=== PATIENT | female | born 1955 | race Caucasian/White ===

== ENCOUNTER → 2018-01-12 10:15 | Outpatient (CLI) | payer BC, SELFPAY ==
[2018-01-12 13:09] LABS: Anion Gap 10 (5-15); BUN 19 mg/dL (7-18); BUN/Creat Ratio 24.3 RATIO (10-20); Calcium,Total 9.3 mg/dL (8.5-10.1); Chloride 100 mmol/L (98-107); Cholesterol 155 mg/dL (200); Creatinine, Serum 0.78 mg/dL (0.55-1.02); EST Glomerular Filtration Rate 80 mL/min (>60); Est Glom Filt Rate - Afr Amer 96 mL/min (>60); Glucose 95 mg/dL (74-106); High Density Lipoprotein 50 mg/dL; Potassium 3.9 mmol/L (3.5-5.1); Sodium Level 139 mmol/L (136-145); Triglycerides 146 mg/dL; Very Low Density Lipoprotein 29 mg/dL (5-40)
== END ==
PROVIDERS: Family Provider Family Medicine; PCP Family Medicine; Visit Provider Family Medicine
DX: Z00.00 Encounter for general adult medical examination without abnormal findings (principal); E03.9 Hypothyroidism, unspecified
CPT/HCPCS: 36415; 80048; 80061; 82306; 84443

== ENCOUNTER → 2018-08-27 14:37 | Outpatient (CLI) | payer BC, SELFPAY ==
[2015-12-25 13:24] VITALS: BMI 38.5
--- NOTE | 2018-08-27 14:44 | RAD_ITS ---
STUDY: X-RAY - LEFT FOOT CLINICAL: Female, 63 years old. Left foot pain. Palpable abnormality along the dorsal aspect of the foot. TECHNIQUE: 3 view(s) of the foot. COMPARISON: None. FINDINGS: There is an enthesophyte involving the posterior superior calcaneus at the site of insertion of the Achilles tendon. Plantar spur. Normal visualized subtalar, talonavicular, calcaneocuboid, tarsal and tarsometatarsal articulations. Normal metatarsi. There is degenerative arthrosis of the metatarsophalangeal joint of the hallux . Normal tibial and fibular sesamoid bones. Normal interphalangeal joint of the great toe. Normal phalanges of the great toe. Normal second through fifth metatarsophalangeal joints. Normal interphalangeal joints and phalanges of the lesser toes. The soft tissue structures are unremarkable. RAD/Foot min 3 Views IMPRESSION: Calcaneal spurs. Degenerative changes of the first metatarsophalangeal joint. Electronically Signed: Jovan Silveira, at 9:35 EDT , Service support ,
== END ==
PROVIDERS: Family Provider Family Medicine; PCP Family Medicine; Referring Provider Family Medicine; Visit Provider Family Medicine
DX: M79.672 Pain in left foot (principal)
CPT/HCPCS: 36415; 73630; 84550

== ENCOUNTER → 2018-09-28 13:37 | Outpatient (CLI) | payer BC, SELFPAY | PROVIDERS: Family Provider Family Medicine; PCP Family Medicine; Visit Provider Family Medicine | DX: R39.9 Unspecified symptoms and signs involving the genitourinary system (principal) | CPT/HCPCS: 87086; 87088 ==

== ENCOUNTER → 2019-02-10 14:09 | Outpatient (CLI) | payer BC, SELFPAY | PROVIDERS: Family Provider Family Medicine; PCP Family Medicine; Referring Provider Nurse Practitioner Family; Visit Provider Nurse Practitioner Family | DX: R30.0 Dysuria (principal) | CPT/HCPCS: 87086; 87088; 87186 ==

== ENCOUNTER → 2019-04-05 11:56 | Outpatient (CLI) | payer BC, SELFPAY ==
--- NOTE | 2019-04-05 11:59 | US_ITS ---
HISTORY: RT NECK MASS EXAMINATION: US Head/Neck Soft Tissue TECHNIQUE: Chicas scale and color doppler imaging was performed of the right neck. 31 images. No comparisons COMPARISON: None FINDINGS: No masses are perceived. No fluid collections are demonstrated. The area around the right clavicle was imaged. US/Head/Neck Soft Tissue IMPRESSION: Normal. at 2200 Reported and signed by: Kameron Aggarwal MD Electronically Signed: Kameron Aggarwal MD at 21:59 EST Tel , Service support ,
== END ==
PROVIDERS: Family Provider Family Medicine; PCP Family Medicine; Referring Provider Family Medicine; Visit Provider Family Medicine
DX: R22.1 Localized swelling, mass and lump, neck (principal)
CPT/HCPCS: 76536

== ENCOUNTER → 2019-06-28 11:45 | Outpatient (CLI) | payer BC, SELFPAY ==
[2015-12-25 13:24] VITALS: BMI 38.5
--- NOTE | 2019-06-28 11:50 | RAD_ITS ---
STUDY: X-RAY - RIGHT KNEE REASON FOR EXAM: Female, 64 years old. CHRONIC PAIN TECHNIQUE: 4 view(s) of the knee. COMPARISON: Prior study of 07/31/2015 FINDINGS: Normal visualized distal femur. Normal visualized proximal tibia and fibula. Normal proximal tibiofibular articulation. There is moderate degenerative arthrosis of the medial femorotibial compartment with moderate joint space narrowing. There is moderate degenerative arthrosis of the lateral femorotibial compartment with moderate joint space narrowing. There is moderate degenerative arthrosis of the patellofemoral articulation. The soft tissue structures are unremarkable. RAD/Knee 4 or More Views IMPRESSION: Moderately severe tricompartmental degenerative changes of the right knee. There is severe joint space narrowing of the medial knee compartment. Osseous findings appear similar to the previous study. No suprapatellar effusion is seen at this time. Electronically Signed: Barber Gurrola MD at 23:18 EST , Service support ,
== END ==
PROVIDERS: PCP Family Medicine; Referring Provider Family Medicine; Visit Provider Family Medicine
DX: M25.561 Pain in right knee (principal)
CPT/HCPCS: 73564

== ENCOUNTER → 2019-07-05 10:13 | Outpatient (CLI) | payer BC, SELFPAY ==
[2019-07-05 08:22] VITALS: BMI 38.5
[2019-07-05 12:15] LABS: Erythrocyte Sedimentation Rate 5 mm/hr (0-30)
[2019-07-05 12:27] LABS: CRP < 2.90 mg/L (0.0-3.0); Rheumatoid Factor < 10.0 IU/mL (<15)
[2019-07-07 14:02] LABS: CCP IgG Antibodies 8 units (0-19)
[2019-07-07 14:04] LABS: ANTINUCLEAR ANTIBODIES DIRECT Positive (Negative)
== END ==
PROVIDERS: PCP Family Medicine; Referring Provider Orthopaedic Surgery; Visit Provider Orthopaedic Surgery
DX: M17.11 Unilateral primary osteoarthritis, right knee (principal); Z82.61 Family history of arthritis
CPT/HCPCS: 36415; 85652; 86038; 86140; 86200; 86431

== ENCOUNTER → 2019-07-09 10:30 | Outpatient (CLI) | payer BC, SELFPAY ==
[2019-07-05 08:22] VITALS: BMI 38.5
[2019-07-09 12:43] LABS: Absolute Lymphocyte Count 1.68 X10^3/uL (0.83-4.51); Absolute Neutrophil Count 3.3 X10^3/uL (2.0-7.7); Basophil# 0.03 X10^3/uL; Basophil% 0.5 % (0-1); Eosinophils% 3.5 % (0-5); Hematocrit 38.4 % (37-47); Hemoglobin 12.5 g/dL (12.0-15.0); Lymphocyte # 1.68 X10^3/ul (4.0); Lymphocyte % 29.5 % (19-41); Mean Corp Hgb Conc 32.6 g/dL (32-36); Mean Corpuscular Hgb 28.9 pg (27.0-32.0); Mean Corpuscular Volume 88.7 fL (81-99); Mean Platelet Vol. 9.5 fl (6.2-12.0); Monocyte# 0.51 X10^3/uL; NRBC Flagged by Analyzer 0 % (0-5); Neutrophil # 3.26 X10^3/uL (2.7-7.7); Neutrophil % 57.3 % (47-70); Platelet Count 259 K/mm3 (150-450); RBC Distribution Width CV 13.4 % (11.6-14.6); RBC Distribution Width SD 43.8 fl (35.1-43.9); Red Blood Count 4.33 M/mm3 (4.2-5.4); White Blood Count 5.7 K/mm3 (4.4-11.0)
[2019-07-09 13:20] LABS: ALB/GLOB Ratio 1.1 RATIO (0.9-2.4); AST(SGOT) 19 U/L (15-37); Alanine Aminotransfer ALT/SGPT 42 U/L (13-56); Albumin, Serum 4.1 g/dL (3.2-5.0); Alkaline Phosphatase 139 U/L (45-117); Anion Gap 5 (5-15); BUN 15 mg/dL (7-18); BUN/Creat Ratio 19.1 RATIO (10-20); Calcium,Total 9.4 mg/dL (8.5-10.1); Chloride 104 mmol/L (98-107); Creatinine, Serum 0.78 mg/dL (0.55-1.02); EST Glomerular Filtration Rate 79 mL/min (>60); Est Glom Filt Rate - Afr Amer 95 mL/min (>60); Globulin 3.8 g/dL (2.2-4.2); Glucose 85 mg/dL (74-106); Potassium 3.3 mmol/L (3.5-5.1); Protein, Total 7.9 g/dL (6.4-8.2); Sodium Level 139 mmol/L (136-145)
== END ==
PROVIDERS: PCP Family Medicine; Referring Provider Family Medicine; Visit Provider Family Medicine
DX: Z01.818 Encounter for other preprocedural examination (principal)
CPT/HCPCS: 36415; 80053; 85025

== ENCOUNTER → 2019-07-15 07:54 | Outpatient (CLI) | payer BC, SELFPAY ==
[2019-07-05 08:22] VITALS: BMI 38.5
[2019-07-13 10:26] VITALS: BMI 38.2
--- NOTE | 2019-07-15 07:55 | CT_ITS ---
STUDY: CT RIGHT KNEE WITHOUT CONTRAST REASON FOR EXAM: Female, 64 years old. RT KNEE PAIN, [facility] PROTOCOL RADIATION DOSAGE (If Supplied By Facility): CTDIvol = ( 39.05 ) mGy, DLP = ( 3063.26 ) mGycm TECHNIQUE: Transaxial CT imaging of the knee was performed. Coronal and sagittal images were reformatted. Individualized dose optimization techniques were used for this CT. COMPARISON: Comparison is made with prior radiograph of the right knee dated June 28, 2019. FINDINGS: Imaging of the right lower extremity was obtained for the [facility] protocol. The right hip joint is unremarkable. Degenerative spurring along the medial femoral condyle as well as the medial aspect of the tibial plateau. Degenerative spurring along the lateral femoral condyle and lateral tibial plateau. There is a 9 mm cyst in the medial portion of the lateral femoral condyle adjacent to the intercondylar notch. Marked degree of joint space narrowing involving the medial compartment of the knee joint. Moderate degree of osteoarthritis in joint space narrowing involving the femoral patellar joint. Normal proximal tibiofibular articulation. There is no joint effusion. The quadriceps tendon is grossly normal. The patellar tendon is grossly normal. Normal Hoffa''s fat pad. Small joint effusion. CT/Extremity Lower without Contra IMPRESSION: Marked degree of joint space narrowing involving the medial compartment of the knee joint as well as a moderate degree of the joint space narrowing involving the patellofemoral joint. Electronically Signed: Jovan Silveira, at 9:17 EST , Service support ,
[2019-07-15 18:05] LABS: Anion Gap 8 (5-15); BUN 15 mg/dL (7-18); BUN/Creat Ratio 16.4 RATIO (10-20); Calcium,Total 9.5 mg/dL (8.5-10.1); Chloride 104 mmol/L (98-107); Creatinine, Serum 0.92 mg/dL (0.55-1.02); EST Glomerular Filtration Rate 66 mL/min (>60); Est Glom Filt Rate - Afr Amer 80 mL/min (>60); Glucose 100 mg/dL (74-106); Potassium 4.4 mmol/L (3.5-5.1); Sodium Level 139 mmol/L (136-145)
== END ==
PROVIDERS: PCP Family Medicine; Referring Provider Orthopaedic Surgery; Visit Provider Orthopaedic Surgery
DX: M17.11 Unilateral primary osteoarthritis, right knee (principal); E87.6 Hypokalemia
CPT/HCPCS: 36415; 73700; 80048

== ENCOUNTER 2019-08-10 11:59 | Observation (INO) | payer BC, SELFPAY ==
[2019-07-05 08:22] VITALS: BMI 38.5
[2019-07-13 10:26] VITALS: BP 144/82; PULSE 77; RESP 16; TEMP 36.4; O2SAT 96; BMI 38.2
[2019-07-13 11:37] LABS: Thyroid Stim Hormone (TSH) 1.88 uIU/mL (0.358-3.74)
[2019-08-06 10:54] VITALS: BMI 38.2
[2019-08-10] VITALS (14 sets, daily range): BP systolic 90–137; BP diastolic 45–78; PULSE 53–93; RESP 16; TEMP 36.2–37.1; O2SAT 92–100; BMI 38.2
[2019-08-10] MEDS: Celecoxib 200 MG Capsule 400 MG PO (05:57)
[2019-08-10] MEDS: Acetaminophen 500 MG Tablet 1000 MG PO ×3 (05:58→21:53)
[2019-08-10] MEDS: Gabapentin 600 MG Tablet PO (05:58)
[2019-08-10] MEDS: Lactated Ringers 1,000 ML 100 ML IV (06:05)
[2019-08-10 06:40] LABS: Bedside Glucose 98 mg/dL (70-110)
[2019-08-10 06:51] LABS: Magnesium 2.1 mg/dL (1.6-2.6)
--- NOTE | 2019-08-10 06:56 | SUR.PREOP ---
no mag to be given per anesthesia.
[2019-08-10] MEDS: Scopolamine 1mg/72hr Patch 1 PATCH TRANSDERM. (07:30)
[2019-08-10] MEDS: Lactated Ringers 1,000 ML 125 ML IV ×3 (07:30→22:31)
--- NOTE | 2019-08-10 07:33 | HP.PCM_ITS ---
History and Physical Date of Admission: 08/10/19 Intake Vital Signs 08/06/19 BMI 38.2 Intake Visit Reasons: right knee Chief Complaint: LEFT KNEE REPLACEMENT Allergies adhesive Adverse Reaction (Verified 07/13/19 10:10) Rash sulfamethoxazole [From Bactrim] Adverse Reaction (Verified 07/13/19 10:10) Nausea/Vom/Diarrhea trimethoprim [From Bactrim] Adverse Reaction (Verified 07/13/19 10:10) Nausea/Vom/Diarrhea PFSH Medical History (Updated 07/05/19 @ 08:26 by Nuha Tang) Hypertension (Chronic) Social History (Updated 08/06/19 @ 10:[address] Sreekanth Banks DO) Smoking Status: Never smoker HPI right knee: Details: Parts of this documentation were recorded by a scribe, this documentation accurately reflects the service provided and the decisions made by me, Sreekanth Banks DO 08/06/19 0749. GWEN ROCKWELL is a 64 year old F here today for follow-up right knee she does wish to proceed with total knee arthroplasty she was told by her insurance she would not be approved for the Iovera she wishes to sign consent today. Ortho Exam Right Knee Skin/Wound: Yes CDI, No erythema, No ecchymosis, No swelling Knee ROM: Yes ROM-Extension -20 to 0, Yes ROM-Flexion 0-140 (115) Examination: Yes Med jt line tenderness, Yes Crepitus, Yes TTP Pes Anserine Stability: NML: Anterior Drawer, NML: Posterior Drawer, NML: Valgus 30, NML: Varus 30 Apprehension with Lateral Translation: No Patella Grind: No KNEE: no patellar instability. Supplemental Info 06/28/2019 x-ray right knee: Severe tricompartmental DJD joint space narrowing subchondral sclerosis and large spurs varus deformity Assessment & Plan Problems 1. Primary osteoarthritis of right knee M17.11 Plan Patient signed consent today for right total knee arthroplasty with robotic assistance. She was informed by her insurance I will vera not approved. Risks, benefits and alternatives of surgery reviewed including but not limited to bleeding, infection, nerve, artery and/or tissue damage, fracture, VTE, mechanical feel of the knee, continued pain, stiffness and expected post- operative course. All questions answered. Coding Level of Care Code Off vis,est,level 3 Diagnoses Primary osteoarthritis of right knee M17.11 ??Osteoarthritis type: primary I have re-examined the patient. There are no clinical changes since date of exam
[2019-08-10] MEDS: dexAMETHasone 10 MG/ML Vial IV (07:50)
[2019-08-10] MEDS: Bupivacaine 0.5% PF 10 ML VIAL (09:20)
[2019-08-10] MEDS: 0.9% Normal Saline (Pres. free 10 ML Vial (09:20)
[2019-08-10] MEDS: Betamethasone/Betamethasone 30 MG/5 ML Vial (09:20)
[2019-08-10] MEDS: Epinephrine (1 mg/ml) 1 MG/ML VIAL (09:20)
--- NOTE | 2019-08-10 09:42 | RAD_ITS ---
STUDY: X-RAY - RIGHT KNEE REASON FOR EXAM: Female, 64 years old. POST-OP IN PACU TECHNIQUE: AP and lateral view(s) of the knee. COMPARISON: Comparison is made with prior examination dated June 28, 2019. FINDINGS: Normal visualized distal femur. Normal visualized proximal tibia and fibula. Normal proximal tibiofibular articulation. The patient is status post total knee replacement. There is good alignment. Postoperative soft tissue changes. RAD/Knee 1 or 2 Views IMPRESSION: Status post total knee replacement. There is good alignment. Postoperative soft tissue changes. Electronically Signed: Jovan Silveira, at 12:51 EDT , Service support ,
--- NOTE | 2019-08-10 09:48 | PCM.OPRPT ---
Report of Operation Date of Procedure: 08/10/19 Description of Surgical Findings:: Preoperative diagnosis: Right knee DJD Postoperative diagnosis: [Same] Procedure: Right total knee arthroplasty CT guided Robotic Assisted Implant: [place] triathlon [press fit] femoral component size[ 4], [press-fit ]tibial baseplate size [4], [press fit ][asymmetric] patella size 35, polyethylene X3 size [9] [CS] Anesthesia: Spinal with adductor canal block Tourniquet time: 0 minutes at 300 mmHg Complications: None Condition: Stable to PACU Estimated blood loss: 150 cc Indication for procedure: This is a 64-year-old female with long standing degenerative joint disease of the knee who has failed conservative treatment and wished to proceed with elective total knee arthroplasty. Risk benefits and alternatives were reviewed including; risk of bleeding, infection, nerve artery and tissue damage, continued pain, postoperative stiffness, venous thromboembolism, need for postoperative rehabilitation, mechanical feel to the knee, and expected postoperative course. The operative CT and templating was performed with component sizing Procedure: The patient was met in the preoperative holding area. The operative extremity was identified by both patient and physician and was marked. Patient was met by anesthesia. An adductor canal block was placed by anesthesia [postoperatively] the patient was brought back to the operating room on a wheeled cart and transferred to the operating table in the supine position. Anesthesia was started. A well-padded tourniquet was placed on the operative extremity. The patient was prepped and draped in the usual sterile fashion. A timeout was called to ensure the proper patient procedure and extremity were being contemplated. An Esmarch was used to exsanguinate the extremity. The tourniquet was inflated. A 10 blade scalpel was used to make a midline incision down through the skin and subcutaneous tissue. Skin retractors placed. Bovie was used to perform meticulous hemostasis. full-thickness flaps were elevated medial and lateral along the joint capsule. A deep blade scalpel was used to perform a medial parapatellar arthrotomy. The knee was brought to full extension. A Bovie was used to release the soft tissues off the most proximal aspect of the medial tibial plateau a three-quarter inch curved osteotome was also used for this process. The infrapatellar fat pad was excised. [The fat pad was excised partially anterior lateral portion the anterior medial was elevated from the femur]. At this point our intra-articular femoral array was placed of a 45 degree angle proximal and posterior to the medial epicondyle. Our tibial array was placed greater than 1 hands breath below the incision at a 20 degree angle stab incisions were used for this case were attached and checked with the robotic software. At this point registration denis were taken throughout the knee as well as checkpoints placed in the femur and tibia once the knee was registered then tensioned the medial and lateral ligaments in extension and 90 degrees of flexion. We then used these numbers to adjust our components within parameters to balance the knee in both flexion and extension once this was done on our monitor we then proceeded with using the robotic arm to make our tibial plateau cut and anterior posterior and chamfer cuts on the femur we then trialed and achieved the desired plan with a well-balanced knee. Lug holes were drilled in the femur the tibia preparation was completed with a fin punch and the patella was prepared by first using a caliper to ensure sufficient bone stock and a patellar reamer to remove the desired amount of bone locals were drilled for an asymmetric poly-. We then brought the knee through range of motion with excellent patellar tracking. We thoroughly irrigated the knee with a trial components were removed a posterior capsular injection with her standard cocktail was performed the aqua Sarah Beth was also used to aid in hemostasis. Betadine rinse was allowed to sit and washed out components were press-fit into place. Aricept rinse was then used followed by several more rate liters of irrigation after it was allowed to sit. Joint capsule was closed with #1 Ethibond [id number] followed by Vicryl in the subcutaneous tissues staple in the skin arrays and checkpoints were removed prior to closure all counts were correct stab incisions were closed with a stable standard dressing in the form of Mepilex for the main incision Xeroform 4 x 4 and Tegaderm over pin site holes web roll and Rickey wrap applied from the foot to the groin. Patient tolerated the procedure well she was directed to PACU in stable condition no intraoperative complications
[2019-08-10] MEDS: oxyCODONE 5 MG Tablet PO ×2 (13:30→20:15)
[2019-08-10] MEDS: Loratadine 10 MG Tablet PO (13:31)
[2019-08-10] MEDS: Senna/Docusate Sodium 1 Tablet 2 TABLET PO ×2 (13:32→21:53)
[2019-08-10] MEDS: hydroCHLOROthiazide 25 MG Tablet PO (13:32)
[2019-08-10] MEDS: Cefazolin 1 GM/50 ML BAG IV (18:22)
[2019-08-10] MEDS: Losartan Potassium 100 MG Tablet PO (21:53)
[2019-08-10] MEDS: Sertraline 50 MG Tablet PO (21:53)
[2019-08-10] MEDS: amLODIPine 5 MG Tablet PO (21:53)
[2019-08-11] MEDS: Cefazolin 1 GM/50 ML BAG IV (02:51)
[2019-08-11 03:59] VITALS: BP 116/58; PULSE 64; RESP 16; TEMP 36.7; O2SAT 94
[2019-08-11] MEDS: 0.9% Saline Lock 10 ML Syringe IV (05:21)
[2019-08-11] MEDS: Acetaminophen 500 MG Tablet 1000 MG PO ×2 (05:21→13:18)
[2019-08-11] MEDS: Levothyroxine 75 MCG Tablet PO (05:21)
--- NOTE | 2019-08-11 06:34 | DCINST_ITS ---
Discharge Diet: No Restrictions Call your doctor if you observe: Fever of 101 or Higher, Shortness of breath, Chest pain Additional Instructions: Ice and elevate next week while not ambulating. Encourage ambulation weightbearing as tolerated. Encourage FULL knee extension and flexion 1 time EVERY time you get up and down and MULTIPLE times per day. Begin showering postop day #3. Remove the dressing prior to shower gently wash with warm water and antibacterial soap then pat dry place ABD pad and PILLO hose over top. This is to be done daily. do not submerge for 3 weeks. If not showering daily must clean incision and change dressing daily. Do not allow animals near incision keep clean. Follow anticoagulation recommendations. Start physical therapy as directed in the hospital. call Dr. Banks with any concerns. Allergies/Adverse Reactions: Allergies adhesive Adverse Reaction (Verified 08/10/19 05:50) Rash sulfamethoxazole [From Bactrim] Adverse Reaction (Verified 08/10/19 05:50) Nausea/Vom/Diarrhea trimethoprim [From Bactrim] Adverse Reaction (Verified 08/10/19 05:50) Nausea/Vom/Diarrhea Medications to take at Discharge Calcium Carb/Vitamin D [Caltrate-600 With Vit D Tab] 1 tab PO DAILY@0800 04/15/13 Hydrochlorothiazide [Hctz] 25 mg PO DAILY 04/15/13 Levothyroxine [Synthroid] 75 mcg PO DAILY 04/15/13 Amlodipine [Norvasc] 5 mg PO QHS 01/24/14 Cholecalciferol (VIT D3) [Vitamin D3] 1,000 unit PO DAILY 12/14/15 Magnesium 250 mg PO DAILY 12/14/15 diclofenac sodium 75 mg tablet,delayed release 75 mg PO BID 07/05/19 Albuterol IH (ProAir) [Proair Hfa] 1 - 2 puff INHALATION Q6H PRN PRN 07/13/19 Esomeprazole Mag Trihydrate [Nexium] 20 mg PO DAILY 07/13/19 Fexofenadine HCl [Stefany Allergy] 180 mg PO DAILY 07/13/19 Irbesartan [Avapro] 300 mg PO QHS 07/13/19 Potassium Chloride [Klor-Con M20] 20 meq PO BID 07/13/19 Sertraline HCl [Zoloft] 50 mg PO QHS 07/13/19 Acetaminophen [Tylenol] 1,000 mg PO Q8 #100 tab 08/11/19 Apixaban [Eliquis] 2.5 mg PO BID #28 tab 08/11/19 Oxycodone [Oxyir] 5 - 10 mg PO Q4H PRN PRN #60 tablet 08/11/19 The following prescriptions were given: Apixaban [Eliquis] 2.5 mg PO BID #28 tab Transmission Status: Pending to [facility] Oxycodone [Oxyir] 5 - 10 mg PO Q4H PRN PRN #60 tablet PRN Reason: Pain Score 4-10/10 Transmission Status: Sent to [facility] Acetaminophen [Tylenol] 1,000 mg PO Q8 #100 tab Transmission Status: Pending to [facility] Primary Care Physician: Robert Najera MD [Primary Care Provider] - Test Results: Test results from this visit will be discussed in further detail at your follow- up appointment, if applicable. Please Follow Up With: Sreekanth Banks DO - 2 weeks
--- NOTE | 2019-08-11 06:36 | DS.PCM_ITS ---
Discharge Date and Diagnosis Date of Admission: 08/10/19 Date of Discharge: 08/11/19 - Secondary Discharge Diagnosis Chronic Problems (Last Updated 07/05/19 @ 08:26 by Nuha Tang) Family history of skin cancer (Chronic) Personal history of skin cancer (Chronic) Carpal tunnel syndrome of left wrist (Chronic) Hospital Course and Treatment Summary of Care Provided: The patient is a 64 year old F the patient has with long-standing history of knee DJD and has failed conservative treatment. Patient wished to undergo elective robotic assisted total knee arthroplasty and underwent the aforementioned procedure on the admission date without complications. patient did receive pre-and postoperative antibiotics which were discontinued within 23 hours postoperatively. patient did receive a spinal anesthesia and a adductor canal block and the pain was controlled postoperatively with p.o. and IV pain medication. There was minimal intraoperative blood loss he did receive 2 g of tranexamic acid and his vital signs and labs were stable postoperatively and patient did not require a blood transfusion. patient was seen by physical therapy and did progress with his ambulation. Postoperatively was started on both mechanical and chemical DVT prophylaxis for which patient will continue Eliquis 2.5 mg twice daily for 2 additional weeks post hospital discharge. Patient Rickey wrap was removed in the morning of postop day 1 without any concerning signs. Silverlon dressing will stay on for 72 hours postoperatively at which time patient will begin showering on postop day #3 with daily dressing changes. Encouraged patient to achieve full range of motion as soon as possible, Patient will start outpatient physical therapy and will follow-up in the office in 2 weeks for wound check. There is no intrahospital complications . Subjective: Awake alert no acute distress denies chest pain shortness of breath fevers chills nausea vomiting pain controlled ambulating with physical therapy well - Physical Exam Vitals/I&O's: Vital Signs Temp Pulse Resp BP Pulse Ox 98.1 F 64 16 116/58 L 94 08/11/19 03:59 08/11/19 03:59 08/11/19 03:59 08/11/19 03:59 08/11/19 03:59 Oxygen Flow Rate (L/min) 6 Oxygen Delivery Method CPAP Weight: 236 lb 15.951 oz Body Mass Index (BMI) 38.2 Intake and Output for Last 24 Hours 08/09/19 08/10/19 08/11/19 23:59 23:59 23:59 Intake Total 3147.5 / 3647.5 1410.42 / 1410.42 Balance 3147.5 / 3647.5 1410.42 / 1410.42 General: Alert, Oriented x3, Cooperative, No apparent distress Extremities: - - Dressing clean dry and intact neurovascular intact compartments soft Laboratory Results 08/10/19 05:48: POC Glucose 98 08/10/19 06:11: Magnesium 2.1 Current Medications Acetaminophen (Tylenol) 1,000 mg PO Q8 [facility] Last Admin: 08/11/19 05:21 Dose: 1,000 mg Documented by: Albuterol Sulfate (Ventolin Aerosols) 2.5 mg INHALATION Q4H PRN PRN Reason: SOB &/OR WHEEZING Amlodipine Besylate (Norvasc) 5 mg PO QHS [facility] Last Admin: 08/10/19 21:53 Dose: 5 mg Documented by: Apixaban (Eliquis) 2.5 mg PO BID [facility] Hydrochlorothiazide (Hctz) 25 mg PO DAILY [facility] Last Admin: 08/10/19 13:32 Dose: 25 mg Documented by: Hydromorphone HCl (Dilaudid Inj) 0.5 mg IV Q2H PRN PRN PRN Reason: Pain Score 6-10/10 Lactated Ringer's () 1,000 mls @ 125 mls/hr IV .Q8H [facility] Last Admin: 08/11/19 01:17 Dose: Not Given Documented by: Lactated Ringer's () 1,000 mls @ 125 mls/hr IV .Q8H [facility] Last Infusion: 08/11/19 05:24 Dose: 0 mls/hr Documented by: Insulin Human Lispro (Humalog Kwikpen (Bk)) 1 - 6 unit SC Q4H PRN PRN; Protocol PRN Reason: BG>/= 180, SEE PROTOCOL Ketorolac Tromethamine (Toradol (Bk)) 15 mg IV Q6H PRN PRN PRN Reason: Pain Score 1-5/10 Stop: 08/12/19 09:43 Levothyroxine Sodium (Synthroid) 75 mcg PO DAILY@0600 [facility] Last Admin: 08/11/19 05:21 Dose: 75 mcg Documented by: Loratadine (Claritin) 10 mg PO DAILY [facility] Last Admin: 08/10/19 13:31 Dose: 10 mg Documented by: Losartan Potassium (Cozaar) 100 mg PO QHS [facility] Last Admin: 08/10/19 21:53 Dose: 100 mg Documented by: Ondansetron HCl (Zofran) 4 mg IV Q6H PRN PRN PRN Reason: NAUSEA Oxycodone HCl (Oxyir) 5 - 10 mg PO Q4H PRN PRN PRN Reason: Pain Score 4-10/10 Last Admin: 08/10/19 20:15 Dose: 10 mg Documented by: Pantoprazole Sodium (Protonix) 20 mg PO DAILY [facility] Senna/Docusate Sodium (Senokot-S, Brittani-Colace) 2 tablet PO BID [facility] Last Admin: 08/10/19 21:53 Dose: 2 tablet Documented by: Sertraline HCl (Zoloft) 50 mg PO QHS [facility] Last Admin: 08/10/19 21:53 Dose: 50 mg Documented by: Sodium Chloride () 10 - 40 ml IV UD PRN PRN Reason: SALINE FLUSH Last Admin: 08/11/19 05:21 Dose: 10 ml Documented by: Discharge Diet: No Restrictions Call your doctor if you observe: Fever of 101 or Higher, Shortness of breath, Chest pain Home Medications: Medications to take at Discharge Calcium Carb/Vitamin D [Caltrate-600 With Vit D Tab] 1 tab PO DAILY@0800 04/15/13 Hydrochlorothiazide [Hctz] 25 mg PO DAILY 04/15/13 Levothyroxine [Synthroid] 75 mcg PO DAILY 04/15/13 Amlodipine [Norvasc] 5 mg PO QHS 01/24/14 Cholecalciferol (VIT D3) [Vitamin D3] 1,000 unit PO DAILY 12/14/15 Magnesium 250 mg PO DAILY 12/14/15 diclofenac sodium 75 mg tablet,delayed release 75 mg PO BID 07/05/19 Albuterol IH (ProAir) [Proair Hfa] 1 - 2 puff INHALATION Q6H PRN PRN 07/13/19 Esomeprazole Mag Trihydrate [Nexium] 20 mg PO DAILY 07/13/19 Fexofenadine HCl [Stefany Allergy] 180 mg PO DAILY 07/13/19 Irbesartan [Avapro] 300 mg PO QHS 07/13/19 Potassium Chloride [Klor-Con M20] 20 meq PO BID 07/13/19 Sertraline HCl [Zoloft] 50 mg PO QHS 07/13/19 Acetaminophen [Tylenol] 1,000 mg PO Q8 #100 tab 08/11/19 Apixaban [Eliquis] 2.5 mg PO BID #28 tab 08/11/19 Oxycodone [Oxyir] 5 - 10 mg PO Q4H PRN PRN #60 tablet 08/11/19 Following Prescrptions Were Given to Patient: Apixaban [Eliquis] 2.5 mg PO BID #28 tab Transmission Status: Pending to [facility] Oxycodone [Oxyir] 5 - 10 mg PO Q4H PRN PRN #60 tablet PRN Reason: Pain Score 4-1010 Transmission Status: Sent to [facility] Acetaminophen [Tylenol] 1,000 mg PO Q8 #100 tab Transmission Status: Pending to [facility] Primary Care Physician: Robert Najera MD [Primary Care Provider] - Please Follow Up With: Sreekanth Banks, - 2 weeks Additional Instructions: Ice and elevate next week while not ambulating. Encourage ambulation weightbearing as tolerated. Encourage FULL knee extension and flexion 1 time EVERY time you get up and down and MULTIPLE times per day. Begin showering postop day #3. Remove the dressing prior to shower gently wash with warm water and antibacterial soap then pat dry place ABD pad and PILLO hose over top. This is to be done daily. do not submerge for 3 weeks. If not showering daily must clean incision and change dressing daily. Do not allow animals near incision keep clean. Follow anticoagulation recommendations. Start physical therapy as directed in the hospital. call Dr. Banks with any concerns. Medical Necessity - Tobacco Use Smoking Status: Never smoker Tobacco Use: Non-smoker Meaningful Use Info Meaningful Use Diagnoses (Choose all that apply): None applicable
[2019-08-11] MEDS: APIXABAN 2.5 MG TABLET PO (06:51)
[2019-08-11 06:54] LABS: Hematocrit 28.7 % (37-47); Hemoglobin 9.4 g/dL (12.0-15.0); Mean Corp Hgb Conc 32.8 g/dL (32-36); Mean Corpuscular Hgb 28.9 pg (27.0-32.0); Mean Corpuscular Volume 88.3 fL (81-99); Mean Platelet Vol. 9.6 fl (6.2-12.0); Platelet Count 220 K/mm3 (150-450); RBC Distribution Width SD 45.1 fl (35.1-43.9); Red Blood Count 3.25 M/mm3 (4.2-5.4); White Blood Count 10.4 K/mm3 (4.4-11.0)
[2019-08-11] MEDS: oxyCODONE 5 MG Tablet PO ×2 (06:58→13:18)
[2019-08-11 07:12] LABS: Anion Gap 6 (5-15); BUN 12 mg/dL (7-18); BUN/Creat Ratio 18.5 RATIO (10-20); Calcium,Total 8.9 mg/dL (8.5-10.1); Chloride 104 mmol/L (98-107); Creatinine, Serum 0.65 mg/dL (0.55-1.02); EST Glomerular Filtration Rate 98 mL/min (>60); Est Glom Filt Rate - Afr Amer 119 mL/min (>60); Estimated Creatinine Clearance 84.01 ml/min; Glucose 106 mg/dL (74-106); Potassium 3.8 mmol/L (3.5-5.1); Sodium Level 138 mmol/L (136-145)
[2019-08-11 08:55] VITALS: BP 115/59; PULSE 62; PULSE 76; RESP 18; TEMP 36.8; O2SAT 98
--- NOTE | 2019-08-11 09:50 | CASEMGMT ---
RN CM Face to Face with patient for initial transition planning/care coordination assessment. RN CM introduced self and role at [facility]. Patient sitting in chair, alert and oriented. Patient willing to participate in assessment and is able to answer all questions appropriately. Care providers, pharmacy, and demographics verified. Patient wishes to discharge home and is setup with [facility] for outpatient therapy. Patient states he has no further needs or concerns at this time. CM to follow for discharge planning needs that may arise. PCP: Specialists: Reinaldo Huggins Pharmacy: [facility] Insurance: [employer] Prescription Benefit: yes Living Will/HPOA: yes, daughter Ayana Cabrera LNOK: daughter, sister Living Arrangements: Patient lives with sister in single floor apartment with 1 step to enter. Patient independent at home prior to surgery Transportation: sister, boyfriend DME/HHC: Patient states she has tub bench, raised toilet, cane, walker, hip kit, cpap and nebulizer at home. Patient is setup with [facility] for outpatient therapy for Friday Disposition Plan: Patient to discharge home with outpatient therapy, family support, and follow-up plans in place. Ila ALASN, RN, CM
[2019-08-11] MEDS: Loratadine 10 MG Tablet PO (10:29)
[2019-08-11] MEDS: hydroCHLOROthiazide 25 MG Tablet PO (10:29)
[2019-08-11] MEDS: Pantoprazole Sodium 20 MG Tablet PO (10:29)
[2019-08-11] MEDS: Senna/Docusate Sodium 1 Tablet 2 TABLET PO (10:29)
[2019-08-11 13:41] VITALS: BP 127/59; PULSE 81; RESP 18; TEMP 36.9; O2SAT 100
== END 2019-08-11 13:53 | disposition home or self-care (01) ==
LOC: SDC 13:59 → MS3 14:01
PROVIDERS: Anesthesiology; Admitting Provider Orthopaedic Surgery; PCP Family Medicine; Referring Provider Orthopaedic Surgery; Visit Provider Orthopaedic Surgery
PROC: 0SRC0JZ Replacement of Right Knee Joint with Synthetic Substitute, Open Approach (ICD-10-PCS; CPT 27447; principal; 2019-08-10 07:00)
DX: M17.11 Unilateral primary osteoarthritis, right knee (principal); I10 Essential (primary) hypertension; Z79.899 Other long term (current) drug therapy; G47.30 Sleep apnea, unspecified; K58.9 Irritable bowel syndrome, unspecified; F41.9 Anxiety disorder, unspecified; F32.9 Major depressive disorder, single episode, unspecified; E03.9 Hypothyroidism, unspecified
CPT/HCPCS: 01400; 27447; 64447; S2900; 36415; 73560; 80048; 82962; 83735; 84443; 85027; 87081; 96361; 96365; 96366; 97116; 97162; 97166; 97530; 99218; 99251; C1776; J7120; A4216; G0378; G0379; G0463; J0702; J3490

== ENCOUNTER → 2020-03-08 10:57 | Outpatient (CLI) | payer BC, SELFPAY ==
[2019-11-24 09:40] VITALS: BMI 38.2
[2020-03-08 12:44] LABS: AST(SGOT) 18 U/L (15-37); Alanine Aminotransfer ALT/SGPT 35 U/L (13-56); Albumin, Serum 3.8 g/dL (3.2-5.0); Alkaline Phosphatase 149 U/L (45-117); Anion Gap 7 (5-15); BUN 18 mg/dL (7-18); BUN/Creat Ratio 23.6 RATIO (10-20); Calcium,Total 9.4 mg/dL (8.5-10.1); Chloride 104 mmol/L (98-107); Creatinine, Serum 0.76 mg/dL (0.55-1.02); EST Glomerular Filtration Rate 81 mL/min (>60); Est Glom Filt Rate - Afr Amer 98 mL/min (>60); Globulin 3.7 g/dL (2.2-4.2); Glucose 88 mg/dL (74-106); Potassium 3.3 mmol/L (3.5-5.1); Protein, Total 7.5 g/dL (6.4-8.2); Sodium Level 139 mmol/L (136-145)
== END ==
PROVIDERS: PCP Family Medicine; Referring Provider Family Medicine; Visit Provider Family Medicine
DX: I10 Essential (primary) hypertension (principal)
CPT/HCPCS: 36415; 80053

== ENCOUNTER → 2020-04-20 15:59 | Outpatient (CLI) | payer BC, SELFPAY ==
[2019-11-24 09:40] VITALS: BMI 38.2
== END ==
PROVIDERS: PCP Family Medicine; Visit Provider Family Medicine
DX: Z20.828 Contact with and (suspected) exposure to other viral communicable diseases (principal)
CPT/HCPCS: 87635; U0003

== ENCOUNTER → 2020-07-05 | Outpatient (CLI) | payer OTHER, SELFPAY ==
[2019-11-24 09:40] VITALS: BMI 38.2
== END | disposition home or self-care (01) ==
LOC: LABSPEC 10:46
PROVIDERS: PCP Family Medicine; Referring Provider Family Medicine; Visit Provider Family Medicine
DX: N39.0 Urinary tract infection, site not specified (principal)
CPT/HCPCS: 87086; 87088

== ENCOUNTER → 2020-10-11 11:55 | Outpatient (CLI) | payer OTHER, SELFPAY ==
[2020-10-11 11:14] VITALS: BMI 38.2
--- NOTE | 2020-10-11 11:56 | RAD_ITS ---
STUDY: X-RAY - LEFT FOOT CLINICAL: Female, 65 years old. mass on dorsal left foot, proximal to 2nd toe TECHNIQUE: 3 view(s) of the foot. COMPARISON: Left foot x-ray dated August 27, 2018 FINDINGS: A small plantar calcaneal spur is reidentified. Moderate enthesopathy noted at the Achilles tendon insertion site. Mild osteophyte formation is present over the dorsum of the midfoot and first and second cuneiform articulations. Normal talus, calcaneus, and tarsal bones. Normal visualized subtalar, talonavicular, calcaneocuboid, tarsal and tarsometatarsal articulations. Normal metatarsi. There is mild narrowing of the first MTP joint space. Moderate size cortical osteophytes of the sesamoid bones of the first metatarsal bone noted. Normal tibial and fibular sesamoid bones. Normal interphalangeal joint of the great toe. Normal phalanges of the great toe. Normal second through fifth metatarsophalangeal joints. Normal interphalangeal joints and phalanges of the lesser toes. The soft tissue structures are unremarkable. There is no demonstrated fracture. RAD/Foot min 3 Views IMPRESSION: Mild degenerative changes Electronically Signed: Brad Monreal MD at 22:17 EDT , Service support ,
== END ==
PROVIDERS: PCP Family Medicine; Referring Provider Nurse Practitioner Family; Visit Provider Nurse Practitioner Family
DX: R22.42 Localized swelling, mass and lump, left lower limb (principal)
CPT/HCPCS: 73630

== ENCOUNTER 2020-11-10 09:36 | Day surgery (SDC) | payer OTHER, SELFPAY ==
[2020-10-11 11:14] VITALS: BMI 38.2
--- NOTE | 2020-11-09 20:58 | PCM.HP.BLA ---
History and Physical Date of Admission: 11/10/20 HISTORY OF PRESENT ILLNESS 65 year old woman presents with a soft tissue mass proximal dorsum left foot by second toe that has increased in size over the last several months. She states there is increasing pain with ambulation which affects her activities of daily living. She denies trauma. She denies fever. She denies numbness. She denies any infection. She had a left foot x-ray on 10/11/20 which showed mild degenerative changes. PAST MEDICAL HISTORY Carpal tunnel syndrome of left wrist Ganglion cyst of left foot Hypertension Personal history of skin cancer PAST SURGICAL HISTORY basal cell carcinoma excision carpal tunnel surgery of left wrist carpal tunnel surgery of right wrist D&C endometrial ablation excision of lesion hand surgery laparoscopic cholecystectomy tonsillectomy total left knee replacement total right knee replacement ALLERGIES adhesive sulfamethoxazole [From Bactrim] trimethoprim [From Bactrim] MEDICATIONS calcium carbonate-vitamin D3 hydrochlorothiazide levothyroxine amlodipine cholecalciferol (vitamin D3) magnesium diclofenac sodium albuterol sulfate esomeprazole magnesium fexofenadine irbesartan potassium chloride sertraline acetaminophen diclofenac potassium FAMILY HISTORY Rheumatoid arthritis Diabetes Hypertension Heart disease Ovarian cancer Family history of skin cancer SOCIAL HISTORY Smoking Status: Never smoker alcohol intake: current substance use type: does not use REVIEW OF SYSTEMS General - Denies fever, fatigue, and weight loss. Eyes - Denies cataracts and glaucoma. ENT - Denies nasal congestion and sore throat. Has chronic sinus problems. Endocrine - Denies excessive thirst and urination. Has borderline diabetes. Has high cholesterol Has high trigylcerides. Skin - Denies suspicious lesions. Has personal history of skin cancer. Has family history of skin cancer. Had excision left axillary hidradenitis. Musculoskeletal - Denies joint pain, joint stiffness, weakness of muscles and joints. Has back pain, and arthritis. Had bilateral carpal tunnel surgery. Had deQuervain's release bilateral forearms. Neuro - Denies headaches. Cardiovascular - Denies chest pain, fatigue, and shortness of breath with exertion. Psych - Denies anxiety and depression. Respiratory - Denies chronic cough and shortness of breath. Has asthma. Gastrointestinal - Denies nausea, vomiting, diarrhea, and constipation. Has IBS. Has GERD. Hematologic - Denies abnormal bruising and bleeding. Genitourinary - Denies hematuria and urinary frequency. History of UTI's. Had D&C and endometrial ablation. PHYSICAL EXAMINATION General - Alert and Oriented HEENT - PERRL. EOMI. Throat is clear. No suspicious lesions noted. Neck - Supple and nontender. No cervical adenopathy. No suspicious lesions noted. Chest wall - No suspicious lesions noted. Lungs - Clear to auscultation. Slightly increased expiratory phase. No wheezing. Heart - Regular rate and rhythm. Abdomen - Soft and nondistended. Extremities - FROM. No axillary adenopathy. Radial pulses are palpable. No suspicious lesions noted. No inguinal adenopathy. Dorsalis pedis pulses are palpable. On the proximal dorsum left foot by second toe is a soft tissue mass that is clinically consistent with a ganglion cyst. Measures 2 cm. It is mobile. No ulceration. Mild tenderness to palpation. No sensory deficits noted. Back - No suspicious lesions noted. Neuro - CN II-XII grossly intact. Psych - Normal mood and affect. ASSESSMENT 1. 2 cm painful ganglion cyst proximal dorsum left foot by second toe. 2. Personal history of skin cancer. 3. Family history of skin cancer. PLAN Patient has a painful ganglion cyst proximal dorsum left foot by second toe that is affecting her activities of daily living. Recommend excision of this painful ganglion cyst and send it to Pathology for analysis to rule out carcinoma. Surgery can be done on an outpatient basis under general anesthesia and tourniquet control. She will need an x-ray preoperatively to look for any bony abnormalities. Patient was informed of the risks and complications of the procedure including alternatives to surgery. These were discussed with the patient personally. Patient voices understanding and wishes to proceed. Some of the risks and complications were included in a form from the [place] [employer]. Some of the risks and complications that were discussed included but were not inclusive of failure to diagnose including symptom relief, pain, infection, numbness, stiffness, loss of digit, RSD (CRPS), need for further surgery, contracture, and wound healing problems. We discussed the current risks associated with COVID-19. While it is understood that there is a community spread of COVID-19, the risk of tian COVID-19 while at [facility] ([facility]) is very low; however, the risk cannot be completely mitigated because of the community spread of the disease. We discussed in detail the risk of exposure to and/or potential harm posed by the COVID-19 virus with having a surgery/procedure at this time versus the risk of delaying the surgery/procedure. It is not possible to know either the risk of delaying the surgery or procedure or chance of getting an infection with perfect accuracy, but a joint decision was made to proceed at this time with the scheduled surgery/procedure as indicated on the consent form. Patient was notified that we will need to comply with any screening or testing WC wishes to perform or that surgery may be delayed for any positive results. Discussed with the patient that I was tested for COVID-19 on 12/02/19 which was negative and on 12/16/19 which was negative and on 12/30/19 which was negative and on 01/13/20 which was negative and on 01/27/20 which was negative and on 02/17/20 which was negative and on 03/09/20 which was negative and on 04/13/20 which was negative and on 05/04/20 which was negative and on 05/23/20 which was negative. My testing regimen at this time is to be COVID-19 tested every 2 weeks or so. I received the COVID-19 vaccine (Moderna) on 05/31/20 and the second vaccine dose was received on 06/28/20. When I was hospitalized on 07/31/20 I was tested for COVID-19 which was negative. I was also tested for COVID-19 on 08/15/20 which was negative and on 09/11/20 which was negative. Procedure Criteria Procedure Type: Elective COVID Risk Discussion: The surgeon/proceduralist and patient have discussed in detail the risk of exposure to and/or potential harm posed by the COVID-19 virus with having a surgery/procedure at this time versus the risk of delaying the surgery/procedure. It is not possible to know either the risk of delaying the surgery or procedure or chance of getting an infection with perfect accuracy, but a joint decision was made between the patient and the surgeon/proceduralist to proceed at this time with the scheduled surgery/procedure as indicated on the consent form.
[2020-11-10] VITALS (7 sets, daily range): BP systolic 120–140; BP diastolic 63–82; PULSE 66–83; RESP 14–16; TEMP 36.2–37.1; O2SAT 94–98; BMI 36.8
--- NOTE | 2020-11-10 | GANG_PTH ---
PATIENT: GWEN ROCKWELL LOC: [facility] – [place] U#:[id number] AGE/SX: 65/F ROOM: RE11/10/[address]: Dr. Wilman Morse MD : 1955 BED: DIS: 11/10/2020 SPEC #: [id number] RECD: 11/10/20 15:53 STATUS: KURT REEleuterio #: [id number] CT: 11/10/20 00:[address]: Wilman Morse DEPT: SURGICAL PATHOLOGY RECD BY: Meng Loera ENTERED: 11/13/20 09:48 SP TYPE: GANGLION OTHR DR: Dr. Robert Najera MD Tissues: GANGLION CYST Procedures: Surgery Specimen Level III HEADER OPERATION: Excision ganglion cyst dorsum left foot PRE-OP DIAGNOSIS: Ganglion cyst proximal dorsum left foot TISSUE SUBMITTED: Ganglion cyst left foot MICROSCOPIC DIAGNOSIS Ganglion cyst left foot, excision: Fragments of fibroconnective tissue, cartilaginous tissue, reactive synovial tissue with focal changes suggestive of ganglion cyst and bone. SALMA:dayna 11/14/2020 COMMENT Case has been reviewed in consultation with Dr. Marsh who concurs with the above diagnosis. IDC:AM MICROSCOPIC DESCRIPTION Slides are reviewed. GROSS DESCRIPTION Received in fixative is one container labeled with the patient's name and designated ganglion cyst left foot. The specimen consists of multiple irregular fragments of oakes, indurated tissue that in aggregate measure 2 x 1.5 x 0.3 cm. The specimen is totally submitted in one cassette. / SALMA:dayna 11/13/20 TC:5 CPT: 53477
[2020-11-10] MEDS: Cefazolin 2 GM in 0.9% Normal Saline 100 ML IV (01:00)
[2020-11-10] MEDS: Lidocaine 1% /Epi 1:100 (20ml) 20 ML Vial (01:47)
[2020-11-10] MEDS: Mupirocin Ointment 22gm Tube 1 APPLIC (01:48)
[2020-11-10] MEDS: Lactated Ringers 1,000 ML 100 ML IV (10:35)
--- NOTE | 2020-11-10 14:00 | PCM.OPRPT ---
Problems Associated Problem List Diagnoses (1) Ganglion cyst of left foot: (2) Personal history of skin cancer: (3) Family history of skin cancer: Report of Operation Date of Procedure: 11/10/20 Pre-Operative Diagnosis: 1. 2 cm painful ganglion cyst proximal dorsum left foot by second toe. 2. Personal history of skin cancer. 3. Family history of skin cancer. Post-Operative Diagnosis: Same. Surgery/Procedure Performed:: Excision 2 cm painful ganglion cyst proximal dorsum left foot by second toe. Description of Surgical Findings:: 65 year old woman presents with a soft tissue mass proximal dorsum left foot by second toe that has increased in size over the last several months. She states there is increasing pain with ambulation which affects her activities of daily living. She denies trauma. She denies fever. She denies numbness. She denies any infection. X-ray left foot on 10/11/20 showed mild degenerative changes. Patient was informed of the risks and complications of the procedure including alternatives to surgery. These were discussed with the patient personally. Patient voices understanding and wishes to proceed. Some of the risks and complications were included in a form from the [place] [employer]. Some of the risks and complications that were discussed included but were not inclusive of failure to diagnose including symptom relief, pain, infection, numbness, stiffness, loss of digit, RSD (CRPS), need for further surgery, contracture, and wound healing problems. Total tourniquet time - 24 minutes. Surgeon: Wilman Morse mortgage funder: None Type of Anesthesia: General Specimen's removed: Painful ganglion cyst proximal dorsum left foot by second toe to Pathology. Drains: None. Estimated Blood Loss (mL): 5. Description of Procedure: Patient was taken to OR in supine position and was placed under general anesthesia. The left foot was prepped and draped in the usual fashion. SCD's were placed for DVT prophylaxis. Perioperative antibiotics were given intravenously. The tourniquet was elevated to 250 mmHg. Using xylocaine with epinephrine, the mass was infiltrated. After waiting 5 minutes for the anesthetic to take effect, I made a longitudinal incision over the mass on the proximal dorsum left foot by second toe. Dissection was carried down into the subcutaneous tissue. The dorsalis pedis artery was seen and preserved. Further dissection was done medial to the artery. The mass which was clinically consistent with a ganglion cyst was excised. I dissected out the stalk down to the cuneiform bone and base of metatarsal bone. Some bony spurs were noted and were excised along with a cuff of capsule to minimize recurrence. A rongeur was used to remove the bony spurs to minimize pain after surgery. A rasp was used to smooth out the bony edges. The mass and bone was sent to Pathology for analysis to rule out carcinoma. The wound was irrigated with saline. The tourniquet was released after 24 minutes. Hemostasis was obtained with electrocautery. The wound was closed in a layered fashion with 3-0 Monocryl interrupted sutures for the deep dermis and subcutaneous tissue. The skin was approximated with 3-0 Nylon simple interrupted sutures. Antibiotic ointment was applied to the suture line followed by 4x4 gauze and a Kerlix gauze followed by a compression sherrie wrap. Patient tolerated the procedure well and was sent to PACU in satisfactory condition. Patient will be sent home on antibiotics and pain medication. She will keep her left foot elevated during the initial postoperative period. Patient will followup in a week for a wound check and for discussion of the pathology report. The sutures will be removed in two weeks. Grafts/Implants Used: None. Complications None. Admit VTE Documentation VTE Present on Admission: No VTE Mechan Device Prophylaxis: SCD's VTE Pharm Prophylaxis ordered?: No Addendum Addendum: Surgery Charges CPT - 90842 ICD-10 - M67.472, Z85.828, Z80.8
--- NOTE | 2020-11-10 14:06 | DCINST_ITS ---
Discharge Instructions Diet Discharge Diet: No restrictions Activity Discharge Activity: May Not Drive (when taking pain medication.) May shower in (days): 1 (wear plastic bag over left leg when showering.) May resume sexual activity in: No Restrictions Weight Bearing Status: Weight bearing as tolerated Keep extremity elevated above heart level: Left Leg Dressing / Incision Call your doctor if your incision/area has: Continuous Slow Oozing, Sudden Increased Bleeding, Increased Pain/ Swelling, Increased Redness, Foul Smelling D ischarge and Swelling at the incision site Call your doctor if you observe: Fever of 101 or Higher, Coldness, Increased Pain, Shortness of breath, Chest pain, Calf discomfort and Uncontrolled pain Change Dressing in: 1 week (will change operative dressing in the office.) Remove Dressing in: 1 week (will remove operative dressing in the office.) Cleanse incision/area with: Keep Dressing Clean & Dry (wear plastic bag over left foot when showering.) Follow Up Care Please Follow Up With: Wilman Morse MD When: one week. call [phone] for appt. Test Results: Test results from this visit will be discussed in further detail at your follow-up appointment, if applicable. Discharge Plan Admission Attending Provider: Wilman Morse Primary Care Provider: Robert Najera Discharge Orders/Prescriptions Prescriptions: New doxycycline monohydrate 100 mg capsule 100 mg PO BID Qty: 8 RF: 0 oxycodone-acetaminophen [Percocet] 5-325 mg tablet 1 tab PO Q4H PRN (Reason: pain (scale score 7-10)) 7 Days Qty: 40 RF: 0 Continued diclofenac sodium 75 mg tablet,delayed release (DR/EC) 75 mg PO BID RF: 0 levothyroxine 50 MCG tablet 75 mcg PO DAILY RF: 0 hydrochlorothiazide 25 MG tablet 25 mg PO DAILY RF: 0 calcium carbonate-vitamin D3 1 TAB tablet 1 tab PO DAILY@0800 RF: 0 amlodipine 5 MG tablet 5 mg PO QHS RF: 0 magnesium 250 MG tablet 250 mg PO DAILY RF: 0 cholecalciferol (vitamin D3) 1,000 UNIT tablet 1,000 unit PO DAILY RF: 0 fexofenadine 180 MG tablet 180 mg PO DAILY RF: 0 albuterol sulfate 1 PUFF inhaler 1 - 2 puff inhalation Q6H PRN PRN (Reason: Sob &/Or Wheezing) RF: 0 sertraline 50 MG tablet 50 mg PO QHS RF: 0 irbesartan 300 MG tablet 300 mg PO QHS RF: 0 esomeprazole magnesium 20 MG capsule 20 mg PO DAILY RF: 0 potassium chloride 20 MEQ tablet,ER particles/crystals 20 meq PO TUTH RF: 0 simvastatin 20 mg Tablet 20 mg PO QHS RF: 0 Referrals / Follow Up: Robert Najera MD [Primary Care Provider] - Disposition Disposition (needs filled in before D/C Order can be placed): Home, self care
== END 2020-11-10 16:15 | disposition home or self-care (01) ==
LOC: SDC 09:37 → AC 09:43
PROVIDERS: PCP Family Medicine; Referring Provider Surgery; Visit Provider Surgery
PROC: (CPT 28090; principal; 2020-11-10 11:10)
DX: M67.472 Ganglion, left ankle and foot (principal); J44.9 Chronic obstructive pulmonary disease, unspecified; I10 Essential (primary) hypertension; E78.00 Pure hypercholesterolemia, unspecified; E07.9 Disorder of thyroid, unspecified; K21.9 Gastro-esophageal reflux disease without esophagitis; Z20.822 Contact with and (suspected) exposure to COVID-19; Z79.890 Hormone replacement therapy; Z79.899 Other long term (current) drug therapy; Z88.1 Allergy status to other antibiotic agents; Z88.2 Allergy status to sulfonamides; Z85.828 Personal history of other malignant neoplasm of skin; Z96.653 Presence of artificial knee joint, bilateral
CPT/HCPCS: 28090; 87426; 88304; C9803; J7120; J2405

== ENCOUNTER → 2020-12-21 | Outpatient (CLI) | payer OTHER, SELFPAY ==
[2020-12-21 10:56] VITALS: BMI 36.8
== END | disposition home or self-care (01) ==
LOC: LABSPEC 11:41
PROVIDERS: PCP Family Medicine; Visit Provider Nurse Practitioner Family
DX: T81.89XA Other complications of procedures, not elsewhere classified, initial encounter (principal); R22.42 Localized swelling, mass and lump, left lower limb; Y83.8 Other surgical procedures as the cause of abnormal reaction of the patient, or of later complication, without mention of misadventure at the time of the procedure; Y92.9 Unspecified place or not applicable
CPT/HCPCS: 87070; 87075; 87077; 87186; 87205

== ENCOUNTER → 2021-02-15 | Outpatient (CLI) | payer OTHER, SELFPAY | END | disposition home or self-care (01) | LOC: LABSPEC 16:58 | PROVIDERS: PCP Family Medicine; Visit Provider Nurse Practitioner Family | DX: L97.522 Non-pressure chronic ulcer of other part of left foot with fat layer exposed (principal); M67.472 Ganglion, left ankle and foot; Z85.828 Personal history of other malignant neoplasm of skin; Z80.8 Family history of malignant neoplasm of other organs or systems | CPT/HCPCS: 87070; 87075; 87205 ==

== ENCOUNTER 2021-05-22 18:14 | Outpatient (CLI) | payer OTHER, SELFPAY ==
[2021-05-22] MEDS: 0.9% Saline Lock 10 ML Syringe IV (18:22)
[2021-05-22 18:23] VITALS: BP 127/73; PULSE 72; RESP 18; TEMP 36.4; O2SAT 97; BMI 41.1
[2021-05-22 19:19] VITALS: BP 119/59; PULSE 67; RESP 16; TEMP 36.4; O2SAT 93
[2021-05-22 20:10] VITALS: BP 125/69; PULSE 65; RESP 16; TEMP 36.6; O2SAT 94
== END 2021-05-22 20:15 | disposition home or self-care (01) ==
LOC: MS3OUT 18:14 → MS3 18:15
PROVIDERS: PCP Family Medicine; Visit Provider Nurse Practitioner Adult Health
DX: Z23 Encounter for immunization (principal); U07.1 COVID-19; J44.9 Chronic obstructive pulmonary disease, unspecified
CPT/HCPCS: J7050; M0245; Q0245; A4216

== ENCOUNTER 2021-06-25 15:55 | Outpatient (CLI) | payer BC, SELFPAY ==
--- NOTE | 2021-06-25 16:19 | CT_ITS ---
EXAM: CT ANGIOGRAPHY CHEST WITHOUT AND WITH INTRAVENOUS CONTRAST CLINICAL INDICATION: SUSPECTED PULMONARY EMBOLISM R09.89 TECHNIQUE: Helically acquired angiography images were obtained of the chest without and with intravenous contrast. This CT exam was performed using one or more of the following dose reduction techniques: automated exposure control, adjustment of the mA and/or kV according to patient size, and/or use of iterative reconstruction technique. This report was created using Coull report generation technology. MIP reconstructed images were created and reviewed. CONTRAST: IV 100mL Isovue-370 COMPARISON: None. FINDINGS: PULMONARY ARTERIES: No demonstrated pulmonary embolism or arterial dissection. AORTA: There is atherosclerotic calcification of the aortic arch with tortuosity and elongation of the aortic arch and descending thoracic aorta. Normal in caliber. No evidence of dissection. GREAT VESSELS OF AORTIC ARCH: Unremarkable. Normal in caliber. No evidence of dissection. LUNGS AND PLEURAL SPACES: There is bilateral pneumonia. No mass. No pleural effusion or thickening. HEART: There are calcifications of the coronary arteries. No pericardial effusion. No signs of right heart strain, ratio of right ventricle to left ventricle measures less than 1. MEDIASTINUM: Unremarkable. No mediastinal or hilar adenopathy. Esophagus is unremarkable. No hiatal hernia. THYROID: Unremarkable. No thyroid lesions. BONES/JOINTS: There are degenerative findings of the thoracic spine. No suspicious lytic or blastic abnormality. CT/CTA Chest W/WO Contrast IMPRESSION: 1. No demonstrated pulmonary embolism or arterial dissection. 2. There is bilateral pneumonia. Electronically Signed: Thiago Tamayo MD at 16:51 EST , Service support ,
[2021-06-25 16:20] LABS: CREATININE FINGERSTICK < 0.6 mg/dL (0.55-1.02); EGFR FINGERSTICK > 60.0000 mL/min (>60)
== END 2021-06-25 23:59 | disposition short-term general hospital (02) ==
LOC: CT 15:59
PROVIDERS: PCP Family Medicine; Referring Provider Family Medicine; Visit Provider Family Medicine
DX: R09.89 Other specified symptoms and signs involving the circulatory and respiratory systems (principal)
CPT/HCPCS: 71275; Q9967

== ENCOUNTER → 2021-11-09 | Outpatient (CLI) | payer BC, SELFPAY ==
[2021-11-09 10:19] LABS: Absolute Lymphocyte Count 1.69 X10^3/uL (0.83-4.51); Absolute Neutrophil Count 3.4 X10^3/uL (2.0-7.7); Basophil# 0.05 X10^3/uL; Basophil% 0.9 % (0-1); Eosinophils% 3.4 % (0-5); Hematocrit 39.3 % (37-47); Hemoglobin 13.4 g/dL (12.0-15.0); Lymphocyte # 1.69 X10^3/ul (0.83-4.51); Lymphocyte % 28.8 % (19-41); Mean Corp Hgb Conc 34.1 g/dL (32-36); Mean Corpuscular Hgb 29.2 pg (27.0-32.0); Mean Corpuscular Volume 85.6 fL (81-99); Mean Platelet Vol. 9.5 fl (6.2-12.0); Monocyte# 0.56 X10^3/uL; Monocyte% 9.5 % (0-10); NRBC Flagged by Analyzer 0 % (0-5); Neutrophil # 3.36 X10^3/uL (2.7-7.7); Neutrophil % 57.2 % (47-70); Platelet Count 219 K/mm3 (150-450); RBC Distribution Width CV 13.5 % (11.6-14.6); RBC Distribution Width SD 41.9 fl (35.1-43.9); Red Blood Count 4.59 M/mm3 (4.2-5.4); White Blood Count 5.9 K/mm3 (4.4-11.0)
[2021-11-09 10:53] LABS: Vitamin D,25 Hydroxy 43.3 ng/mL
[2021-11-09 11:08] LABS: ALB/GLOB Ratio 1.2 RATIO (0.9-2.4); AST(SGOT) 19 U/L (15-37); Alanine Aminotransfer ALT/SGPT 32 U/L (13-56); Albumin, Serum 4.1 g/dL (3.2-5.0); Alkaline Phosphatase 148 U/L (45-117); Anion Gap 8 (5-15); BUN 14 mg/dL (7-18); BUN/Creat Ratio 19.1 RATIO (10-20); Calcium,Total 9.6 mg/dL (8.5-10.1); Chloride 102 mmol/L (98-107); Cholesterol 168 mg/dL (200); Creatinine, Serum 0.73 mg/dL (0.55-1.02); EST Glomerular Filtration Rate 85 mL/min (>60); Est Glom Filt Rate - Afr Amer 103 mL/min (>60); Free T3 2.9 pg/mL (2.18-3.98); Globulin 3.5 g/dL (2.2-4.2); Glucose 90 mg/dL (74-106); High Density Lipoprotein 51 mg/dL; Potassium 3.8 mmol/L (3.5-5.1); Protein, Total 7.6 g/dL (6.4-8.2); Sodium Level 138 mmol/L (136-145); T4 Free Direct 1.05 ng/dL (0.76-1.46); Thyroid Stim Hormone (TSH) 1.77 uIU/mL (0.358-3.74); Triglycerides 199 mg/dL; Very Low Density Lipoprotein 40 mg/dL (5-40)
== END | disposition home or self-care (01) ==
LOC: LAB 09:19
PROVIDERS: PCP Family Medicine; Visit Provider Family Medicine
DX: E03.9 Hypothyroidism, unspecified (principal); E78.5 Hyperlipidemia, unspecified; E55.9 Vitamin D deficiency, unspecified; Z51.81 Encounter for therapeutic drug level monitoring
CPT/HCPCS: 36415; 80053; 80061; 82306; 84439; 84443; 84481; 85025

== ENCOUNTER → 2022-07-23 | Outpatient (CLI) | payer MEDICARE, SELFPAY ==
--- NOTE | 2022-07-23 13:44 | BD_ITS ---
STUDY: DUAL ENERGY X-RAY ABSORPTIOMETRY / DXA REASON FOR EXAM: Female, 67 years old. M810 TECHNIQUE: Bone Mineral Density (BMD) measurements of lumbar spine and bilateral hips were obtained. COMPARISON: None. FINDINGS: Lumbar Spine (L1-L4): g/cm2 (0.867) / T-score (-2.1) / Z-score (-0.2) Findings are suggestive of normal bone density with a moderate fracture risk. Left Femur Total: g/cm2 (0.934) / T-score (-0.1) / Z-score (1.2) Left Femoral Neck: g/cm2 (0.589) / T-score (-2.3) / Z-score (-0.8) Right Femur Total: g/cm2 (0.905) / T-score (-0.3) / Z-score (0.9) Right Femoral Neck: g/cm2 (0.717) / T-score (-1.2) / Z-score (0.3) BD/Dexa Bone Density Study IMPRESSION: The patient is considered osteopenic as outlined below according to World Reji Organization (WHO) criteria with a high fracture risk. Reference Information: The T-score is the number of standard deviations above or below the standard which is normal for young adults at their peak bone mineral density. The World Health Organization (WHO) interprets the T-scores as follows: Above -1 Normal bone density Between -1 and -2.5 Osteopenia Equal to / or below -2.5 Osteoporosis As a practical clinical guideline, osteopenia may be graded as follows: Mild -1 through -1.5 Moderate -1.6 through -2.0 Severe -2.1 through -2.4 The Z-score is the number of standard deviations above or below age-matched controls. A Z-score of less than -1.5 would be considered abnormal. References: 1. NIH Osteoporosis and Related Bone Diseases www osteo.org 2. International Society for Clinical Densitometry www iscd.org 3. National Osteoporosis Foundation www nof.org Electronically Signed: Jovan Silveira MD at 14:52 EST ,
== END | disposition home or self-care (01) ==
PROVIDERS: PCP Family Medicine; Visit Provider Family Medicine
DX: M81.0 Age-related osteoporosis without current pathological fracture (principal)
CPT/HCPCS: 77080

== ENCOUNTER → 2022-07-30 | Outpatient (CLI) | payer MEDICARE, SELFPAY ==
[2022-07-30 12:27] LABS: Absolute Lymphocyte Count 1.81 X10^3/uL (0.83-4.51); Absolute Neutrophil Count 3.1 X10^3/uL (2.0-7.7); Basophil# 0.04 X10^3/uL; Basophil% 0.7 % (0-1); Eosinophil# 0.17 X10^3/uL; Hematocrit 41.5 % (37-47); Hemoglobin 13.4 g/dL (12.0-15.0); Lymphocyte # 1.81 X10^3/ul (0.83-4.51); Lymphocyte % 31.8 % (19-41); Mean Corp Hgb Conc 32.3 g/dL (32-36); Mean Corpuscular Hgb 28.9 pg (27.0-32.0); Mean Corpuscular Volume 89.4 fL (81-99); Mean Platelet Vol. 10.6 fl (6.2-12.0); Monocyte# 0.56 X10^3/uL; Monocyte% 9.8 % (0-10); NRBC Flagged by Analyzer 0 % (0-5); Neutrophil % 54.5 % (47-70); Platelet Count 222 K/mm3 (150-450); RBC Distribution Width CV 13.7 % (11.6-14.6); RBC Distribution Width SD 44.7 fl (35.1-43.9); Red Blood Count 4.64 M/mm3 (4.2-5.4); White Blood Count 5.7 K/mm3 (4.4-11.0)
[2022-07-30 13:02] LABS: ALB/GLOB Ratio 1.2 RATIO (0.9-2.4); AST(SGOT) 30 U/L (15-37); Alanine Aminotransfer ALT/SGPT 49 U/L (13-56); Albumin, Serum 4.3 g/dL (3.2-5.0); Alkaline Phosphatase 140 U/L (45-117); Anion Gap 8 (5-15); BUN 14 mg/dL (7-18); BUN/Creat Ratio 18.6 RATIO (10-20); Calcium,Total 10.1 mg/dL (8.5-10.1); Chloride 101 mmol/L (98-107); Cholesterol 150 mg/dL (200); Creatinine, Serum 0.75 mg/dL (0.55-1.02); EST Glomerular Filtration Rate 82 mL/min (>60); Est Glom Filt Rate - Afr Amer 99 mL/min (>60); Free T3 2.6 pg/mL (2.18-3.98); Globulin 3.7 g/dL (2.2-4.2); Glucose 97 mg/dL (74-106); High Density Lipoprotein 46 mg/dL; Sodium Level 136 mmol/L (136-145); T4 Free Direct 1.12 ng/dL (0.76-1.46); Thyroid Stim Hormone (TSH) 1.23 uIU/mL (0.358-3.74); Triglycerides 194 mg/dL; Very Low Density Lipoprotein 39 mg/dL (5-40)
== END | disposition home or self-care (01) ==
LOC: BFHLAB 08:53
PROVIDERS: PCP Family Medicine; Visit Provider Family Medicine
DX: E78.5 Hyperlipidemia, unspecified (principal); E03.9 Hypothyroidism, unspecified; I10 Essential (primary) hypertension; Z51.81 Encounter for therapeutic drug level monitoring
CPT/HCPCS: 36415; 80053; 80061; 84439; 84443; 84481; 85025

== ENCOUNTER 2022-10-24 01:26 | Emergency (ER) | payer MEDICARE, SELFPAY ==
[2022-10-24 01:26] VITALS: TEMP 36.6; BMI 38.5
--- NOTE | 2022-10-24 02:18 | EKG12_ITS ---
Test Reason : DYSRHYTHMIA Blood Pressure : / mmHG Vent. Rate : 088 BPM Atrial Rate : 088 BPM P-R Int : 176 ms QRS Dur : 094 ms QT Int : 398 ms P-R-T Axes : 043 003 014 degrees QTc Int : 481 ms Normal sinus rhythm Normal ECG Confirmed by CHRIS GREGORY, RO ([id number]), editor greeting card HOLLY PAYNE ([id number]) on 10/24/2022 9:14:03 AM Referred By: TL Confirmed By:RO PEREZ MD
--- NOTE | 2022-10-24 02:23 | RAD_ITS ---
EXAM: XR CHEST, 1 VIEW CLINICAL INDICATION: DIZZINESS TECHNIQUE: Frontal view of the chest. COMPARISON: May 15, 2021 FINDINGS: LUNGS AND PLEURAL SPACES: Unremarkable. No consolidation or edema. No pneumothorax. No effusion. HEART: Unremarkable. Cardiac silhouette not enlarged. MEDIASTINUM: Central airways and mediastinal contour are unremarkable. BONES/JOINTS: Degenerative changes of the spine. SOFT TISSUES: Unremarkable. RAD/Chest PA and Lateral IMPRESSION: No acute findings in the chest. Electronically Signed: Leobardo Lagunas MD at 3:18 EDT ,
--- NOTE | 2022-10-24 02:25 | CT_ITS ---
EXAM: CT HEAD WITHOUT INTRAVENOUS CONTRAST CLINICAL INDICATION: DIZZINESS TECHNIQUE: Multiple axial images were obtained of the head without intravenous contrast. CTDIvol = ( 44.99 ) mGy, DLP = ( 880.47 ) mGycm This CT exam was performed using one or more of the following dose reduction techniques: automated exposure control, adjustment of the mA and/or kV according to patient size, and/or use of iterative reconstruction technique. COMPARISON: No relevant prior studies available. FINDINGS: BRAIN AND EXTRA-AXIAL SPACES: No midline shift or hydrocephalus. Diffuse parenchymal atrophy. Posterior fossa structures are unremarkable. Basal cisterns are patent. No acute intracranial hemorrhage, mass effect or edema. No evidence of acute cortical stroke. BONES/JOINTS: Unremarkable. No discrete lytic or blastic abnormalities. VASCULATURE: Atherosclerotic calcifications of the carotid siphons and vertebrobasilar arteries. SINUSES: Scattered paranasal sinus mucosal thickening with no air-fluid levels. MASTOID AIR CELLS: Visualized sinuses and mastoid air cells are clear. ORBITS: Visualized globes, extraocular muscles, optic nerves and retrobulbar fat appear unremarkable. CT/Brain/Head without Contrast IMPRESSION: 1. No evidence of acute intracranial pathology. 2. Diffuse involutional changes and chronic ischemic small vessel white matter disease. AIDOC was utilized to assist in identifying pertinent positive findings. Electronically Signed: Leobardo Lagunas MD at 2:46 EDT ,
--- NOTE | 2022-10-24 04:37 | MRI_ITS ---
HISTORY: vertigo, recurrent dizziness, left arm tingling, tinnitus. TECHNIQUE: Multiplanar and multisequence MR images of the brain were obtained before and after the intravenous demonstration 20 mL Clariscan. 427 images. COMPARISON: CT same day. FINDINGS: BRAIN PARENCHYMA: Mild foci and small zones of increased T2 FLAIR signal in the bilateral white matter. 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 No enhancing lesion in the brain parenchyma. No abnormal focus of restricted diffusion. No acute intracranial hemorrhage identified. INTERNAL AUDITORY CANALS: Symmetric appearance of the bilateral 7th and 8th cranial nerve complexes. No enhancing mass of the internal auditory canals. No cerebellopontine angle mass. CSF SPACES: Mild generalized volume loss. No significant midline shift or other mass effect.No extra-axial fluid collection. VASCULAR SYSTEM: Major intracranial flow voids are maintained. PARANASAL SINUSES AND MASTOID AIR CELLS: Mild right maxillary and ethmoid sinus fluid. ORBITS: Symmetric contents. MRI/Brain W/WO Contrast IMPRESSION: No evidence of enhancing intracranial mass. Unremarkable internal auditory canals. No evidence for acute infarct. Mild chronic involutional and white matter changes. Electronically Signed: Mariola Harris MD at 11:09 EDT ,
--- NOTE | 2022-10-24 04:42 | PCM.HP.STD ---
HPI - General General Date of Admission: 10/24/22 Date of Service: 10/24/22 Chief Complaint: Tingling sensation of left arm HPI Narrative GWEN ROCKWELL, is a 67 F with a significant history of hypertension; hyperlipidemia; GERD; hypothyroidism; anxiety disorder; asthma; allergies and mild COPD who presents to the emergency department with tingling of her left hand in the middle of the night as she came to lie down again after using the bathroom. Associated with her symptoms is a Vertigo. The tingling in her left arm lasted for about 1 minutes. Of note patient has been having ringing in the ears for about 2 months. Also in the past 3 weeks patient has been having Vertigo. Her vertigo was so severe that she was having difficulty with ambulation. Patient went to [place] ED where she had a CT done. The CT was negative. Actually she went to the urgent care and she was referred to the ED. Thereafter she also had left hand numbness and went back to the ED where labs were done and she will discharge home. She followed-up with PCP and ENT. ENT is working her up for M?ni?re's disease. She received Steriods that she finished taking about 5 days ago. Also she has a hearing test scheduled in about 2 weeks. With this presentation because a friend of her sister has had posterior circulation stroke, patient came to the emergency department. Patient came to the emergency department with that sister in question. On this presentation at the emergency department her symptoms had resolved and her NIH was 0. Emergency Department Doctor did [place] Hallpike maneuver that returned negative. Patient complains of headaches that she attributes to her allergies. [facility] Medical History Alcohol use Anxiety Arthritis Asthma Back pain Cancer Carpal tunnel syndrome of left wrist Chronic ulcer of left foot with fat layer exposed COPD (chronic obstructive pulmonary disease) CPAP (continuous positive airway pressure) dependence Depression Ganglion cyst of left foot Gastric reflux High cholesterol History of stress test Hypertension Non-smoker Personal history of skin cancer Restless legs Shortness of breath on exertion Syncope Thyroid disease Home Medications calcium carbonate 600 mg-vitamin D3 20 mcg (800 unit) tablet 1 tab PO DAILY@0800 supplement 04/15/13 [History Last Taken Unknown] hydrochlorothiazide 25 mg tablet 25 mg PO DAILY bp 04/15/13 [History Last Taken Unknown] levothyroxine 50 mcg tablet 75 mcg PO DAILY thyroid 04/15/13 [History Last Taken 11/10/20] amlodipine 5 mg tablet 5 mg PO QHS bp 01/24/14 [History Last Taken 01/25/14 07:00] cholecalciferol (vitamin D3) 25 mcg (1,000 unit) tablet 1,000 unit PO DAILY supplement 12/14/15 [History Last Taken Unknown] magnesium 250 mg tablet 250 mg PO DAILY supplement 12/14/15 [History Last Taken Unknown] diclofenac sodium 75 mg tablet,delayed release 75 mg PO BID arthritis 07/05/19 [History Last Taken Unknown] albuterol sulfate 90 mcg/actuation aerosol inhaler 1 - 2 puff inhalation Q6H PRN PRN Sob &/Or Wheezing 07/13/19 [History Last Taken Unknown] esomeprazole magnesium 20 mg capsule,delayed release 20 mg PO DAILY gerd 07/13/19 [History Last Taken 08/10/19] fexofenadine 180 mg tablet 180 mg PO DAILY allergies 07/13/19 [History Last Taken Unknown] irbesartan 300 mg tablet 300 mg PO QHS bp 07/13/19 [History Last Taken Unknown] potassium chloride 20 mEq tablet,extended release(part/cryst) 20 meq PO TUTH supplement 07/13/19 [History Last Taken Unknown] sertraline 50 mg tablet 50 mg PO QHS depression 07/13/19 [History Last Taken Unknown] simvastatin 20 mg tablet 20 mg PO QHS 11/01/20 [History Last Taken Unknown] amoxicillin 500 mg tablet 500 mg PO ONCE #4 tabs 02/19/21 [Rx Last Taken Unknown] dexamethasone 6 mg tablet (Decadron) 6 mg PO DAILY #7 tabs 05/15/21 [Rx Last Taken Unknown] Allergy/AdvReac Type Severity Reaction Status Date / Time adhesive AdvReac Rash Verified 05/22/21 15:55 sulfamethoxazole AdvReac Nausea/Vom/ Verified 05/22/21 15:55 [From Bactrim] Diarrhea trimethoprim [From Bactrim] AdvReac Nausea/Vom/ Verified 05/22/21 15:55 Diarrhea Family History Mother Rheumatoid arthritis Diabetes Hypertension Heart disease Ovarian cancer Other Family history of skin cancer Surgical History History of arthroplasty of right knee History of basal cell carcinoma excision History of carpal tunnel surgery of left wrist History of carpal tunnel surgery of right wrist History of D&C History of endometrial ablation History of excision of lesion History of hand surgery History of laparoscopic cholecystectomy History of tonsillectomy History of total left knee replacement History of total right knee replacement Social History adopted: No household members: family housing: apartment number of children: 1 current occupational status: employed pets and animals: No history of recent travel: No Smoking Status: Never smoker alcohol intake: current details: social substance use type: does not use seatbelt use: always do you feel safe at home: Yes ROS ROS Narrative Pertinent positives and pertinent negatives as noted in HPI. All other systems were reviewed and are negative Physical Exam Narrative Physical exam: General: Well-nourished, well-developed. Head: Normocephalic, atraumatic, no tenderness Eyes: Vision is grossly intact. EOMI ENT, no trauma, moist mucous membranes, no rhinorrhea Neck: Nontender, No thyromegaly. CVS: Regular rate and rhythm. S1-S2 present. No murmur, gallop or rub. Respiratory : clear to auscultation bilaterally, chest wall nontender Abdomen: Soft, nontender, nondistended, normal bowel sounds, no masses : Deferred Back: Nontender, no CVA tenderness, no midline spinal tenderness, deformities, step-offs Extremities: Nontender full range of motion, no trauma Skin: Normal color, no trauma, abrasions Neuro: Alert, oriented, cranial nerves II through XII grossly intact. Deep tendon reflex of the elbow and knee not hyperreflexic. No dysmetria with dyza-on-ovza test and jgscqu-ic-[id number] test. Strength 5 out of 5 in all 4 extremities. Psychiatry: Normal mood. Normal affect. Not depressed. Not anxious. Results Radiology Impression Chest X-Ray 10/24/22 02:23 IMPRESSION: No acute findings in the chest. Electronically Signed: Leobardo Lagunas MD at 3:18 EDT Reading Location ID and State: [facility] [place] / [place] Tel , Service support , Brain CT 10/24/22 02:25 IMPRESSION: 1. No evidence of acute intracranial pathology. 2. Diffuse involutional changes and chronic ischemic small vessel white matter disease. AIDOC was utilized to assist in identifying pertinent positive findings. Electronically Signed: Leobardo Lagunas MD at 2:46 EDT , Assessment & Plan Assessment/Plan (1) Vertigo: (2) Tinnitus: (3) Tingling sensation: PLAN: Plan Vertigo/tinnitus/tingling sensation Differential diagnoses include M?ni?re's disease, stroke or other. CT head at the emergency department was nonacute. CBC, BMP and has a troponin reviewed was negative Discussed with ED doctor to get MRI at the ED as patient's symptoms been going on for about 3 weeks or 2 months if you tinnitus. If MRI is positive patient can be admitted for further work-up and treatment. Charges/Coding Multi Select Codes Visit Charges Office Visit/Consults: 43942 ED Visit; Moderate Severity
--- NOTE | 2022-10-24 04:58 | EDS_ITS ---
HPI History of Present Illness Chief Complaint: Dizziness Informant: patient Narrative Narrative: Late entry due to downtime. Presents with recurrent dizziness with spinning this evening when she was laying down looking to the right. States that paresthesia left arm. Overall symptoms started a month ago states ringing in both ears. 3 weeks ago reported had dizziness she went to [place] emergency department she had a stroke work-up reported CT scan of brain EKG and blood work that was negative. She was told to follow-up and return to ED if she develops any numbness. The following day had left arm paresthesias in the hand went back to the emergency department there and had blood work that was also negative. No further imagings. She follow-up with both her PCP Dr. Andujar and then Dr. Ramsay, ENT seen a week ago. She was initially put on meclizine by the ED. Initially stated she was put on antibiotic however further discussion it was Medrol Dosepak. She states she did not have symptoms while being on this. M?ni?re's disease was brought up. She states if symptoms continue to call back for hearing test. She called but yesterday has a test ordered for November 08. This evening however symptoms recurred with head turning therefore she came here with the concerns. Her friend is present stating family member had similar symptoms and of being a posterior stroke. She currently states symptoms are resolved. She has not had an MRI in the past. No stroke history. 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 layer exposed COPD (chronic obstructive pulmonary disease) CPAP (continuous positive airway pressure) dependence Depression Ganglion cyst of left foot Gastric reflux High cholesterol History of stress test Hypertension Non-smoker Personal history of skin cancer Restless legs Shortness of breath on exertion Syncope Thyroid disease Home Medications calcium carbonate 600 mg-vitamin D3 20 mcg (800 unit) tablet 1 tab PO DAILY@0800 supplement 04/15/13 [History Last Taken Unknown] hydrochlorothiazide 25 mg tablet 25 mg PO DAILY bp 04/15/13 [History Last Taken Unknown] levothyroxine 50 mcg tablet 75 mcg PO DAILY thyroid 04/15/13 [History Last Taken 11/10/20] amlodipine 5 mg tablet 5 mg PO QHS bp 01/24/14 [History Last Taken 01/25/14 07:00] cholecalciferol (vitamin D3) 25 mcg (1,000 unit) tablet 1,000 unit PO DAILY supplement 12/14/15 [History Last Taken Unknown] magnesium 250 mg tablet 250 mg PO DAILY supplement 12/14/15 [History Last Taken Unknown] diclofenac sodium 75 mg tablet,delayed release 75 mg PO BID arthritis 07/05/19 [History Last Taken Unknown] albuterol sulfate 90 mcg/actuation aerosol inhaler 1 - 2 puff inhalation Q6H PRN PRN Sob &/Or Wheezing 07/13/19 [History Last Taken Unknown] esomeprazole magnesium 20 mg capsule,delayed release 20 mg PO DAILY gerd 07/13/19 [History Last Taken 08/10/19] fexofenadine 180 mg tablet 180 mg PO DAILY allergies 07/13/19 [History Last Taken Unknown] irbesartan 300 mg tablet 300 mg PO QHS bp 07/13/19 [History Last Taken Unknown] potassium chloride 20 mEq tablet,extended release(part/cryst) 20 meq PO TUTH supplement 07/13/19 [History Last Taken Unknown] sertraline 50 mg tablet 50 mg PO QHS depression 07/13/19 [History Last Taken Unknown] simvastatin 20 mg tablet 20 mg PO QHS 11/01/20 [History Last Taken Unknown] amoxicillin 500 mg tablet 500 mg PO ONCE #4 tabs 02/19/21 [Rx Last Taken Unknown] dexamethasone 6 mg tablet (Decadron) 6 mg PO DAILY #7 tabs 05/15/21 [Rx Last Taken Unknown] Allergy/AdvReac Type Severity Reaction Status Date / Time adhesive AdvReac Rash Verified 05/22/21 15:55 sulfamethoxazole AdvReac Nausea/Vom/ Verified 05/22/21 15:55 [From Bactrim] Diarrhea trimethoprim [From Bactrim] AdvReac Nausea/Vom/ Verified 05/22/21 15:55 Diarrhea Family History Mother Rheumatoid arthritis Diabetes Hypertension Heart disease Ovarian cancer Other Family history of skin cancer Surgical History History of arthroplasty of right knee History of basal cell carcinoma excision History of carpal tunnel surgery of left wrist History of carpal tunnel surgery of right wrist History of D&C History of endometrial ablation History of excision of lesion History of hand surgery History of laparoscopic cholecystectomy History of tonsillectomy History of total left knee replacement History of total right knee replacement Social History adopted: No household members: family housing: apartment number of children: 1 current occupational status: employed pets and animals: No history of recent travel: No Smoking Status: Never smoker alcohol intake: current details: social substance use type: does not use seatbelt use: always do you feel safe at home: Yes ROS ROS ED Constitutional Constitutional ED: Denies chills, fever(s) or sweats Eyes Eyes: Denies change in vision ENT ENT ED: Denies dysphagia or sore throat Cardiovascular Cardiovascular: Denies chest pain, leg edema, palpitations or racing heartbeat Respiratory/Chest Respiratory/Chest: Denies cough, dyspnea or dyspnea on exertion Gastrointestinal Gastrointestinal: Denies abdominal pain, diarrhea, nausea or vomiting Genitourinary Genitourinary ED: Denies dysuria, hematuria or urinary frequency Musculoskeletal Musculoskeletal: Denies back pain, extremity pain or neck pain Integumentary Denies rash or wounds Neurologic Neurologic: Reports other Details: Vertigo ; Denies headache(s), paresthesias or weakness EXAM Physical Exam Const Positive well nourished and well developed General Appearance ED: well developed and NAD HEENT Reports moist mucous membranes normocephalic and atraumatic Eyes PERRL, EOMs intact bilaterally and conjunctivae normal General Eye ED: Yes normal appearance of both eyes Neck no lymphadenopathy and supple General: Negative for tenderness Chest Wall Chest: Negative for tenderness Resp normal respiratory effort and normal air movement Effort and Inspection: symmetric chest movement; Negative for respiratory distress Cardio regular rate, regular rhythm and no murmurs Peripheral Pulses: pulses 2+ throughout GI normal to inspection, nondistended, normoactive bowel sounds and non-tender Palpation: Negative for guarding or rebound tenderness present Back/Spine no CVA tenderness and no thoracic nor lumbar tenderness Extremity normal to inspection General Extremety ED: Negative for edema or tenderness General Extremity: Negative for edema Neuro oriented x3, CN's II-XII intact bilaterally and no sensory deficits noted Neuro Narrative: [place] Hallpike test negative bilaterally. Sensorium / Orientation: awake and alert Skin no rashes or lesions noted and no wounds NIHSS NIHSS Initial: 1a Level of Consciousness: 0 1b LOC Questions (Score 2 if aphasic/stupor): 0 1c LOC Commands (Only score 1st attempt): 0 2 Best Gaze (If aphasic, use reflexive mvmts.): 0 3 Visual: 0 4 Facial Palsy: 0 5 Motor Arm Right (UN = amputation/fusion): 0 5 Motor Arm Left: 0 6 Motor Leg Right: 0 6 Motor Leg Left: 0 7 Limb ataxia (Only + if out of proportion): 0 8 Sensory (Aphasia/stupor=0 or 1, coma=2): 0 9 Best Language: 0 10 Dysarthria (mute, coma=2, intubated=UN): 0 11 Extinction and Inattention (only scored if +): 0 Total Score: 0 MDM MDM MDM Narrative Medical decision making narrative: Interventions / MDM: Differential diagnosis: Near disease, posterior circulation stroke Diagnosis considered but do not suspect: N/A My EKG interpretation: Sinus rate of 88, no ST changes isolated T wave version leads III. Nonspecific. Imaging independently reviewed and interpreted by myself: N/A External documents reviewed: N/A Test considered but not ordered:N/A ED course: Patient currently asymptomatic she is having recurrent vertigo symptoms with negative [place]-Hallpike. Has been having tenderness. She has a working diagnosis of M?ni?re's disease. Has been 3 weeks since her last image, due to recurrent symptoms discussed rechecking CT imagings and testing. Stroke work-up initially in the ED again negative. Unable to review CT scan due to downtime. Chest x-ray also read negative by radiology. EKG sinus rhythm. Labs are all stable. Repeat evaluation symptoms were resolved. However with recurrent vertigo symptoms, she will warrant an MRI for further evaluation. I did speak with hospitalist Dr. Hood with recurrent symptoms, initial plan for admission to PCU observations. However with time being for in the morning, weekday, MRI will be available at 7 AM. As she is asymptomatic currently, I agree that MRI can be performed this morning for evaluation. She does admit to claustrophobia therefore Ativan will be ordered for pretreatment before MRI. If negative, she can follow-up with her physicians as an outpatient. If positive will require admission for further work-up. [id number]: patient signed out to AM physician. Re-evaluation: stable Disposition discussed with patient/family/significant other: Patient and friend Case discussed with consulting clinician: Hospitalist, Dr. Hood Radiography Diagnostic Testing: Clinical Impression(s) from Imaging Studies Chest X-Ray 10/24/22 02:23 IMPRESSION: No acute findings in the chest. Electronically Signed: Leobardo Lagunas MD at 3:18 EDT , Brain CT 10/24/22 02:25 IMPRESSION: 1. No evidence of acute intracranial pathology. 2. Diffuse involutional changes and chronic ischemic small vessel white matter disease. AIDOC was utilized to assist in identifying pertinent positive findings. Electronically Signed: Leobardo Lagunas MD at 2:46 EDT , Discharge Plan Triage Chief Complaint: Dizziness ED Provider: Brodie Valderrama Dx/Rx/DC Orders Clinical Impression: Vertigo, Bilateral tinnitus Primary Care Provider: Bernice Andujar
[2022-10-24] MEDS: LORazepam 2 MG/ML Syringe 1 MG IV (09:20)
--- NOTE | 2022-10-24 09:21 | ED.RN ---
witnessed med waste for ativan with emile haro at [facility].
[2022-10-24 09:22] LABS: Partial Thromboplast Time 36.2 Seconds (24.1-36.2); Prothrombin Time (Protime)PT. 13.4 SECONDS (11.7-14.9)
[2022-10-24 09:23] LABS: Absolute Lymphocyte Count 4.25 X10^3/uL (0.83-4.51); Basophil# 0.05 X10^3/uL; Basophil% 0.5 % (0-1); Eosinophil# 0.25 X10^3/uL; Eosinophils% 2.7 % (0-5); Hematocrit 40.7 % (37-47); Hemoglobin 14.1 g/dL (12.0-15.0); Lymphocyte # 4.25 X10^3/ul (0.83-4.51); Lymphocyte % 45.6 % (19-41); Mean Corp Hgb Conc 34.6 g/dL (32-36); Mean Corpuscular Hgb 30.2 pg (27.0-32.0); Mean Corpuscular Volume 87.2 fL (81-99); Mean Platelet Vol. 9.8 fl (6.2-12.0); Monocyte# 0.74 X10^3/uL; Monocyte% 7.9 % (0-10); NRBC Flagged by Analyzer 0 % (0-5); Neutrophil # 4.03 X10^3/uL (2.7-7.7); Neutrophil % 43.2 % (47-70); Platelet Count 231 K/mm3 (150-450); RBC Distribution Width CV 14.2 % (11.6-14.6); RBC Distribution Width SD 45.6 fl (35.1-43.9); Red Blood Count 4.67 M/mm3 (4.2-5.4); White Blood Count 9.3 K/mm3 (4.4-11.0)
[2022-10-24 09:42] LABS: BUN 19 mg/dL (7-18); BUN/Creat Ratio 22.1 RATIO (10-20); Calcium,Total 9.5 mg/dL (8.5-10.1); Chloride 100 mmol/L (98-107); Creatinine, Serum 0.86 mg/dL (0.55-1.02); EST Glomerular Filtration Rate 70 mL/min (>60); Est Glom Filt Rate - Afr Amer 85 mL/min (>60); Glucose 110 mg/dL (74-106); Potassium 3.6 mmol/L (3.5-5.1); Sodium Level 138 mmol/L (136-145); Troponin-I HS 4 pg/mL (3.0-54.0)
[2022-10-24 09:44] LABS: Anion Gap 9 (5-15)
[2022-10-24 09:48] VITALS: BP 152/83; PULSE 86; RESP 16; O2SAT 98
--- NOTE | 2022-10-24 09:53 | ED.RN ---
SEE DOWNTIME FORMS FOR ROUNDING AND VITALS
[2022-10-24 10:03] VITALS: BP 171/72; PULSE 92; RESP 16; O2SAT 97
[2022-10-24 10:18] VITALS: BP 160/71; PULSE 89; RESP 16; O2SAT 94
--- NOTE | 2022-10-24 10:20 | ED.RN ---
pt in MRI
[2022-10-24 10:29] VITALS: BP 144/73; PULSE 84; RESP 16; O2SAT 94
== END 2022-10-24 11:20 | disposition home or self-care (01) ==
LOC: PCU 08:07 → ED 08:47 → PCU 10:53 → ED 11:32
PROVIDERS: Emergency Provider Hospitalist; PCP Family Medicine; Visit Provider Hospitalist
DX: R42 Dizziness and giddiness (principal); J44.9 Chronic obstructive pulmonary disease, unspecified; H93.13 Tinnitus, bilateral; I10 Essential (primary) hypertension; E78.00 Pure hypercholesterolemia, unspecified; R20.2 Paresthesia of skin; K21.9 Gastro-esophageal reflux disease without esophagitis
CPT/HCPCS: 36415; 70450; 70553; 71046; 80048; 84484; 85025; 85610; 85730; 93005; 96374; 99281; 99284; A9575; A4216

== ENCOUNTER → 2023-05-27 | Outpatient (CLI) | payer MEDICARE, SELFPAY ==
[2023-05-27 07:48] LABS: Glucose GTT-30 minutes 166 mg/dL (110-170)
[2023-05-27 07:52] LABS: Glucose GTT- Fasting 104 mg/dL (74-106)
[2023-05-27 08:36] LABS: Glucose GTT- 1 Hour 157 mg/dL (120-170)
[2023-05-27 08:38] LABS: Vitamin B12 1991 pg/mL (211-911)
[2023-05-27 09:27] LABS: Glucose GTT- 2 Hour 130 mg/dL (70-120)
--- OUTSIDE RECORDS SUMMARY | 2023-05-28 19:11 | XMS RPT_ITS | CCD ---
Author Name Unknown Address [address] [place] [address] Organization [facility] Care Team Providers Care Buzzle Buffer Name Role Phone Robert Jovel MD Primary Care Provider 1( [phone] Bernice Andujar DO Primary Care Provider BERNICE JARA MD Attending Unavailable BERNICE ANDUJAR Primary Care Unavailable BERNICE ANDUJAR Primary Care Unavailable MD ROSS TARAS Attending Unavailable BERNICE ANDUJAR Primary Care Unavailable ROBERT JOVEL Primary Care Unavailable Allergies Allergy Classification Reported Allergen(s) Allergy Type Date of Onset Reaction(s) Facility (7 sources) Penicillins; Translations: [PENICILLINS] Drug Allergy 1 Rash [facility] (11 sources) Sulfamethoxazole / Trimethoprim; Translations: [SULFAMETHOXAZOLE-TRI METHOPRIM] Drug Allergy 8 GI Upset [facility] (3 sources) Penicillins Drug Allergy 1 [facility] Medications Current Medications Medication Drug Class(es) Dates Sig (Normalized) Sig (Original) amoxicillin 875 mg / clavulanate 125 mg oral tablet (1 source) Penicillin-class Antibacterial Start: 02-21-2023 End: 02-26-2023 take 1 tablet by mouth twice daily amoxicillin-clavulan ic acid (AUGMENTIN) 875-125 mg per tablet Indications: Acute rhinosinusitis Take 1 tablet by mouth twice daily for 5 days. 10 tablet 0 02/21/2023 02/26/2023 Active Completed/Discontinued Medications Medication Drug Class(es) Dates Sig (Normalized) Sig (Original) acyclovir 800 mg oral tablet (9 sources) Herpesvirus Nucleoside Analog DNA Polymerase Inhibitor, Herpes Simplex Virus Nucleoside Analog DNA Polymerase Inhibitor, Herpes Zoster Virus Nucleoside Analog DNA Polymerase Inhibitor Start: 01-15-2021 acyclovir (ZOVIRAX) 800 mg tablet Take 1 tablet by mouth as directed. PRN with cold sores. 0 01/15/2021 Active Problems Active Problems Problem Classification Problem Date Documented Date Episodic/Chronic Conditions associated with dizziness or vertigo (2 sources) Dizziness; Translations: [Dizziness and giddiness] Onset: 10-05-2022 Episodic Essential hypertension (10 sources) Hypertensive disorder; Translations: [Essential (primary) hypertension] Onset: 05-22-2011 05-22-2011 Chronic Genitourinary symptoms and ill-defined conditions (1 source) Dysuria; Translations: [Dysuria] Episodic Headache; including migraine (1 source) Headache; Translations: [Headache, unspecified headache type] Episodic Immunizations and screening for infectious disease (6 sources) Patient encounter status; Translations: [Encounter for screening for human papillomavirus (HPV)] Episodic Menstrual disorders (9 sources) Menorrhagia; Translations: [Excessive and frequent menstruation with regular cycle] Onset: 06-10-2011 06-10-2011 Chronic Nausea and vomiting (1 source) Nausea; Translations: [Nausea] Onset: 10-05-2022 Episodic Other circulatory disease (1 source) Elevated blood-pressure reading, without diagnosis of hypertension; Translations: [Elevated blood pressure reading] Onset: 10-06-2022 Episodic Other circulatory disease (1 source) Personal history of other diseases of the circulatory system; Translations: [History of hypertension] Onset: 10-06-2022 Episodic Other ear and sense organ disorders (1 source) Tinnitus, unspecified ear; Translations: [Tinnitus, unspecified laterality] Onset: 10-05-2022 Episodic Other nervous system disorders (1 source) Anesthesia of skin; Translations: [Numbness of left hand] Onset: 10-06-2022 Episodic Other upper respiratory infections (1 source) Bacterial sinusitis; Translations: [Chronic sinusitis, unspecified] Chronic Other upper respiratory infections (1 source) Acute rhinosinusitis; Translations: [Acute sinusitis, unspecified] 02-21-2023 Episodic Residual codes; unclassified (1 source) Personal history of other specified conditions; Translations: [History of dizziness] Onset: 10-06-2022 Episodic Spondylosis; intervertebral disc disorders; other back problems (1 source) Acute low back pain; Translations: [Acute low back pain, unspecified back pain laterality, unspecified whether sciatica present] Episodic Past or Other Problems Problem Classification Problem Date Documented Da te Episodic/Chronic Benign neoplasm of uterus (9 sources) Uterine leiomyoma; Translations: [Leiomyoma of uterus, unspecified] Onset: 06-10-2011 06-10-2011 Episodic Results Test Name Value Interpretation Reference Range Facil ity Vital Signs Date Time Vital Sign Value Performing Clinician Faci lity 10-01-2021 08:53-0400 Body height 167.6 cm Cyndie Galvan MD Work Phone: [facility] 10-01-2021 08:53-0400 Body weight 113.4 kg Cyndie Galvan MD Work Phone: [facility] 10-01-2021 08:53-0400 Diastolic blood pressure 72 mm[Hg] Cyndie Galvan MD Work Phone: [facility] 10-01-2021 08:53-0400 Systolic blood pressure 126 mm[Hg] Cyndie Galvan MD Work Phone: [facility] Encounters Encounter Date Encounter Type Care Provider Facility Start: 02-21-2023 End: 02-21-2023 ambulatory BERNICE A CEDRIC Facility:[facility] Start: 02-21-2023 End: 02-21-2023 ambulatory Tone Carver CROSSING GATEMAN.[employer]ER [employer] MACHINE Work Phone: Telemedicine Procedures Date Procedure Procedure Detail Performing Clinician Start: 10-01-2021 End: 10-01-2021 Mammography Cyndie Galvan MD Work Phone: Start: 03-09-2018 Colonoscopy Cyndie araya MD Work Phone: Start: 05-22-2011 Lipid 1996 panel - S maritza or Plasma Tone Carver [employer] G[employer]EMAN.[employer]ACKER [employer] MACHINE Work Phone: Plan of Treatment Date Care Activity Detail Author Start: 10-01-2026 HPV TESTING HPV TESTING [facility] Start: 10-01-2026 PAP TESTING PAP TESTING [facility] Start: 10-05-2025 DIABETES SCREEN DIABETES SCREEN [facility] Start: 10-05-2025 Diabetes Screening Diabetes Screening [facility] Start: 02-03-2023 HPV TESTING HPV TESTING [facility] Start: 02-03-2023 PAP TESTING PAP TESTING [facility] Start: 01-31-2023 Influenza vaccination [facility] Start: 10-01-2022 BP CONTROLLED (<130/80) BP CONTROLLED (<130/80) [facility] Start: 10-01-2022 Mammography [facility] Start: 06-02-2022 ADVANCE DIRECTIVE DISCUSSION ADVANCE DIRECTIVE DISCUSSION [facility] Start: 06-02-2022 DEPRESSION ASSESSMENT DEPRESSION ASSESSMENT [facility] Start: 2022 ADVANCE DIRECTIVE DISCUSSION ADVANCE DIRECTIVE DISCUSSION [facility] Start: 2022 BONE DENSITY BONE DENSITY [facility] Start: 2022 Bone Density Screening Bone Density Screening [facility] Start: 2022 Pneumococcal Vaccine: 65+ (2 - PCV) Pneumococcal Vaccine: 65+ (2 - PCV) [facility] Start: 01-31-2022 Influenza vaccination [facility] Start: 01-09-2022 End: 03-11-2022 Bacteria identified in Urine by Culture [facility] Work Phone: Immunizations Immunization Date Immunization Notes Care Provider Courtney craft 03-09-2019 influenza virus vacc ine, unspecified formulation Tone Carver [employer]ACHINE Work Phone: [facility] 03-02-2011 influenza virus vacc ine, unspecified formulation Cyndie Galvan MD Work Phone: [facility] 03-02-2008 pneumococcal polysaccharide vaccine, 23 valent Cyndie Galvan MD Work Phone: [facility] 01-25-2002 tetanus and diphther ia toxoids, adsorbed, preservative free, for adult use (2 Lf of tetanus toxoid and 2 Lf of diphtheria toxoid) Cyndie Galvan MD Work Phone: [facility] Payers Date Payer Category Payer Medicare A[employer]NA MEDICARE A ETNA MEDICARE PPO [id number] 2022-Present [phone] [address] [place] [address] PPO [id number] 2022 Medicare [id number] 2021 Unknown [employer] PPO [id number] 2021-Present [phone] [address] [place] [id number] PPO [id number] 2021 Unknown [employer] PPO [id number] 2021-Present [phone] [address] [place] [id number] PPO [id number] Social History Date Type Detail Facility Start: 10-24-2010 End: 04-16-2011 Tobacco smoking status NHIS Never smoked tobacco [facility] Start: 10-24-2010 End: 04-16-2011 Tobacco use and exposure Smokeless tobacco non-user [facility] Start: 10-01-2021 End: 02-21-2023 Alcohol intake Current drinker of alcohol (finding) [facility] Start: 03-09-2018 History SDOH Alcohol Comment socially [facility] Start: 1955 Sex Assigned At Not on file [facility] Start: 09-21-2021 End: 10-01-2021 Exposure to SARS-CoV-2 (event) Not sure [facility] Start: 10-06-2022 End: 02-21-2023 History of Social function [facility] Start: 10-06-2022 End: 02-21-2023 Tobacco use panel [facility] National Score (1-10 0), lower number is lower risk 75 [facility] Clinical Notes 10-01-2021 to 02-21-2023 Tone Carver APRN.[employer] T[employer]ER [employer] MACHINE - 02/21/2023 9:33 AM Michelle Marshall PA-C - 10/05/2022 11:29 AM Dexter Roche APRN.[employer] T[employer]ER [employer] MACHINE - 04/23/2022 10:07 AM ESTTelephone Encounter - Connie Rousseau - 10/20/2021 1:47 PM EDT Note Date & Type Note Facility 02-21-2023 Note HNO ID: [id number] Author: Tone Carver APRN.CNP Service: ? Author Type: Nurse Practitioner Type: Progress Notes Filed: 02/21/2023 9:34 AM Note Text: This is an Express Care eVisit note for Gwen K Moiz eVisit/Questionnaire reviewed The chief complaint for the visit - Patient presents with: Sinus Problem Recommendations/Treatment plan - Rx as below plus self care. See My Chart Message to patient. Recommendation for follow up - PRN The following approved medication requests have been transmitted electronically. Requested Prescriptions Signed Prescriptions Disp Refills amoxicillin-clavulanic acid (AUGMENTIN) 875-125 mg per tablet 10 tablet 0 Sig: Take 1 tablet by mouth twice daily for 5 days. Time spend was 5 minutes. Tone Carver APRN.CNP [facility] 02-21-2023 History of Presen t illness Narrative This is an Express Care eVisit note for Gwen Koch/Questionnaire reviewed The chief complaint for the visit - Patient presents with: Sinus Problem Recommendations/Treatment plan - Rx as below plus self care. See My Chart Message to patient. Recommendation for follow up - PRN The following approved medication requests have been transmitted electronically. Requested Prescriptions Signed Prescriptions Disp Refills amoxicillin-clavulanic acid (AUGMENTIN) 875-125 mg per tablet 10 tablet 0 Sig: Take 1 tablet by mouth twice daily for 5 days. Time spend was 5 minutes. Tone Carver APRN.KIMBERLY documented in this encounter [facility] 10-05-2022 Note HNO ID: [id number] Author: Silvia Marshall PA-C Service: ? Author Type: Physician [place]yer Type: Progress Notes Filed: 10/05/2022 11:32 AM Note Text: Patient presents to express care with the chief complaint of dizziness, nausea and headache. She woke up this morning feeling very dizzy and lightheaded. She denies weakness, numbness or tingling. She had to use a cane to get around because she feels so dizzy. She had vertigo 2-3 years ago but this felt different. She took medication she had for that but didn't seem to help. I recommended patient be seen in the ED for these complaints. Her sister will drive her across the street to [facility] ED for further evaluation. [facility] 10-05-2022 History of Presen t illness Narrative Patient presents to [facility] care with the chief complaint of dizziness, nausea and headache. She woke up this morning feeling very dizzy and lightheaded. She denies weakness, numbness or tingling. She had to use a cane to get around because she feels so dizzy. She had vertigo 2-3 years ago but this felt different. She took medication she had for that but didn't seem to help. I recommended patient be seen in the ED for these complaints. Her sister will drive her across the street to [facility] ED for further evaluation. documented in this encounter [facility] 04-23-2022 Note HNO ID: [id number] Author: Jamia Roche APRN.KIMBERLY Service: ? Author Type: Nurse Practitioner Type: Progress Notes Filed: 04/23/2022 10:10 AM Note Text: This is an Express Care eVisit note for Gwen Koch/Questionnaire reviewed The chief complaint for the visit - Patient presents with: Sinusitis Recommendations/Treatment plan - Rx as below plus self care. See My Chart Message to patient. Recommendation for follow up - PRN Time spent: 5-10 minutes The following approved medication requests have been transmitted electronically. Requested Prescriptions Signed Prescriptions Disp Refills doxycycline monohydrate 100 mg tablet 10 tablet 0 Sig: Take 1 tablet by mouth twice daily for 5 days. Jamia Roche APRN.BAR TACKER SEWING MACHINE [facility] 04-23-2022 History of Presen t illness Narrative This is an Express Care eVisit note for Gwen Koch/Questionnaire reviewed The chief complaint for the visit - Patient presents with: Sinusitis Recommendations/Treatment plan - Rx as below plus self care. See My Chart Message to patient. Recommendation for follow up - PRN Time spent: 5-10 minutes The following approved medication requests have been transmitted electronically. Requested Prescriptions Signed Prescriptions Disp Refills doxycycline monohydrate 100 mg tablet 10 tablet 0 Sig: Take 1 tablet by mouth twice daily for 5 days. Jamia Roche APRN.CNP documented in this encounter [facility] 01-09-2022 Miscellaneous Notes Patient notified. Yris Fitzgerald RN agree w/ UA and culture. Thank you Cyndie Galvan MD Patient calling with possible urinary tract infection. Symptoms include:low back pain and dysuria Duration: back pain 7 days, dysuria today Allergies:Bactrim [Sulfamethoxazole-Trimethoprim] and Penicillins Any treatment yet: No. Patient agreeable to leaving a urine sample at the lab. UA and culture pending if appropriate. Message forwarded to Cyndie Galvan MD for recommendations. Yris Fitzgerald RN documented in this encounter [facility] 10-20-2021 Miscellaneous Notes Done. Thank you, Connie Rousseau 2nd attempt. Message left for patient to contact office to schedule Colonoscopy consult with Tanya Coley or Juana Patton. .1st failed attempt to contact patient. Left message to return call. Please schedule a colonoscopy consult with Tanya Coley or Dr. Pascual Gu PSS Due to Patients BMI, patient should be seen in the office for a colonoscopy consult with Tanya Coley or Juana Patton . Please schedule DDSI consult Harley Thacker documented in this encounter [facility] 10-01-2021 Miscellaneous Notes TC to Gwen who verbalizes understanding of the message below. GILDARDO Pérez Unfortunately, Dr. Cleveland is not accepting any new patients at this time. I am sorry. Felisa Rodriguez APRN.KIMBERLY Pt calls to ask if Dr. Cleveland will take on a new pt if a family member goes to her. Pt reports her daughter Ayana Cabrera is a pt of Dr. Cleveland's. Pt is asking if Dr. Cleveland would take her on as a patient. Pt reports she had heard that sometimes Dr. Cleveland will do this if a family member goes to her. Please review and advise. Dionne Mustafa LPN documented in this encounter [facility] 10-01-2021 Miscellaneous Notes October 01, 2021 PID: [id number] Gwen Coffman [address] [place] [address] Dear Ms. Coffman, We are pleased to inform you that the results of your recent breast imaging exam on 10/01/2021 are normal. Early detection of cancer is very important. We also understand recommendations regarding breast cancer screening are controversial. Please discuss with your primary care provider which strategy is best for you and whether a mammogram is right for you. Your imaging studies and report will be kept on file at [facility] as part of your permanent medical record and are available for your continuing care. Thank you for allowing us to help in meeting your health care needs. Sincerely, Dr. Hart Interpreting Radiologist [facility] (Normal over 40) documented in this encounter [facility] 10-01-2021 History of Presen t illness Narrative Radiology Service Progress Note PATIENT NAME: Gwen Coffman DATE OF SERVICE: October 01, 2021 TIME: 9:37 AM PATIENT IDENTITY VERIFICATION COMPLETED USING TWO (2) IDENTIFIERS: Name and Date of confirmed by patient verbally. FALL SCREENING: Has the patient had 2 falls in the last year or 1 fall with injury or currently using an Ambulatory Assistive Device (Walker, Cane, Wheelchair, Crutches, etc.)? No PATIENT GENDER DATA: Female. status: : No status: NO. PATIENT RELEVANT IMPLANT DATA REVIEWED: Not Applicable RADIOLOGY DEPARTMENT: Mammography PERIPHERAL IV DATA: Not applicable SIGNED BY: Nayeli Champion [place] October 01, 2021 9:37 AM documented in this encounter [facility] 10-01-2021 Instructions Cyndie Galvan MD - 10/01/2021 9:14 AM EDT Images from the original note were not included. Bowel Preparation Instructions for: Golytely, Nulytely, Trilyte or Colyte (polyethylene glycol 3350 and electrolytes) IF YOU DO NOT FOLLOW THESE DIRECTIONS, YOUR COLONOSCOPY WILL BE CANCELLED. [place] Instructions: Your bowel must be empty so that your doctor can clearly view your colon. Follow all of the instructions in this handout EXACTLY as they are written. Do NOT eat any solid food the ENTIRE day before your colonoscopy. Drink only clear liquids. Buy your bowel preparation at least 5 days before your colonoscopy. TRANSPORTATION on the Day of Your Exam A responsible person MUST be present with you at Check In prior to your colonoscopy and REMAIN in the endoscopy area until you are discharged. You are NOT ALLOWED to drive, take a taxi or bus, or leave the Endoscopy Center ALONE. If you do not have a responsible driver recruiter (family member or friend) with you to take you home, your exam cannot be done with sedation and will be cancelled. Please bring a list of all of your current medications, including any Over-the Counter medications with you. Medications If you take insulin, diabetic medications or blood thinners such as Coumadin (warfarin), Plavix (clopidogrel), Ticlid (ticlopidine hydrochloride), Agrylin (anagrelide), Xarelto (Rivaroxaban), Pradaxa (Dabigatran), Eliquis (Apixaban), and Effient (Prasugrel). You MUST call the doctors who orders those medicines for instructions on altering the dosage before your colonoscopy. All other medications should be taken the day of the exam with a sip of water including ASPIRIN. Five (5) Days Before Your Colonoscopy Do NOT take medicines that stop diarrhea - such as Imodium, Kaopectate, or Pepto Bismol. Do NOT take fiber supplements - such as Metamucil, Citrucel, or Perdiem. Do NOT take products that contain iron - such as multi-vitamins (the label lists what is in the products). Do NOT take Vitamin E. Buy the prescription bowel preparation solution at your local pharmacy or drugstore pharmacy. 05/2019 Bowel Preparation Instructions for: Golytely, Nulytely, Trilyte or Colyte (polyethylene glycol 3350 and electrolytes) Three (3) Days Before Your Colonoscopy Do NOT eat high-fiber foods - such as popcorn, beans, seeds (flax, sunflower, quinoa), multigrain bread, nuts, salad/vegetables, or fresh and dried fruit. One (1) Day Before Your Colonoscopy Only drink clear liquids the ENTIRE DAY before your colonoscopy. Do NOT eat any solid foods. Drink at least 8 ounces of clear liquids every hour after waking up. The clear liquids you can drink include: Clear Liquid (NO RED LIQUIDS) DO NOT DRINK Gatorade, Pedialyte or Powerade Clear broth or bouillon Coffee or tea (no milk or non-dairy creamer) Carbonated and non-carbonated soft drinks Anthony-Aid or other fruit flavored drinks Strained fruit juices (no pulp) Jell-O, popsicles, hard candy Water Alcohol Milk or non-dairy creamers Noodles or vegetables in soup Juice with pulp Liquid you cannot see through The bowel preparation solution will be consumed in two parts. Mix the solution the evening before your colonoscopy and refrigerate before drinking. You may add the flavor pack that came with the bowel preparation. Do NOT add ice, sugar or any other flavorings to the solution. Part 1 At 6:00 PM - Evening before your colonoscopy Drink an 8-oz glass of bowel preparation every 10 minutes for a total of 8 glasses. You may continue to drink clear liquids until midnight. Part 2 On the day of your colonoscopy you may drink clear liquids up to (three) 3 hours before your procedure. 4 1/2 hours before your colonoscopy Drink an 8-oz glass of bowel preparation every 10 minutes for a total of 8 glasses. Fifteen (15) minutes later, drink an 8-oz glass of clear liquids every 15 minutes for a total of 2 glasses. You may continue to drink clear liquids up to (three) 3 hours before your exam. 3 05/2019 documented in this encounter [facility] 10-01-2021 History of Presen t illness Narrative Gwen is a 66 year old who presents for an annual gynecologic exam without complaints. Planning fci in the fall. Had a knee replacement in recent history and doing well w/ that. Postmenopausal: yes HRT use: No. Last Pap: 02/10/2018 normal HPV: 02/06/2018 negative History of abnormal pap: No Last mammogram: today pending History of abnormal mammogram: No Sexually active: not currently OB History T1 L1 SAB0 IAB0 Ectopic0 Multiple0 Live Births0 Ditch Digger History LMP: 06/06/2011, Ablation Age at Menarche: Age at First : Age at Menopause: Ditch Digger History Comments: Sexual Activity: Not Currently; No partner data on record Contraception: No contraception data on record PAST MEDICAL HISTORY Diagnosis Date Asthma Chronic obstructive pulmonary disease (COPD) (HCC) Diabetic borderline Environmental allergies GERD (gastroesophageal reflux disease) Hypertension Hypothyroid Menorrhagia HECTOR on CPAP Osteoarthritis Snoring PAST SURGICAL HISTORY Procedure Laterality Date ARTHRP KNE CONDYLE&PLATU MEDIAL&LAT COMPARTMENTS Left 12/2015 BREAST BIOPSY CORE 04/02/2013 left-fibroadenoma/Dr. Garner CARPAL TUNNEL 2006 right CARPAL TUNNEL Left 04/2016 COLONOSCOPY 2007 COLONOSCOPY FLX DX W/COLLJ SPEC WHEN PFRMD 03/09/2018 Colonoscopy DILATION & CURETTAGE DX&/THER NONOBSTETRIC Dilation & curettage ENDOMETRIAL ABLTJ THERMAL W/O HYSTEROSCOPIC GUID 06/18/2011 [place] GALLBLADDER/EF 12/2013 PAST SURGICAL HISTORY OF Left 10/2020 left foot - ganglion cyst removal PAST SURGICAL HISTORY OF 08/10/2019 RIGHT hip replacement TONSILLECTOMY HX FAMILY HISTORY Problem Relation Age of Onset Arthritis Mother rheumatoid Diabetes Mother Ovarian cancer Mother 78 other (lupus) Mother Hypertension Father SOCIAL HISTORY Social History Tobacco Use Smoking status: Never Smoker Smokeless tobacco: Never Used Vaping Use Vaping Use: Never used Substance Use Topics Alcohol use: Yes Comment: socially Drug use: No REVIEW OF SYSTEMS Abdomen: No abdominal pain, nausea, vomiting, diarrhea, or constipation. No bloating, early satiety, indigestion, or increased flatulence. Bladder: No dysuria, gross hematuria, urinary frequency, urinary urgency, or incontinence Breast: No breast lumps, nipple d/c, overlying skin changes, redness or skin retraction Allergies and current medication updated:Yes EXAM: BP 126/72 Ht 5' 6 (1.68m) Wt 250 lb (113.4kg) LMP 06/06/2011 BMI 40.37 kg/(m^2). GENERAL: pleasant, female in no apparent distress HEENT: Normocephalic, atraumatic, mucus membranes moist and no lesions NECK: Supple, full range of motion, no adenopathy and thyroid normal DERMATOLOGY: Normal, without lesions, non-icteric and non-hirsute BREAST: soft, non-tender, symmetric, no dominant mass, normal nipple-areolar complex, no lymphadenopathy and no nipple discharge CHEST: Normal inspiratory effort ABDOMEN: soft, non-tender and no masses PELVIC: external genitalia normal, normal Bartholin's glands, urethra, [place]'s glands, no vulvar lesions, no cervical lesions, good vaginal support, physiologic discharge present, normal appearing perineal body and perianal region, very atriphic vaginal epithelium BIMANUAL: uterus normal size, shape and consistency, no adnexal masses, non-tender and limited by habitus RECTOVAGINAL: deferred. NEURO: alert and oriented x3,exam grossly non-focal EXTREMITIES: normal ASSESSMENT/PLAN: 1) Health maintenance: Pap done with HPV. Mammogram ordered Colon cancer screening: colonoscopy ordered 2) Follow up one year or sooner as needed Cyndie Galvan MD documented in this encounter [facility] Encounter for screening mammogram for malignant neoplasm of breast Other screening mammogram documented in this encounter [facility] note* Diagnosis Dysuria- Primary Acute low back pain, unspecified back pain laterality, unspecified whether sciatica present documented in this encounter [facility] note* Diagnosis Bacterial sinusitis- Primary Unspecified sinusitis (chronic) documented in this encounter [facility] note* Diagnosis Dizziness- Primary Dizziness and giddiness Headache, unspecified headache type documented in this encounter [facility] note* Diagnosis Acute rhinosinusitis- Primary Acute sinusitis, unspecified [facility] Outpatient Procedure (Routine) - Pending Review Specialty Diagnoses / Procedures Referred By Bianca bal Referred To Contact [facility] Diagnoses Encounter for screening for malignant neoplasm of colon Procedures COLONOSCOPY SCREENING COLONOSCOPY FLX DX W/COLLJ SPEC WHEN PFRMD Cyndie Galvan MD [address] [place] [address] [facility] [address] [place] [id number] Referral ID Status Reason Start Date Expiration Date Visits Requested Visits Authorized [id number] Pending Review Auto-Generat ed Referral 10/01/2021 10/01/2022 1 1 * Diagnostic Procedure Only (Routine) - Pending Review Specialty Diagnoses / Procedures Referred By Bianca bal Referred To Contact [facility] Diagnoses Encounter for screening mammogram for malignant neoplasm of breast Procedures WENDY SCREENING SCREENING MAMMOGRAPHY BI 2-VIEW BREAST INC CAD Cyndie Galvan MD [address] [place] [address] [facility] [address] [place] [id number] Referral ID Status Reason Start Date Expiration Date Visits Requested Visits Authorized [id number] Pending Review Auto-Generat ed Referral 10/01/2021 10/31/2022 1 1 T [facility] for referral (narrative)* Diagnostic Procedure Only (Routine) - Closed Specialty Diagnoses / Procedures [facility] Diagnoses Encounter for screening mammogram for malignant neoplasm of breast Procedures WENDY SCREENING SCREENING MAMMOGRAPHY BI 2-VIEW BREAST INC Cyndie Short MD [address] [place] [address] [facility] [address] [address] Referral ID Status Reason Start Date Expiration Date V isits Requested Visits Authorized [id number] Closed Auto-Generate d Referral 03/09/2021 04/08/2022 1 1 T [facility] for visit Narrative* Diagnostic Procedure Only (Routine) - Closed Specialty Diagnoses / Procedures [facility] To [facility] Diagnoses Encounter for screening mammogram for malignant neoplasm of breast Procedures WENDY SCREENING SCREENING MAMMOGRAPHY BI 2-VIEW BREAST INC Cyndie Short MD [address] [place] [address] [facility] [address] [address] Referral ID Status Reason Start Date Expiration Date V isits Requested Visits Authorized [id number] Closed Auto-Generate d Referral 03/09/2021 04/08/2022 1 1 [facility] Advance Directives No Advanced Directives Records FoundDocuments on File Type Date Recorded 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 Advance Directive(s) 03/09/2018 8:09 AM Documents on File Type Date Recorded 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 Advance Directive(s) 03/09/2018 8:09 AM Summary Purpose Family History No Family History Records FoundNo Family History Records Found Additional Source Comments Source Comments (unrecognize d section and content) In the event this informatio n is protected by the Federal Confidentiality of Alcohol and Drug Abuse Patient Records regulations: The Federal rules restrict any use of the information to criminally investigate or prosecute any alcohol or drug abuse patient.[facility] the event this information is protected by the Federal Confidentiality of Alcohol and Drug Abuse Patient Records regulations: The Federal rules restrict any use of the information to criminally investigate or prosecute any alcohol or drug abuse patient.[facility] the event this information is protected by the Federal Confidentiality of Alcohol and Drug Abuse Patient Records regulations: The Federal rules restrict any use of the information to criminally investigate or prosecute any alcohol or drug abuse patient.[facility] the event this information is protected by the Federal Confidentiality of Alcohol and Drug Abuse Patient Records regulations: The Federal rules restrict any use of the information to criminally investigate or prosecute any alcohol or drug abuse patient.[facility] the event this information is protected by the Federal Confidentiality of Alcohol and Drug Abuse Patient Records regulations: The Federal rules restrict any use of the information to criminally investigate or prosecute any alcohol or drug abuse patient.[facility] the event this information is protected by the Federal Confidentiality of Alcohol and Drug Abuse Patient Records regulations: The Federal rules restrict any use of the information to criminally investigate or prosecute any alcohol or drug abuse patient.[facility] the event this information is protected by the Federal Confidentiality of Alcohol and Drug Abuse Patient Records regulations: The Federal rules restrict any use of the information to criminally investigate or prosecute any alcohol or drug abuse patient.[facility] the event this information is protected by the Federal Confidentiality of Alcohol and Drug Abuse Patient Records regulations: The Federal rules restrict any use of the information to criminally investigate or prosecute any alcohol or drug abuse patient.[facility] the event this information is protected by the Federal Confidentiality of Alcohol and Drug Abuse Patient Records regulations: The Federal rules restrict any use of the information to criminally investigate or prosecute any alcohol or drug abuse patient.[facility] Reason for Visit (unrecogniz ed section and content) Reason Comments Patient Question Reason Comments Outpatient Colonoscopy Reason Comments Dysuria Reason Comments Sinusitis Reason Comments Sinus Problem Care Teams (unrecognized sec tion and content) Buzzle Buffer Relationship Specialty Start Date End Date Robert Jovel MD [address] [facility] [address] [place] [address] PCP - General Family Practice 02/18/18 Buzzle Buffer Relationship Specialty Start Date End Date Robert Jovel MD [address] [facility] [address] [place] [address] PCP - General Family Practice 02/18/18 Buzzle Buffer Relationship Specialty Start Date End Date Robert Jovel MD [address] [facility] [address] [place] [address] PCP - General Family Practice 02/18/18 Buzzle Buffer Relationship Specialty Start Date End Date Robert Jovel MD [address] [facility] [address] [place] [address] PCP - General Family Practice 02/18/18 Buzzle Buffer Relationship Specialty Start Date End Date Robert Jovel MD [address] [facility] [address] [place] [address] PCP - General Family Practice 02/18/18 Buzzle Buffer Relationship Specialty Start Date End Date Robert Jovel MD [address] [facility] [address] [place], [place] [id number] PCP - General Family Medicine 02/18/18 Buzzle Buffer Relationship Specialty Start Date End Date Bernice AndujarDO [address] [place] [address] PCP - General Family Medicine 10/05/22 Buzzle Buffer Relationship Specialty Start Date End Date Bernice AndujarDO [address] [place], [place] [id number] PCP - General Family Medicine 10/05/22 INFORMATION SOURCE (unrecogn ized section and content) DATE CREATED AUTHOR AUTHOR'S [facility] 02/23/2023 [facility] FOR RECORDS PERTAINING TO PATIENTS WHO ARE OR HAVE BEEN ENROLLED IN A CHEMICAL DEPENDENCY/SUBSTANCEABUSE PROGRAM, SOME INFORMATION MAY BE OMITTED. This clinical summary was aggregated from multiple sources. Caution should be exercised in using it in the provision of clinical care. This summary normalizes information from multiple sources, and as a consequence, information in this document may materially change the coding, format and clinical context of patient data. In addition, data may be omitted in some cases. CLINICAL DECISIONS SHOULD BE BASED ON THE PRIMARY CLINICAL RECORDS. [facility]. provides no warranty or guarantee of the accuracy or completeness of information in this document.
== END | disposition home or self-care (01) ==
LOC: LAB 06:45
PROVIDERS: PCP Family Medicine; Referring Provider Family Medicine; Visit Provider Family Medicine
DX: R73.01 Impaired fasting glucose (principal)
CPT/HCPCS: 36415; 82607; 82951; 82952

== ENCOUNTER 2023-07-21 11:58 | Outpatient (RCR) | payer MEDICARE, SELFPAY ==
--- NOTE | 2023-07-21 12:35 | HP.PTEVAL ---
Patient's Visit Information Visit Information Visit Information: GWEN ROCKWELL is a 68 year old F referred to Physical Therapy by Dr. Bernice Andujar DO with a diagnosis of dizzyness. Date of Evaluation: 07/21/23 Physical Therapist: Toni Geiger, DPT, OCS, CSCS Visit Plan Plan: No skilled PT required at this point, No vestibular deficts noted and neck symptoms pt is comfortable treated at chiropractor. Subjective Subjective: Last September was in ER 2x with bad vertigo. Sees chiropractor for back and thought we could help. Ever since last September has constant ringing in ears maybe both. Gets HILL nearly ever morning. Chiropractor works on neck. Not sure why it started last September. Family doctor thought also to send to therapy. No more vertigo. Had a mild episode a couple weeks and things spun on her and it lasts a minute and then is fearful to move. Given meds for dizzyness that she took. Activities are normal. Needs to rest if gets bad HILL maybe 2x/week and wakes up that way. Sleep is OK Retired Hobbies: none, playing with grandchildren and can do that. No regular exercises but has [employer] online that she does now and then. No falls or balance problems, no neuroapthy. Objective Objective: Walks into PT without balance problems. Transfers without UE easily adn I. Steps reciprocal without rail necessary. Good balance, Romberg eo and ec I 30 sec. cervical aROM WFL and without pain, symmetrical, limited to 50 B rotationa nd 48 extension. UE AROM WFL, reflexes 2/3 bi and tri. Strength 4-/5 UE without myotomal abnormalities. positional : - B [place], - roll tests. oculomotor: no nystagmus with gaze or head shake normal purusuit and saccades without symptoms. normal VOR, no symptoms H or V. - skew eye deviation - ocular tilt - head thrust DVA appropriately 2 line difference from SVA Balance/Special Test Scores Functional Gait Assessment Score: 30 % Disability: 0 Dizziness Score: 10 Rehabilitation Potential Physical Therapy Diagnosis: no concerns noted in the vestibular system today, minor neck ROM deficits treated by chiropractor. Anticipated Interventions Text: Thank you for the opportunity to evaluate your patient. For Medicare and Medicare HMO plans, please review the plan of care and approve it. It will need to be FAXED BACK to us at [phone] for Medicare purposes. For Medicare only, by signing this I certify the plan of care. Please let me know if there are questions or concerns regarding this plan of care. Physician Signature: Date:
== END 2023-07-21 19:00 | disposition home or self-care (01) ==
LOC: PT 11:58
PROVIDERS: PCP Family Medicine; Referring Provider Family Medicine; Visit Provider Family Medicine
DX: R42 Dizziness and giddiness (principal); H93.19 Tinnitus, unspecified ear
CPT/HCPCS: 97161

== ENCOUNTER → 2024-11-03 | Outpatient (CLI) | payer MEDICARE, SELFPAY ==
--- NOTE | 2024-11-03 13:32 | RAD_ITS ---
PROCEDURE: THORACIC SPINE 3 VIEWS 11/03/2024 REASON FOR EXAM: BACK PAIN TECHNIQUE: Two views of the thoracic spine COMPARISON: None. FINDINGS: Mild osteopenia. S shaped degenerative scoliosis. Mild chronic compression deformities of the mid and lower thoracic vertebral bodies. Increased dorsal kyphosis. Exaggerated lumbar lordosis. There are diffuse spondylotic changes. Findings are demonstrated to by diffuse disc space narrowing, osteophyte formation and degenerative endplate sclerosis. There is diffuse facet joint arthropathy with secondary bilateral neural foramina narrowing. No fracture or dislocation is seen. No aggressive lytic or blastic bony lesion is noted. RAD/Thoracic Spine 3 Views IMPRESSION: Spondylosis. Chronic compression deformities of the mid and lower thoracic vertebral bodies. Reading [facility]
== END | disposition home or self-care (01) ==
PROVIDERS: PCP Family Medicine; Referring Provider Family Medicine; Visit Provider Family Medicine
DX: M54.6 Pain in thoracic spine (principal)
CPT/HCPCS: 72072

== ENCOUNTER → 2024-11-04 | Outpatient (CLI) | payer MEDICARE, SELFPAY ==
[2024-11-04 12:36] LABS: Absolute Neutrophil Count 3.2 X10^3/uL (2.0-7.7); Basophil# 0.03 X10^3/uL; Basophil% 0.6 % (0-1); Eosinophil# 0.15 X10^3/uL; Eosinophils% 2.8 % (0-5); Hematocrit 40.6 % (37-47); Hemoglobin 13.7 g/dL (12.0-15.0); Lymphocyte % 29.9 % (19-41); Mean Corp Hgb Conc 33.7 g/dL (32-36); Mean Corpuscular Hgb 29.9 pg (27.0-32.0); Mean Corpuscular Volume 88.6 fL (81-99); Monocyte# 0.39 X10^3/uL; Monocyte% 7.3 % (0-10); NRBC Flagged by Analyzer 0 % (0-5); Neutrophil # 3.18 X10^3/uL (2.7-7.7); Neutrophil % 59.2 % (47-70); Platelet Count 229 K/mm3 (150-450); RBC Distribution Width CV 13.1 % (11.6-14.6); RBC Distribution Width SD 42.7 fl (35.1-43.9); Red Blood Count 4.58 M/mm3 (4.2-5.4); White Blood Count 5.4 K/mm3 (4.4-11.0)
[2024-11-04 13:42] LABS: ALB/GLOB Ratio 1.5 RATIO (0.9-2.4); AST(SGOT) 28 U/L (<=31); Alanine Aminotransfer ALT/SGPT 26 U/L (<=34); Albumin, Serum 4.7 g/dL (3.4-4.8); Alkaline Phosphatase 128 U/L (35-104); Anion Gap 13 (5-15); BUN 13 mg/dL (4-19); BUN/Creat Ratio 17.8 RATIO (10-20); Carbon Dioxide 26.9 mmol/L (21.0-32.0); Chloride 100 mmol/L (98-108); Creatinine, Serum 0.72 mg/dL (0.70-1.20); EST Glomerular Filtration Rate 91 (>60); Globulin 3.1 g/dL (2.2-4.2); Glucose 87 mg/dL (70-99); Potassium 3.9 mmol/L (3.3-5.1); Protein, Total 7.7 g/dL (5.9-8.4); Sodium Level 139 mmol/L (133-145); Total Bilirubin 0.46 mg/dL (0.00-1.30)
== END | disposition home or self-care (01) ==
LOC: MTLAB 09:43
PROVIDERS: PCP Family Medicine; Referring Provider Family Medicine; Visit Provider Family Medicine
DX: I10 Essential (primary) hypertension (principal); E03.9 Hypothyroidism, unspecified; Z51.81 Encounter for therapeutic drug level monitoring
CPT/HCPCS: 36415; 80053; 84439; 84443; 84481; 85025

== ENCOUNTER → 2025-01-13 | Outpatient (CLI) | payer MEDICARE, SELFPAY ==
[2025-01-13 20:25] LABS: Creatinine, Urine (random) 44.30 mg/dL (28.00-217.00); Microalbumin,Random Urine < 12.0 mg/L (<20 mg/L)
--- OUTSIDE RECORDS SUMMARY | 2025-01-13 20:31 | XMS RPT_ITS | CCD ---
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 Name Role Phone Robert Najera MD Primary Care Provider Malys DO, Bernice Lacy Primary Care Provider ESTEFANI GREGORY, BERNICE Attending Unavailable MALYS, BERNICE A Primary Care Unavailable MALYS, BERNICE A Primary Care Unavailable MD ROSS TARAS Attending Unavailable Malys DO, Bernice Lacy Primary Care Provider XIMENA CARDENAS Attending Unavailable MALYS, BERNICE A Primary Care Unavailable MUNIRA RUELAS Attending Unavail able MALYS, BERNICE A Primary Care Unavailable MUNIRA RUELAS Referring Unavail able MALYS, BERNICE A Primary Care Unavailable MUNIRA RUELAS Attending Unavail able XIMENA CARDENAS Referring Unavailable MALYS, BERNICE A Primary Care Unavailable XIMENA CARDENAS Referring Unavailable MALYS, BERNICE A Primary Care Unavailable Malys Dr. Bernice BOOTH Primary Care Provider [phone] Dr. Bernice Andujar DO Attending Provider [phone] Dr. Bernice Andujar DO Referring Provider [phone] Jonathanys, Bernice Referring Unavailable Malys, Bernice Primary Care Unavailable Malys, Bernice Attending Unavailable Malys, Bernice Referring Unavailable Malys, Bernice Primary Care Unavailable Malys, Bernice Attending Unavailable Allergies Allergy Classification Reported Allergen(s) Allergy Type Date of Onset Reaction(s) Facility Sulfamethoxazole / Trimethoprim (1 source) Sulfamethoxazole / Trimethoprim Drug Allergy 02-04-20 18 GI Upset [facility] (6 sources) Penicillins; Translations: [PENICILLINS] Drug Allergy 10-25-19 11 Rash [facility] (18 sources) Sulfamethoxazole / Trimethoprim; Translations: [SULFAMETHOXAZOLE-T RIMETHOPRIM] Drug Allergy 02-04-20 18 GI Upset [facility] (7 sources) Adhesive agent; Translations: [adhesive] Propensity to adverse reactions 05-22-20 Rash [facility] (6 sources) Sulfamethoxazole Drug Allergy 05-22-20 [facility] Trimeth[facility]rim Drug Allergy 05-22[facility]20 [facility] Penicillins Drug Allergy 10-25-19 11 Rash [facility] (1 source) Sulfamethoxazole Drug Allergy 05-22-20 [facility] (1 source) Trimethoprim Drug Allergy 05-22-20 [facility] Medications Current Medications Medication Drug Class(es) Dates Sig (Normalized) Sig (Original) acyclovir 800 mg oral tablet (17 sources) Herpesvirus Nucleoside Analog DNA Polymerase Inhibitor, Herpes Simplex Virus Nucleoside Analog DNA Polymerase Inhibitor, Herpes Zoster Virus Nucleoside Analog DNA Polymerase Inhibitor Start: 01-15-2021 acyclovir (ZOVIRAX) 800 mg tablet Take 1 tablet by mouth as directed. PRN with cold sores. 01/15/2021 Active Comment on above: Take 1 tablet by prince [facility] as directed. PRN with cold sores. [id number] 200 actuat albuterol 0.09 mg/actuat metered dose inhaler (20 sources) beta2-Adrenergic Agonist Start: 07-13-2019 Albuterol Sulfate 1 PUFF inhaler Active 1 - 2 NMA INHALATION EVERY 6 HOURS NEEDED as needed for Sob &/Or Wheezing July 13, 2019 1:00am Start: 07-13-2019 take 1 puff(s) by in halation every six hours as needed Albuterol Sulfate Active 1 - 2 PUFF INHALATION EVERY 6 HOURS NEEDED July 13, 2019 12:00am Start: 04-15-2013 End: 07-05-2019 take 1 puff(s) by inhalation every four hours as needed Albuterol Sulfate Discontinued 1 - 2 PUFF INHALATION EVERY 4 HOURS NEEDED April 15, 2013 9:57am July 05, 2019 9:20am Start: 04-15-2013 End: 07-05-2019 take 1 puff(s) by inhalation every four hours as needed Albuterol Sulfate Discontinued 1 - 2 PUFF INHALATION EVERY 4 HOURS NEEDED April 15, 2013 12:00am July 05, 2019 8:20am albuterol HFA (P ROAIR HFA) 90 mcg/actuation inhaler Inhale 2 Puffs as instructed as needed. Active Comment on above: Inhale 2 Puffs as in structed as needed. amLODIPine 5 mg oral tablet (20 sources) Dihydropyridine Calcium Channel Yessica Start: 014 take 1 tablet by mouth at bedtime Amlodipine 5 MG tablet Active 5 mg PO AT BEDTIME January 24, 2014 12:00am Comment on above: Take 5 mg by mouth o nce daily. amoxicillin 500 mg oral tablet (6 sources) Penicillin-class Antibacterial Start: 021 take 4 tablets by mouth every hour Amoxicillin 500 mg tablet Active 500 mg PO ONCE 4 February 19, 2021 12:00am take 4 tabs within 1 hr prior to dental procedure. amoxicillin 875 mg / clavulanate 125 mg oral tablet (1 source) Penicillin-class Antibacterial Start: 023 End: 023 take 1 tablet by mouth twice daily amoxicillin-clavulan ic acid (AUGMENTIN) 875-125 mg per tablet Indications: Acute rhinosinusitis Take 1 tablet by mouth twice daily for 5 days. 10 tablet 0 02/21/2023 02/26/2023 Active Comment on above: Take 1 tablet by prince [facility] twice daily for 5 days. ASHWAGANDHA EXTRACT ORAL (2 sources) ASHWAGANDHA EXTR ACT ORAL Take by mouth. Coral root and black pepper Active B.animalis,bifid,infan tis,long (PROBIOTIC 4X ORAL) (2 sources) B.animalis,bifid ,inf antis,long (PROBIOTIC 4X ORAL) Take by mouth. 40 billion Active biotin 10 mg oral capsule (2 sources) Biotin 10,000 mc g cap Take by mouth. Active calcium carbonate 1500 mg / cholecalciferol 0.01 mg oral tablet (6 sources) Vitamin D Start: 013 Calcium Carbonate-Vitamin D3 1 TAB tablet Active 1 {tbl} PO DAILY@0800 April 15, 2013 1:00am Start: 04-15-2013 take 1 tablet by prince th once daily Calcium Carbonate-Vitamin D3 Active 1 TABLET PO DAILY@0800 April 15, 2013 12:00am Calcium Carbonate / vitamin D3 (17 sources) CALCIUM CARBONAT E/VITAMIN D3 (CALCIUM 600 + D ORAL) Take by mouth. Active CALCIUM CARBONAT E/VITAMIN D3 (CALCIUM 600 + D ORAL) Take by mouth. 0 Active Comment on above: Take by mouth. cholecalciferol 0.025 mg oral tablet (20 sources) Vitamin D Start: 6 take 1 tablet by mouth once daily Cholecalciferol (Vitamin D3) 1,000 UNIT tablet Active 1000 U PO DAILY December 14, 2015 12:00am take 1 capsule by mouth once isaiah ly Cholecalciferol, Vitamin D3, (VITAMIN D) 1,000 unit cap Take 1,000 Units by mouth once daily. Active Comment on above: Take 1,000 Units by mouth once daily. Collagen (2 sources) COLLAGEN MISC Ac tive CPAP (8 sources) CPAP Active CPAP cranberry fruit concentrate (AZO CRANBERRY ORAL) (2 sources) cranberry fruit concentrate (AZO CRANBERRY ORAL) Take by mouth. Active dexamethasone 6 mg oral tablet (6 sources) Corticosteroid Start: 05-15-20 21 take 1 tablet by mouth once daily Dexamethasone (Decadron) 6 mg tablet Active 6 mg PO DAILY May 15, 2021 1:00am diclofenac sodium 75 mg delayed release oral tablet (7 sources) Nonsteroidal Anti-inflammatory Drug Start: 07-05-19 End: 10-02-19 take 1 tablet by mouth twice daily Diclofenac Sodium 75 mg tablet,delayed release (DR/EC) Active 75 mg PO TWICE A DAY July 05, 2019 1:00am Comment on above: Take 75 mg by mouth twice daily. doxycycline monohydrate 100 mg oral tablet (13 sources) Tetracycline-class Drug Start: 04-23-20 End: 04-28-20 22 take 1 tablet by mouth twice daily doxycycline monohydrate 100 mg tablet Indications: Bacterial sinusitis Take 1 tablet by mouth twice daily for 5 days. 10 tablet 0 04/23/2022 04/28/2022 Active Start: 12-19-2020 End: 03-01-2021 take 1 capsule by mouth twice daily Doxycycline Hyclate 100 mg capsule Discontinued 100 mg PO TWICE A DAY December 19, 2020 12:00am March 01, 2021 2:27pm Start: 11-10-2020 End: 11-16-2020 take 1 capsule by mouth twice daily Doxycycline Monohydrate 100 mg capsule Discontinued 100 mg PO TWICE A DAY 8 November 10, 2020 12:00am November 16, 2020 11:00am Comment on above: [facility] esomeprazole 20 mg delayed release oral capsule (20 sources) Proton Pump Inhibitor Start: 07-13-19 take 1 capsule by mouth once daily Esomeprazole Magnesium 20 MG capsule Active 20 mg PO DAILY July 13, 2019 1:00am Comment on above: Take 1 capsule by mo [facility] once daily. fexofenadine hydrochloride 180 mg oral tablet (20 sources) Histamine-1 Receptor Antagonist Start: 07-13-19 take 1 tablet by mouth once daily Fexofenadine 180 MG tablet Active 180 mg PO DAILY July 13, 2019 1:00am Comment on above: Take 180 mg by mouth once daily. fluticasone (17 sources) Corticosteroid fluticasone propionate (FLONASE ALLERGY RELIEF NASAL) Use in the nose as needed. Active fluticasone prop ionate (FLONASE ALLERGY RELIEF NASAL) Use in the nose as needed. 0 Active Comment on above: Use in the nose as n eeded. hydroCHLOROthiazide 25 mg oral tablet (20 sources) Thiazide Diuretic Start: 2012 take 1 tablet by mouth once daily Hydrochlorothiazide 25 MG tablet Active 25 mg PO DAILY April 15, 2013 1:00am Comment on above: Take 25 mg by mouth once daily. irbesartan 300 mg oral tablet (20 sources) Angiotensin 2 Receptor Yessica Start: 2019 take 1 tablet by mouth at bedtime Irbesartan 300 MG tablet Active 300 mg PO AT BEDTIME July 13, 2019 1:00am Start: 12-14-2015 End: 07-05-2019 take 1 tablet by mouth at bedtime Irbesartan 300 MG tablet Discontinued 300 mg PO AT BEDTIME December 14, 2015 12:00am July 05, 2019 9:20am Comment on above: Take 300 mg by mouth daily at bedtime. levothyroxine sodium 0.075 mg oral tablet (20 sources) l-Thyroxine Start: 8 take 1 tablet by mouth once daily levothyroxine (SYNTHROID) 75 mcg tablet Take 75 mcg by mouth once daily. 01/05/2018 Active Start: 04-15-2013 Levothyroxine 50 MCG tablet Active 75 ug PO DAILY April 15, 2013 1:00am Start: 04-15-2013 take 75 ug by mouth once daily Levothyroxine Active 75 MCG PO DAILY April 15, 2013 12:00am Comment on above: Take 75 mcg by mouth once daily. lysine 500 mg oral tablet (8 sources) lysine (L-LYSINE ) 500 mg tab Active Magnesium (15 sources) Start: 12-14-2015 MAGNESIUM ORAL Take 250 mg by mouth. Bisglycinate 72 mg 12/14/2015 Active Start: 12-14-2015 MAGNESIUM ORAL Take 250 mg by mouth. 12/14/2015 Active Start: 12-14-2015 MAGNESIUM ORAL Take 250 mg by mouth. 0 12/14/2015 Active Start: 12-14-2015 take 250 mg by mouth once costa y Magnesium Active 250 MG PO DAILY December 14, 2015 10:01am Start: 12-14-2015 take 1 tablet by prince th once daily Magnesium 250 MG tablet Active 250 mg PO DAILY December 14, 2015 12:00am Start: 12-14-2015 take 250 mg by mouth once costa y Magnesium Active 250 MG PO DAILY December 13, 2015 11:00pm End: 10-01-2021 Magnesium 250 mg tab Take 25 0 mg by mouth. 0 10/01/2021 Discontinued Comment on above: Take 250 mg by mouth . meclizine hydrochloride 25 mg oral tablet (9 sources) Antiemetic Start: 3 take 1 tablet by mouth every eight hours as needed meclizine (ANTIVERT) 25 mg tab Take 1 tablet by mouth three times daily as needed (vertigo). 20 tablet 10/05/2022 Active Comment on above: Take 1 tablet by prince th three times daily as needed (vertigo). 24 hr metFORMIN hydrochloride 500 mg extended release oral tablet (3 sources) Biguanide Start: 4 take 2 tablets by mouth once daily at dinner metFORMIN ER (GLUCOPHAGE XR) 500 mg 24 hr tablet Indications: Insulin resistance Take 2 tablets by mouth daily with dinner. 60 tablet 2 03/08/2024 Active multivitamin ORAL tablet (17 sources) take 1 tablet by mouth once daily multivitamin ORAL tablet Take 1 tablet by mouth once daily. Active take 1 tablet by mouth once [place] multivitamin ORAL tablet Take 1 tablet by mouth once daily. 0 Active Comment on above: Take 1 tablet by prince th once daily. mv-min/vit C/glut/lysine/hb124 (IMMUNE SUPPORT ORAL) (2 sources) take 1000 mg by mouth once mv-min/vit C/glut/lysine/hb124 (IMMUNE SUPPORT ORAL) Take by mouth. Vitamin c 1000 mg elderberry echinacea artemio root Active OTC PRODUCT (2 sources) OTC PRODUCT Andreea ien leaf lung support Active microencapsulated potassium chloride 20 meq extended release oral tablet (6 sources) Start: 0 Potassium Chloride 20 MEQ tablet,ER particles/crystals Active 20 meq PO TUTH July 13, 2019 1:00am started 07/10/19 for 7 days POTASSIUM-99 ORAL (8 sources) POTASSIUM-99 ORA L Active POTASSIUM-99 ORA L sertraline 50 mg oral tablet (20 sources) Serotonin Reuptake Inhibitor Start: 07-13-2019 take 1 tablet by mouth at bedtime Sertraline 50 MG tablet Active 50 mg PO AT BEDTIME July 13, 2019 1:00am Start: 12-14-2015 End: 07-05-2019 take 1 tablet by mouth once daily Sertraline 50 MG tablet Discontinued 50 mg PO DAILY December 14, 2015 12:00am July 05, 2019 9:21am Comment on above: Take 50 mg by mouth once daily. simvastatin 20 mg oral tablet (20 sources) HMG-CoA Reductase Inhibitor Start: 1 take 1 tablet by mouth at bedtime Simvastatin 20 mg Tablet Active 20 mg PO AT BEDTIME November 01, 2020 12:00am Start: 01-24-2014 End: 07-05-2019 take 1 tablet by mouth at bedtime Simvastatin 20 MG tablet Discontinued 20 mg PO AT BEDTIME January 24, 2014 12:00am July 05, 2019 9:22am Comment on above: Take 20 mg by mouth daily at bedtime. topiramate 25 mg oral tablet (2 sources) Start: 03-31-2024 End: 04-30-2024 take 1 tablet by mouth twice daily topiramate (TOPAMAX) 25 mg tablet Take 1 tablet by mouth two times a day. 60 tablet 03/31/2024 Active vitamin D3-vitamin K2, MK4, (K2 PLUS D3) 1,000-100 unit-mcg tab (2 sources) vitamin D3-vitam in K2, MK4, (K2 PLUS D3) 1,000-100 unit-mcg tab Take by mouth. Active zinc methionine sulfate/copper (ZINC BALANCE ORAL) (2 sources) zinc methionine sulfate/copper (ZINC BALANCE ORAL) Take by mouth. 50 mg Active Completed/Discontinued Medications Medication Drug Class(es) Dates Sig (Normalized) Sig (Original) acetaminophen 325 mg oral tablet (8 sources) Start: 12-14-2015 End: 07-05-2019 take 1 tablet by mouth twice daily as needed for pain Acetaminophen 325 MG tablet Discontinued 325 mg PO TWICE DAILY NEEDED as needed for Pain December 14, 2015 12:00am July 05, 2019 9:20am acetaminophen (T YLENOL 8 HOUR ORAL) Take by mouth. Active acetaminophen 325 mg / oxyCODONE hydrochloride 5 mg oral tablet (18 sources) Opioid Agonist Start: 11-10-2020 End: 12-07-2020 take 7-10 tablets by mouth every four hours as needed for pain Oxycodone-Acetaminophen (Percocet) 5-325 mg tablet Discontinued 1 {tbl} PO Q4H as needed for pain (scale score 7-10) 40 7 November 10, 2020 December 07, 2020 11:37am 28 tabs (twenty-eight) Start: 08-27-2019 End: 10-11-2020 take 1-2 tablets by mouth every six hours as needed for pain Oxycodone-Acetaminophen (Percocet) 5-325 mg tablet Discontinued 1 {tbl} PO EVERY 6 HOURS as needed for pain 56 August 27, 2019 October 11, 2020 11:13am 1-2 tabs every 6 hrs prn pain Start: 12-27-2015 End: 07-05-2019 Oxycodone-Acetaminophen 1 TA BLET tablet Discontinued 1 - 2 {tbl} PO EVERY 6 HOURS NEEDED as needed for Severe Pain (6-10/10) 90 December 27, 2015 12:00am July 05, 2019 9:21am Start: 12-27-2015 End: 07-05-2019 take 1 tablet by mouth every six hours as needed Oxycodone-Acetaminophen Discontinued 1 - 2 TABLET PO EVERY 6 HOURS NEEDED 90 December 26, 2015 11:00pm July 05, 2019 8:21am Albuterol Sulfate 1 PUFF inhaler (2 sources) Start: 04-15-2013 End: 07-05-2019 Albuterol Sulfate 1 PUFF inhaler Discontinued 1 - 2 NMA INHALATION EVERY 4 HOURS NEEDED as needed for Asthma April 15, 2013 1:00am July 05, 2019 9:20am apixaban 2.5 mg oral tablet (6 sources) Factor Xa Inhibitor Start: 08-11-2019 End: 10-11-2020 take 1 tablet by mouth twice daily Apixaban 2.5 MG tablet Discontinued 2.5 mg PO TWICE A DAY August 11, 2019 12:00am October 11, 2020 11:14am aspirin 325 mg oral tablet (6 sources) Platelet Aggregation Inhibitor, Nonsteroidal Anti-inflammatory Drug Start: 12-27-2015 End: 07-05-2019 take 1 tablet by mouth twice daily at mealtime Aspirin 325 MG tablet Discontinued 325 mg PO TWICE DAILY WITH MEALS 60 December 27, 2015 12:00am July 05, 2019 9:20am dicyclomine hydrochloride 20 mg oral tablet (6 sources) Anticholinergic Start: 12-14-2015 End: 07-05-2019 take 1 tablet by mouth three times daily Dicyclomine 20 MG tablet Discontinued 20 mg PO THREE TIMES A DAY December 14, 2015 12:00am July 05, 2019 9:20am 12 hr fexofenadine hydrochloride 60 mg / pseudoephedrine hydrochloride 120 mg extended release oral tablet (6 sources) alpha-Adrenergic Agonist, Histamine-1 Receptor Antagonist Start: 12-14-2015 End: 07-05-2019 take 1 tablet by mouth every twelve hours Fexofenadine-Pseu doephedrine 1 EACH tablet extended release 12 hr Discontinued 1 NMA PO DAILY December 14, 2015 12:00am July 05, 2019 9:20am Start: 12-14-2015 End: 07-05-2019 Fexofenadine-Pseudoephedrine Discontinued 1 EACH PO DAILY December 13, 2015 11:00pm July 05, 2019 8:20am glipiZIDE er 2.5 mg 24 hr extended release oral tablet (5 sources) Sulfonylurea End: 03-01-2024 glipiZIDE (GLUCOTROL XL) 2.5 mg 24 hr tablet 03/01/2024 Discontinued ibuprofen 600 mg oral tablet (6 sources) Nonsteroidal Anti-inflammatory Drug Start: 01-24-2014 End: 07-13-2015 take 1 tablet by mouth every eight hours as needed for pain Ibuprofen 600 MG tablet Discontinued 600 mg PO EVERY 8 HOURS NEEDED as needed for Pain January 24, 2014 12:00am July 13, 2015 9:30am lactobacillus acidophilus [id number] unt oral capsule (6 sources) Start: 12-14-2015 End: 07-05-2019 take 1 capsule by mouth once daily Lactobacillus Acidophilus 100 MG capsule Discontinued 100 mg PO DAILY December 14, 2015 12:00am July 05, 2019 9:20am linezolid 600 mg oral tablet (6 sources) Oxazolidinone Antibacterial Start: 12-25-2020 End: 01-08-2021 take 1 tablet by mouth every twelve hours Linezolid 600 mg tablet Discontinued 600 mg PO Q12H 28 December 25, 2020 12:00am January 07, 2021 12:00am January 08, 2021 12:01am loperamide hydrochloride 2 mg oral tablet (8 sources) Opioid Agonist Start: 12-14-2015 End: 07-05-2019 take 1 tablet by mouth once daily as needed for diarrhea Loperamide 2 MG tablet Discontinued 2 mg PO DAILY NEEDED as needed for Diarrhea December 14, 2015 12:00am July 05, 2019 9:21am loperamide HCl ( IMODIUM A-D ORAL) Take by mouth. Active meloxicam 15 mg oral tablet (20 sources) Nonsteroidal Anti-inflammatory Drug Start: 12-14-2015 End: 12-27-2015 take 1 tablet by mouth once daily Meloxicam (Mobic) 15 MG tablet Discontinued 15 mg PO DAILY December 14, 2015 12:00am December 27, 2015 12:30pm Comment on above: Take 15 mg by mouth once daily. mometasone furoate 0.05 mg/actuat metered dose nasal spray (6 sources) Corticosteroid Start: 01-24-2014 End: 07-05-2019 Mometasone 1 SPRAY spray,non-aerosol Discontinued 1 NMA NASAL DAILY NEEDED as needed for Allergies January 24, 2014 12:00am July 05, 2019 9:21am Start: 01-24-2014 End: 07-05-2019 Mometasone Discontinued 1 SP RAY NASAL DAILY NEEDED January 23, 2014 11:00pm July 05, 2019 8:21am Bginjany-Svr-Cd-Lycopen-Lute in (4 sources) Start: 01-24-2014 End: 07-05-2019 Rzzkmuru-Dnl-Nb-Lycopen-Lute in Discontinued 1 EACH PO DAILY January 24, 2014 4:48pm July 05, 2019 9:21am Start: 01-24-2014 End: 07-05-2019 Gsabywvp-Sps-Hr-Lycopen-Lute in Discontinued 1 EACH PO DAILY January 23, 2014 11:00pm July 05, 2019 8:21am Vizxndqm-Gsb-Ox-Lycopen-Lute in 1 EACH tablet (2 sources) Start: 01-24-2014 End: 07-05-2019 Gzvwaqmi-Nho-Wr-Lycopen-Lute in 1 EACH tablet Discontinued 1 NMA PO DAILY January 24, 2014 12:00am July 05, 2019 9:21am naproxen 500 mg oral tablet (6 sources) Nonste roidal Anti-i nflamm atory Drug Start: 04-15-2013 End: 04-22-2013 take 1 tablet by mouth once daily as needed for pain Naproxen 500 MG tablet Discontinued 500 mg PO DAILY NEEDED as needed for Mild Pain April 15, 2013 1:00am April 22, 2013 1:08pm oxyCODONE hydrochloride 5 mg oral tablet (6 sources) Opioid Agonis t Start: 08-11-2019 End: 10-11-2020 take 5-10 mg by mouth every four hours as needed for pain Oxycodone 5 MG tablet Discontinued 5 - 10 mg PO EVERY 4 HOURS NEEDED as needed for Pain Score 4-10/10 60 August 11, 2019 October 11, 2020 11:12am polyethylene glycol 3350 236 000 mg / potassium chloride 2970 mg / sodium bicarbonate 6740 mg / sodium chloride 5860 mg / sodium sulfate 95915 mg powder for oral solution (10 sources) Osmoti c Laxati ve Start: 10-01-2021 End: 11-19-2023 peg 3350-Electrolytes (GOLYTELY) 236-22.74-6.74 -5.86 gram suspension Indications: Encounter for screening for malignant neoplasm of colon Refer to printed prep instructions from your provider. 4000 mL 0 10/01/2021 11/19/2023 Discontinued (Other) Comment on above: Refer to printed pre p instructions from your provider. Problems Active Problems Problem Classification Problem Date Documented Date Episodic/Chronic Asthma (6 sources) Asthma; Translations: [Unspecified asthma, uncomplicated] 05-22-2021 Chronic Chronic obstructive pulmonary disease and bronchiectasis (6 sources) Chronic obstructive lung disease; Translations: [Chronic obstructive pulmonary disease, unspecified] 05-22-2021 Chronic Chronic ulcer of skin (6 sources) Chronic ulcer of foot; Translations: [Non-pressure chronic ulcer of other part of left foot with fat layer exposed] 01-20-2021 Chronic Comment on above: dorsum left foot by second toe Complications of surgical procedures or medical care (6 sources) Delayed healing of surgical wound; Translations: [Other complications of procedures, not elsewhere classified, initial encounter] 01-20-2021 Episodic Conditions associated with dizziness or vertigo (6 sources) Dizziness; Translations: [Dizziness and giddiness] Onset: 10-05-2022 Episodic Diabetes mellitus without complication (3 sources) Prediabetes; Translations: [Prediabetes] Onset: 03-31-2024 03-01-2024 Episodic Disorders of lipid metabolism (3 sources) Hypercholesterolemia; Translations: [Pure hypercholesterolemia, unspecified] Onset: 03-31-2024 03-01-2024 Chronic Esophageal disorders (3 sources) Gastroesophageal reflux disease without esophagitis; Translations: [Gastro-esophageal reflux disease without esophagitis] Onset: 03-31-2024 03-01-2024 Chronic Essential hypertension (20 sources) Hypertensive disorder; Translations: [Essential (primary) hypertension] Onset: 05-22-2011 05-22-2011 Chronic Genitourinary symptoms and ill-defined conditions (1 source) Dysuria; Translations: [Dysuria] Episodic Headache; including migraine (1 source) Headache; Translations: [Headache, unspecified headache type] Episodic Immunizations and screening for infectious disease (14 sources) Patient encounter status; Translations: [Encounter for screening for human papillomavirus (HPV)] Episodic Malaise and fatigue (4 sources) Malaise and fatigue; Translations: [Other malaise] Onset: 03-31-2024 03-01-2024 Episodic Menstrual disorders (17 sources) Menorrhagia; Translations: [Excessive and frequent menstruation with regular cycle] Onset: 06-10-2011 06-10-2011 Chronic Nausea and vomiting (1 source) Nausea; Translations: [Nausea] Onset: 10-05-2022 Episodic Osteoarthritis (2 sources) Arthritis; Translations: [Unspecified osteoarthritis, unspecified site] Onset: 03-31-2024 03-01-2024 Chronic Other circulatory disease (1 source) Elevated blood-pressure reading, without diagnosis of hypertension; Translations: [Elevated blood pressure reading] Onset: 10-06-2022 Episodic Other circulatory disease (1 source) Personal history of other diseases of the circulatory system; Translations: [History of hypertension] Onset: 10-06-2022 Episodic Other connective tissue disease (12 sources) History of total knee arthroplasty; Translations: [Presence of right artificial knee joint] 10-13-2020 Chronic Comment on above: Right total knee art hroplasty CT guided Robotic Assisted - 08/10/19 Left total knee repl acement arthroplasty utilizing Chandrika Triathlon size 5 cementedposterior stabilized femur, size 5 tibia, 9 mm polyethylene and 35 mm patella - 12/25/15 Other connective tissue disease (6 sources) Ganglion cyst of left foot; Translations: [Ganglion, left ankle and foot] 10-13-2020 Episodic Comment on above: 2 cm painful ganglio n cyst proximal dorsum left foot by second toe Other connective tissue disease (6 sources) Foot pain; Translations: [Pain in left foot] 03-31-2021 Episodic Other ear and sense organ disorders (1 source) Tinnitus, unspecified ear; Translations: [Tinnitus, unspecified laterality] Onset: 10-05-2022 Episodic Other ear and sense organ disorders (4 sources) Tinnitus; Translations: [Tinnitus, unspecified ear] 10-24-2022 Episodic Other lower respiratory disease (2 sources) Radiologic infiltrate of lung ; Translations: [Other nonspecific abnormal finding of lung field] 05-15-2021 Episodic Other lower respiratory disease (4 sources) Single lobe lung infiltrate; Translations: [Other nonspecific abnormal finding of lung field] 05-15-2021 Episodic Other nervous system disorders (3 sources) Carpal tunnel syndrome; Translations: [Carpal tunnel syndrome, left upper limb] 10-13-2020 Chronic Other nervous system disorders (3 sources) Carpal tunnel syndrome of left wrist; Translations: [Carpal tunnel syndrome, left upper limb] 10-13-2020 Chronic Other nervous system disorders (6 sources) Acute postoperative pain; Translations: [Other acute postprocedural pain] 11-10-2020 Episodic Other nervous system disorders (1 source) Anesthesia of skin; Translations: [Numbness of left hand] Onset: 10-06-2022 Episodic Other nervous system disorders (4 sources) Tingling of skin; Translations: [Paresthesia of skin] 10-24-2022 Episodic Other non-epithelial cancer of skin (6 sources) History of malignant neoplasm of skin; Translations: [Personal history of other malignant neoplasm of skin] 10-13-2020 Episodic Other nutritional; endocrine; and metabolic disorders (3 sources) Severe obesity; Translations: [Morbid (severe) obesity due to excess calories] 11-19-2023 Chronic Other nutritional; endocrine; and metabolic disorders (3 sources) Insulin resistance; Translations: [Insulin resistance] 03-08-2024 Chronic Other nutritional; endocrine; and metabolic disorders (1 source) Morbid (severe) obesity due to excess calories; Translations: [Class 3 severe obesity due to excess calories with serious comorbidity and body mass index (BMI) of 40.0 to 44.9 in adult ([facility])] Onset: 03-31-2024 Chronic Other nutritional; endocrine; and metabolic disorders (1 source) Body mass index (BMI) 40.0-44.9, adult; Translations: [Class 3 severe obesity due to excess calories with serious comorbidity and body mass index (BMI) of 40.0 to 44.9 in adult ([facility])] Onset: 03-31-2024 Chronic Other screening for suspected conditions (not mental disorders or infectious disease) (7 sources) Encounter for screening for nutritional disorder; Translations: [Encounter for screening for diabetes mellitus] Onset: 12-08-2023 Episodic Other skin disorders (6 sources) Mass of foot; Translations: [Localized swelling, mass and lump, left lower limb] 10-11-2020 Episodic Other upper respiratory infections (1 source) Bacterial sinusitis; Translations: [Chronic sinusitis, unspecified] Chronic Other upper respiratory infections (1 source) Acute rhinosinusitis; Translations: [Acute sinusitis, unspecified] 02-21-2023 Episodic Residual codes; unclassified (5 sources) Obstructive sleep apnea syndrome; Translations: [Obstructive sleep apnea (adult) (pediatric)] 11-19-2023 Chronic Residual codes; unclassified (2 sources) Obstructive sleep apnea (adult) (pediatric); Translations: [HECTOR (obstructive sleep apnea)] Onset: 03-31-2024 Chronic Residual codes; unclassified (6 sources) Past history of procedure; Translations: [Other specified postprocedural states] 10-13-2020 Episodic Comment on above: excision left axilar y hidradenitis Residual codes; unclassified (6 sources) History of endometrial ablation; Translations: [Other specified postprocedural states] 10-13-2020 Episodic Residual codes; unclassified (6 sources) Family history of malignant neoplasm of skin; Translations: [Family history of malignant neoplasm of other organs or systems] 07-14-2015 Episodic Residual codes; unclassified (1 source) Personal history of other specified conditions; Translations: [History of dizziness] Onset: 10-06-2022 Episodic Spondylosis; intervertebral disc disorders; other back problems (2 sources) Acute low back pain; Translations: [Acute low back pain, unspecified back pain laterality, unspecified whether sciatica present] Onset: 11-08-2024 Episodic Thyroid disorders (3 sources) Hypothyroidism; Translations: [Hypothyroidism, unspecified] Onset: 03-31-2024 03-01-2024 Chronic Unclassified (1 source) Insulin resistance; Translations: [Insulin resistance] Onset: 03-31-2024 Unclassified (1 source) Class 3 severe obesity due to excess calories with serious comorbidity and body mass index (BMI) of 40.0 to 44.9 in adult (HCC); Translations: [Class 3 severe obesity due to excess calories with serious comorbidity and body mass index (BMI) of 40.0 to 44.9 in adult (HCC)] Onset: 03-31-2024 Viral infection (6 sources) Disease caused by 2019-nCoV; Translations: [COVID-19] 05-15-2021 Episodic Past or Other Problems Problem Classification Problem Date Documented Da te Episodic/Chronic Benign neoplasm of uterus (17 sources) Uterine leiomyoma; Translations: [Leiomyoma of uterus, unspecified] Onset: 06-10-2011 06-10-2011 Episodic Results Test Name Value Interpretation Reference Range Facility Absolute lymphocyte countOrd ered By: Bernice Andujar on 11-04-2024 Lymphocytes Auto (Unsp spec) [#/Vol] 1.60 10*3/uL 0.83-4.51 [facility] Absolute neutrophil countOrd ered By: Bernice Andujar on 11-04-2024 Neutrophils (Bld) [#/Vol] 3.2 10*3/uL 2.0-7.7 [facility] Anion gap in Serum or Plasma Ordered By: Bernicealea Andujar on 11-04-2024 Anion gap [Moles/Vol] 13 mmol/L 5- [facility] Automated lymphocyte count a s percentage of total leukocytesOrdered By: Bernice Andujar on 11-04-2024 Lymphocytes/100 WBC Auto (Unsp spec) 29.9 % 19- [facility] BUN/creatinine ratioOrdered By: Bernice Jonathankwame on 11-04-2024 Urea nitrogen/Creatinine [Mass ratio] 17.8 mg/mg 10-20 [facility] Basophil percentageOrdered B y: Bernice Jonathankwame on 11-04-2024 Basophils/100 WBC (Bld) 0.6 % 0-1 [facility] Bilirubin, totalOrdered By: Bernice Andujar on 11-04-2024 Bilirubin [Mass/Vol] 0.46 mg/dL 0.00-1.30 [facility] CBC W/Diff, Automatedon Absolute Lymph 1.60 X10 3/uL Normal 0.83-4.51 [facility] Comment on above: Performed By: #### L 501.9520, L506.0400, L100.0100, L500.4050, L501.42974 #### [facility] [address] [place], [address] Absolute Neut 3.2 X10 3/uL Normal 2.0-7.7 [facility] Comment on above: Performed By: #### L 501.9520, L506.0400, L100.0100, L500.4050, L501.55607 #### [facility] [address] [place], [address] Basophils/100 WBC (Bld) 0.6 % Normal 0-1 [facility] Comment on above: Performed By: #### L 501.9520, L506.0400, L100.0100, L500.4050, L501.91390 #### [facility] [address] [place], [address] Eosinophils/100 WBC (Bld) 2.8 % Normal 0-5 [facility] Comment on above: Performed By: #### L 501.9520, L506.0400, L100.0100, L500.4050, L501.28900 #### [facility] [address] [place], [address] Erythrocyte distribution width (RBC) [Ratio] 13.1 % Normal 11.6-14.6 [facility] Comment on above: Performed By: #### L 501.9520, L506.0400, L100.0100, L500.4050, L501.93249 #### [facility] [address] [place], [address] Hematocrit (Bld) [Volume fraction] 40.6 % Normal 37-47 [facility] Comment on above: Performed By: #### L 501.9520, L506.0400, L100.0100, L500.4050, L501.20246 #### [facility] [address] [place], [address] Hemoglobin (Bld) [Mass/Vol] 13.7 g/dL Normal 12.0-15.0 [facility] Comment on above: Performed By: #### L 501.9520, L506.0400, L100.0100, L500.4050, L501.51529 #### [facility] [address] [place], [address] IG% 0.200 Normal 0.0-0.9 [facility] Comment on above: Result Comment: IG% - Immature Granulocytes (promyelocytes, myelocytes and metamyelocytes) > 1% indicates that a LEFT SHIFT is Present. Performed By: #### L 501.9520, L506.0400, L100.0100, L500.4050, L501.99419 #### [facility] [address] [place], [address] Lymphocytes/100 WBC (Bld) 29.9 % Normal 19-41 [facility] Comment on above: Performed By: #### L 501.9520, L506.0400, L100.0100, L500.4050, L501.96731 #### [facility] [address] [place], [address] MCH (RBC) [Entitic mass] 29.9 pg Normal 27.0-32.0 [facility] Comment on above: Performed By: #### L 501.9520, L506.0400, L100.0100, L500.4050, L501.69465 #### [facility] [address] [place], [address] MCHC (RBC) [Mass/Vol] 33.7 g/dL Normal 32-36 [facility] Comment on above: Performed By: #### L 501.9520, L506.0400, L100.0100, L500.4050, L501.74437 #### [facility] [address] [place], [address] MCV (RBC) [Entitic vol] 88.6 fL Normal 81-99 [facility] Comment on above: Performed By: #### L 501.9520, L506.0400, L100.0100, L500.4050, L501.77227 #### [facility] [address] [place], [address] Monocytes/100 WBC (Bld) 7.3 % Normal 0-10 [facility] Comment on above: Performed By: #### L 501.9520, L506.0400, L100.0100, L500.4050, L501.85474 #### [facility] [address] [place], [address] Neutrophils/100 WBC (Bld) 59.2 % Normal 47-70 [facility] Comment on above: Performed By: #### L 501.9520, L506.0400, L100.0100, L500.4050, L501.08463 #### [facility] [address] [place], [address] Nucleated RBC (Bld) [#/Vol] 0 10*3/uL Normal 0-5 [facility] Comment on above: Performed By: #### L 501.9520, L506.0400, L100.0100, L500.4050, L501.77399 #### [facility] [address] [place], [address] Platelet mean volume (Bld) [Entitic vol] 10.0 fL Normal 6.2-12.0 [facility] Comment on above: Performed By: #### L 501.9520, L506.0400, L100.0100, L500.4050, L501.92419 #### [facility] [address] [place], [address] Platelets (Bld) [#/Vol] 229 10*3/uL Normal 150-450 [facility] Comment on above: Performed By: #### L 501.9520, L506.0400, L100.0100, L500.4050, L501.18707 #### [facility] [address] [place], [address] RBC (Bld) [#/Vol] 4.58 10*6/uL Normal 4.2-5.4 [facility] Comment on above: Performed By: #### L 501.9520, L506.0400, L100.0100, L500.4050, L501.97655 #### [facility] [address] [place], [address] RDW SD 42.7 fl Normal 35.1-43.9 [facility] Comment on above: Performed By: #### L 501.9520, L506.0400, L100.0100, L500.4050, L501.43749 #### [facility] [address] [place], [address] WBC (Bld) [#/Vol] 5.4 10*3/uL Normal 4.4-11.0 [facility] Comment on above: Performed By: #### L 501.9520, L506.0400, L100.0100, L500.4050, L501.11235 #### [facility] [address] [place], [address] Carbon dioxide, total [Moles /volume] in Central venous bloodOrdered By: Bernice Andujar on 11-04-2024 CO2 [Moles/Vol] 26.9 mmol/L 21.0-32.0 [facility] Chloride assayOrdered By: Cherelle Andujar on 11-04-2024 Chloride [Moles/Vol] 100 mmol/L 98-108 [facility] Comprehensive Metabolic Prof ilon 11-04-2024 Albumin [Mass/Vol] 4.7 g/dL Normal 3.4-4.8 [facility] Comment on above: Performed By: #### L 501.9520, L506.0400, L100.0100, L500.4050, L501.91572 #### [facility] [address] [place], [address] Albumin/Globulin [Mass ratio] 1.5 {ratio} Normal 0.9-2.4 [facility] Comment on above: Performed By: #### L 501.9520, L506.0400, L100.0100, L500.4050, L501.66419 #### [facility] [address] [place], [address] ALK PHOS 128 U/L High 35-104 [facility] Comment on above: Performed By: #### L 501.9520, L506.0400, L100.0100, L500.4050, L501.32918 #### [facility] [address] [place], [address] ALT [Catalytic activity/Vol] 26 U/L Normal <=34 [facility] Comment on above: Performed By: #### L 501.9520, L506.0400, L100.0100, L500.4050, L501.41729 #### [facility] [address] [place], [address] AST [Catalytic activity/Vol] 28 U/L Normal <=31 [facility] Comment on above: Performed By: #### L 501.9520, L506.0400, L100.0100, L500.4050, L501.69581 #### [facility] [address] [place], [address] Bilirubin [Mass/Vol] 0.46 mg/dL Normal 0.00-1.30 [facility] Comment on above: Performed By: #### L 501.9520, L506.0400, L100.0100, L500.4050, L501.43871 #### [facility] [address] [place], [address] BUN/CRE 17.8 RATIO Normal 10-20 [facility] Comment on above: Performed By: #### L 501.9520, L506.0400, L100.0100, L500.4050, L501.28851 #### [facility] [address] [place], [address] Calcium [Mass/Vol] 10.0 mg/dL Normal 7.6-11.0 [facility] Comment on above: Performed By: #### L 501.9520, L506.0400, L100.0100, L500.4050, L501.90415 #### [facility] [address] [place], [address] Chloride [Moles/Vol] 100 mmol/L Normal 98-108 [facility] Comment on above: Performed By: #### L 501.9520, L506.0400, L100.0100, L500.4050, L501.75280 #### [facility] [address] [place], [address] CO2 [Moles/Vol] 26.9 mmol/L Normal 21.0-32.0 [facility] Comment on above: Performed By: #### L 501.9520, L506.0400, L100.0100, L500.4050, L501.18884 #### [facility] [address] [place], [address] Creatinine [Mass/Vol] 0.72 mg/dL Normal 0.70-1.20 [facility] Comment on above: Performed By: #### L 501.9520, L506.0400, L100.0100, L500.4050, L501.21846 #### [facility] [address] [place], [address] GAP 13 Normal 5-15 [facility] Comment on above: Performed By: #### L 501.9520, L506.0400, L100.0100, L500.4050, L501.12679 #### [facility] [address] [place], [address] GFR/1.73 sq M.predicted among non-blacks MDRD (S/P/Bld) [Vol rate/Area] 91 mL/min/{1.73_m2} Normal >60 [facility] Comment on above: Result Comment: mL/m in/1.73m2 CKD-EPI Creatinine Equation (2020) Performed By: #### L 501.9520, L506.0400, L100.0100, L500.4050, L501.44471 #### [facility] [address] [place], [address] Globulin (S) [Mass/Vol] 3.1 g/dL Normal 2.2-4.2 [facility] Comment on above: Performed By: #### L 501.9520, L506.0400, L100.0100, L500.4050, L501.18196 #### [facility] [address] [place], [address] Glucose [Mass/Vol] 87 mg/dL Normal 70-99 [facility] Comment on above: Performed By: #### L 501.9520, L506.0400, L100.0100, L500.4050, L501.40035 #### [facility] [address] [place], [address] Potassium [Moles/Vol] 3.9 mmol/L Normal 3.3-5.1 [facility] Comment on above: Performed By: #### L 501.9520, L506.0400, L100.0100, L500.4050, L501.16980 #### [facility] [address] [place], [address] Sodium [Moles/Vol] 139 mmol/L Normal 133-145 [facility] Comment on above: Performed By: #### L 501.9520, L506.0400, L100.0100, L500.4050, L501.89674 #### [facility] [address] [place], [address] T PROT 7.7 g/dL Normal 5.9-8.4 [facility] Comment on above: Performed By: #### L 501.9520, L506.0400, L100.0100, L500.4050, L501.40170 #### [facility] [address] [place], [address] Urea nitrogen [Mass/Vol] 13 mg/dL Normal 4-19 [facility] Comment on above: Performed By: #### L 501.9520, L506.0400, L100.0100, L500.4050, L501.09383 #### [facility] [address] [place], [address] Eosinophil percentageOrdered By: Bernice Andujar on 11-04-2024 Eosinophils/100 WBC (Bld) 2.8 % 0-5 [facility] Erythrocyte distribution wid th ratioOrdered By: Bernice Andujar on 11-04-2024 Erythrocyte distribution width (RBC) [Ratio] 13.1 % 11.6-14.6 [facility] Erythrocyte distribution wid th standard deviationOrdered By: Bernice Andujar on 11-04-2024 Erythrocyte distribution width (RBC) [Ratio] 42.7 fl 35.1-43.9 [facility] Free T3on 11-04-2024 Free T3 [Mass/Vol] 3.0 pg/mL Normal 2.18-3.98 [facility] Comment on above: Order Comment: N Performed By: #### L 501.9520, L506.0400, L100.0100, L500.4050, L501.20858 #### [facility] [address] [address] [place], [place], [id number] Free L3Miwditr By: Bernice monte on 11-04-2024 Free T3 [Mass/Vol] 3.0 pg/mL 2.18-3.98 [facility] Glomerular filtration rate ( GFR) estimation/1.73 sq m using serum, plasma, or whole bOrdered By: Bernice Andujar on 11-04-2024 GFR/1.73 sq M.predicted among non-blacks MDRD (S/P/Bld) [Vol rate/Area] 91 mL/min/{1.73_m2} >60 [facility] Comment on above: mL/min/1.73m2 CKD-EP I Creatinine Equation (2020) Hematocrit Auto (Bld) [Volum e fraction]Ordered By: Bernice Andujar on 11-04-2024 Hematocrit (Bld) [Volume fraction] 40.6 % 37-47 [facility] Hemoglobin measurementOrdere d By: Bernice Andujar on 11-04-2024 Hemoglobin (Bld) [Mass/Vol] 13.7 g/dL 12.0-15.0 [facility] Immature granulocytes/100 WB C Auto (Bld)Ordered By: Bernice Andujar on 11-04-2024 Immature granulocytes/100 WBC (Bld) 0.200 % 0.0-0.9 [facility] Comment on above: IG% - Immature Granu locytes (promyelocytes, myelocytes and metamyelocytes) > 1% indicates that a LEFT SHIFT is Present. Laboratory - Chemistry and C hemistry - challengeOrdered By: Bernice Andujar on 11-04-2024 AST [Catalytic activity/Vol] 28 U/L <32 [facility] MCV (mean corpuscular volume ) determinationOrdered By: Bernice Andujar on 11-04-2024 MCV (RBC) [Entitic vol] 88.6 fL 81-99 [facility] Mean corpuscular hemoglobin (MCH) determinationOrdered By: Bernice Andujar on 11-04-2024 MCH (RBC) [Entitic mass] 29.9 pg 27.0-32.0 [facility] Mean corpuscular hemoglobin concentration (MCHC) determinationOrdered By: Bernice Andujar on 11-04-2024 MCHC (RBC) [Mass/Vol] 33.7 g/dL 32-36 [facility] Mean platelet volume determi nationOrdered By: Bernice Andujar on 11-04-2024 Platelet mean volume (Bld) [Entitic vol] 10.0 fL 6.2-12.0 [facility] Monocyte percentageOrdered B y: Bernice Andujar on 11-04-2024 Monocytes/100 WBC (Bld) 7.3 % 0-10 [facility] Neutrophil percentageOrdered By: Bernice Andujar on 11-04-2024 Neutrophils/100 WBC (Bld) 59.2 % 47-70 [facility] Nucleated red blood cell per centageOrdered By: Bernice Andujar on 11-04-2024 Nucleated RBC/100 WBC (Bld) [Ratio] 0 % 0-5 [facility] Platelet countOrdered By: Cherelle Andujar on 11-04-2024 Platelets (Bld) [#/Vol] 229 10*3/uL 150-450 [facility] Potassium measurement (mass/ volume)Ordered By: Bernice Andujar on 11-04-2024 Potassium (Unsp spec) [Mass/Vol] 3.9 mmol/L 3.3-5.1 [facility] RBC Auto (Bld) [#/Vol]Ordere d By: Bernice Andujar on 11-04-2024 RBC (Bld) [#/Vol] 4.58 10*6/uL 4.2-5.4 [facility] Serum creatinine measurement (mass/volume)Ordered By: Bernice Andujar on 11-04-2024 Creatinine [Mass/Vol] 0.72 mg/dL 0.70-1.20 [facility] Serum globulin measurementOr dered By: Bernice Andujar on 11-04-2024 Globulin (S) [Mass/Vol] 3.1 g/dL 2.2-4.2 [facility] Serum glucose measurement (m ass/volume)Ordered By: Bernice Andujar on 11-04-2024 Glucose [Mass/Vol] 87 mg/dL 70-99 [facility] Serum or plasma alanine donnelly otransferase (ALT) measurementOrdered By: Bernice Andujar on 11-04-2024 ALT [Catalytic activity/Vol] 26 U/L <35 [facility] Serum or plasma albumin jimmie urement (mass/volume)Ordered By: Bernice Andujar on 11-04-2024 Albumin [Mass/Vol] 4.7 g/dL 3.4-4.8 [facility] Serum or plasma albumin/glob ulin mass ratioOrdered By: Bernice Andujar on 11-04-2024 Albumin/Globulin [Mass ratio] 1.5 {ratio} 0.9-2.4 [facility] Serum or plasma alkaline villa sphatase measurementOrdered By: Bernice Andujar on 11-04-2024 ALP [Catalytic activity/Vol] 128 U/L High 35-104 [facility] Serum or plasma calcium jimmie urement (mass/volume)Ordered By: Bernice Andujar on 11-04-2024 Calcium [Mass/Vol] 10.0 mg/dL 7.6-11.0 [facility] Serum or plasma urea nitroge n measurement (mass/volume)Ordered By: Bernice Andujar on 11-04-2024 Urea nitrogen [Mass/Vol] 13 mg/dL 4-19 [facility] Sodium levelOrdered By: Bernice Andujar on 11-04-2024 Sodium [Moles/Vol] 139 mmol/L 133-145 [facility] T4 Free Directon 11-04-2024 T4 FREE DIRECT 1.30 ng/dL Normal 0.76-1.46 [facility] Comment on above: Order Comment: N Performed By: #### L 501.9520, L506.0400, L100.0100, L500.4050, L501.43082 #### [facility] [address] [place], [address] T4 freeOrdered By: Bernice Cox s on 11-04-2024 Free T4 [Mass/Vol] 1.30 ng/dL 0.76-1.46 [facility] TSH DL <= 0.005 mIU/L QnOrde red By: Bernice Andujar on 11-04-2024 TSH Qn 1.930 uIU/mL 0.300-4.200 [facility] Thyroid Stim Hormone (TSH)on 11-04-2024 TSH 1.930 uIU/mL Normal 0.300-4.200 [facility] Comment on above: Performed By: #### L 501.9520, L506.0400, L100.0100, L500.4050, L501.72117 #### [facility] [address] [place], [address] Total proteinOrdered By: Regina Andujar on 11-04-2024 Protein [Mass/Vol] 7.7 g/dL 5.9-8.4 [facility] White blood cell (WBC) count Ordered By: Bernice Andujar on 11-04-2024 WBC (Bld) [#/Vol] 5.4 10*3/uL 4.4-11.0 [facility] Thoracic Spine 3 Viewson Thoracic Spine 3 Views [facility] [address] [place] [address] Thoracic Spine 3 Views MR#: [id number] Acct: [id number] Name: GWEN ROCKWELL Rep #: [id number] : 1955 F 69 From: Fanny lainez MD PCP: Dr. Bernice Andujar DO Status: REG CLI Study: Thoracic Spine 3 Views Date of Exam: 11/03/24 Exam# [id number] Ordering Dr: Bernice Andujar DO PROCEDURE: THORACIC SPINE 3 VIEWS 11/03/2024 REASON FOR EXAM: BACK PAIN TECHNIQUE: Two views of the thoracic spine COMPARISON: None. FINDINGS: Mild osteopenia. S shaped degenerative scoliosis. Mild chronic compression deformities of the mid and lower thoracic vertebral bodies. Increased dorsal kyphosis. Exaggerated lumbar lordosis. There are diffuse spondylotic changes. Findings are demonstrated to by diffuse disc space narrowing, osteophyte formation and degenerative endplate sclerosis. There is diffuse facet joint arthropathy with secondary bilateral neural foramina narrowing. No fracture or dislocation is seen. No aggressive lytic or blastic bony lesion is noted. RAD/Thoracic Spine 3 Views IMPRESSION: Spondylosis. Chronic compression deformities of the mid and lower thoracic vertebral bodies. Reading Location: [place] [address] CC: Dr. Berince Andujar DO [employer]: Signed Normal [facility] CNOVon 03-31-2024 CNOV Office Visit (OBGYWM ) GWEN ROCKWELL Guerita ([id number]) 1955 F Date Time Provider Department 03/31/24 11:40 AM MUNIRA RUELAS OBPAMWEbony During your visit today, we recorded the following information about you: Pulse Blood pressure Weight 69/minute 130/78 110.2 kg Munira Ruelas MD 03/31/2024 12:22 PM Addendum TOPIRAMATE -- Take 25mg 1 tab daily x 2 weeks (AT NIGHT THEN CHANGE TO MORNING AFTER 2 WEEKS) -- -- You can take the tablet it at night at first (because of potential sleepiness side effects), but then you can take earlier around dinner after you have started the medication for a few days. You also may be able to take it in the morning if easier. -- We may increase the dose to 50 mg a few weeks later if there is no change with 25 mg, Typically the maximum medication dose would be 150mg daily but rarely would we need to titrate medication dose that high. -- The exact mechanism of topiramate on energy balance regulation is not clearly understood. Topiramate affects body mass index, fasting dsqjvfw-jk-zogsssi ratio, and serum leptin and cortisol levels. It has shown to improve hypothalamic insulin and leptin signaling and action and reduce obesity in mice. These changes may be brooks factors in weight loss due to topiramate. If at any point you are feeling the effects of the medication you can stay at that dose or if you experience side effects you can decrease it to the previous dose. -- Please see the handout to review the potential side effects and to explain this further -- Please let me know if you experience any changes in your vision, worsening depression or mood problems, or an increase in suicidal thoughts or behaviors. --This medication should NOT be combined with alcohol. Risks of drinking alcohol while taking this medication include mental and psychological side effects, including confusion, dizziness, drowsiness, and depression. -- There is an increased risk for oral clefts when topiramate is used in the first trimester of . -- There is a possible decrease in contraceptive efficacy when using estrogen-containing control with topiramate, please use a back up form of control such as condoms and monitor for throughout treatment. -- If you decide that you would like to get or if you have any of these side effects please let me know and we can safely discontinue the medication. - If you are on loop diuretic or thiazide diuretic we will want to monitor your potassium level, especially if you have a history of low potassium. - It is important to taper off of this medication when we finished with treatment, typically decreasing the dose 25 mg a week. Stopping Topiramate abruptly can cause irritability, anxiety and difficulty concentrating. Topiramate (toe pyre? a mate) What are the common names? Topamax Why is this medication prescribed? Topiramate is an anti-epileptic medications which has been approved by the FDA for patients 10 years of age or older for treatment of seizures. However, topiramate also has other uses such as the treatment of migraines. It also causes decrease in appetite and weight loss. The mechanism of weight loss is thought to be through inhibition of mitochondrial enzymes involved in energy expenditure and metabolism. Topiramate may work by helping you feel less hungry, less ?driven? to eat, more satisfied with less food. What special precautions should I follow? Before having topiramate prescribed, tell your doctor and pharmacist: If you have allergies to any component of topiramate If you are , plan to become , are breast-feeding, or if you become while taking topiramate What are the warnings and precautions for this medication? Immediately discontinue the medicine and seek medical help if you have severe cognitive/neuropsychia tric adverse symptoms or eye symptoms. Cognitive/neuropsychia tric adverse events: symptoms may include confusion, psychomotor slowing, difficulty with concentration/attentio n, difficulty with memory, speech or language problems, particularily word-finding difficulties, somnolence or fatigue Acute myopia and secondary angle closure glaucoma, usually within 1 month of starting treatment: symptoms may include blurred vision, redness and/or pain in the eye Oligohydrosis (decrease sweating) and hyperthermia (elevation in body temperature) Increase in suicidal behavior or ideation Metabolic acidosis, non-gap hyperchloremic (decreased serum bicarbonate below normal levels) resulting in hyperventilation or fatigue Kidney stones Paresthesias (numbness or tingling in hands or feet) Ataxia Dizziness Increase in urination frequency Drug interactions. Use of monamine oxidase inhibitors (MAOI?s), valproic acid, Caution use with dehydration or d (more content not included)... Normal [facility] Jamie 03-05-2024 FELIPE Telephone (OBGYWM) GWEN ROCKWELL ([id number]) 1955 F Date Time Provider Department 03/05/24 MUNIRA RUELAS During your visit today, we recorded the following information about you: Neha Sheikh RN 03/05/2024 11:20 AM Signed ----- Message from Munira Keyes MD sent at 03/05/2024 10:11 AM EDT ----- Please notify patient I reviewed her labs- Her insulin level is elevated- which indicates insulin resistance. I would like to start her on two different medications- but the first month we are only going to start metformin to see how she does- that is for the insulin resistance. Next month will be one that will be more for appetite control. I want to make sure she does well on this mediation first before adding a second. She is to start with one tablet at dinner- then when she feels fine (not bloating or diarrhea she can add a second pill with dinner). Please have her review [employer] message regarding medication before starting it. Neha Sheikh RN 03/05/2024 11:23 AM Signed Left message for patient to call office. MARYA Arroyo Tara, RN 03/08/2024 8:36 AM Signed Pt notified and voiced understanding. Reviewed instructions with Pt. Denies questions/concerns. Rx order pended. MARYA Arroyo Deidre, MD 03/08/2024 9:50 AM Signed ordered Allergies As of Date: 03/05/2024 Noted Allergy Reaction BACTRIM (SULFAMETHOXAZOLE-TRIM ETH*02/03/2018 8 - GI Upset Date Reviewed: 03/01/2024 Reviewed by: Johanne Tatum MA - Fully Assessed Reason for Visit: Results [95] Primary Visit Diagnosis:Insulin resistance [E88.819] Order(s):metFORMIN ER (GLUCOPHAGE XR) 500 mg 24 hr tabletTake 2 tablets by mouth daily with dinner.Disp: 60 tabletRfl: 2 Prescriptions as of 03/08/2024 - metFORMIN ER (GLUCOPHAGE XR) 500 mg 24 hr tablet Take 2 tablets by mouth daily with dinner. - POTASSIUM-99 ORAL - lysine (L-LYSINE) 500 mg tab - MAGNESIUM ORAL Take 250 mg by mouth. - CPAP - meclizine (ANTIVERT) 25 mg tab Take 1 tablet by mouth three times daily as needed (vertigo). - meloxicam (MOBIC) 15 mg tablet Take 15 mg by mouth once daily. - acyclovir (ZOVIRAX) 800 mg tablet Take 1 tablet by mouth as directed. PRN with cold sores. - esomeprazole (NEXIUM) 20 mg capsule Take 1 capsule by mouth once daily. - fluticasone propionate (FLONASE ALLERGY RELIEF NASAL) Use in the nose as needed. - albuterol HFA (PROAIR HFA) 90 mcg/actuation inhaler Inhale 2 Puffs as instructed as needed. - Cholecalciferol, Vitamin D3, (VITAMIN D) 1,000 unit cap Take 1,000 Units by mouth once daily. - levothyroxine (SYNTHROID) 75 mcg tablet Take 75 mcg by mouth once daily. - sertraline (ZOLOFT) 50 mg tablet Take 50 mg by mouth once daily. - simvastatin (ZOCOR) 20 mg tablet Take 20 mg by mouth daily at bedtime. - irbesartan (AVAPRO) 300 mg tablet Take 300 mg by mouth daily at bedtime. - amLODIPine (NORVASC) 5 mg ORAL tablet Take 5 mg by mouth once daily. - hydroCHLOROthiazide (HYDRODIURIL, ESIDRIX) 25 mg tablet Take 25 mg by mouth once daily. - fexofenadine (ARINA) 180 mg ORAL tablet Take 180 mg by mouth once daily. - multivitamin ORAL tablet Take 1 tablet by mouth once daily. - CALCIUM CARBONATE/VITAMIN D3 (CALCIUM 600 + D ORAL) Take by mouth. Problem List As Of Date 03/05/2024 Noted Resolved Hypertension [I10] 05/22/2011 Uterine fibroid [D25.9] 06/10/2011 Menorrhagia [N92.0] 06/10/2011 Prescriptions ordered this encounter Disp Refills Start End METFORMIN ER 500 MG TABLET,EXTENDED * 60 t* 2 03/08/2024 Route: ORAL Sig: Take 2 tablets by mouth daily with dinner. Encounter Status:Closed by YRIS FITZGERALD on 03/08/24 Normal [facility] 25-hydroxyvitamin D3 [Mass/Vol] 47.0 ng/mL Normal 31.0-80.0 [facility] Comment on above: Order Comment: Speci men Type: BLOOD SPECIMEN Ordering Facility: [facility] Address: [address] [place] [address] Performed By: #### 2 4323-8 #### [id number] [address] [place] [address] [place] CBC panel Auto (Bld)on 03-03 Erythrocyte distribution width (RBC) [Ratio] 14.1 % Normal 11.5-15.0 [facility] Comment on above: Order Comment: Speci men Type: BLOOD SPECIMEN Ordering Facility: [facility] Address: [address] [place] [address] Performed By: #### 5 8410-2 #### [facility] [id number] [address] [place] [address] [place] Hematocrit (Bld) [Volume fraction] 40.7 % Normal 36.0-46.0 [facility] Comment on above: Order Comment: Speci men Type: BLOOD SPECIMEN Ordering Facility: [facility] Address: [address] [place], [place] [address] Performed By: #### 5 8410-2 #### [facility] CLIA [id number] [address] [place] [address] [place] Hemoglobin (Bld) [Mass/Vol] 13.6 g/dL Normal 11.5-15.5 [facility] Comment on above: Order Comment: Speci men Type: BLOOD SPECIMEN Ordering Facility: [facility] Address: [address] [place], [place] [address] Performed By: #### 5 8410-2 #### [facility] CLIA [id number] [address] [place] [address] [place] MCH (RBC) [Entitic mass] 28.9 pg Normal 26.0-34.0 [facility] Comment on above: Order Comment: Speci men Type: BLOOD SPECIMEN Ordering Facility: [facility] Address: [address] [place] [address] Performed By: #### 5 8410-2 #### [facility] CLIA [id number] [address] [place] [address] [place] MCHC (RBC) [Mass/Vol] 33.4 g/dL Normal 30.5-36.0 [facility] Comment on above: Order Comment: Speci men Type: BLOOD SPECIMEN Ordering Facility: [facility] Address: [address] [place] [address] Performed By: #### 5 8410-2 #### [facility] CLIA [id number] [address] [place] [address] [place] MCV (RBC) [Entitic vol] 86.4 fL Normal 80.0-100.0 [facility] Comment on above: Order Comment: Speci men Type: BLOOD SPECIMEN Ordering Facility: [facility] Address: [address] [place] [address] Performed By: #### 5 8410-2 #### [facility] CLIA [id number] [address] [place] [address] [place] Nucleated RBC (Bld) [#/Vol] 10*3/uL Normal <0.01 [facility] Comment on above: Order Comment: Speci men Type: BLOOD SPECIMEN Ordering Facility: [facility] Address: [address] [place] [address] Performed By: #### 5 8410-2 #### [facility] CLIA [id number] [address] [place] [address] [place] Platelet mean volume (Bld) [Entitic vol] 9.2 fL Normal 9.0-12.7 [facility] Comment on above: Order Comment: Speci men Type: BLOOD SPECIMEN Ordering Facility: [facility] Address: [address] [place] [address] Performed By: #### 5 8410-2 #### [facility] CLIA [id number] [address] [place] [address] [place] Platelets (Bld) [#/Vol] 222 10*3/uL Normal 150-400 [facility] Comment on above: Order Comment: Speci men Type: BLOOD SPECIMEN Ordering Facility: [facility] Address: [address] [place] [address] Performed By: #### 5 8410-2 #### [facility] CLIA [id number] [address] [place] [address] [place] RBC (Bld) [#/Vol] 4.71 10*6/uL Normal 3.90-5.20 [facility] Comment on above: Order Comment: Speci men Type: BLOOD SPECIMEN Ordering Facility: [facility] Address: [address] [place] [address] Performed By: #### 5 8410-2 #### [facility] CLIA [id number] [address] [place] [address] [place] WBC (Bld) [#/Vol] 5.55 10*3/uL Normal 3.70-11.00 [facility] Comment on above: Order Comment: Speci men Type: BLOOD SPECIMEN Ordering Facility: [facility] Address: [address] [place] [address] Performed By: #### 5 8410-2 #### [facility] CLIA [id number] [address] [place] [address] [place] Comprehensive metabolic 2000 panelon 03-03-2024 Albumin [Mass/Vol] 4.7 g/dL Normal 3.9-4.9 [facility] Comment on above: Order Comment: Speci men Type: BLOOD SPECIMEN Ordering Facility: [facility] Address: [address] [place] [address] Performed By: #### 2 4323-8 #### [facility] CLIA [id number] [address] [place] [address] [place] ALP [Catalytic activity/Vol] 132 U/L High 34-123 [facility] Comment on above: Order Comment: Speci men Type: BLOOD SPECIMEN Ordering Facility: [facility] Address: [address] [place] [address] Performed By: #### 2 4323-8 #### [facility] CLIA [id number] [address] [place] [address] [place] ALT [Catalytic activity/Vol] 28 U/L Normal 7-38 [facility] Comment on above: Order Comment: Speci men Type: BLOOD SPECIMEN Ordering Facility: [facility] Address: [address] [place] [address] Performed By: #### 2 4323-8 #### [facility] CLIA [id number] [address] [place] [address] [place] Anion gap [Moles/Vol] 12 mmol/L Normal 8-15 [facility] Comment on above: Order Comment: Speci men Type: BLOOD SPECIMEN Ordering Facility: [facility] Address: [address] [place] [address] Performed By: #### 2 4323-8 #### [facility] CLIA [id number] [address] [place] [address] [place] AST [Catalytic activity/Vol] 22 U/L Normal 13-35 [facility] Comment on above: Order Comment: Speci men Type: BLOOD SPECIMEN Ordering Facility: [facility] Address: [address] [place] [address] Performed By: #### 2 4323-8 #### [facility] CLIA [id number] [address] [place] [address] [place] Bilirubin [Mass/Vol] 0.4 mg/dL Normal 0.2-1.3 [facility] Comment on above: Order Comment: Speci men Type: BLOOD SPECIMEN Ordering Facility: [facility] Address: [address] [place] [address] Performed By: #### 2 4323-8 #### [facility] CLIA [id number] [address] [place] [address] [place] Calcium [Mass/Vol] 9.9 mg/dL Normal 8.5-10.2 [facility] Comment on above: Order Comment: Speci men Type: BLOOD SPECIMEN Ordering Facility: [facility] Address: [address] [place] [address] Performed By: #### 2 4323-8 #### [facility] CLIA [id number] [address] [place] [address] [place] Chloride [Moles/Vol] 99 mmol/L Normal 98-107 [facility] Comment on above: Order Comment: Speci men Type: BLOOD SPECIMEN Ordering Facility: [facility] Address: [address] [place] [address] Performed By: #### 2 4323-8 #### [facility] CLIA [id number] [address] [place] [address] [place] CO2 [Moles/Vol] 24 mmol/L Normal 22-30 [facility] Comment on above: Order Comment: Speci men Type: BLOOD SPECIMEN Ordering Facility: [facility] Address: [address] [place] [address] Performed By: #### 2 4323-8 #### [facility] CLIA [id number] [address] [place] [address] [place] Creatinine [Mass/Vol] 0.67 mg/dL Normal 0.58-0.96 [facility] Comment on above: Order Comment: Speci men Type: BLOOD SPECIMEN Ordering Facility: [facility] Address: [address] [place] [address] Performed By: #### 2 4323-8 #### [facility] CLIA [id number] [address] [place] [address] [place] Creatinine and Glomerular filtration rate.predicted panel (S/P/Bld) 96 mL/min/1.73m??? Normal >=60 [facility] Comment on above: Order Comment: Ember perez Type: BLOOD SPECIMEN Ordering Facility: [facility] Address: [address] [place] [address] Result Comment: Tiarra mated Glomerular Filtration Rate (eGFR) is calculated using the 2020 CKD-EPI creatinine equation. This equation utilizes serum creatinine, sex, and age as parameters. The creatinine assay has traceable calibration to isotope dilution-mass spectrometry. Refer to KDIGO guidelines for clinical interpretation. In patients with unstable renal function, e.g. those with acute kidney injury, the eGFR may not accurately reflect actual GFR. Performed By: #### 2 4323-8 #### [facility] [id number] [address] [place] [address] [place] Glucose [Mass/Vol] 93 mg/dL Normal 74-99 [facility] Comment on above: Order Comment: Ember perez Type: BLOOD SPECIMEN Ordering Facility: [facility] Address: [address] [place] [address] Result Comment: The [place] Diabetes Association (ADA) provides guidance for cutoff values for fasting glucose and random glucose. The ADA defines fasting as no caloric intake for at least 8 hours. Fasting plasma glucose results between 100 to 125 mg/dL indicate increased risk for diabetes (prediabetes). Fasting plasma glucose results greater than or equal to 126 mg/dL meet the criteria for diagnosis of diabetes. In the absence of unequivocal hyperglycemia, results should be confirmed by repeat testing. In a patient with classic symptoms of hyperglycemia or hyperglycemic crisis, random plasma glucose results greater than or equal to 200 mg/dL meet the criteria for diagnosis of diabetes. Reference: Standards of Medical Care in Diabetes 2016, [place] [employer] Association. Diabetes Care. 2016.39(Suppl 1). Performed By: #### 2 4323-8 #### [facility] CLIA [id number] [address] [place] [address] [place] Potassium [Moles/Vol] 3.7 mmol/L Normal 3.7-5.1 [facility] Comment on above: Order Comment: Speci men Type: BLOOD SPECIMEN Ordering Facility: [facility] Address: [address] [place] [address] Performed By: #### 2 4323-8 #### [facility] CLIA [id number] [address] [place] [address] [place] Protein [Mass/Vol] 7.6 g/dL Normal 6.3-8.0 [facility] Comment on above: Order Comment: Speci men Type: BLOOD SPECIMEN Ordering Facility: [facility] Address: [address] [place] [address] Performed By: #### 2 4323-8 #### [facility] [id number] [address] [place] [address] [place] Sodium [Moles/Vol] 135 mmol/L Low 136-144 [facility] Comment on above: Order Comment: Speci men Type: BLOOD SPECIMEN Ordering Facility: [facility] Address: [address] [place] [address] Performed By: #### 2 4323-8 #### [facility] [id number] [address] [place] [address] [place] Urea nitrogen [Mass/Vol] 18 mg/dL Normal 7-21 [facility] Comment on above: Order Comment: Speci men Type: BLOOD SPECIMEN Ordering Facility: [facility] Address: [address] [place] [address] Performed By: #### 2 4323-8 #### [facility] [id number] [address] [place] [address] [place] HbA1c (Bld)on 03-03-2024 Average glucose Estimated from glycated hemoglobin (Bld) [Mass/Vol] 111 mg/dL Normal [facility] Comment on above: Order Comment: Ember perez Type: BLOOD SPECIMEN Ordering Facility: [facility] Address: [address] [place] [address] Result Comment: eAG: (Estimated average glucose) is a calculated value from HgbA1c and is communications representative of the average blood glucose level in the last 2-3 month period. Performed By: #### 2 4323-8 #### [facility] CLIA [id number] [address] [place] [address] [place] HbA1c (Bld) [Mass fraction] 5.5 % Normal 4.3-5.6 [facility] Comment on above: Order Comment: Ember perez Type: BLOOD SPECIMEN Ordering Facility: [facility] Address: [address] [place] [address] Result Comment: [place] Diabetes Association guidelines indicate that patients with HgbA1c in the range 5.7-6.4% are at increased risk for development of diabetes, and intervention by lifestyle modification may be beneficial. HgbA1c greater or equal to 6.5% is considered diagnostic of diabetes. Performed By: #### 2 4323-8 #### [facility] CLIA [id number] [address] [place] [address] [place] Insulin SerPl-aCncon 024 Insulin Qn 26.7 u[IU]/mL High 3.0-25.0 [facility] Comment on above: Order Comment: Ember perez Type: BLOOD SPECIMEN Ordering Facility: [facility] Address: [address] [place] [address] Performed By: #### 2 0448-7 #### [facility] CLIA [id number] [address] [place] [address] [place] Lipid 1996 panelon 4 Cholesterol [Mass/Vol] 161 mg/dL Normal <200 [facility] Comment on above: Order Comment: Ember perez Type: BLOOD SPECIMEN Ordering Facility: [facility] Address: [address] [place] [address] Result Comment: <200 mg/dL, Desirable 200-239 mg/dL, Borderline high >239 mg/dL, High Performed By: #### 2 4323-8 #### [facility] CLIA [id number] [address] [place] [address] [place] Cholesterol in HDL [Mass/Vol] 49 mg/dL Normal >39 [facility] Comment on above: Order Comment: Speci men Type: BLOOD SPECIMEN Ordering Facility: [facility] Address: [address] [place] [address] Result Comment: 40-5 9 mg/dL, Acceptable >59 mg/dL, High: Negative risk factor for coronary heart disease <40 mg/dL, Low: Positive risk factor for coronary heart disease Performed By: #### 2 4323-8 #### [facility] CLIA [id number] [address] [place] [address] [place] Cholesterol in LDL [Mass/Vol] 80 mg/dL Normal <100 [facility] Comment on above: Order Comment: Ember men Type: BLOOD SPECIMEN Ordering Facility: [facility] Address: [address] [place] [address] Result Comment: <100 mg/dL, Optimal 100-129 mg/dL, Near optimal/above optimal 130-159 mg/dL, Borderline high 160-189 mg/dL, High >189 mg/dL, Very high Secondary prevention optimal LDL Cholesterol levels are recommended to be < 70 mg/dL Performed By: #### 2 4323-8 #### [facility] CLIA [id number] [address] [place] [address] [place] Cholesterol in LDL/Cholesterol in HDL [Mass ratio] 1.63 {ratio} Normal <2.54 [facility] Comment on above: Order Comment: Ember men Type: BLOOD SPECIMEN Ordering Facility: [facility] Address: [address] [place], [place] [address] Result Comment: Refvinnie cortes: 1. National Cholesterol Education Program ATP III Guideline At-A-Glance Quick Desk Reference: National Heart, Lung, and Blood [place]. National Institutes of Health. 2001: NIH Publication No. 01-3305. 2. An International Atherosclerosis Society position paper: global recommendations for the management of dyslipidemia: executive summary, Atherosclerosis. 2014: 232(2):410-413. Performed By: #### 2 4323-8 #### [facility] CLIA [id number] [address] [place] [address] [place] Cholesterol in VLDL [Mass/Vol] 32 mg/dL High <30 [facility] Comment on above: Order Comment: Ember perez Type: BLOOD SPECIMEN Ordering Facility: [facility] Address: [address] [place] [address] Performed By: #### 2 4323-8 #### [id number] [address] [place] [address] [place] Cholesterol non HDL [Mass/Vol] 112 mg/dL Normal <130 [facility] Comment on above: Order Comment: Ember perez Type: BLOOD SPECIMEN Ordering Facility: [facility] Address: [address] [place] [address] Result Comment: <130 mg/dL, Optimal 130-159 mg/dL, Near optimal/above optimal 160-189 mg/dL, Borderline high 190-219 mg/dL, High >219 mg/dL, Very high Secondary prevention optimal non HDL Cholesterol levels are recommended to be <100 mg/dL Performed By: #### 2 4323-8 #### [facility] CLIA [id number] [address] [place] [address] [place] Cholesterol.total/Choles terol in HDL [Mass ratio] 3.29 {ratio} Normal <5.10 [facility] Comment on above: Order Comment: Ember perez Type: BLOOD SPECIMEN Ordering Facility: [facility] Address: [address] [place] [address] Performed By: #### 2 4323-8 #### [facility] [id number] [address] [place] [address] [place] [facility] FASTING TIME 12 hrs Normal [facility] Comment on above: Order Comment: Speci men Type: BLOOD SPECIMEN Ordering Facility: [facility] Address: [address] [place] [address] Performed By: #### 2 4323-8 #### [facility] CLIA [id number] [address] OF [facility] Triglyceride [Mass/Vol] 160 mg/dL High <150 [facility] Comment on above: Order Comment: Speci men Type: BLOOD SPECIMEN Ordering Facility: [facility] Address: [address] [place] [address] Result Comment: <150 mg/dL, Normal 150-199 mg/dL, Borderline high 200-499 mg/dL, High >499 mg/dL, Very high Performed By: #### 2 4323-8 #### [facility] [id number] [address] [place] [address] OF [facility] TSH SerPl-aCncon 03-03-2024 TSH Qn 1.760 m[IU]/L Normal 0.270-4.200 [facility] Comment on above: Order Comment: Speci men Type: BLOOD SPECIMEN Ordering Facility: [facility] Address: [address] [place] [address] Performed By: #### 2 4323-8 #### [facility] [id number] [address] [place] [address] [place] OF [facility] CNOVon 03-01-2024 CNOV Office Visit (OBGYWM ) GWEN ROCKWELL ([id number]) 1955 F Date Time Provider Department 03/01/24 3:20 PM MUNIRA RUELAS OBPAM During your visit today, we recorded the following information about you: Pulse Blood pressure Weight Height 88/minute 151/77 112.5 kg 1.651 m Munira Ruelas MD 03/01/2024 5:28 PM Signed Patient Summary: Gwen Rockwell is a 69 year old female with obesity who presents for an initial evaluation of overweight/obesity to treat and prevent co-morbidities and is interested in combination of behavioral and pharmacological. Motivation for seeking treatment for the disease of overweight/obesity : She wants to feel better and look better. Goal weight: 180 lb Lowest recall weight: 120 lb (HS) Highest non- recall weight: 259 lb Patient identified barriers to weight loss: She likes sweets and she eats when she is not hungry. When she starts to see results she seems to lose will power. She's a picky eater. Weight History: She reports a strong family history of obesity and early adulthood weight gain. 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 Difficulty losing weight? Yes she is a picky eater History of weight loss with regain? Usually she loses around 10 lbs and then she gives up Adjusted ideal body weight: 79.2 kg (174 lb 9.6 oz) - Last Wt 03/01/24 : 112.5 kg (248 lb) 5% weight loss = 236 lbs, 10% weight loss = 223 lbs WEIGHT GRAPH: Diet/Nutrition overview: Awake - 7-8am thyroid and GERD pills with water and sits for about 1hr B - coffee with milk, cereal (cheerios, charlie charms, frosted mini wheats) w/ milk, toast, sometimes eggs , [employer] caramel cream S - L - Collin fettGwendolyn adams whopper jr. Dobson, Montserratian pizza (eats out a lot) S - popcorn, cookies (nutrigrain oatmeal, little debbies- oatmeal cream) D - frozen meal like above or frozen pizza or fast food like above S - popcorn, pretzels Fluids: 2% milk, 2-4 cups coffee, water-1-2 bottles 16oz bottles, soda a few times a month NOT diet, Tea- w/ sugar. Stops drinking caffeine 5-6pm Bedtime -8-10pm but watch TV until 12-1am , wakes up every 2hrs (bathroom, but able to fall back asleep) Quality of diet: 24hr recall suggests unhealthy diet. Characterization of diet:Structured, unhealthy snacking, excessive cravings, evening snacking, and increased consumption of sugar sweetened beverages. Shellfish Shucker of impaired eating habits:excessive hunger, lack of satiety, mindlessness , boredom, emotion, and stress Eating Disorder binge eating BINGE EATING ASSESSMENT: A. Recurrent episodes of binge eating. An episode is characterized by: 1. Eating a larger amount of food than normal during a short period of time (within any two hour period): yes 2. Lack of control over eating during the binge episode (i.e. the feeling that one cannot stop eating): yes B. Binge eating episodes are associated with three or more of the followin. Eating until feeling uncomfortably full: yes 2. Eating large amounts of food when not physically hungry: yes 3. Eating much more rapidly than normal: yes 4. Eating alone because you are embarrassed by how much you're eating: yes 5. Feeling disgusted, depressed, or guilty after overeating:yes THREE ASSOCIATED SYMPTOMS MET? yes C. Marked distress regarding binge eating is present: yes D. Binge eating occurs, on average, at least 1 days a week for three months: yes E. The binge eating is not associated with the regular use of inappropriate compensatory behavior (i.e. purging, excessive exercise, etc.) and does not occur exclusively during the course of bulimia nervosa or anorexia nervosa. Correct PATIENT MEETS ABOVE CRITERIA FOR BINGE EATING DISORDER: yes 4 x per week at least Severity: Mild 1-3 x per week Moderate 4-7 x per week Severe 8-13 x per week Extreme 14+ per week Cravings: sweet Sleep Duration: 6-7 hours. HECTOR YES ; CPAP YES Stress Stress:no, Cause:None Obesity Related Comorbidities: Prior Weight Loss Surgery:No PAST MEDICAL HISTORY Diagnosis Date Asthma Chronic obstructive pulmonary disease (COPD) (HCC) Diabetic borderline Environmental allergies GERD (gastroesophageal reflux disease) Hypertension Hypothyroid Menorrhagia HECTOR on CPAP Osteoarthritis Snoring PAST SURGICAL HISTORY Procedure Laterality Date ARTHRP KNE CONDYLEANDPLATU MEDIALANDLAT COMPARTMENTS Left 12/2015 BREAST BIOPSY CORE 04/02/2013 left-fibroadenoma/Dr. Garner CARPAL TUNNEL 2006 right CARPAL TUNNEL Left 04/2016 COLONOSCOPY 2008 COLONOSCOPY FLX DX W/COLLJ SPEC WHEN PFRMD 03/09/2018 Colonoscopy COLONOSC (more content not included)... Normal [facility] CNCOon 12-09-2023 CNCO HNO ID: [id number] Author: COORDINATOR, MAMMOGRAPHY, ? Service: ? Author Type: Physician Type: Letter Filed: 12/09/2023 13:08 Note Text: December 09, 2023 PID: [id number] Gwen Rockwell [address] [place] [place] [address] Dear Giovanni Rockwell, We are pleased to inform you that the results of your recent breast imaging exam on 12/08/2023 are normal. Early detection of cancer is very important. We also understand recommendations regarding breast cancer screening are controversial. Please discuss with your primary care provider which strategy is best for you and whether a mammogram is right for you. Your imaging studies and report will be kept on file at [facility] as part of your permanent medical record and are available for your continuing care. Thank you for allowing us to help in meeting your health care needs. Sincerely, Dr. Shepherd Interpreting Radiologist (Normal over 40) Normal [facility] WENDY SCREENING W TOMOon 12-07 WENDY SCREENING W LESVIA * * *Final Report* * * DATE OF EXAM: Dec 08 2023 11:41AM WRW [id number] - WENDY SCREENING W LESVIA / PROCEDURE REASON: Encounter for screening mammogram for breast cancer * * * * Physician Interpretation * * * * RESULT: #[id number] - WENDY SCREENING W LESVIA BILATERAL DIGITAL SCREENING MAMMOGRAM TOMOSYNTHESIS WITH CAD: 12/08/2023 HISTORY: /Screening Mammogram with LESVIA - patient reports NO breast symptoms /priors available for comparison Encounter For Screening Mammogram For Breast Cancer. RESULT: TECHNIQUE: The study was acquired using full field digital technology and interpreted from soft copy. Digital Breast Tomosynthesis (DBT) images were obtained and used to assist in the interpretation of this examination. Current study was also evaluated with a Computer Aided Detection (CAD). Comparison is made to exams dated: 10/01/2021 mammogram, 04/16/2019 mammogram, and 02/09/2018 mammogram - . There are scattered areas of fibroglandular density. There are benign asymmetries in both breasts. There also are benign calcifications in both breasts. Additionally, there is a biopsy clip in the left breast. No significant masses, calcifications, or other findings are seen in either breast. There has been no significant interval change. IMPRESSION: BENIGN FINDING There is no mammographic evidence of malignancy. A 1 year screening mammogram is recommended. Ya jeff/ajay:12/09/2023 13:08:36 Pin Attacher(s): RT Katlyn(R)(M), letter sent: Normal over 40 Mammogram BI-RADS: 2 Benign finding Multiple national specialty organizations have released breast cancer screening guidelines for women at average risk for developing breast cancer - guidelines that are based on both evidence and opinion, yet differ on when to start and how often to screen for breast cancer. With representation from Breast Imaging, Internal Medicine, Women's Health, Family Medicine, and Medical/Surgical Oncology, the [facility] has carefully reviewed the data and reached the following consensus: 1) All women should engage in shared decision-making with their providers to decide when to start and how often to screen; 2) All women should have the opportunity to start screening mammography at age 40; 3) For women ages 45-55, we recommend annual screening mammograms; 4) For women ages 55 and over, we support both the transition from an annual to a biennial interval if this aligns more with patient's values and preferences, or continuation with annual screening; 5) All women should discuss with their providers when to stop screening mammograms. Restaurant And Bar Manager: Ajay Transcribe Date/Time: Dec 08 2023 11:21A Dictated by: YA SHEPHERD MD This examination was interpreted and the report reviewed and electronically signed by: YA SHEPHERD MD on Dec 09 2023 1:08PM EST [id number] Normal [facility] CNOVon 11-19-2023 CNOV Office Visit (OBGYWM ) GWEN ROCKWELL ([id number]) 1955 F Date Time Provider Department 11/19/23 1:40 PM XIMENA CARDENAS OBGYWM During your visit today, we recorded the following information about you: Blood pressure Weight Height 128/80 111.1 kg 1.655 m Ximena Cardenas MD 11/19/2023 1:52 PM Signed Gwen is a 68 year old who presents for an annual gynecologic exam without complaints. 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 Garner CARPAL TUNNEL 2006 right CARPAL TUNNEL Left 04/2016 COLONOSCOPY 2008 COLONOSCOPY FLX DX W/COLLJ SPEC WHEN PFRMD 03/09/2018 Colonoscopy COLONOSCOPY SCREENING 2021 DILATION AND CURETTAGE DXAND/THER NONOBSTETRIC Dilation AND curettage ENDOMETRIAL ABLTJ THERMAL W/O HYSTEROSCOPIC GUID 06/18/2011 Novasure GALLBLADDER/EF 12/2013 PAST SURGICAL HISTORY OF Left 10/2020 left foot - ganglion cyst removal PAST SURGICAL HISTORY OF 08/10/2019 RIGHT hip replacement TONSILLECTOMY HX FAMILY HISTORY Problem Relation Age of Onset Arthritis Mother rheumatoid Diabetes Mother Ovarian cancer Mother 78 other (lupus) Mother Heart Mother Hypertension Father Heart Father stents Heart Attack Father 85 Gout Brother SOCIAL HISTORY Social History Tobacco Use Smoking status: Never Smokeless tobacco: Never Vaping Use Vaping Use: Never used Substance [...] Allergies and current medication updated:Yes EXAM: BP 128/80 Ht 5' 5.157 (1.66m) Wt 245 lb (111.1kg) LMP 06/06/2011 BMI 40.57 kg/(m2). GENERAL: pleasant, female in no apparent distress HEENT: Normocephalic, atraumatic, mucus membranes moist, and no lesions NECK: Supple, full range of motion, no adenopathy, and thyroid normal DERMATOLOGY: Normal, without lesions, non-icteric, and non-hirsute BREAST: soft, non-tender, symmetric, no dominant mass, normal nipple-areolar complex, no lymphadenopathy, and no nipple discharge CHEST: Normal inspiratory effort ABDOMEN: soft, non-tender, and no masses PELVIC: external genitalia normal, normal Bartholin's glands, urethra, Bickleton's glands, no vulvar lesions, no cervical lesions, good vaginal support, physiologic discharge present, normal appearing perineal body and perianal region BIMANUAL: uterus normal size, shape and consistency, no adnexal masses, and non-tender RECTOVAGINAL: deferred. NEURO: alert and oriented x3,exam grossly non-focal EXTREMITIES: normal ASSESSMENT/PLAN: 1) Health maintenance: Pap/HPV screening no longer needed Mammogram ordered Colon cancer screening: up to date with screening 2) Follow up one year or sooner as needed will discuss BM w/ PCP next month requests consult for wt management Ximena Cardenas MD Allergies As of Date: 11/19/2023 Noted Allergy Reaction BACTRIM (SULFAMETHOXAZOLE-TRIM ETH*02/03/2018 8 - GI Upset Date Reviewed: 11/19/2023 Reviewed by: Ximena Cardenas MD - Fully Assessed Reason for Visit: Yearly Exam [187] Primary Visit Diagnosis:Encounter for gynecological examination (general) (routine) without abnormal findings [Z01.419] Other Visit Diagnoses:Encounter for screening mammogram for breast cancer [Z12.31] Class 3 severe obesity due to excess calories with serious comorbidity and body mass index (BMI) of 40.0 to 44.9 in adult (HCC) [E66.01, Z68.41] Obstructive sleep apnea syndrome [G47.33] Order(s):WENDY SCREENING W LESVIA [[id number]] Order #: [id number] FUTURE CONSULT TO [facility] WEIGHT MANAGEMENT PROGRAM [[id number]] Order #: [id number]: 1 FUTURE Prescri (more content not included)... Normal [facility] Laboratory - Chemistry and C hemistry - challengeOrdered By: Bernice Andujar on 05-27-2023 Cobalamin (Vitamin B12) [Mass/Vol] 1991 pg/mL 211-911 [facility] Serum or plasma glucose jimmie urement 2 hours post dose glucose (mass/volume)Ordered By: Bernice Andujar on 05-27-2023 Glucose 2 Hr post dose glucose [Mass/Vol] See comment [facility] Comment on above: FASTING 104 Col: 0653GLUCOSE TOLERANCE TEST Reference Interval Non- Adults Fasting 74 - 106 30 minutes 110 - 170 1 hour 120 - 170 2 hour 74 - 120 3 hour 74 - 106 4 hour 74 - 106 5 hour 74 - 106 GLU 1/2 HR 166 Col: 05/27/23 0725 GLU 1 HR 157 Col: 05/27/23 0755 GLU 2 HR 130 H Col: 05/27/23 0855 ECG COMPLETEon 10-06-2022 ECG COMPLETE Ventricular Rate : 6 7 BPM Atrial Rate : 67 BPM P-R Interval : 174 ms QRS Duration : 84 ms Q-T Interval : 406 ms QTC Calculation(Bazett) : 429 ms Calculated P Paterson : 49 degrees Calculated R Paterson : 5 degrees Calculated T Paterson : 20 degrees NORMAL SINUS RHYTHM NORMAL ECG 936 no change Confirmed by MD VANDANA, WILLIAN ([id number]), makeup editor Kristine Eden ([id number]) on 10/06/2022 4:32:47 PM NAME : GWEN ROCKWELL PID : [id number] : 1955 Gender : Female Race : ORD : [id number] Procedure Date : Oct 06 2022 09:34:06 Edit Date : Oct 06 2022 16:32:49 Diagnosis: NORMAL SINUS RHYTHM NORMAL ECG 936 no change Confirmed by MD ROSS TARAS ([id number]), makeup editor Kristine Eden ([id number]) on 10/06/2022 4:32:47 PM Test Reason : Dizziness Location : 1 : ER ED Overread By : MD ROSS TARAS Edited By : Kristine Eden Referred By : , Acquired by : PARVEZ, [facility] ED NOTEon 10-06-2022 ED NOTE HNO ID: [id number] Author: Ila De La Garza RN Service: ? Author Type: Registered Nurse Type: ED Notes Filed: 10/06/2022 10:29 AM Note Text: Discharge inst reviewed with pt, discussed follow up with pcp, pt verbalized understanding via teach back method, pt stable upon departure from ED [facility] ED PROV NOTEon 10-06-2022 ED PROV NOTE HNO ID: [id number] Author: Willian Ross MD Service: ? Author Type: Physician Type: ED Provider Notes Filed: 10/06/2022 10:19 AM Note Text: ED Provider Note Patient Name: Gwen Rockwell : 1955 SERVICE DATE: 10/06/22 History Patient presents with: Numbness: Pt reports waking up 3 times last night with numbness in left hand that would resolve with movement. Pt here yesterday for dizziness, which is still present, but improved. Patient is a 67-year-old female, with history of hypertension, GERD, COPD, asthma, who comes in with occasional numbness in the left hand. The patient says she woke up 3 times during the night with a numb feeling in her left hand only. She said when she moves her fingers, the numbness went away. She denied any numbness elsewhere in her left upper extremity. She denies any left lower extremity involvement. She denies any right-sided symptoms. She was here yesterday with dizziness which seems positional. She had a fairly extensive work-up including CT brain as well as CTA of the head and neck. Those results were unremarkable. Her dizziness is better. She admits that she has had ringing in her right ear for few weeks. She denies any headaches or visual complaints today. She denies any trouble with speech or swallowing. She denies any actual weakness in her extremities. No fevers or chills today. No cough or sore throat. No chest pain or trouble breathing. No abdominal or urinary complaints. No rash or bruising or swelling mention. No other associated symptoms. PAST MEDICAL HISTORY Diagnosis Date Asthma Chronic obstructive pulmonary disease (COPD) (HCC) Diabetic borderline Environmental allergies GERD (gastroesophageal reflux disease) Hypertension Hypothyroid Menorrhagia HECTOR on CPAP Osteoarthritis Snoring PAST SURGICAL HISTORY Procedure Laterality Date ARTHRP KNE CONDYLEANDPLATU MEDIALANDLAT COMPARTMENTS Left 12/2015 BREAST BIOPSY CORE 04/02/2013 left-fibroadenoma/Dr. Garner CARPAL TUNNEL 2006 right CARPAL TUNNEL Left 04/2016 COLONOSCOPY 2008 COLONOSCOPY FLX DX W/COLLJ SPEC WHEN PFRMD 03/09/2018 Colonoscopy DILATION AND CURETTAGE DXAND/THER NONOBSTETRIC Dilation AND curettage ENDOMETRIAL ABLTJ THERMAL W/O HYSTEROSCOPIC GUID 06/18/2011 Novasure GALLBLADDER/EF 12/2013 PAST SURGICAL HISTORY OF Left 10/2020 left foot - ganglion cyst removal PAST SURGICAL HISTORY OF 08/10/2019 RIGHT hip replacement TONSILLECTOMY HX FAMILY HISTORY Problem Relation Age of Onset Arthritis Mother rheumatoid Diabetes Mother Ovarian cancer Mother 78 other (lupus) Mother Hypertension Father Social History Tobacco Use Smoking status: Never Smokeless tobacco: Never Vaping Use Vaping Use: Never used Substance and Sexual Activity Alcohol use: Yes Comment: socially Drug use: No Sexual activity: Not Currently ALLERGIES Allergen Reactions Bactrim [Sulfametho* GI Upset Review of Systems Constitutional: Negative. HENT: Negative. Eyes: Negative for visual disturbance. Respiratory: Negative for shortness of breath. Cardiovascular: Negative for chest pain. Gastrointestinal: Negative. Genitourinary: Negative. Musculoskeletal: Negative. Skin: Negative. Neurological: Positive for numbness. Negative for facial asymmetry, speech difficulty, weakness and headaches. Psychiatric/Behavioral : Negative. Physical Exam Vitals [10/06/22 0850] BP Pulse Temp Temp src Resp SpO2 Weight Height (S) 181/85 70 36.9 ?C (98.4 ?F) Oral 16 98 % 108 kg (238 lb 1.6 oz) -- Physical Exam Vitals and nursing note reviewed. Exam conducted with a turning sander tender present. Constitutional: General: She is not in acute distress. Appearance: Normal appearance. She is well-developed. She is not toxic-appearing. HENT: Head: Normocephalic and atraumatic. Right Ear: External ear normal. Left Ear: External ear normal. Nose: Nose normal. Mouth/Throat: Mouth: Mucous membranes are moist. Pharynx: Oropharynx is clear. Eyes: General: Lids are normal. No scleral icterus. Right eye: No discharge. Left eye: No discharge. Extraocular Movements: Extraocular movements intact. Conjunctiva/sclera: Conjunctivae normal. Pupils: Pupils are equal, round, and reactive to light. Cardiovascular: Rate and Rhythm: Normal rate and regular rhythm. Heart sounds: Normal heart sounds. No murmur heard. No friction rub. No gallop. Pulmonary: Effort: Pulmonary effort is normal. Breath sounds: Normal breath sounds. No wheezing, rhonchi or rales. Abdominal: General: Bowel sounds are normal. Palpations: Abdomen is soft. Abdomen is not rigid. Tenderness: There is no abdominal tenderness. There is no guarding or rebound. Musculoskeletal: General: Normal range of motion. Cervical back: Normal range of motion and neck supple. Comments: There is no swelling or tenderness of the left upper extremity. She has 2+ (more content not included)... Normal [facility] HIGH SENSITIVITY TROPONIN To n 10-06-2022 HIGH SENSITIVITY BYRON <6 Normal <12 [facility] Comment on above: Order Comment: Speci men Type: BLOOD SPECIMEN Ordering Facility: [facility] Address: [address] [place] [id number] Result Comment: When assessing risk for acute coronary syndromes: In patients undergoing blood draw greater than or equal to 2 hours from symptom onset, with history of very low to moderate risk and non-ischemic ECG, an initial hs-Troponin T less than 12 ng/L AND a 1 hour delta hs-Troponin T less than 3 ng/L should be considered very low risk for 30 day MACE. Performed By: #### H STNT #### [facility] CLIA [id number] [address] [place] [address] [place] CBC W Auto Differential pane l (Bld)on 05-06-2023 Basophils (Bld) [#/Vol] 0.04 10*3/uL Normal <0.11 [facility] Comment on above: Order Comment: Speci men Type: BLOOD SPECIMEN Ordering Facility: [facility] Address: [address] [place] [address] Performed By: #### 5 7021-8 #### [facility] CLIA [id number] 1000 [place] [address] [place] Basophils/100 WBC (Bld) 0.5 % Normal [facility] Comment on above: Order Comment: Speci men Type: BLOOD SPECIMEN Ordering Facility: [facility] Address: [address] [place] [address] Performed By: #### 5 7021-8 #### [facility] CLIA [id number] [address] Differential cell count method Nom (Bld) Auto Normal [facility] Comment on above: Order Comment: Speci men Type: BLOOD SPECIMEN Ordering Facility: [facility] Address: [address] [place] [address] Performed By: #### 5 7021-8 #### [facility] CLIA [id number] 1000 [place] [address] [place] Eosinophils (Bld) [#/Vol] 0.04 10*3/uL Normal <0.46 [facility] Comment on above: Order Comment: Speci men Type: BLOOD SPECIMEN Ordering Facility: [facility] Address: [address] [place] [address] Performed By: #### 5 7021-8 #### [facility] CLIA [id number] [address] STATES [facility] Eosinophils/100 WBC (Bld) 0.5 % Normal [facility] Comment on above: Order Comment: Speci men Type: BLOOD SPECIMEN Ordering Facility: [facility] Address: [address] [place] [address] Performed By: #### 5 7021-8 #### [facility] CLIA [id number] [address] [place] Erythrocyte distribution width (RBC) [Ratio] 14.0 % Normal 11.5-15.0 [facility] Comment on above: Order Comment: Speci men Type: BLOOD SPECIMEN Ordering Facility: [facility] Address: [address] [place] [address] Performed By: #### 5 7021-8 #### [facility] CLIA [id number] [address] [place] Hematocrit (Bld) [Volume fraction] 39.3 % Normal 36.0-46.0 [facility] Comment on above: Order Comment: Speci men Type: BLOOD SPECIMEN Ordering Facility: [facility] Address: [address] [place] [address] Performed By: #### 5 7021-8 #### [facility] CLIA [id number] [address] [place] Hemoglobin (Bld) [Mass/Vol] 13.4 g/dL Normal 11.5-15.5 [facility] Comment on above: Order Comment: Speci men Type: BLOOD SPECIMEN Ordering Facility: [facility] Address: [address] [place] [address] Performed By: #### 5 7021-8 #### [facility] CLIA [id number] [address] [place] Immature granulocytes (Bld) [#/Vol] 10*3/uL Normal <0.10 [facility] Comment on above: Order Comment: Speci men Type: BLOOD SPECIMEN Ordering Facility: [facility] Address: [address] [place] [address] Performed By: #### 5 7021-8 #### [facility] CLIA [id number] [address] [place] Immature granulocytes/100 WBC (Bld) 0.2 % Normal [facility] Comment on above: Order Comment: Speci men Type: BLOOD SPECIMEN Ordering Facility: [facility] Address: [address] [place] [address] Performed By: #### 5 7021-8 #### [facility] CLIA [id number] [address] [place] [address] [place] [facility] [place] Lymphocytes (Bld) [#/Vol] 1.48 10*3/uL Normal 1.00-4.00 [facility] Comment on above: Order Comment: Speci men Type: BLOOD SPECIMEN Ordering Facility: [facility] Address: [address] [place] [address] Performed By: #### 5 7021-8 #### [facility] CLIA [id number] [address] Lymphocytes/100 WBC (Bld) 18.5 % Normal [facility] Comment on above: Order Comment: Speci men Type: BLOOD SPECIMEN Ordering Facility: [facility] Address: [address] [address] Performed By: #### 5 7021-8 #### [facility] CLIA [id number] [address] MCH (RBC) [Entitic mass] 29.3 pg Normal 26.0-34.0 [facility] Comment on above: Order Comment: Speci men Type: BLOOD SPECIMEN Ordering Facility: [facility] Address: [address] [place] [address] Performed By: #### 5 7021-8 #### [facility] CLIA [id number] [address] MCHC (RBC) [Mass/Vol] 34.1 g/dL Normal 30.5-36.0 [facility] Comment on above: Order Comment: Speci men Type: BLOOD SPECIMEN Ordering Facility: [facility] Address: [address] [place] [address] Performed By: #### 5 7021-8 #### [facility] CLIA [id number] [address] MCV (RBC) [Entitic vol] 85.8 fL Normal 80.0-100.0 [facility] Comment on above: Order Comment: Speci men Type: BLOOD SPECIMEN Ordering Facility: [facility] Address: [address] [place] [address] Performed By: #### 5 7021-8 #### [facility] CLIA [id number] [address] [place] [address] [place] Monocytes (Bld) [#/Vol] 0.41 10*3/uL Normal <0.87 [facility] Comment on above: Order Comment: Speci men Type: BLOOD SPECIMEN Ordering Facility: [facility] Address: [address] [address] Performed By: #### 5 7021-8 #### [facility] CLIA [id number] [address] Monocytes/100 WBC (Bld) 5.1 % Normal [facility] Comment on above: Order Comment: Speci men Type: BLOOD SPECIMEN Ordering Facility: [facility] Address: [address] [address] Performed By: #### 5 7021-8 #### [facility] CLIA [id number] [address] Neutrophils (Bld) [#/Vol] 6.03 10*3/uL Normal 1.45-7.50 [facility] Comment on above: Order Comment: Speci men Type: BLOOD SPECIMEN Ordering Facility: [facility] Address: [address] [address] Performed By: #### 5 7021-8 #### [facility] CLIA [id number] [address] Neutrophils/100 WBC (Bld) 75.2 % Normal [facility] Comment on above: Order Comment: Speci men Type: BLOOD SPECIMEN Ordering Facility: [facility] Address: [address] [address] Performed By: #### 5 7021-8 #### [facility] CLIA [id number] [address] [place] Nucleated RBC (Bld) [#/Vol] 10*3/uL Normal <0.01 [facility] Comment on above: Order Comment: Speci men Type: BLOOD SPECIMEN Ordering Facility: [facility] Address: [address] [address] Performed By: #### 5 7021-8 #### [facility] CLIA [id number] [address] [place] Nucleated RBC/100 WBC (Bld) [Ratio] 0.0 /100 WBC Normal [facility] Comment on above: Order Comment: Speci men Type: BLOOD SPECIMEN Ordering Facility: [facility] Address: [address] [address] Performed By: #### 5 7021-8 #### [facility] CLIA [id number] [address] Platelet mean volume (Bld) [Entitic vol] 9.7 fL Normal 9.0-12.7 [facility] Comment on above: Order Comment: Speci men Type: BLOOD SPECIMEN Ordering Facility: [facility] Address: [address] [address] Performed By: #### 5 7021-8 #### [facility] CLIA [id number] [address] Platelets (Bld) [#/Vol] 245 10*3/uL Normal 150-400 [facility] Comment on above: Order Comment: Speci men Type: BLOOD SPECIMEN Ordering Facility: [facility] Address: [address] [address] Performed By: #### 5 7021-8 #### [facility] CLIA [id number] [address] RBC (Bld) [#/Vol] 4.58 10*6/uL Normal 3.90-5.20 [facility] Comment on above: Order Comment: Speci men Type: BLOOD SPECIMEN Ordering Facility: [facility] Address: [address] [address] Performed By: #### 5 7021-8 #### [facility] CLIA [id number] [address] WBC (Bld) [#/Vol] 8.02 10*3/uL Normal 3.70-11.00 [facility] Comment on above: Order Comment: Speci men Type: BLOOD SPECIMEN Ordering Facility: [facility] Address: [address] [address] Performed By: #### 5 7021-8 #### [facility] CLIA [id number] [address] [place] [address] [place] CT BRAIN WO IVCONon 10-06-19 CT BRAIN WO IVCON * * *Final Report* * * DATE OF EXAM: Oct 05 2022 3:13PM [facility] 0504 - CT BRAIN WO IVCON / PROCEDURE REASON: Dizziness, non-specific * * * * Physician Interpretation * * * * EXAMINATION: CTA HEAD W IVCON, CT BRAIN WO IVCON, CTA NECK W IVCON HISTORY: Dizziness TECHNIQUE: Routine CT of the brain without IV contrast. Next, high resolution axial images were obtained through the head, neck and superior mediastinum following bolus administration of intravenous contrast for CT angiography. 3D maximum intensity projection images were created, reviewed and archived . MQ: CTABNPlus_4 Contrast: 80 mL Omnipaque [address] Radiation dose: Integrated Dose-Length Product (DLP) for this visit = 1537 mGy*cm. CT Dose Reduction Employed: Automated exposure control(AEC) and iterative recon COMPARISON: None. RESULT: BRAIN: Acute change: No evidence of an acute infarct or other acute parenchymal process. ASPECT Score = 10 Hemorrhage: No evidence of acute intracranial hemorrhage. ECASS hemorrhagic transformation score: Not Applicable Mass Lesion / Mass Effect: There is no evidence of an intracranial mass or extra-axial fluid collection. No significant mass effect. Chronic change: Mild chronic microvascular ischemic changes. Parenchyma: There is no significant volume loss. The brain parenchyma is otherwise within normal limits for age. Ventricles: The ventricles are within normal limits of size and configuration for age. Other: The visualized paranasal sinuses are grossly clear. The skull and visualized extracranial soft tissues are grossly normal. NECK: Soft tissues: The soft tissue planes are maintained throughout. No evidence of a soft tissue mass in the neck or superior mediastinum. No significant lymphadenopathy is seen. Spine: Alignment is normal. Mild degenerative changes are present. Lung apices: The visualized lung apices are clear. CT ARTERIOGRAM: Extracranial Circulation: Aortic Arch: There is a normal branching pattern from the aortic arch. There is no significant stenosis in the proximal brachiocephalic vessels. Carotid Stenosis: Right Common: No significant stenosis. Right Internal Carotid Plaque: No significant plaque formation. Right Internal Carotid Stenosis (% by NASCET Criteria): 0% Left Common: No significant stenosis. Left Internal Carotid Plaque: Minimal plaque with no stenosis. Left Internal Carotid Stenosis (% by NASCET Criteria): 0% Cervical Vertebral Arteries: Patency: Bilateral Dominance: Left Intracranial Circulation: Spot Sign Presence: Not Applicable Spot Sign Number: Not Applicable Anterior Circulation: Atherosclerotic plaque in the carotid siphons without stenosis. MCA and GISSEL major proximal branches are patent. Vertebrobasilar Circulation: Intracranial vertebral arteries basilar artery and the customer account manager are patent. There is venous overlap and the dural venous sinuses appear patent as well. Spare Hand (topogram) images: No additional findings. IMPRESSION: Patent intracranial circulation and neck vessels. No significant stenosis. Minimal atherosclerotic changes at the bifurcation on the left and in the carotid siphons. Mild microvascular ischemic changes without an acute brain parenchymal abnormality on brain CT without contrast. Arterial blood flow was measured to detect acute large vessel occlusion by computer aided detection software: Not Performed. Concordance between software and imaging review: Not Applicable. Restaurant And Bar Manager: ANGEL Transcribe Date/Time: Oct 05 2022 3:17P Dictated by : HOANG JULIAN MD This examination was interpreted and the report reviewed and electronically signed by: HOANG JULIAN MD on Oct 05 2022 3:21PM EST [id number] [facility] CTA HEAD W IVCONon 3 CTA HEAD W IVCON * * *Final Report* * * DATE OF EXAM: Oct 05 2022 3:13PM [facility] 0022 - CTA HEAD W IVCON / PROCEDURE REASON: Vertigo, central * * * * Physician Interpretation * * * * EXAMINATION: CTA HEAD W IVCON, CT BRAIN WO IVCON, CTA NECK W IVCON HISTORY: Dizziness TECHNIQUE: Routine CT of the brain without IV contrast. Next, high resolution axial images were obtained through the head, neck and superior mediastinum following bolus administration of intravenous contrast for CT angiography. 3D maximum intensity projection images were created, reviewed and archived . MQ: CTABNPlus_4 Contrast: 80 mL Omnipaque [address] Radiation dose: Integrated Dose-Length Product (DLP) for this visit = 1537 mGy*cm. CT Dose Reduction Employed: Automated exposure control(AEC) and iterative recon COMPARISON: None. RESULT: BRAIN: Acute change: No evidence of an acute infarct or other acute parenchymal process. ASPECT Score = 10 Hemorrhage: No evidence of acute intracranial hemorrhage. ECASS hemorrhagic transformation score: Not Applicable Mass Lesion / Mass Effect: There is no evidence of an intracranial mass or extra-axial fluid collection. No significant mass effect. Chronic change: Mild chronic microvascular ischemic changes. Parenchyma: There is no significant volume loss. The brain parenchyma is otherwise within normal limits for age. Ventricles: The ventricles are within normal limits of size and configuration for age. Other: The visualized paranasal sinuses are grossly clear. The skull and visualized extracranial soft tissues are grossly normal. NECK: Soft tissues: The soft tissue planes are maintained throughout. No evidence of a soft tissue mass in the neck or superior mediastinum. No significant lymphadenopathy is seen. Spine: Alignment is normal. Mild degenerative changes are present. Lung apices: The visualized lung apices are clear. CT ARTERIOGRAM: Extracranial Circulation: Aortic Arch: There is a normal branching pattern from the aortic arch. There is no significant stenosis in the proximal brachiocephalic vessels. Carotid Stenosis: Right Common: No significant stenosis. Right Internal Carotid Plaque: No significant plaque formation. Right Internal Carotid Stenosis (% by NASCET Criteria): 0% Left Common: No significant stenosis. Left Internal Carotid Plaque: Minimal plaque with no stenosis. Left Internal Carotid Stenosis (% by NASCET Criteria): 0% Cervical Vertebral Arteries: Patency: Bilateral Dominance: Left Intracranial Circulation: Spot Sign Presence: Not Applicable Spot Sign Number: Not Applicable Anterior Circulation: Atherosclerotic plaque in the carotid siphons without stenosis. MCA and GISSEL major proximal branches are patent. Vertebrobasilar Circulation: Intracranial vertebral arteries basilar artery and the customer account manager are patent. There is venous overlap and the dural venous sinuses appear patent as well. Spare Hand (topogram) images: No additional findings. IMPRESSION: Patent intracranial circulation and neck vessels. No significant stenosis. Minimal atherosclerotic changes at the bifurcation on the left and in the carotid siphons. Mild microvascular ischemic changes without an acute brain parenchymal abnormality on brain CT without contrast. Arterial blood flow was measured to detect acute large vessel occlusion by computer aided detection software: Not Performed. Concordance between software and imaging review: Not Applicable. Restaurant And Bar Manager: ANGEL Transcribe Date/Time: Oct 05 2022 3:17P Dictated by : HOANG JULIAN MD This examination was interpreted and the report reviewed and electronically signed by: HOANG JULIAN MD on Oct 05 2022 3:21PM EST [id number] [facility] CTA NECK W IVCONon 3 CTA NECK W IVCON * * *Final Report* * * DATE OF EXAM: Oct 05 2022 3:13PM [facility] 0024 - CTA NECK W IVCON / PROCEDURE REASON: Transient ischemic attack (TIA) * * * * Physician Interpretation * * * * EXAMINATION: CTA HEAD W IVCON, CT BRAIN WO IVCON, CTA NECK W IVCON HISTORY: Dizziness TECHNIQUE: Routine CT of the brain without IV contrast. Next, high resolution axial images were obtained through the head, neck and superior mediastinum following bolus administration of intravenous contrast for CT angiography. 3D maximum intensity projection images were created, reviewed and archived . MQ: CTABNPlus_4 Contrast: 80 mL Omnipaque [address] Radiation dose: Integrated Dose-Length Product (DLP) for this visit = 1537 mGy*cm. CT Dose Reduction Employed: Automated exposure control(AEC) and iterative recon COMPARISON: None. RESULT: BRAIN: Acute change: No evidence of an acute infarct or other acute parenchymal process. ASPECT Score = 10 Hemorrhage: No evidence of acute intracranial hemorrhage. ECASS hemorrhagic transformation score: Not Applicable Mass Lesion / Mass Effect: There is no evidence of an intracranial mass or extra-axial fluid collection. No significant mass effect. Chronic change: Mild chronic microvascular ischemic changes. Parenchyma: There is no significant volume loss. The brain parenchyma is otherwise within normal limits for age. Ventricles: The ventricles are within normal limits of size and configuration for age. Other: The visualized paranasal sinuses are grossly clear. The skull and visualized extracranial soft tissues are grossly normal. NECK: Soft tissues: The soft tissue planes are maintained throughout. No evidence of a soft tissue mass in the neck or superior mediastinum. No significant lymphadenopathy is seen. Spine: Alignment is normal. Mild degenerative changes are present. Lung apices: The visualized lung apices are clear. CT ARTERIOGRAM: Extracranial Circulation: Aortic Arch: There is a normal branching pattern from the aortic arch. There is no significant stenosis in the proximal brachiocephalic vessels. Carotid Stenosis: Right Common: No significant stenosis. Right Internal Carotid Plaque: No significant plaque formation. Right Internal Carotid Stenosis (% by NASCET Criteria): 0% Left Common: No significant stenosis. Left Internal Carotid Plaque: Minimal plaque with no stenosis. Left Internal Carotid Stenosis (% by NASCET Criteria): 0% Cervical Vertebral Arteries: Patency: Bilateral Dominance: Left Intracranial Circulation: Spot Sign Presence: Not Applicable Spot Sign Number: Not Applicable Anterior Circulation: Atherosclerotic plaque in the carotid siphons without stenosis. MCA and GISSEL major proximal branches are patent. Vertebrobasilar Circulation: Intracranial vertebral arteries basilar artery and the customer account manager are patent. There is venous overlap and the dural venous sinuses appear patent as well. Spare Hand (topogram) images: No additional findings. IMPRESSION: Patent intracranial circulation and neck vessels. No significant stenosis. Minimal atherosclerotic changes at the bifurcation on the left and in the carotid siphons. Mild microvascular ischemic changes without an acute brain parenchymal abnormality on brain CT without contrast. Arterial blood flow was measured to detect acute large vessel occlusion by computer aided detection software: Not Performed. Concordance between software and imaging review: Not Applicable. Restaurant And Bar Manager: ANGEL Transcribe Date/Time: Oct 05 2022 3:17P Dictated by : HOANG JULIAN MD This examination was interpreted and the report reviewed and electronically signed by: HOANG JULIAN MD on Oct 05 2022 3:21PM EST [id number] Normal [facility] Comprehensive metabolic 2000 panelon 10-05-2022 Albumin [Mass/Vol] 4.5 g/dL Normal 3.9-4.9 [facility] Comment on above: Order Comment: Speci men Type: BLOOD SPECIMENOrdering Facility: [facility] Address: [address] [address] Performed By: #### L [id number], 02577-7, ####[facility] [id number] [address] [place] [facility] ALP [Catalytic activity/Vol] 125 U/L High 34-123 [facility] Comment on above: Order Comment: Speci men Type: BLOOD SPECIMENOrdering Facility: [facility] Address: [address] [address] Performed By: #### L [id number], 42127-8, ####[facility] [id number] [address] ALT [Catalytic activity/Vol] 25 U/L Normal 7-38 [facility] Comment on above: Order Comment: Speci men Type: BLOOD SPECIMENOrdering Facility: [facility] Address: [address] [address] Performed By: #### L [id number], , ####[facility] [id number] [address] Anion gap [Moles/Vol] 11 mmol/L Normal 9-18 [facility] Comment on above: Order Comment: Speci men Type: BLOOD SPECIMENOrdering Facility: [facility] Address: [address] [address] Performed By: #### L [id number], , ####[facility] [id number] [address] [place] AST [Catalytic activity/Vol] 24 U/L Normal 13-35 [facility] Comment on above: Order Comment: Speci men Type: BLOOD SPECIMENOrdering Facility: [facility] Address: [address] [address] Performed By: #### L [id number], , ####[facility] [id number] [address] STATES OF [facility] Bilirubin [Mass/Vol] 0.4 mg/dL Normal 0.2-1.3 [facility] Comment on above: Order Comment: Speci men Type: BLOOD SPECIMENOrdering Facility: [facility] Address: [address] [place] [address] [address] Performed By: #### L [id number], , ####[facility] [id number] [address] [place] Calcium [Mass/Vol] 9.5 mg/dL Normal 8.5-10.2 [facility] Comment on above: Order Comment: Speci men Type: BLOOD SPECIMENOrdering Facility: [facility] Address: [address] [place] [address] Performed By: #### L [id number], , ####[facility] [id number] [address] [place] Chloride [Moles/Vol] 100 mmol/L Normal 97-105 [facility] Comment on above: Order Comment: Speci men Type: BLOOD SPECIMENOrdering Facility: [facility] Address: [address] [place] [address] Performed By: #### L [id number], , ####[facility]ORY[facility]IA [id number] [place] [address] [place] CO2 [Moles/Vol] 27 mmol/L Normal 22-30 [facility] Comment on above: Order Comment: Speci men Type: BLOOD SPECIMENOrdering Facility: [facility] Address: [address] [place] [address] Performed By: #### L [id number], , ####[facility]ORY[facility]IA [id number] [address] Creatinine [Mass/Vol] 0.67 mg/dL Normal 0.58-0.96 [facility] Comment on above: Order Comment: Speci men Type: BLOOD SPECIMENOrdering Facility: [facility] Address: [address] [place] [address] Performed By: #### L [id number], , ####[facility] [id number] [address] ESTIMATED GLOMERULAR FILTRATION RATE 97 mL/min/1.73m??? Normal >=60 [facility] Comment on above: Order Comment: Speci men Type: BLOOD SPECIMENOrdering Facility: [facility] Address: [address] [place] [address] Result Comment: Tiarra mated Glomerular Filtration Rate (eGFR) is calculated using the 2020 CKD-EPI creatinine equation. This equation utilizes serum creatinine, sex, and age as parameters. The creatinine assay has traceable calibration to isotope dilution-mass spectrometry. Refer to KDIGO guidelines for clinical interpretation. In patients with unstable renal function, e.g. those with acute kidney injury, the eGFR may not accurately reflect actual GFR. Performed By: #### L [id number], , ####[facility]ATORYCLIA [id number] [place] [address] [place] Glucose [Mass/Vol] 91 mg/dL Normal 74-99 [facility] Comment on above: Order Comment: Ember perez Type: BLOOD SPECIMENOrdering Facility: [facility] Address: [address] [place] [address] Result Comment: The [place] [employer] (ADA) provides guidance for cutoff values for fasting glucose and random glucose. The ADA defines fasting as no caloric intake for at least 8 hours. Fasting plasma glucose results between 100 to 125 mg/dL indicate increased risk for diabetes (prediabetes). Fasting plasma glucose results greater than or equal to 126 mg/dL meet the criteria for diagnosis of diabetes. In the absence of unequivocal hyperglycemia, results should be confirmed by repeat testing. In a patient with classic symptoms of hyperglycemia or hyperglycemic crisis, random plasma glucose results greater than or equal to 200 mg/dL meet the criteria for diagnosis of diabetes. Reference: Standards of Medical Care in Diabetes 2016, [place] [employer]. Diabetes Care. 2016.39(Suppl 1). Performed By: #### L [id number], , ####[facility] LABORATORYCLIA [id number] [place] [address] [place] Potassium [Moles/Vol] 3.8 mmol/L Normal 3.7-5.1 [facility] [place] Comment on above: Order Comment: Ember perez Type: BLOOD SPECIMENOrdering Facility: [facility] Address: [address] [place] [address] Performed By: #### L [id number], , ####NICOLE LABORATORYCLIA [id number] [place] [address] [place] Protein [Mass/Vol] 7.2 g/dL Normal 6.3-8.0 [facility] Comment on above: Order Comment: Ember perez Type: BLOOD SPECIMENOrdering Facility: [facility] Address: [address] [place] [address] Performed By: #### L [id number], , ####NICOLE LABORATORYCLIA [id number] [address] Sodium [Moles/Vol] 138 mmol/L Normal 136-144 [facility] Comment on above: Order Comment: Speci men Type: BLOOD SPECIMENOrdering Facility: [facility] Address: [address] [place] [id number] Performed By: #### L [id number], 41923-5, 99462-0 ####NICOLE LABORATORYCLIA [id number] [address] Urea nitrogen [Mass/Vol] 15 mg/dL Normal 7-21 [facility] Comment on above: Order Comment: Speci men Type: BLOOD SPECIMENOrdering Facility: [facility] Address: [address] [place] [address] Performed By: #### L [id number], 27238-1, 99928-4 ####NICOLE LABORATORYCLIA [id number] [address] ECG COMPLETEon 10-05-2022 ECG COMPLETE Ventricular Rate : 8 0 BPM Atrial Rate : 80 BPM P-R Interval : 164 ms QRS Duration : 90 ms Q-T Interval : 404 ms QTC Calculation(Bazett) : 465 ms Calculated P Paterson : 46 degrees Calculated R Paterson : -6 degrees Calculated T Paterson : 6 degrees NORMAL SINUS RHYTHM NONSPECIFIC T WAVE ABNORMALITY ABNORMAL ECG no stemi 170 Confirmed by BERNICE JARA MD ([id number]), makeup editor Kristine Eden ([id number]) on 10/06/2022 4:22:44 PM NAME : GWEN ROCKWELL PID : [id number] : 1955 Gender : Female Race : ORD : [id number] Procedure Date : Oct 05 2022 13:57:59 Edit Date : Oct 06 2022 16:22:46 Diagnosis: NORMAL SINUS RHYTHM NONSPECIFIC T WAVE ABNORMALITY ABNORMAL ECG no stemi 1707 Confirmed by BERNICE JARA MD ([id number]), makeup editor Kristine Eden ([id number]) on 10/06/2022 4:22:44 PM Test Reason : Chest Pain Location : 1 : ER ED Overread By : BERNICE JARA MD Edited By : Kristine Eden Referred By : , Acquired by : Jluis CHRISTIANSON [facility] ED NOTEon 10-05-2022 ED NOTE HNO ID: [id number] Author: [place] RN Service: ? Author Type: Registered Nurse Type: ED Notes Filed: 10/05/2022 4:49 PM Note Text: Discharge instructions and prescriptions reviewed with patient via teachback. Pt verbalizes understanding. Pt awake and alert, respirations regular and unlabored. No further questions for this RN. [facility] ED PROV NOTEon 10-05-2022 ED PROV NOTE HNO ID: [id number] Author: Bernice Jara MD Service: ? Author Type: Physician Type: ED Provider Notes Filed: 10/05/2022 9:59 PM Note Text: ED Provider Note Patient Name: Gwen Rockwell : 1955 SERVICE DATE: 10/05/22 History Patient presents with: Dizziness Ringing In Ear(s): Patient presents to ED with ringing in her ears x 2-3 weeks and dizziness that started over night. Patient presents for dizziness and disequilibrium. Patient states she has been having ringing in her ears for 3 weeks. This morning when she got up she noted that she was unsteady ambulating and has been using a cane due to disequilibrium. She feels dizzy, exacerbated by standing and improves with sitting down and resting. She has a left-sided headache. She is nauseated. She states even just brushing her teeth she felt unsteady and became nauseated. No head trauma. She was seen by her chiropractor 5 days ago but did not have manual manipulation of her cervical spine. She states he did use a device on her neck. She denies vision changes, trouble speaking or swallowing, numbness or weakness in the arms or legs. PAST MEDICAL HISTORY Diagnosis Date Asthma Chronic obstructive pulmonary disease (COPD) (HCC) Diabetic borderline Environmental allergies GERD (gastroesophageal reflux disease) Hypertension Hypothyroid Menorrhagia HECTOR on CPAP Osteoarthritis Snoring PAST SURGICAL HISTORY Procedure Laterality Date ARTHRP KNE CONDYLEANDPLATU MEDIALANDLAT COMPARTMENTS Left 12/2015 BREAST BIOPSY CORE 04/02/2013 left-fibroadenoma/Dr. Garner CARPAL TUNNEL 2006 right CARPAL TUNNEL Left 04/2016 COLONOSCOPY 2007 COLONOSCOPY FLX DX W/COLLJ SPEC WHEN PFRMD 03/09/2018 Colonoscopy DILATION AND CURETTAGE DXAND/THER NONOBSTETRIC Dilation AND curettage ENDOMETRIAL ABLTJ THERMAL W/O HYSTEROSCOPIC GUID 06/18/2011 Monse GALLBLADDER/EF 12/2013 PAST SURGICAL HISTORY OF Left 10/2020 left foot - ganglion cyst removal PAST SURGICAL HISTORY OF 08/10/2019 RIGHT hip replacement TONSILLECTOMY HX FAMILY HISTORY Problem Relation Age of Onset Arthritis Mother rheumatoid Diabetes Mother Ovarian cancer Mother 78 other (lupus) Mother Hypertension Father Social History Tobacco Use Smoking status: Never Smokeless tobacco: Never Vaping Use Vaping Use: Never used Substance and Sexual Activity Alcohol use: Yes Comment: socially Drug use: No Sexual activity: Not Currently ALLERGIES Allergen Reactions Bactrim [Sulfametho* GI Upset Penicillins Rash Has taken since with no reaction Review of Systems Constitutional: Pertinent positives and negatives as per HPI. All other systems reviewed and are negative. Physical Exam Vitals [10/05/22 1302] BP Pulse Temp Temp src Resp SpO2 Weight Height 159/62 74 36.5 ?C (97.7 ?F) Oral 16 96 % 108 kg (238 lb) -- Physical Exam Vitals and nursing note reviewed. Constitutional: General: She is not in acute distress. Appearance: Normal appearance. She is not ill-appearing. HENT: Head: Normocephalic and atraumatic. Mouth/Throat: Mouth: Mucous membranes are moist. Eyes: General: No visual field deficit. Extraocular Movements: Extraocular movements intact. Conjunctiva/sclera: Conjunctivae normal. Pupils: Pupils are equal, round, and reactive to light. Comments: Rotary nystagmus with upward and with left horizontal gaze Cardiovascular: Rate and Rhythm: Normal rate and regular rhythm. Pulses: Normal pulses. Heart sounds: No murmur heard. Pulmonary: Effort: Pulmonary effort is normal. No respiratory distress. Breath sounds: Normal breath sounds. Abdominal: General: Bowel sounds are normal. Palpations: Abdomen is soft. Tenderness: There is no abdominal tenderness. Musculoskeletal: General: No tenderness. Normal range of motion. Cervical back: Normal range of motion and neck supple. No muscular tenderness. Right lower leg: No edema. Left lower leg: No edema. Skin: General: Skin is warm and dry. Findings: No rash. Neurological: General: No focal deficit present. Mental Status: She is alert and oriented to person, place, and time. Cranial Nerves: No cranial nerve deficit, dysarthria or facial asymmetry. Sensory: No sensory deficit. Motor: No weakness or pronator drift. Coordination: Kxnsig-Jqjm-Pcujnb Test and Heel to Meeks Test normal. Psychiatric: Mood and Affect: Mood normal. Behavior: Behavior normal. Diagnostic Testing ED Labs Ordered and Reviewed COMP METABOLIC PANEL - Abnormal; Notable for the following components: Result Value Ref Range Alkaline Phosphatase 125 (*) 34 - 123 U/L All other components within normal limits MAGNESIUM BLD - Normal HIGH SENSITIVITY TROPONIN T (INITIAL) - Normal PROTHROMBIN TIME/PT - Normal HIGH SENSITIVITY TROPONIN T (SECOND) - Normal CBC + DIFF CT BRAIN WO IVCON Final Result IMPRESSION: Patent intracranial circulatio (more content not included)... Normal [facility] HIGH SENSITIVITY TROPONIN T (INITIAL)on 10-05-2022 HIGH SENSITIVITY BYRON <6 Normal <12 [facility] Comment on above: Order Comment: Ember perez Type: BLOOD SPECIMENOrdering Facility: [facility] Address: [address] [place], [place] [phone] Result Comment: When assessing risk for acute coronary syndromes: In patients undergoing blood draw greater than or equal to 2 hours from symptom onset, with history of very low to moderate risk and non-ischemic ECG, an initial hs-Troponin T less than 12 ng/L AND a 1 hour delta hs-Troponin T less than 3 ng/L should be considered very low risk for 30 day MACE. Performed By: #### L [id number], 21554-1, 36643-9 ####ALMA LABORATORYCLIA [id number] [address] HIGH SENSITIVITY TROPONIN T (SECOND)on 10-05-2022 HIGH SENSITIVITY BYRON <6 Normal <12 [facility] Comment on above: Order Comment: Ember perez Type: BLOOD SPECIMEN [facility] Address: [address] [place] [id number] Result Comment: When assessing risk for acute coronary syndromes: In patients undergoing blood draw greater than or equal to 2 hours from symptom onset, with history of very low to moderate risk and non-ischemic ECG, an initial hs-Troponin T less than 12 ng/L AND a 1 hour delta hs-Troponin T less than 3 ng/L should be considered very low risk for 30 day MACE. Performed By: #### L [id number] #### [facility] CLIA [id number] [address] [place] [address] [place] Magnesium SerPl-mCncon 10-05 Magnesium [Mass/Vol] 1.9 mg/dL Normal 1.7-2.3 [facility] Comment on above: Order Comment: Ember perez Type: BLOOD SPECIMENOrdering Facility: [facility] Address: [address] [place] [address] Performed By: #### L [id number], 06066-2, 69083-3 ####ALMA LABORATORYCLIA [id number] [place] [address] [place] PT panel Coag (PPP)on 2022 INR Coag (PPP) [Relative time] 1.1 {INR} Normal 0.9-1.3 [facility] Comment on above: Order Comment: Ember [facility] Type: BLOOD SPECIMEN [facility] Address: [address] [place] [address] Result Comment: Ria min K Antagonist (VKA) Therapeutic Range: INR 2 to 3 (Target INR of 2.5) Note: For patients treated with VKA drugs, such as warfarin, the [place] [employer] 2012 Guideline recommends a therapeutic INR range of 2 to 3 (target INR of 2.5). This recommendation includes high-risk patients with antiphospholipid syndrome with previous arterial or venous thromboembolism, current-generation mechanical or bioprosthetic aortic heart valve replacement. Note: Patients with mechanical aortic valve replacement and additional risk factors for thromboembolic events (atrial fibrillation, previous thromboembolism, LV dysfunction, hypercoagulable conditions) or an older generation mechanical AVR (i.e., ball in-Cage) or any mechanical MVR should have a INR therapeutic range of 2.5 to 3.5 (target INR of 3). Emiliano GH, et al. Chest 2012, 141:7S-47S Tate RA, et al. [facility] 2017, 70: 252-289 Performed By: #### 3 4528-0 #### [facility] CLIA [id number] [address] [place] PT Coag (PPP) [Time] 10.9 s Normal 9.7-13.0 [facility] Comment on above: Order Comment: Speci men Type: BLOOD SPECIMEN [facility] Address: [place] [address] Performed By: #### 3 4528-0 #### [facility] CLIA [id number] [address] [place] [address] [place] Absolute lymphocyte countOrd ered By: Dr. Andujar on 07-30-2022 Lymphocytes Auto (Unsp spec) [#/Vol] 1.81 10*3/uL 0.83-4.51 [facility] Basophil percentageOrdered B y: Dr. Andujar on 07-30-2022 Basophils/100 WBC (Bld) 0.7 % 0-1 [facility] Bilirubin [Mass/Vol] 0.50 mg/dL 0.20-1.00 [facility] Comment on above: For patients on eltr ombopag therapy, use of Dimension [place] TBIL is not recommended. Chloride [Moles/Vol] 101 mmol/L 98-107 [facility] Cholesterol [Mass/Vol] 150 mg/dL <200 [facility] Comment on above: <200 mg/dL Desirable 200-240 mg/dL Borderline >240 mg/dL High Risk Eosinophils/100 WBC (Bld) 3.0 % 0-5 [facility] Glucose [Mass/Vol] 97 mg/dL 74-106 [facility] Neutrophils (Bld) [#/Vol] 3.1 10*3/uL 2.0-7.7 [facility] Neutrophils/100 WBC (Bld) 54.5 % 47-70 [facility] Potassium [Moles/Vol] 4.0 mmol/L 3.5-5.1 [facility] Comment on above: Slight Hemolysis, Re sult may be falsely increased. Protein [Mass/Vol] 8.0 g/dL 6.4-8.2 [facility] Sodium [Moles/Vol] 136 mmol/L 136-145 [facility] Triglyceride [Mass/Vol] 194 mg/dL <199 [facility] Comment on above: The drugs N-Acetylcy steine and Metamizole may falsely depress this assay.Serum Triglycerides Reference Interval Normal <150 mg/dL Borderline high 150 - 199 mg/dL High 200 - 499 mg/dL Very High > or = 500 mg/dL WBC (Bld) [#/Vol] 5.7 10*3/uL 4.4-11.0 [facility] Blood erythrocytes count (nu mber/volume)Ordered By: Dr. Andujar on 07-30-2022 RBC (Bld) [#/Vol] 4.64 10*6/uL 4.2-5.4 [facility] Blood hemoglobin measurement (mass/volume)Ordered By: Dr. Andujar on 07-30-2022 Hemoglobin (Bld) [Mass/Vol] 13.4 g/dL 12.0-15.0 [facility] Blood lymphocytes/100 leukoc ytesOrdered By: Dr. Andujar on 07-30-2022 Lymphocytes/100 WBC (Bld) 31.8 % 19-41 [facility] Blood monocytes/100 leukocyt esOrdered By: Dr. Andujar on 07-30-2022 Monocytes/100 WBC (Bld) 9.8 % 0-10 [facility] Blood platelet mean volumeOr dered By: Dr. Andujar on 07-30-2022 Platelet mean volume (Bld) [Entitic vol] 10.6 fL 6.2-12.0 [facility] Determination of erythrocyte mean corpuscular volume (MCV)Ordered By: Dr. Andujar on 07-30-2022 MCV (RBC) [Entitic vol] 89.4 fL 81-99 [facility] Hematocrit Auto (Bld) [Volum e fraction]Ordered By: Dr. Andujar on 07-30-2022 Hematocrit (Bld) [Volume fraction] 41.5 % 37-47 [facility] Laboratory - Chemistry and C hemistry - challengeOrdered By: Dr. Andujar on 07-30-2022 ALP [Catalytic activity/Vol] 140 U/L 45-117 [facility] ALT [Catalytic activity/Vol] 49 U/L 13-56 [facility] CO2 [Moles/Vol] 27.0 mmol/L 21.0-32.0 [facility] Free T4 [Mass/Vol] 1.12 ng/dL 0.76-1.46 [facility] Globulin (S) [Mass/Vol] 3.7 g/dL 2.2-4.2 [facility] Urea nitrogen/Creatinine [Mass ratio] 18.6 mg/mg 10-20 [facility] Laboratory - Hematology and Cell countsOrdered By: Dr. Andujar on 07-30-2022 Erythrocyte distribution width (RBC) [Entitic vol] 44.7 fL 35.1-43.9 [facility] Erythrocyte distribution width (RBC) [Ratio] 13.7 % 11.6-14.6 [facility] Immature granulocytes/100 WBC (Bld) 0.200 % 0.0-0.9 [facility] Comment on above: IG% - Immature Granu locytes (promyelocytes, myelocytes and metamyelocytes) > 1% indicates that a LEFT SHIFT is Present. MCH (RBC) [Entitic mass] 28.9 pg 27.0-32.0 [facility] Nucleated RBC/100 WBC (Bld) [Ratio] 0 % 0-5 [facility] MCHC Auto (RBC) [Mass/Vol]Or dered By: Dr. Andujar on 07-30-2022 MCHC (RBC) [Mass/Vol] 32.3 g/dL 32-36 [facility] No Panel InformationOrdered By: Dr. Andujar on 07-30-2022 Estimated GFR (MDRD) Amer 99 mL/min >60 [facility] Comment on above: GFR Calc Estimated GFR (MDRD) Non-Af Amer 82 mL/min >60 [facility] Comment on above: Non- GFR Calc Free Triiodothyronine (T3) pg/dL 2.6 pg/mL 2.18-3.98 [facility] Thyroid Stimulating Hormone (TSH) 1.23 uIU/mL 0.358-3.74 [facility] Platelets bldOrdered By: Dr. Andujar on 07-30-2022 Platelets (Bld) [#/Vol] 222 10*3/uL 150-450 [facility] Serum or plasma albumin jimmie urement (mass/volume)Ordered By: Dr. Andujar on 07-30-2022 Albumin [Mass/Vol] 4.3 g/dL 3.2-5.0 [facility] Serum or plasma albumin/glob ulin mass ratioOrdered By: Dr. Andujar on 07-30-2022 Albumin/Globulin [Mass ratio] 1.2 {ratio} 0.9-2.4 [facility] Serum or plasma calcium ijmmie urement (mass/volume)Ordered By: Dr. Andujar on 07-30-2022 Calcium [Mass/Vol] 10.1 mg/dL 8.5-10.1 [facility] Serum or plasma cholesterol in HDL measurement (mass/volume)Ordered By: Dr. Andujar on 07-30-2022 Cholesterol in HDL [Mass/Vol] 46 mg/dL >40 [facility] Comment on above: The drugs N-Acetylcy steine and Metamizole may falsely depress this assay. Reference Range HDL <40 mg/dL Low HDL Cholesterol HDL >or= 60 mg/dL High HDL Cholesterol Serum or plasma cholesterol in VLDL measurement (mass/volume)Ordered By: Dr. Andujar on 07-30-2022 Cholesterol in VLDL [Mass/Vol] 39 mg/dL 5-40 [facility] Serum or plasma creatinine m easurement (mass/volume)Ordered By: Dr. Andujar on 07-30-2022 Creatinine [Mass/Vol] 0.75 mg/dL 0.55-1.02 [facility] Comment on above: The validity of the calculated GFR & GFRAA in patients over 70 years has not been determined. Clinical correlation is essential. Serum or plasma low density lipoprotein (LDL) cholesterol measurement (mass/volume)Ordered By: Dr. Andujar on 07-30-2022 Cholesterol in LDL [Mass/Vol] 65 mg/dL 0-130 [facility] Serum or plasma urea nitroge n measurement (mass/volume)Ordered By: Dr. Andujar on 07-30-2022 Urea nitrogen [Mass/Vol] 14 mg/dL 7-18 [facility] Thin prep Papanicolaou smear with manual screeningOrdered By: Dr. Andujar on 07-30-2022 Thin prep Papanicolaou smear with manual screening 30 U/L 15-37 [facility] Comment on above: Slight Hemolysis, Re sult may be falsely increased. Thin prep Papanicolaou smear with manual screening 8 5-15 [facility] Absolute lymphocyte counton 11-09-2021 Lymphocytes Auto (Unsp spec) [#/Vol] 1.69 10*3/uL 0.83-4.51 [facility] Work Phone: Basophil percentageon 2021 Basophils/100 WBC (Bld) 0.9 % 0-1 [facility] Work Phone: [phone] Bilirubin [Mass/Vol] 0.50 mg/dL 0.20-1.00 [facility] Work Phone: [phone] Comment on above: For patients on eltr ombopag therapy, use of Dimension [place] TBIL is not recommended. Chloride [Moles/Vol] 102 mmol/L 98-107 [facility] Work Phone: Cholesterol [Mass/Vol] 168 mg/dL <200 [facility] Work Phone: [phone] Comment on above: <200 mg/dL Desirable 200-240 mg/dL Borderline >240 mg/dL High Risk Eosinophils/100 WBC (Bld) 3.4 % 0-5 [facility] Work Phone: Glucose [Mass/Vol] 90 mg/dL 74-106 [facility] Work Phone: Neutrophils (Bld) [#/Vol] 3.4 10*3/uL 2.0-7.7 [facility] Work Phone: [phone] Neutrophils/100 WBC (Bld) 57.2 % 47-70 [facility] Work Phone: [phone] Potassium [Moles/Vol] 3.8 mmol/L 3.5-5.1 [facility] Work Phone: [phone] Protein [Mass/Vol] 7.6 g/dL 6.4-8.2 [facility] Work Phone: Sodium [Moles/Vol] 138 mmol/L 136-145 [facility] Work Phone: Triglyceride [Mass/Vol] 199 mg/dL [facility] Work Phone: [phone] Comment on above: The drugs N-Acetylcy steine and Metamizole may falsely depress this assay.Serum Triglycerides Reference Interval Normal <150 mg/dL Borderline high 150 - 199 mg/dL High 200 - 499 mg/dL Very High > or = 500 mg/dL WBC (Bld) [#/Vol] 5.9 10*3/uL 4.4-11.0 [facility] Work Phone: Blood erythrocytes count (nu mber/volume)on 11-09-2021 RBC (Bld) [#/Vol] 4.59 10*6/uL 4.2-5.4 [facility] Work Phone: Blood hemoglobin measurement (mass/volume)on 11-09-2021 Hemoglobin (Bld) [Mass/Vol] 13.4 g/dL 12.0-15.0 [facility] Work Phone: Blood lymphocytes/100 leukoc yteson 11-09-2021 Lymphocytes/100 WBC (Bld) 28.8 % 19-41 [facility] Work Phone: Blood monocytes/100 leukocyt eson 11-09-2021 Monocytes/100 WBC (Bld) 9.5 % 0-10 [facility] Work Phone: Blood platelet mean volumeon 11-09-2021 Platelet mean volume (Bld) [Entitic vol] 9.5 fL 6.2-12.0 [facility] Work Phone: Determination of erythrocyte mean corpuscular volume (MCV)on 11-09-2021 MCV (RBC) [Entitic vol] 85.6 fL 81-99 [facility] Work Phone: Hematocrit Auto (Bld) [Volum e fraction]on 11-09-2021 Hematocrit (Bld) [Volume fraction] 39.3 % 37-47 [facility] Work Phone: Laboratory - Chemistry and C hemistry - challengeon 11-09-2021 ALP [Catalytic activity/Vol] 148 U/L 45-117 [facility] Work Phone: ALT [Catalytic activity/Vol] 32 U/L 13-56 [facility] Work Phone: CO2 [Moles/Vol] 28.0 mmol/L 21.0-32.0 [facility] Work Phone: Free T4 [Mass/Vol] 1.05 ng/dL 0.76-1.46 [facility] Work Phone: [phone] Globulin (S) [Mass/Vol] 3.5 g/dL 2.2-4.2 [facility] Work Phone: [phone] Urea nitrogen/Creatinine [Mass ratio] 19.1 mg/mg 10-20 [facility] Work Phone: [phone] Laboratory - Hematology and Cell countson 11-09-2021 Erythrocyte distribution width (RBC) [Entitic vol] 41.9 fL 35.1-43.9 [facility] Work Phone: [phone] Erythrocyte distribution width (RBC) [Ratio] 13.5 % 11.6-14.6 [facility] Work Phone: [phone] Immature granulocytes/100 WBC (Bld) 0.200 % 0.0-0.9 [facility] Work Phone: [phone] Comment on above: IG% - Immature Granu locytes (promyelocytes, myelocytes and metamyelocytes) > 1% indicates that a LEFT SHIFT is Present. MCH (RBC) [Entitic mass] 29.2 pg 27.0-32.0 [facility] Work Phone: [phone] Nucleated RBC/100 WBC (Bld) [Ratio] 0 % 0-5 [facility] Work Phone: [phone] MCHC Auto (RBC) [Mass/Vol]on 11-09-2021 MCHC (RBC) [Mass/Vol] 34.1 g/dL 32-36 [facility] Work Phone: [phone] Panel Informationon 11-09 Estimated GFR (MDRD) Amer 103 mL/min >60 [facility] Work Phone: [phone] Comment on above: GFR Calc Estimated GFR (MDRD) Non-Af Amer 85 mL/min >60 [facility] Work Phone: [phone] Comment on above: Non- GFR Calc Free Triiodothyronine (T3) pg/dL 2.9 pg/mL 2.18-3.98 [facility] Work Phone: Thyroid Stimulating Hormone (TSH) 1.77 uIU/mL 0.358-3.74 [facility] Work Phone: Vitamin D 25-Hydroxy 43.3 ng/mL [facility] Work Phone: Comment on above: Vitamin D 25(OH) Sta tus Range Deficiency <20 ng/mL (50nmol/L) Insufficiency 20 - 30 ng/mL (50 - 75 nmol/L) Sufficiency 30 - 100 ng/mL (75 - 250 nmol/L) Toxicity >100 ng/mL (>250 nmol/L) Platelets bldon 11-09-2021 Platelets (Bld) [#/Vol] 219 10*3/uL 150-450 [facility] Work Phone: Serum or plasma albumin jimmie urement (mass/volume)on 11-09-2021 Albumin [Mass/Vol] 4.1 g/dL 3.2-5.0 [facility] Work Phone: [phone] Serum or plasma albumin/glob ulin mass ratioon 11-09-2021 Albumin/Globulin [Mass ratio] 1.2 {ratio} 0.9-2.4 [facility] Work Phone: [phone] Serum or plasma calcium jimmie urement (mass/volume)on 11-09-2021 Calcium [Mass/Vol] 9.6 mg/dL 8.5-10.1 [facility] Work Phone: Serum or plasma cholesterol in HDL measurement (mass/volume)on 11-09-2021 Cholesterol in HDL [Mass/Vol] 51 mg/dL [facility] Work Phone: Comment on above: The drugs N-Acetylcy steine and Metamizole may falsely depress this assay. Reference Range HDL <40 mg/dL Low HDL Cholesterol HDL >or= 60 mg/dL High HDL Cholesterol Serum or plasma cholesterol in VLDL measurement (mass/volume)on 11-09-2021 Cholesterol in VLDL [Mass/Vol] 40 mg/dL 5-40 [facility] Work Phone: [phone] Serum or plasma creatinine m easurement (mass/volume)on 11-09-2021 Creatinine [Mass/Vol] 0.73 mg/dL 0.55-1.02 [facility] Work Phone: Comment on above: The validity of the calculated GFR & GFRAA in patients over 70 years has not been determined. Clinical correlation is essential. Serum or plasma low density lipoprotein (LDL) cholesterol measurement (mass/volume)on 11-09-2021 Cholesterol in LDL [Mass/Vol] 77 mg/dL 0-130 [facility] Work Phone: Serum or plasma urea nitroge n measurement (mass/volume)on 11-09-2021 Urea nitrogen [Mass/Vol] 14 mg/dL 7-18 [facility] Work Phone: Thin prep Papanicolaou smear with manual screeningon 11-09-2021 Thin prep Papanicolaou smear with manual screening 19 U/L 15-37 [facility] Work Phone: Thin prep Papanicolaou smear with manual screening 8 5-15 [facility] Work Phone: WENDY SCREENINGon 10-01-2021 [facility] Vital Signs Date Time Vital Sign Value Performing Clinician Faci lity 03-31-2024 11:42-0400 Body mass index (BMI) [Ratio] 40.44 kg/m2 Munira Keyes MD Work Phone: [facility] 03-31-2024 11:42-0400 Body weight 110.22 kg Munira Keyes MD Work Phone: [facility] 03-31-2024 11:42-0400 Diastolic blood pressure 78 mm[Hg] Munira Keyes MD Work Phone: [facility] 03-31-2024 11:42-0400 Heart rate 69 /min Munira Keyes MD Work Phone: [facility] 03-31-2024 11:42-0400 SaO2% (BldA) [Mass fraction] 89 % Munira Keyes MD Work Phone: [facility] 03-31-2024 11:42-0400 Systolic blood pressure 130 mm[Hg] Munira Keyes MD Work Phone: [facility] 03-01-2024 15:12-0400 Body height 165.1 cm Munira Keyes MD Work Phone: [facility] 03-01-2024 15:12-0400 Body mass index (BMI) [Ratio] 41.27 kg/m2 Munira Keyes MD Work Phone: [facility] 03-01-2024 15:12-0400 Body weight 112.49 kg Munira Keyes MD Work Phone: [facility] 03-01-2024 15:12-0400 Diastolic blood pressure 77 mm[Hg] Munira Keyes MD Work Phone: [facility] 03-01-2024 15:12-0400 Heart rate 88 /min Munira Keyes MD Work Phone: [facility] 03-01-2024 15:12-0400 SaO2% (BldA) [Mass fraction] 98 % Munira Keyes MD Work Phone: [facility] 03-01-2024 15:12-0400 Systolic blood pressure 151 mm[Hg] Munira Keyes MD Work Phone: [facility] 11-19-2023 13:40-0400 Body height 165.5 cm Ximena Cardenas MD Work Phone: [facility] 11-19-2023 13:40-0400 Body mass index (BMI) [Ratio] 40.57 kg/m2 Ximena Cardenas MD Work Phone: [facility] 11-19-2023 13:40-0400 Body weight 111.13 kg Ximena Cardenas MD Work Phone: [facility] 11-19-2023 13:40-0400 Diastolic blood pressure 80 mm[Hg] Ximena Cardenas MD Work Phone: [facility] 11-19-2023 13:40-0400 Systolic blood pressure 128 mm[Hg] Ximena Cardenas MD Work Phone: [facility] 10-01-2021 08:53-0400 Body height 167.6 cm Ximena Cardenas MD Work Phone: [facility] 10-01-2021 08:53-0400 Body weight 113.4 kg Ximena Cardenas MD Work Phone: [facility] 10-01-2021 08:53-0400 Diastolic blood pressure 72 mm[Hg] Ximena Cardenas MD Work Phone: [facility] 10-01-2021 08:53-0400 Systolic blood pressure 126 mm[Hg] Ximena Cardenas MD Work Phone: [facility] Encounters Encounter Date Encounter Type Care Provider Facility Start: 11-04-2024 End: 11-04-[address] Bernice Andujar DO Work Phone: [facility] Work Phone: Start: 11-04-2024 End: 11-04-[address] Bernice Andujar DO -Laboratory [place] Work Phone: Start: 11-03-2024 End: 11-04-[address] Bernice Andujar DO Work Phone: [facility] Work Phone: Start: 11-03-2024 End: 11-03-[address] Bernice Andujar DO -Radiology [place] Work Phone: Start: 11-03-2024 End: 11-03-2024 ambulatory Bernice Andujar Facility:[facility] Start: 06-03-2024 End: 06-03-2024 Refill Munira Keyes MD Work Phone: OB/Gynecology Comment on above: Refill Request Start: 03-31-2024 End: 03-31-2024 ambulatory MUNIRA KEYES Facility:[facility] Start: 03-31-2024 End: 03-31-2024 Patient encounter procedure Munira Keyes MD Work Phone: OB/Gynecology Comment on above: Insulin resistance ( Primary Dx); Hypertension, unspecified type; Prediabetes; Hypothyroidism, unspecified type; HECTOR (obstructive sleep apnea); Elevated cholesterol; Malaise and fatigue; Obstructive sleep apnea syndrome; Gastroesophageal reflux disease without esophagitis; Class 3 severe obesity due to excess calories with serious comorbidity and body mass index (BMI) of 40.0 to 44.9 in adult ([facility]) Start: 03-05-2024 End: 03-08-2024 Telephone encounter Munira Keyes MD Work Phone: OB/Gynecology Comment on above: Results Start: 03-03-2024 End: 03-03-2024 ambulatory MUNIRA KEYES Facility:[facility] Start: 03-01-2024 End: 03-01-2024 ambulatory MUNIRA KEYES Facility:[facility] Start: 03-01-2024 End: 03-01-2024 Patient encounter procedure Munira Keyes MD Work Phone: OB/Gynecology Comment on above: Hypertension, unspec ified type (Primary Dx); Arthritis; Hypothyroidism, unspecified type; Prediabetes; HECTOR (obstructive sleep apnea); Gastroesophageal reflux disease without esophagitis; Elevated cholesterol; Malaise and fatigue; Obstructive sleep apnea syndrome; Screening cholesterol level; Screening for deficiency anemia; Screening for diabetes mellitus; Screening for metabolic disorder; Screening for thyroid disorder; Encounter for vitamin deficiency screening; Class 3 severe obesity due to excess calories with serious comorbidity and body mass index (BMI) of 40.0 to 44.9 in adult ([facility]) Start: 02-26-2024 End: 02-26-2024 E-mail encounter from caregiver Munira Keyes MD Work Phone: OB/Gynecology Start: 02-26-2024 End: 02-26-2024 Patient encounter procedure Munira Keyes MD Work Phone: OB/Gynecology Comment on above: Dr. Keyes Appoint ment 03/01/2024 Start: 12-09-2023 Documentation procedure Mammog miryam Coordinator [facility] Department Start: 12-09-2023 Letter encounter Mammography Coordinator [facility] Start: 12-08-2023 End: 12-08-2023 ambulatory XIMENA CARDENAS Facility:[facility] Start: 12-08-2023 End: 12-08-2023 Subsequent hospital visit by physician Screen Mammo [facility] Comment on above: Encounter for screen ing mammogram for breast cancer [Z12.31] Start: 11-19-2023 End: 11-19-2023 ambulatory XIMENA CARDENAS Facility:[facility] Start: 11-19-2023 End: 11-19-2023 Patient encounter procedure Ximena Cardenas MD Work Phone: OB/Gynecology Comment on above: Encounter for gyneco logical examination (general) (routine) without abnormal findings (Primary Dx); Encounter for screening mammogram for breast cancer; Class 3 severe obesity due to excess calories with serious comorbidity and body mass index (BMI) of 40.0 to 44.9 in adult (HCC); Obstructive sleep apnea syndrome Start: 11-19-2023 End: 11-19-2023 Patient encounter status Ximena Cardenas MD Work Phone: [facility] Start: 07-21-2023 End: 07-21-2023 ambulatory [facility] Work Phone: Start: 07-21-2023 End: 07-21-2023 Discharged Recurring [facility]-Physical Therapy Work Phone: Start: 05-27-2023 End: 05-27-2023 ambulatory [facility] Work Phone: Start: 05-27-2023 End: 05-27-2023 Patient encounter procedure [facility]-Laboratory Work Phone: Start: 02-21-2023 End: 02-21-2023 ambulatory 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 Work Phone: Telemedicine Comment on above: Acute rhinosinusitis (Primary Dx) Start: 10-06-2022 End: 10-06-2022 Emergency department patient visit BERNICE ANDUJAR Facility:[facility] Start: 10-05-2022 End: 10-05-2022 Emergency department patient visit BERNICE JARA MD Facility:[facility] Start: 10-05-2022 End: 10-05-2022 Patient encounter procedure Silvia Marshall PA-C Work Phone: [facility] Comment on above: Dizziness (Primary D x); Headache, unspecified headache type Start: 07-30-2022 End: 07-30-2022 ambulatory [facility] Work Phone: Start: 07-30-2022 End: 07-30-2022 Patient encounter procedure [facility]-Laboratory, Nate Salgado [facility] Start: 07-23-2022 End: 07-23-2022 Patient encounter procedure [facility]-Outpatient Bone Densitometry Start: 04-23-2022 ambulatory Jamia Roche APR, N.CNP Work Phone: Telemedicine Comment on above: Bacterial sinusitis (Primary Dx) Start: 01-09-2022 Telephone encounter Ximena Cardenas MD Work Phone: OB/Gynecology Comment on above: Dysuria Start: 11-09-2021 End: 11-09-2021 Patient encounter procedure [facility]-Laboratory Start: 10-12-2021 Telephone encounter Harley (Sunita) Meghan johnson General Surgery Comment on above: Outpatient [place] [facility] Start: 10-01-2021 Documentation procedure Mammog miryam Coordinator [facility] Start: 10-01-2021 Letter encounter Mammography Coordinator [facility] Department Start: 10-01-2021 Telephone encounter Tejas randle DO Work Phone: [facility] [place] Comment on above: Patient Question Start: 10-01-2021 End: 10-01-2021 Subsequent hospital visit by physician Screen Mammo [facility] Comment on above: Encounter for screen ing mammogram for malignant neoplasm of breast [Z12.31] Start: 10-01-2021 End: 10-01-2021 Patient encounter procedure Ximena Cardenas MD Work Phone: OB/Gynecology Comment on above: Encounter for gyneco logical examination without abnormal finding (Primary Dx); Encounter for screening for malignant neoplasm of cervix; Special screening examination for human papillomavirus (HPV); Encounter for screening mammogram for malignant neoplasm of breast; Encounter for screening for malignant neoplasm of colon; Special screening for malignant neoplasms, colon Start: 10-01-2021 End: 10-01-2021 Patient encounter status Ximena Cardenas MD Work Phone: OB/Gynecology Procedures Date Procedure Procedure Detail Performing Clinician Start: 11-03-2024 X-ray of thoracic sp ine, three views Dr. 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 Work Phone: H/O: surgery History of basal cell carcinoma excision Comment on above: Excision of 8-mm bas al cell carcinoma, right volar radial forearm with 4.5-cm layered closure - 04/22/13 excision 2 cm painfu l ganglion cyst proximal dorsum left foot by second toe - 11/10/20deQuervain's release bilateral forearms History of cholecystectomy History of laparoscopic cholecystectomy Comment on above: laparoscopic cholecy stectomy - 01/25/14 History of decompres daniel of median nerve History of carpal tunnel surgery of left wrist Comment on above: Neuroplasty median n erve at carpal tunnel left wrist - 07/13/15 History of decompres daniel of median nerve History of carpal tunnel surgery of right wrist History of tonsillectomy History of tonsi llectomy Plan of Treatment Date Care Activity Detail Author Start: 03-03-2029 Lipid panel Lipid Screening [facility] Start: 03-03-2027 Diabetes Screening Diabetes Screenin g [facility] Start: 10-01-2026 HPV TESTING HPV TESTING [facility] Start: 10-01-2026 PAP TESTING PAP TESTING [facility] Start: 10-05-2025 DIABETES SCREEN DIABETES SCREEN [facility] Start: 10-05-2025 Diabetes Screening Diabetes Screenin g [facility] Start: 12-07-2024 Screening for malign ant neoplasm of breast Mammogram Screening [facility] Start: 06-10-2024 End: 06-10-2024 Patient encounter procedure 06/10/2024 9:20 AM EST Office Visit OB/Gynecology [address] [place] [address] Munira Ruelas MD [address] [place] [address] weight management follow up OB/Gynecology Comment on above: [facility] Start: 06-02-2024 Advance Directive Discussion Advance Directive Discussion [facility] Start: 05-07-2024 End: 05-07-2024 Patient encounter procedure 05/07/2024 11:40 AM EST Office Visit OB/Gynecology [address] [place] [address] Munira Ruelas MD [address] [place] [address] weight management follow up OB/Gynecology Comment on above: weight management fo llow up Start: 03-31-2024 End: 03-31-2024 Patient encounter procedure 03/31/2024 11:40 AM EDT Office Visit OB/Gynecology [address] [place] [address] Munira Ruelas MD [address] [place] [address] weight management follow up OB/Gynecology Comment on above: weight management fo llow up Start: 03-02-2024 End: 03-02-2024 ambulatory 03/02/2024 10:00 AM EDT Results Only Curly Garcia [facility] [address] [place] [address] Curly Garcia [facility] Start: 03-01-2024 End: 03-01-2024 Patient encounter procedure 03/01/2024 3:20 PM EDT Office Visit OB/Gynecology [address] [place] [address] Munira Ruelas MD [address] [place] [address] Class 3 severe obesity due to excess calories with serious comorbidity and body mass index (BMI) of 40.0 to 44.9 in adult ([facility]) [E66.01, Z68.41] OB/Gynecology Comment on above: Class 3 severe obesi ty due to excess calories with serious comorbidity and body mass index (BMI) of 40.0 to 44.9 in adult ([facility]) [E66.01, Z68.41] Start: 03-01-2024 End: 05-31-2024 25-hydroxyvitamin D3 [Mass/volume] in Serum or Plasma VITAMIN D 25 HYDROXY Lab Routine Malaise and fatigue Encounter for vitamin deficiency screening Class 3 severe obesity due to excess calories with serious comorbidity and body mass index (BMI) of 40.0 to 44.9 in adult ([facility]) Expected: 03/01/2024, Expires: 05/31/2024 [facility] Work Phone: Comment on above: Expected: 03/01/2024 , Expires: 05/31/2024 Start: 03-01-2024 End: 05-31-2024 CBC panel - Blood by Automated count COMPLETE BLOOD COUNT Lab Routine Malaise and fatigue Screening for deficiency anemia Class 3 severe obesity due to excess calories with serious comorbidity and body mass index (BMI) of 40.0 to 44.9 in adult ([facility]) Expected: 03/01/2024, Expires: 05/31/2024 [facility] Comment on above: Expected: 03/01/2024 , Expires: 05/31/2024 Start: 03-01-2024 End: 05-31-2024 Comprehensive metabolic 2000 panel - Serum or Plasma COMPREHENSIVE METABOLIC PANEL Lab Routine Hypertension, unspecified type Malaise and fatigue Screening for diabetes mellitus Screening for metabolic disorder Class 3 severe obesity due to excess calories with serious comorbidity and body mass index (BMI) of 40.0 to 44.9 in adult ([facility]) Expected: 03/01/2024, Expires: 05/31/2024 [facility] Comment on above: Expected: 03/01/2024 , Expires: 05/31/2024 Start: 03-01-2024 End: 05-31-2024 Hemoglobin A1c in Blood HEMOGLOBIN A1C Lab Routine Prediabetes Screening for diabetes mellitus Class 3 severe obesity due to excess calories with serious comorbidity and body mass index (BMI) of 40.0 to 44.9 in adult ([facility]) Expected: 03/01/2024, Expires: 05/31/2024 [facility] Comment on above: Expected: 03/01/2024 , Expires: 05/31/2024 Start: 03-01-2024 End: 05-31-2024 Insulin [Units/volume] in Serum or Plasma INSULIN ASSAY BLOOD Lab Routine Prediabetes Screening for diabetes mellitus Class 3 severe obesity due to excess calories with serious comorbidity and body mass index (BMI) of 40.0 to 44.9 in adult ([facility]) Expected: 03/01/2024, Expires: 05/31/2024 [facility] Comment on above: Expected: 03/01/2024 , Expires: 05/31/2024 Start: 03-01-2024 End: 05-31-2024 Lipid 1996 panel - Serum or Plasma LIPID PANEL BASIC Lab Routine Elevated cholesterol Screening cholesterol level Class 3 severe obesity due to excess calories with serious comorbidity and body mass index (BMI) of 40.0 to 44.9 in adult ([facility]) Expected: 03/01/2024, Expires: 05/31/2024 [facility] Comment on above: Expected: 03/01/2024 , Expires: 05/31/2024 Start: 03-01-2024 End: 05-31-2024 Thyrotropin [Units/volume] in Serum or Plasma THYROID STIMULATING HORMONE Lab Routine Hypothyroidism, unspecified type Screening for thyroid disorder Class 3 severe obesity due to excess calories with serious comorbidity and body mass index (BMI) of 40.0 to 44.9 in adult (HCC) Expected: 03/01/2024, Expires: 05/31/2024 [facility] Comment on above: Expected: 03/01/2024 , Expires: 05/31/2024 Start: 02-01-2024 Covid-19 Vaccine () Covid-19 Vaccine () [facility] Start: 02-01-2024 Influenza vaccination C [facility] Start: 12-08-2023 End: 12-08-2023 Patient encounter procedure 12/08/2023 11:30 AM EDT Appointment Mammogram [address] [place], [place] [address] Encounter for screening mammogram for breast cancer [Z12.31] Mammogram Comment on above: Encounter for screen ing mammogram for breast cancer [Z12.31] Start: 06-02-2023 Advance Directive Discussion Advance Directive Discussion [facility] Start: 06-02-2023 Behavioral Health Screening Behavioral Health Screening [facility] Start: 02-03-2023 HPV TESTING HPV TESTING [facility] Start: 02-03-2023 PAP TESTING PAP TESTING [facility] Start: 01-31-2023 Covid-19 Vaccine () Covid-19 Vaccine () [facility] Start: 01-31-2023 Influenza vaccination C [facility] Start: 10-01-2022 BP CONTROLLED (<130/80) BP CONTROLLE D (<130/80) [facility] Start: 10-01-2022 Mammography [facility] Start: 10-01-2022 Screening for malign ant neoplasm of breast Mammogram Screening [facility] Start: 06-02-2022 ADVANCE DIRECTIVE DISCUSSION ADVANCE DIRECTIVE DISCUSSION [facility] Start: 06-02-2022 DEPRESSION ASSESSMENT DEPRESSION ASS ESSMENT [facility] Start: 2022 ADVANCE DIRECTIVE DISCUSSION ADVANCE DIRECTIVE DISCUSSION [facility] Start: 2022 BONE DENSITY BONE DENSITY [facility] Start: 2022 Bone Density Screening Bone Density Screening [facility] Start: 2022 Pneumococcal Vaccine : 65+ (2 - PCV) Pneumococcal Vaccine: 65+ (2 - PCV) [facility] Start: 2022 Pneumococcal Vaccine : 65+ (2 of 2 - PCV) Pneumococcal Vaccine: 65+ (2 of 2 - PCV) [facility] Start: 2022 Screening for osteoporosis Bone Density Screening [facility] Start: 02-19-2022 Urine microalbumin profile DTaP,Tdap,Td Vaccine (2 - Td or Tdap) [facility] Start: 01-31-2022 Influenza vaccination C [facility] Start: 01-09-2022 End: 03-11-2022 Bacteria identified in Urine by Culture [facility] Work Phone: Comment on above: Expected: 01/09/2022 , Expires: 03/11/2022 Start: 01-09-2022 End: 03-11-2022 Urinalysis complete panel - Urine [facility] Work Phone: Comment on above: Expected: 01/09/2022 , Expires: 03/11/2022 Start: 06-02-2021 DEPRESSION ASSESSMENT DEPRESSION ASS ESSMENT [facility] Start: 03-09-2021 Colonoscopy COLONOSCOPY [facility] Start: 03-09-2021 COLORECTAL CANCER SCREENING COLORECTAL CANCER SCREENING [facility] Start: 03-09-2021 Screening for malign ant neoplasm of colon [facility] Start: 2017 RSV Vaccine (1 - 1-d ose 60+ series) RSV Vaccine (1 - 1-dose 60+ series) [facility] Start: 2017 RSV Vaccine (1 - Ris k 60-74 years 1-dose series) RSV Vaccine (1 - Risk 60-74 years 1-dose series) [facility] Start: 05-22-2016 Lipid 1996 panel - Serum or Plasma Lipid Screening [facility] Start: 05-22-2016 Lipid panel Lipid Screening [facility] Start: 05-22-2016 LIPID SCREEN LIPID SCREEN [facility] Start: 05-22-2014 DIABETES SCREEN DIABETES SCREEN [facility] Start: 03-02-2009 Pneumococcal Vaccine : 50+ (2 of 2 - PCV) Pneumococcal Vaccine: 50+ (2 of 2 - PCV) [facility] Start: 03-02-2009 PNEUMOCOCCAL: 65+ (2 - PCV) PNEUMOCOCCAL: 65+ (2 - PCV) [facility] Start: 2007 SHINGRIX VACCINE (1 of 2) SHINGRIX VACCINE (1 of 2) [facility] Start: 2002 COLOGUARD (FIT-DNA) COLOGUARD (FIT-D NA) [facility] Start: [address] COLONOGRAPHY [facility] Start: 2002 FECAL OCCULT BLOOD FECAL OCCULT BLOO D [facility] Start: 2002 Screening for malign ant neoplasm of colon [facility] Start: 2002 SIGMOIDOSCOPY SIGMOIDOSCOPY [facility] Start: 01-26-2002 Urine microalbumin profile [facility] Start: 1975 ANNUAL PCP TEAM LUNG SPLITTER URSULA DISEASE VISIT ANNUAL PCP TEAM CHRONIC DISEASE VISIT [facility] Start: 1975 Anxiety Screening Anxiety Screening [facility] Start: 1975 BP CONTROLLED (<130/80) BP CONTROLLE D (<130/80) [facility] Start: 1975 Depression Screening Depression Scre ening [facility] Start: 1975 HEPATITIS C SCREENING HEPATITIS C SC [facility] Start: 1975 Hepatitis C screening Hepatitis C Sc [facility] Start: 1975 HIV SCREENING HIV SCREENING [facility] Start: 1969 Adult depression screening assessment DEPRESSION SCREENING [facility] Start: 1962 COVID-19 VACCINE (#1) COVID-19 VACCI NE (#1) [facility] Start: 1962 COVID-19 VACCINE (1) COVID-19 VACCIN E (1) [facility] Start: 1957 COVID-19 VACCINE (#1) COVID-19 VACCI NE (#1) [facility] End: 12-18-2024 DBT Breast - bilateral screening WENDY SCREENING W [facility] Radiology Routine Encounter for screening mammogram for breast cancer 1 Occurrences starting 11/19/2023 until 12/18/2024 [facility] Work Phone: Comment on above: 1 Occurrences starti ng 11/19/2023 until 12/18/2024 DBT Breast - bilater al screening WENDY SCREENING W [facility] Radiology Routine Encounter for screening mammogram for breast cancer 12/08/2023 11:41 AM EDT [facility] Work Phone: PAP FLUID CERVICAL SCREENING PAP FLUID CERVICAL SCREENING Lab Routine Encounter for screening for malignant neoplasm of cervix Special screening examination for human papillomavirus (HPV) Ordered: 10/01/2021 [facility] Work Phone: Comment on above: Ordered: 10/01/2021 End: 10-01-2022 Screening colonoscopy COLONOSCOPY SCREENING Endoscopy Routine Encounter for screening for malignant neoplasm of colon 1 Occurrences starting 10/01/2021 until 10/01/2022 [facility] Work Phone: Comment on above: 1 Occurrences starti ng 10/01/2021 until 10/01/2022 End: 10-31-2022 Screening mammography bi 2-view breast inc cad WENDY SCREENING Radiology Routine Encounter for screening mammogram for malignant neoplasm of breast 1 Occurrences starting 10/01/2021 until 10/31/2022 [facility] Work Phone: Comment on above: 1 Occurrences starti ng 10/01/2021 until 10/31/2022 Immunizations Immunization Date Immunization Notes Care Provider Courtney craft 03-09-2019 influenza virus vacc ine, unspecified formulation 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 CASTER Work Phone: [facility] 03-02-2015 influenza, injectabl e, quadrivalent, preservative free [facility] 03-02-2015 influenza, seasonal, injectable [facility] 03-02-2011 influenza virus vacc ine, unspecified formulation Ximena Cardenas MD Work Phone: [facility] 03-02-2008 pneumococcal polysaccharide vaccine, 23 valent Ximena Cardenas MD Work Phone: [facility] 01-25-2002 tetanus and diphther ia toxoids, adsorbed, preservative free, for adult use (2 Lf of tetanus toxoid and 2 Lf of diphtheria toxoid) Ximena Cardenas MD Work Phone: [facility] Payers Date Payer Category Payer Self-pay [id number] 2022 Medicare AETNA MEDICARE A ETNA MEDICARE PPO [id number] 2022-Present [phone] [address] [place] [address] PPO [id number] 2022 Private Health Insurance [id number] 2021 Unknown [employer] PPO [id number] 2021-Present [phone] [address] [place] [address] PPO [id number] 2021 Unknown [employer] PPO [id number] 2021-Present [phone] [address] [place] [address] PPO [id number] Unknown [id number] Unknown [id number] Unknown [id number] Unknown [id number] Social History Date Type Detail Facility Start: 10-24-2010 End: 10-24-2022 Tobacco smoking status NHIS Never smoked tobacco [facility] Start: 10-24-2010 End: 11-19-2023 Tobacco use and exposure Smokeless tobacco non-user [facility] Start: 10-01-2021 End: 03-31-2024 Alcohol intake Current drinker of alcohol (finding) [facility] Start: 03-09-2018 History SDOH Alcohol Comment socially [facility] Start: 1955 Sex Assigned At Not on file [facility] Start: 09-21-2021 End: 10-01-2021 Exposure to SARS-CoV-2 (event) Not sure [facility] Start: 05-22-2021 End: 10-24-2022 Tobacco smoking status NHIS Unknown if ever smoked [facility] Start: 07-13-2019 Non-smoker [facility] Start: 1955 Sex Assigned At Female [facility] Start: 10-06-2022 End: 02-21-2023 History of Social function [facility] Start: 10-06-2022 End: 02-21-2023 Tobacco use panel [facility] National Score (1-100), lower number is lower risk 75 [facility] Medical Equipment Procedure Code Equipment Code Equipment Origin al Text Equipment Identifier Dates ASYMMETRIC PATELLA FDA Start: 08-10-2019 CRUCIATE RETAINI NG FEMORAL FDA Start: 08-10-2019 TIBIAL BEARING INSERT - CS FDA Start: 08-10-2019 TIBIAL COMPONENT FDA Start: 08-10-2019 ASYMMETRIC PATELLA FDA Start: 08-10-2019 CRUCIATE RETAINI NG FEMORAL FDA Start: 08-10-2019 TIBIAL BEARING INSERT - CS FDA Start: 08-10-2019 TIBIAL COMPONENT FDA Start: 08-10-2019 ASYMMETRIC PATELLA FDA Start: 08-10-2019 CRUCIATE RETAINI NG FEMORAL FDA Start: 08-10-2019 TIBIAL BEARING INSERT - CS FDA Start: 08-10-2019 TIBIAL COMPONENT FDA Start: 08-10-2019 ASYMMETRIC PATELLA FDA Start: 08-10-2019 CRUCIATE RETAINI NG FEMORAL FDA Start: 08-10-2019 TIBIAL BEARING INSERT - CS FDA Start: 08-10-2019 TIBIAL COMPONENT FDA Start: 08-10-2019 ASYMMETRIC PATELLA FDA Start: 08-10-2019 CRUCIATE RETAINI NG FEMORAL FDA Start: 08-10-2019 TIBIAL BEARING INSERT - CS FDA Start: 08-10-2019 TIBIAL COMPONENT FDA Start: 08-10-2019 ASYMMETRIC PATELLA FDA Start: 08-10-2019 CRUCIATE RETAINI NG FEMORAL FDA Start: 08-10-2019 TIBIAL BEARING INSERT - CS FDA Start: 08-10-2019 TIBIAL COMPONENT FDA Start: 08-10-2019 Clinical Notes 10-01-2021 to 11-06-2024 Munira Ruelas MD - 03/31/2024 11:40 AM EDTPatient InstructionsTelephone Encounter - Munira Ruelas MD - 03/08/2024 9:50 AM EDTPatient InstructionsPatient Instructions Note Date & Type Note Facility 11-06-2024 Radiology Diagnostic study note [facility] [address] [place], [place] [address] Thoracic Spine 3 Views MR#: [id number] Acct: [id number] Name: GWEN ROCKWELL Rep #: [id number] : 1955 F [id number] From: Liyah Haas MD PCP: Dr. Bernice Andujar DO Status: REG CLI Study:Thoracic Spine 3 Views Date of Exam: 11/03/24 Exam# [id number] Ordering Dr: Cherelle Andujar sa, DO PROCEDURE: THORACIC SPINE 3 VIEWS 11/03/2024 REASON FOR EXAM: BACK PAIN TECHNIQUE: Two views of the thoracic spine COMPARISON: None. FINDINGS: Mild osteopenia. S shaped degenerative scoliosis. Mild chronic compression deformities of the mid and lower thoracic vertebral bodies. Increased dorsal kyphosis. Exaggerated lumbar lordosis. There are diffuse spondylotic changes. Findings are demonstrated to by diffuse disc space narrowing, osteophyte formation and degenerative endplate sclerosis. There is diffuse facet joint arthropathy with secondary bilateral neural foramina narrowing. No fracture or dislocation is seen. No aggressive lytic or blastic bony lesion is noted. RAD/Thoracic Spine 3 Views IMPRESSION: Spondylosis. Chronic compression deformities of the mid and lower thoracic vertebral bodies. Reading Location: [place] [address] CC: Dr. 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 Some documentation from previous visit of 03/01/24 was copied and pasted, documentation has been reviewed and edited as necessary for today's visit. Patient Summary: Gwen is a 69 year old Female who presents for follow-up evaluation of obesity/weight management to treat and prevent related co-morbidities. In our previous visits we have discussed lifestyle intervention including a nutrition recommendations and physical activity optimization. Her last office visit was 1 month ago. Assessment/plan from last visit: - reviewed nutrition in detail- consider Nutrition consult next visit - will get LABS today and make decision about medication based on results - continue use of CPAP- follow up with Dr. Choi - follow up with PCP for routine care -Metformin started- insulin resistance - then at follow up appt will start Topiramate Interval History PT specifies the following items as new or significant updates since the last appointment: - started metformin- started 2 pills of metformin- a small amount of diarrhea not terrible. 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 Benefit:high insulin 26 Adverse effects: mild diarrhea Anti-obesity medications: Topiramate- to start. Benefit: Adverse effects: Weight promoting medications: SSRI and Inhaled corticosteroid Previous Diet (initial appointment): Awake - 7-8am thyroid and GERD pills with water and sits for about 1hr B - coffee with milk, cereal (cheerios, charlie charms, frosted mini wheats) w/ milk, toast, sometimes eggs , [employer] caramel cream S - L - Collin fetGwendolyn centeno, jorden aggarwal Dobson, Montserratian pizza (eats out a lot) S - popcorn, cookies (nutrigrain oatmeal, little debbies- oatmeal cream) D - frozen meal like above or frozen pizza or fast food like above S - popcorn, pretzels Fluids: 2% milk, 2-4 cups coffee, water-1-2 bottles 16oz bottles, soda a few times a month NOT diet, Tea- w/ sugar. Stops drinking caffeine 5-6pm Bedtime -8-10pm but watch TV until 12-1am , wakes up every 2hrs (bathroom, but able to fall back asleep) Quality of diet: 24hr recall suggests unhealthy diet. Characterization of diet:Structured, unhealthy snacking, excessive cravings, evening snacking, and increased consumption of sugar sweetened beverages. Shellfish Shucker of impaired eating habits:excessive hunger, lack of satiety, mindlessness , boredom, emotion, and stress Dietary changes: B - 5 eggs or 2-3 eggs with burton and sausage , some days toast , yogurt dannon light and fit- with oikos drink S - pretzels and other fast food snacks from-[employer] L - kassidy thuy light and fit- grilled cheese, chicken salad sandwich, oikos smoothie (23g protein), S - occasional sofya alan coffee (2-3 x week) , D - lean cuisine - pasta - out to dinner, hamburger w/ bun, salad- welsh dressing, chicken S - none Fluids - water (2 bottles 32oz) , maple iced coffee (1-2 week), Reducing soda Controlling portions Increasing protein Current Barriers: binge eating , emotional eating, stress eating, food cravings, eating high-calorie foods, large portion sizes, grazing/irregular meal patterns, excessive hunger/lack of satiety signals, food cue over-responsiveness, lack of motivation, poor sleep hygiene, and reduced physical activity Exercise: 2-3 x week treadmill 5-10min and bike 15min, leg machine and ab machinestable Stress: NO stable Sleep: 6-7 hrs HECTOR, +CPAPstable Estimated Creatinine Clearance: 101.9 mL/min (based on SCr of 0.67 mg/dL). PAST MEDICAL HISTORY Diagnosis Date Asthma Chronic obstructive pulmonary disease (COPD) (HCC) Diabetic borderline Environmental allergies GERD (gastroesophageal reflux disease) Hypertension Hypothyroid Menorrhagia HECTOR on CPAP Osteoarthritis Snoring Current Outpatient Medications Medication Sig Dispense Refill metFORMIN ER (GLUCOPHAGE XR) 500 mg 24 hr tablet Take 2 tablets by mouth daily with dinner. 60 tablet 2 POTASSIUM-99 ORAL lysine (L-LYSINE) 500 mg tab MAGNESIUM ORAL Take 250 mg by mouth. CPAP meclizine (ANTIVERT) 25 mg tab Take 1 tablet by mouth three times daily as needed (vertigo). 20 tablet 0 meloxicam (MOBIC) 15 mg tablet Take 15 mg by mouth once daily. acyclovir (ZOVIRAX) 800 mg tablet Take 1 tablet by mouth as directed. PRN with cold sores. esomeprazole (NEXIUM) 20 mg capsule Take 1 capsule by mouth once daily. fluticasone propionate (FLONASE ALLERGY RELIEF NASAL) Use in the nose as needed. albuterol HFA (PROAIR HFA) 90 mcg/actuation inhaler Inhale 2 Puffs as instructed as needed. Cholecalciferol, Vitamin D3, (VITAMIN D) 1,000 unit cap Take 1,000 Units by mouth once daily. levothyroxine (SYNTHROID) 75 mcg tablet Take 75 mcg by mouth once daily. sertraline (ZOLOFT) 50 mg tablet Take 50 mg by mouth once daily. simvastatin (ZOCOR) 20 mg tablet Take 20 mg by mouth daily at bedtime. irbesartan (AVAPRO) 300 mg tablet Take 300 mg by mouth daily at bedtime. amLODIPine (NORVASC) 5 mg ORAL tablet Take 5 mg by mouth once daily. hydroCHLOROthiazide (HYDRODIURIL, ESIDRIX) 25 mg tablet Take 25 mg by mouth once daily. fexofenadine (ARINA) 180 mg ORAL tablet Take 180 mg by mouth once daily. multivitamin ORAL tablet Take 1 tablet by mouth once daily. CALCIUM CARBONATE/VITAMIN D3 (CALCIUM 600 + D ORAL) Take by mouth. No current facility-administered medications for this visit. ROS: mild diarrhea ROS/Fam Hx pertaining to AOMs: GEN: Fatigue:yes CV: h/o palpitations/cardiac arrhythmia, Chest pain: no HTN: yes PULM: Asthma:yes GI: GERD:yes ; Gallstones:no ; Fatty liver disease:no Pancreatitis: no MSK: Joint Pain:yes -osteoarthritis : Nephrolithiasis: no Symptoms of PCOS: no NEURO: Migraines/HILL: yes ; H/o seizures: no Glaucoma:no; Cataracts no Symptoms of or History of pseudotumor cerebri:no Family or personal History of MEN2 or Medullary thyroid cancer: no Occupation: retired Contraception:postmenopausal BP 130/78 Pulse 69 Wt 110.2 kg (243 lb) LMP 06/06/2011 SpO2 89% BMI 40.44 kg/m Physical Exam Gen: female in NAD Waist: 51.5 Results: recent labs reviewed with the patient. Latest Ref Rng & Units 03/03/2024 CMP Sodium 136 - 144 mmol/L 135 Potassium 3.7 - 5.1 mmol/L 3.7 Chloride 98 - 107 mmol/L 99 CO2 22 - 30 mmol/L 24 Glucose 74 - 99 mg/dL 93 BUN 7 - 21 mg/dL 18 Creatinine 0.58 - 0.96 mg/dL 0.67 EGFR >=60 mL/min/1.73m 96 Protein, Total 6.3 - 8.0 g/dL 7.6 Albumin 3.9 - 4.9 g/dL 4.7 Calcium 8.5 - 10.2 mg/dL 9.9 Bilirubin, Total 0.2 - 1.3 mg/dL 0.4 AST 13 - 35 U/L 22 ALT 7 - 38 U/L 28 Alkaline Phosphatase 34 - 123 U/L 132 Cholesterol, Total (mg/dL) Date Value 03/03/2024 161 HDL Cholesterol (mg/dL) Date Value 03/03/2024 49 LDL Cholesterol (mg/dL) Date Value 03/03/2024 80 Triglyceride (mg/dL) Date Value 03/03/2024 160 Latest Ref Rng & Units 03/03/2024 CBC WBC 3.70 - 11.00 k/uL 5.55 RBC 3.90 - 5.20 m/uL 4.71 Hemoglobin 11.5 - 15.5 g/dL 13.6 Hematocrit 36.0 - 46.0 % 40.7 MCV 80.0 - 100.0 fL 86.4 MCH 26.0 - 34.0 pg 28.9 MCHC 30.5 - 36.0 g/dL 33.4 RDW-CV 11.5 - 15.0 % 14.1 Platelet Count 150 - 400 k/uL 222 MPV 9.0 - 12.7 fL 9.2 Vitamin D 25 Hydroxy Date Value Ref Range Status 03/03/2024 47.0 31.0 - 80.0 ng/mL Final TSH (mIU/L) Date Value 03/03/2024 1.760 ) Hemoglobin A1C (%) Date Value 03/03/2024 5.5 Insulin Date Value Ref Range Status 03/03/2024 26.7 (H) 3.0 - 25.0 mU/L Final Assessment/Plan: Gwen Rockwell is a 69 year old yo with Class III obesity who presented today for follow up for supervised weight loss to treat and prevent related co-morbidities. (E88.819) Insulin resistance (primary encounter diagnosis) (I10) Hypertension, unspecified type (M19.90) Arthritis (R73.03) Prediabetes (E03.9) Hypothyroidism, unspecified type (G47.33) HECTOR (obstructive sleep apnea) (E78.00) Elevated cholesterol (R53.81, R53.83) Malaise and fatigue (G47.33) Obstructive sleep apnea syndrome (K21.9) Gastroesophageal reflux disease without esophagitis (E66.813, E66.01, Z68.41) Class 3 severe obesity due to excess calories with serious comorbidity and body mass index (BMI) of 40.0 to 44.9 in adult ([facility]) - continue VIt D - continue Metformin 1000mg Daily with dinner - start topiramate 25mg at night- change to morning after 1-2 weeks, consider BID dosing - [facility] nutrition - Continue CPAP - continue synthroid - dicussed tracking food, BASICS with whole food, decreasing carbs and increasing protein - continue Norvasc, simvastatin, zoloft per PCP- follow up for routine visits Prescription instructions reviewed with patient as applicable. Potential red flag symptoms discussed with the patient. Reviewed appropriate action plan to take if red flag symptoms occur. Patient agreeable to treatment plan. Follow up in 4-6 weeks- Appts thru June were made. I spent a total of 40 minutes on the date of the service which included preparing to see the patient, [id number] patient care, completing clinical documentation, obtaining and/or reviewing separately obtained history, performing a medically appropriate examination, counseling and educating the patient/family/caregiver, and ordering medications, tests, or procedures. Munira Corona MD, FACOG, DARIOOM documented in this encounter [facility] 03-31-2024 Note HNO ID: [id number] Author: MUNIRA RUELAS MD Service: ? Author Type: Physician Type: Progress Notes Filed: 03/31/2024 13:18 Note Text: Some documentation from previous visit of 03/01/24 was copied and pasted, documentation has been reviewed and edited as necessary for today's visit. Patient Summary: Gwen is a 69 year old Female who presents for follow-up evaluation of obesity/weight management to treat and prevent related co-morbidities. In our previous visits we have discussed lifestyle intervention including a nutrition recommendations and physical activity optimization. Her last office visit was 1 month ago. Assessment/plan from last visit: - reviewed nutrition in detail- consider Nutrition consult next visit - will get LABS today and make decision about medication based on results - continue use of CPAP- follow up with Dr. Choi - follow up with PCP for routine care -Metformin started- insulin resistance - then at follow up appt will start Topiramate Interval History PT specifies the following items as new or significant updates since the last appointment: - started metformin- started 2 pills of metformin- a small amount of diarrhea not terrible. 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 Benefit:high insulin 26 Adverse effects: mild diarrhea Anti-obesity medications: Topiramate- to start. Benefit: Adverse effects: Weight promoting medications: SSRI and Inhaled corticosteroid Previous Diet (initial appointment): Awake - 7-8am thyroid and GERD pills with water and sits for about 1hr B - coffee with milk, cereal (cheerios, charlie charms, frosted mini wheats) w/ milk, toast, sometimes eggs , [employer] caramel cream S - L - Collin Gwendolyn bales whopper jr. Dobson, [place]serratian pizza (eats out a lot) S - popcorn, cookies (nutrigrain oatmeal, little debbies- oatmeal cream) D - frozen meal like above or frozen pizza or fast food like above S - popcorn, pretzels Fluids: 2% milk, 2-4 cups coffee, water-1-2 bottles 16oz bottles, soda a few times a month NOT diet, Tea- w/ sugar. Stops drinking caffeine 5-6pm Bedtime -8-10pm but watch TV until 12-1am , wakes up every 2hrs (bathroom, but able to fall back asleep) Quality of diet: 24hr recall suggests unhealthy diet. Characterization of diet:Structured, unhealthy snacking, excessive cravings, evening snacking, and increased consumption of sugar sweetened beverages. Shellfish Shucker of impaired eating habits:excessive hunger, lack of satiety, mindlessness , boredom, emotion, and stress Dietary changes: B - 5 eggs or 2-3 eggs with burton and sausage , some days toast , yogurt dannon light and fit- with oikos drink S - pretzels and other fast food snacks from-[employer] L - kassidy thuy light and fit- grilled cheese, chicken salad sandwich, oikos smoothie (23g protein), S - occasional sofya alan coffee (2-3 x week) , D - lean cuisine - pasta - out to dinner, hamburger w/ bun, salad- welsh dressing, chicken S - none Fluids - water (2 bottles 32oz) , maple iced coffee (1-2 week), Reducing soda Controlling portions Increasing protein Current Barriers: binge eating , emotional eating, stress eating, food cravings, eating high-calorie foods, large portion sizes, grazing/irregular meal patterns, excessive hunger/lack of satiety signals, food cue over-responsiveness, lack of motivation, poor sleep hygiene, and reduced physical activity Exercise: 2-3 x week treadmill 5-10min and bike 15min, leg machine and ab machinestable Stress: NO stable Sleep: 6-7 hrs HECTOR, +CPAPstable Estimated Creatinine Clearance: 101.9 mL/min (based on SCr of 0.67 mg/dL). PAST MEDICAL HISTORY Diagnosis Date Asthma Chronic obstructive pulmonary disease (COPD) (HCC) Diabetic borderline Environmental allergies GERD (gastroesophageal reflux disease) Hypertension Hypothyroid Menorrhagia HECTOR on CPAP Osteoarthritis Snoring Current Outpatient Medications Medication Sig Dispense Refill metFORMIN ER (GLUCOPHAGE XR) 500 mg 24 hr tablet Take 2 tablets by mouth daily with dinner. 60 tablet 2 POTASSIUM-99 ORAL lysine (L-LYSINE) 500 mg tab MAGNESIUM ORAL Take 250 mg by mouth. CPAP meclizine (ANTIVERT) 25 mg tab Take 1 tablet by mouth three times daily as needed (vertigo). 20 tablet 0 meloxicam (MOBIC) 15 mg tablet Take 15 mg by mouth once daily. acyclovir (ZOVIRAX) 800 mg tablet Take 1 tablet by mouth as directed. PRN with (more content not included)... [facility] 03-31-2024 Instructions Munira Ruelas MD - 03/31/2024 7:54 AM EDT Images from the original note were not included. TOPIRAMATE -- Take 25mg 1 tab daily x 2 weeks (AT NIGHT THEN CHANGE TO MORNING AFTER 2 WEEKS) -- -- You can take the tablet it at night at first (because of potential sleepiness side effects), but then you can take earlier around dinner after you have started the medication for a few days. You also may be able to take it in the morning if easier. -- We may increase the dose to 50 mg a few weeks later if there is no change with 25 mg, Typically the maximum medication dose would be 150mg daily but rarely would we need to titrate medication dose that high. -- The exact mechanism of topiramate on energy balance regulation is not clearly understood. Topiramate affects body mass index, fasting zhnldis-ah-cwrnsxt ratio, and serum leptin and cortisol levels. It has shown to improve hypothalamic insulin and leptin signaling and action and reduce obesity in mice. These changes may be brooks factors in weight loss due to topiramate. If at any point you are feeling the effects of the medication you can stay at that dose or if you experience side effects you can decrease it to the previous dose. -- Please see the handout to review the potential side effects and to explain this further -- Please let me know if you experience any changes in your vision, worsening depression or mood problems, or an increase in suicidal thoughts or behaviors. --This medication should NOT be combined with alcohol. Risks of drinking alcohol while taking this medication include mental and psychological side effects, including confusion, dizziness, drowsiness, and depression. -- There is an increased risk for oral clefts when topiramate is used in the first trimester of . -- There is a possible decrease in contraceptive efficacy when using estrogen-containing control with topiramate, please use a back up form of control such as condoms and monitor for throughout treatment. -- If you decide that you would like to get or if you have any of these side effects please let me know and we can safely discontinue the medication. - If you are on loop diuretic or thiazide diuretic we will want to monitor your potassium level, especially if you have a history of low potassium. - It is important to taper off of this medication when we finished with treatment, typically decreasing the dose 25 mg a week. Stopping Topiramate abruptly can cause irritability, anxiety and difficulty concentrating. Topiramate (toe pyre a mate) What are the common names? Topamax Why is this medication prescribed? Topiramate is an anti-epileptic medications which has been approved by the FDA for patients 10 years of age or older for treatment of seizures. However, topiramate also has other uses such as the treatment of migraines. It also causes decrease in appetite and weight loss. The mechanism of weight loss is thought to be through inhibition of mitochondrial enzymes involved in energy expenditure and metabolism. Topiramate may work by helping you feel less hungry, less driven to eat, more satisfied with less food. What special precautions should I follow? Before having topiramate prescribed, tell your doctor and pharmacist: If you have allergies to any component of topiramate If you are , plan to become , are breast-feeding, or if you become while taking topiramate What are the warnings and precautions for this medication? Immediately discontinue the medicine and seek medical help if you have severe cognitive/neuropsychiatric adverse symptoms or eye symptoms. Cognitive/neuropsychiatric adverse events: symptoms may include confusion, psychomotor slowing, difficulty with concentration/attention, difficulty with memory, speech or language problems, particularily word-finding difficulties, somnolence or fatigue Acute myopia and secondary angle closure glaucoma, usually within 1 month of starting treatment: symptoms may include blurred vision, redness and/or pain in the eye Oligohydrosis (decrease sweating) and hyperthermia (elevation in body temperature) Increase in suicidal behavior or ideation Metabolic acidosis, non-gap hyperchloremic (decreased serum bicarbonate below normal levels) resulting in hyperventilation or fatigue Kidney stones Paresthesias (numbness or tingling in hands or feet) Ataxia Dizziness Increase in urination frequency Drug interactions. Use of monamine oxidase inhibitors (MAOI s), valproic acid, Caution use with dehydration or diarrheal illness, hepatic or renal impairment In case of emergency/overdose In case of overdose, call your local poison control center at or call local emergency services at [phone]. What other information should I know? Keep all appointments with your doctor and the laboratory. Do not let anyone else take your medication. Topiramate use needs to be monitored closely. Prescriptions may be refilled only a limited number of times. Keep a written list of all of your prescription and nonprescription ([id number]) medicines, in addition to vitamins, minerals, or other dietary supplements. How should I monitor while on this medication? Your doctor will check your baseline kidney function and electrolytes prior to starting this medication, then periodically. Continue to improve your dietary and physical activity habits as the combination works best while on this medication. Start out by taking the medication at bedtime as it can cause fatigue and sleepiness. Be sure to eat regular meals. Less hunger does not make it appropriate to skip meals. Make sure to have an eye exam, including the pressure in your eyes (intra-ocular pressure), once a year. What should I do if I forget a dose? Skip the missed dose and continue your regular dosing schedule the next day. Do not take a double dose to make up for a missed one. Sources [facility]: http://www.ncbi.nlm.nih.gov/pubm edhealth/YCN6274532/ Drugs.com http://www.drugs.com/pro/topiram ate.html - Eat primarily whole foods. Limit carbs, especially processed carbs. Eat - Meat, vegetables and fruits with skin on if possible, eggs, cheese. - Do not drink your calories - 30 grams of protein for your first meal of the day decreases your hunger during the day by up to 40 %. Options include: Premier Protein or generic 30 gm protein 1 gm sugar or 5 eggs or 2-3 eggs and some unbreaded meat and/or cheese. No fruit, vegetables, bread, grain, yogurt, Smoothies, etc. - Walk for 15 minutes immediately after meal Meal replacements: Meal Replacements Plant-based protein bars Meal replacements. One option that works for some people is to use meal replacements, as in the DiRECT and Look AHEAD trials.The available options in Look AHEAD included shakes, bars, and meals from a variety of companies (Glucerna, HMR, Optifast, and Slimfast). The calorie content was 150 to 220 calories, depending on the product. People who used meal replacements 12 times a week instead of preparing their own meals lost about 11% of their weight in the first year, whereas those who used just two per week lost about 6% of their weight. Keep in mind, though, that people in the trial who used meal replacements also tended to consume a healthier diet over all; they were more likely to have met their goals for dietary fat, fruits and vegetables, and dairy foods, and to have cut back on sweets, than those who didn t use meal replacements. Similarly, in the DiRECT trial, participants consumed special nutritionally complete shakes and soups (the Counterweight-Plus program) for the first 12 weeks.If you opt for meal-replacement drinks, bars, or frozen entrees, here are some criteria to look for: calories, 150 to 300 fat, 3 to 10 grams protein, > 20 grams sugar < 5 g Meal replacements are typically fortified with vitamins and minerals and contain some fiber. Because they are calorie controlled, the amount of added sugars is usually minimal. If you want to try this approach to boost weight loss, ask your dietitian or another member of your health care team how to incorporate the replacements into your meal planning and discuss whether you might need to reduce your doses of diabetes medications to prevent hypoglycemia (low blood sugar) as you cut calories and lose weight. It is important to find a meal-replacement product that suits your taste. If you prefer not to consume processed foods, you can make your own portion-controlled versions. Note that meal replacements don t work for everyone. While some people like meal-replacement shakes, bars, and soups and find them to be a convenient way to sustain a reduced calorie intake over time, others don t feel satisfied drinking them and often end up simply adding them to what they d normally eat--which could lead to weight gain. What s more, some people have a hard time readjusting to eating real food after they stop using meal replacements. <15 gram carb fruit options Berries have the lowest sugar content 1/2 medium apple - 12.5 carbs 1/2 medium avocado - 6.5 gm carbs 1/2 medium banana - 15 carbs 1/2 cup blueberries - 11 carbs - may actually help you lose weight 1/2 cup fresh cherries -11 carbs 1 medium Emilee -9 carbs 1/2 cup fresh cranberries - 6.5 carbs 1/2 c grapes - 15 carbs 1/2 medium grapefruit - 10.5 carbs 1/2 cup diced honeydew melon - 8 carbs 1 medium kiwi without skin - 11 carbs 1/2 cup sliced swapna -14 carbs 1 medium nectarine - 15 carbs 1 medium orange -15.5 carbs 1 medium peach -14.5 carbs 1/2 cup fresh pineapple -11 carbs 1 medium plum -7.5 carbs 1 prune - 6 carbs 1/4 c raisins - 31.25 carbs 1/2 cup raspberries -7.5 carbs 1/2 c strawberries - 12.7 carbs 1 medium tangerine -12 carbs 1/2 cup diced watermelon - 6 carbs 5 (FIVE) gram carb vegetable options 1 cup raw OR cup cooked: Asparagus Marte sprouts Beets Broccoli Brussel sprouts Cabbage Carrots Cauliflower Celery Buda Eggplant Green beans Lettuce Peppers Snap peas Spaghetti squash Spinach Tomato Turnips Zucchini 15 gram carb vegetable options cup cooked corn or hominy corn on the cob, large (5 oz) cup cooked green peas 4.3 gm complete protein cup cooked thurman beans 1 small potato or sweet potato cup cooked potato, plain cup cooked sweet potato, plain 1 cup winter squash (pumpkin, acorn, butternut) 1 cup marinara or pasta sauce - check label cup tomato juice cup tomato puree Beans, Seeds, Nuts cup cooked beans (kidney, figueroa, red, green, etc.) cup cooked lentils cup baked beans 4 tablespoons nut butter Grains Brown rice 1/2 c 5.5g protein 24 carb White long-grain rice 1/2 c 2g protein 22.5 carb Quinoa 1/2 c 4 gm complete protein 25 carb Oatmeal, old fashioned 1/2 c 5g protein 27g carb Protein - no carbs Egg 1 large - 6g Egg white 1 large 3.6g 3 oz is approximately the size of a deck of cards and equals 21 g protein so 4 oz is 28 gm protein Beef, Chicken, [place], Pork, Bhatti 1 oz 7g Fish, Tuna Fish 1 oz 7g (Starkist tuna packet 2.6 oz 17 gm protein) Seafood (Crabmeat, Shrimp, Lobster) 1 oz 6g Protein shakes (read labels) Premier Protein or generic [employer] Equate, [employer] High Performance- 30g protein & 1g carb - meal replacement Premier Protein powder or generic- 30 gm protein, 1g carb Premier Protein plant protein powder - 25 gm protein, 0 sugar/2 carb Vanilla and chocolate (not a meal replacement) Fairlife 30 gram protein - 30g protein & 3g carb BOOST Glucose Control Max 30g Protein Nutritional Drink - 30g protein & 1 carb - meal replacement Slimfast High Protein - 20g protein & 1g carb Ensure Max Protein Nutrition Shake 30g protein & 2 carb Protein AND carbs Beef/[place] Jerky 1 oz dried 10-15g protein - check carb count, can be high if sugar added Slim Santana - 6 gm protein and 4 net carb Great Value original turkey sausage sticks - 7 gm protein and 2 gm carb [employer]andy [employer] Ubaldo (at [employer]) Original smoked sausage sticks - 8 gm protein and 0 carb Imitation Crab Meat 1 oz - 2g protein & 4g carb Milk, skim 2% or 1% 8 oz - 8g protein & 12g carb Bruneian yogurt Full Fat Bruneian Yogurt 1 cup - 20.4g protein & 9.1g carb 2% Bruneian Yogurt 1 cup - 22.7g protein & 9.1g carb 0% (fat-free) Bruneian Yogurt - 1 cup 24g protein & 9.3g carb Aldi Protein Bruneian yogurt single svg - 15g protein & 7g carb Chobani Zero Sugar single svg: - 12g protein & 5g carb Dannon Bruneian Light + Fit 1 single svg - 12g protein & 9g carb Oikos Pro single svg - 20g protein & 8g carb Oikos Triple Zero Bruneian Nonfat Yogurt 1 single svg - 15g protein & 7g carb :ratio, KETO Friendly Dairy Snack 1 single svg - 15g protein & 2g carb :ratio Protein 1 single svg - 25g protein & 8g carb Two Good Lowfat Bruneian Yogurt, [place], Lower Sugar - 12g protein & 2g carb Yoplait Protein 1 single svg 15gm protein & 5gm carb Dairy Free - Armstrong Jose unsweetened Bruneian almond/soy 15 gm protein & 3 gm carb Cheese each oz Brie 5.9g protein & 0.1g carb Cheddar 7g protein & 0.4g carb Shane 6.7g protein & 0.7g carb Cream Cheese 1.7g protein & 1.2g carb Feta 4g protein & 1.2g carb Mozzarella 6.3g protein & 0.6g carb Parmesan 10g protein & 0.9g carb Cypriot 7.6g protein & 1.5g carb Cottage Cheese 1/2 c Breakstone 2% 13g protein 7g carb Tanya 2% 13g protein 5 g carb Good Culture 2% 14g protein 3g carb Mata s Low Fat 12g protein & 4g carb Legumes Lentils cup 9g protein & 20g carb Thurman beans cup 7g protein & 20g carb Kidney, Black, Latimer, Cannellini beans cup 8g protein & 20g carb Soybeans 1/2 c 14g complete protein & 8.5g carb Weston milk, unsweetened 8 oz 1g protein & 2g carb Soy milk 8 oz 3.5g protein & 1.6g carb Tofu 1/2 cup 10g protein & 2.3g carb Peanut butter, natural 2 Tbsp 7-8g protein & 4g net carbs, 190 calories PB2 powder 2 Tbsp 6g protein & 5g carb Nuts and Seeds per oz Almonds - 5.9g protein & 6.1g carb Duffield Nuts - 4.0g protein & 3.4g carb Cashews - 5.1g protein & 9.2g carb Hazelnuts - 4.2g protein & 4.7g carb Hemp seeds 3 T/30 gms - 9.5 gm complete protein and 2.5 gm carb Peanuts - 7g protein & 4.6g carb Pecans - 2.6g protein & 3.9g carb Pistachios - 5.8g protein & 7.8g carb Pumpkin Seeds - 6.9g protein & 5g carb Presidio Seeds - 5.8g protein & 5.6g carb Walnuts - 4.3g protein & 3.8g carb Edamame Beans snack 1 pack 11 gm complete protein 2 carb Why You May Want to Weigh Yourself Every Day At any given moment, an estimated 24% of men and 38% of women in the [place] are trying to lose weight (1Trusted Source). Meanwhile, obesity has skyrocketed and working-age adults are gaining about 2.2 pounds (1 kg) annually, on average (2Trusted Source, 3Trusted Source). Recent studies have shown that daily self-weighing may be a powerful tool for both losing and maintaining weight. However, many people believe that weighing yourself daily contributes to bad mental health and disordered eating habits. So what should you believe? This article sets the record straight on whether you should start weighing yourself daily. Weighing Yourself Daily Helps You Lose More Weight The simple act of self-weighing has received lots of attention and stirred up controversy for years. Some people have even thrown away their scale, claiming that it s a highly misleading weight loss tool that results in bad self-esteem and disordered eating habits (4, 5). However, recent studies generally agree that daily weighing is associated with greater weight loss and less weight regain than less-frequent self-weighing (6Trusted Source, 7, 8, 9). One study showed that participants who weighed themselves daily for six months lost 13 more pounds (6 kg), on average, than those who weighed themselves less frequently (10. What s more, those who weigh themselves daily tend to adopt more favorable weight control behaviors, exercise better restraint toward food and eat impulsively less often (10, 11). Interestingly, adopting healthy weight-related behaviors has been shown to be especially important when people emerge from adolescence into adulthood (12). One study in participants aged 18-25 showed that daily self-weighing resulted in better weight loss than less-frequent weighing (13). The researchers concluded that daily self-weighing is a particularly valuable self-regulation tool for this age group. Furthermore, another study showed that people who weighed themselves every day ate 347 fewer calories per day than those who did not. After six months, the group that weighed themselves daily ended up losing a whopping 10 times more weight than the control group (14). BOTTOM LINE: Daily self-weighing may cause people to lose more weight and gain less of it back, compared to less-frequent weighing. Daily Weighing May Motivate You and Improve Self-Control Being aware of your weight is a brooks factor in successful weight loss. Awareness of your weight trend -- that is, whether your weight is going up or down -- is also important. In fact, weighing yourself more often is linked to weight control, while weighing yourself less often has been associated with weight gain. One study found that participants who weighed themselves less often were more likely to report increased calorie intake and decreased restraint toward food (15). Self-weighing promotes self-regulation and awareness of your weight trend and weight-related behaviors. That s why it generally results in greater weight loss (14). Although the exact number on the scale may be unimportant, monitoring weight loss progress motivates you to keep going and generally improves weight-related behavior and self-control. Also, by being more aware of your weight, you can quickly react to lapses in your progress and make necessary adjustments to maintain your goal. Since most people are able to sustain a habit of daily self-weighing, the adherence and acceptability of it is generally quite high (16Trusted Source, 17, 18, 19, 20). It s a minor addition to your daily routine that may help you reap major benefits for your weight. BOTTOM LINE: Daily self-weighing helps you maintain awareness of your weight. Monitoring weight loss progress further motivates you to keep going and improves your self-control. Daily Weighing Helps You Keep the Weight Off Frequent self-weighing has been shown to be a great way to prevent weight gain in the long-term (15, 2, 22, 23). One study investigated how much self-weighing frequency predicted weight currency exchange specialist two years in working adults (24Trusted Source). It found that there was a significant link between self-weighing frequency and weight change. In normal-weight individuals, daily weighing resulted in a slight weight loss, while those who weighed themselves monthly gained 4.4 pounds (2 kg), on average. However, the largest difference was in overweight individuals. Those who weighed themselves daily lost 10 pounds (4.4 kg), while those who weighed themselves monthly gained 2.2 pounds (1 kg), on average (24). Another study came to a similar conclusion, showing that self-weighing was a significant predictor of body weight over time. Participants lost an extra pound (0.45 kg) of body weight for every 11 days they self-weighed (25). The main reason why this is so effective is that consistent self-weighing allows you to catch weight gain before it escalates and make the necessary changes to prevent more weight gain (15). BOTTOM LINE: Daily weighing may help prevent long-term weight gain, especially in overweight people. Weighing Yourself Daily Is Not as Bad as People Think Not so long ago, frequent self-weighing was thought to be damaging to your mental health. This notion still exists today. Self-weighing is claimed to have negative effects on your mood by continuously reinforcing that your body size is not ideal or appropriate, resulting in an increased risk of developing an eating disorder (4Trusted Source, 5Trusted Source). Although this may be true in a small group of people, most studies have repeatedly come to a different conclusion (9Trusted Source, 26Trusted Source, 27Trusted Source). The available research suggests there is very little evidence that frequent self-weighing is a cause of negative mood or body dissatisfaction, especially as part of a weight loss program (8Trusted Source, 12Trusted Source, 14Trusted Source, 26Trusted Source, 28Trusted Source, 29Trusted Source). In fact, studies indicate that frequent self-weighing may increase body satisfaction, rather than decrease it (9Trusted Source). That said, there is a group of people who may develop a negative body image, low self-esteem or undesirable eating behaviors as a result of daily self-weighing (30Trusted Source). If you find that daily self-weighing causes you to have bad feelings about yourself or your eating behaviors, you should find other methods to measure your progress. BOTTOM LINE: Most studies do not link frequent self-weighing to negative mood or body dissatisfaction. Some even associate them with higher body satisfaction. How to Weigh Yourself for Best Results The best time to weigh yourself is right after you wake up, after going to the bathroom and before you eat or drink. Your weight tends to fluctuate less in the morning than later in the day when you ve had plenty to eat and drink. That is also why people weigh the least in the morning. Also, it is best if you always weigh yourself in similar clothing each day. However, you need to keep in mind that your weight may fluctuate from day to day and can be affected by many factors, including: What you ate or drank the previous day Bloating or water retention Menstrual cycle Whether you ve had bowel movements recently Therefore, it is important to assess the trend of your weight over a longer period of time, instead of drawing conclusions from each and every weighing. A basic scale will do just fine. However, many scales also have the ability to measure your body mass index (BMI), body fat percentage and muscle mass, which may help you get a better picture of your progress. There are also several apps available for your phone or computer that allow you to easily enter your daily weight and see the trend of your weight change. HotGrinds Scale for iPhone and Sylvie for Android are two such apps. BOTTOM LINE: It is best to weigh yourself right after you wake up, after going to the bathroom and before you eat or drink anything. Other Ways to Track Your Progress Although self-weighing may be a valuable tool, it has some limitations. If you re exercising and gaining muscle, the scale may not show your progress and instead simply show that you have gained weight. While losing weight can indicate progress, a scale does not differentiate between healthy weight (muscle) and unhealthy weight (fat). Therefore, it may be good to add other ways of tracking your progress to your regimen. Here are some examples: Measure circumference: Muscle has much less volume than fat, so your circumference may be decreasing even if your weight stays the same or goes up. Measure body fat percentage: By measuring your body fat percentage, you can observe changes in fat mass, regardless of your weight. Take pictures of yourself regularly: You can observe any changes in your physique by comparing photos of yourself in similar clothing. Note how your clothes feel: Any changes in your weight will probably affect how your clothes fit. Feeling them become looser or tighter is one of the best indicators of changes in your body. BOTTOM LINE: Other ways to track your progress include measuring your circumference, measuring your body fat percentage and taking pictures of yourself. Take Home Message Weighing yourself every day can help increase your awareness of your weight and weight-related behaviors. It may help you lose more weight and prevent you from gaining that weight back in the long-term. Daily self-weighing may just be that extra motivation you need to achieve your weight goals. https://www.[employer].com/nutri tion/daily-weighing documented in this encounter [facility] 03-08-2024 Telephone encounter Note ordered [facility] 03-08-2024 Miscellaneous Notes ordered Pt notified and voiced understanding. Reviewed instructions with Pt. Denies questions/concerns. Rx order pended. Neha Sheikh RN Left message for patient to call office. Neha Sheikh RN ----- Message from Munira Keyes MD sent at 03/05/2024 10:11 AM EDT ----- Please notify patient I reviewed her labs- Her insulin level is elevated- which indicates insulin resistance. I would like to start her on two different medications- but the first month we are only going to start metformin to see how she does- that is for the insulin resistance. Next month will be one that will be more for appetite control. I want to make sure she does well on this mediation first before adding a second. She is to start with one tablet at dinner- then when she feels fine (not bloating or diarrhea she can add a second pill with dinner). Please have her [facility] regarding medication before starting it. documented in this encounter [facility] 03-08-2024 Telephone encounter Note Pt notified and voiced understanding. Reviewed instructions with Pt. Denies questions/concerns. Rx order pended. Neha Sheikh RN [facility] 03-05-2024 Telephone encounter Note Left message for patient to call office. Neha Sheikh RN [facility] 03-05-2024 Telephone encounter Note ----- Message from Munira Keyes MD sent at 03/05/2024 10:11 AM EDT ----- Please notify patient I reviewed her labs- Her insulin level is elevated- which indicates insulin resistance. I would like to start her on two different medications- but the first month we are only going to start metformin to see how she does- that is for the insulin resistance. Next month will be one that will be more for appetite control. I want to make sure she does well on this mediation first before adding a second. She is to start with one tablet at dinner- then when she feels fine (not bloating or diarrhea she can add a second pill with dinner). Please have her review [employer] message regarding medication before starting it. [facility] 03-01-2024 Instructions Munira Ruelas MD - 03/01/2024 3:15 PM EDT Images from the original note were not included. Weight Management: You have taken the initiative to become a healthier version of yourself and to decrease the risks that come with the diagnosis of obesity or being overweight. We are happy to help you along this journey but know this is a lifetime commitment to yourself. Losing just 3-10 % of your body weight can decrease your risks of many other serious diseases like diabetes, heart disease, osteoarthritis, hypertension, cancer and so many others. During this time you will have triumphs, setbacks and plateaus- your body will fight against you but we are here to give you the tools and the resources to continue to reach your goals. We recommend during this time that you track your weight daily or at least five times per week as well as tracking your nutrition. You may track your activity but do not use hitting your fitness goals as a reward system as this can derail your success. We recommend weekly physical activity of 150-200 min/week-although physical exercise, this will be especially important for weight maintenance. Exercise can have many other benefits including improving insulin resistance, improving balance, bone health, improving mental health and cardiovascular health. Do not feel overwhelmed - we will discuss this more at your visits. Our time will be limited with each visit but we will try to touch on factors that are important to you and to your overall goals. We will try to set a goal at the end of each visit and then decide on what we want to accomplish with your upcoming visits. On your After Visit Summary (AVS), we will provide you with information that may be useful during this journey so please remember to read the information given. Check your AVS a few days after your appointment because we may have added more information specifically for you. Remember that if you are placed on medications, they are tools that can help you succeed but you must put in the work. Your nutrition will be the main factor. There are medications that work well for some and not for others- so it may take time to find the right combination for your body's needs. Please remember that factors such as other health co-morbidities one might have, as well as insurance coverage, will play a factor in determining which medications you can take. Most of the newer medications that are all the craze ,injectables, may not be covered or will only be covered if you fail months of oral medications or have Type 2 diabetes so please be patient with the process. It would be beneficial for you to determine what your insurance covers as far as Anti-Obesity Medications (AOMs), Nutritional Counseling, behavioral intervention and weight loss surgery. Please call your health insurance prior to your first appointment and write down coverage for each of those therapies. Most importantly, remember that ultimately our goal is to help you get to a healthier weight which will decrease your overall health risks. We will work together as a team and try to reach your personalized goals as well. Follow-up appointments Please arrive to follow-up visits a minimum of 15 minutes prior to your appointment. Follow-up weight management visits can be virtual. You will need to report a current blood pressure, heart rate (pulse) and weight at the beginning of each virtual appointment so you will need to have a reliable BP cuff, either wrist or upper arm. If you need to reschedule your appointment time or switch from an in-office visit to a virtual visit or vice versa, you need to call our office as we have designated appointment slots. This should not be done on Flurry as you will not be scheduled appropriately and will need to be rescheduled. We appreciate that you have entrusted us with your health and know that we are committed to this process with you. Sincerely, Munira Keyes MD, CHIQUI MURRAY & Nuha Kennedy CNP Advanced Education from the [employer] Obesity Obesity is a disease that affects nearly one-third of the adult [place] population (approximately 60 million). The number of overweight and obese Americans has continued to increase since 1959, a trend that is not slowing down. Today, 64.5 percent of adult Americans (about 127 million) are categorized as being overweight or obese. Each year, obesity causes at least 300,000 excess deaths in the [place] and healthcare costs of [place] adults with obesity amount to approximately $100 billion. (AOA) Obesity is a complex, multi-factorial chronic disease involving: Environmental (social and cultural) The tendency toward obesity is a result of our environment: lack of physical activity along with high-calorie, low-cost foods. Home, work, school, and even the community can inhibit a healthy lifestyle. Genetic (Hereditary plays a large role in determining how susceptible people are to overweight and obesity). Genes also influence how the body redmond calories for energy and stores fat. Physiologic, metabolic, behavioral (eating too many calories while not getting enough exercise) and psychological components. It is the second leading cause of preventable in the [place] Behavioral changes brought on by economic development, modernization and urbanization have been linked to the rise in global obesity. Calculating BMI Body Mass Index (BMI) is a measurement tool used to determine excess body weight. Overweight is defined as a BMI of 25 or more, obesity is 30 or more, and severe obesity is 40 or more. You can visit www.nhlbi.nih.gov to estimate your BMI. Obesity Related Health Conditions The morbidity and mortality risk from being overweight is proportional to its degree. Individuals with morbid obesity, therefore, have the highest risk for developing numerous illnesses that often reduce mobility and quality of life due to their excess weight. In particular, type 2 diabetes, gallbladder disease and osteoarthritis have been found to increase concurrently with higher BMI. Premature , a 20-year shorter life span, has also been found in individuals with morbid obesity. All of the systems that make the body function are affected by morbid obesity. Type 2 diabetes Gallbladder disease and gallstones Liver disease Osteoarthritis, a disease in which the joints deteriorate. This is possibly the result of excess weight on the joints. Gout, another disease affecting the joints Pulmonary (breathing) problems, including sleep apnea in which a person can stop breathing for a short time during sleep Reproductive problems in women, including menstrual irregularities and infertility Gastroesophageal reflux/heartburn Hypertension Heart Disease Depression Psychological disorders/social impairments Urinary Stress Incontinence Obesity is also linked to higher rates of certain types of cancer. Obese men are more likely than non-obese men to from cancer of the colon, rectum, or prostate. Obese women are more likely than non-obese women to from cancer of the gallbladder, breast, uterus, cervix, or ovaries [email or web address] - Eat primarily whole foods. Limit carbs, especially processed carbs. Eat - Meat, vegetables and fruits with skin on if possible, eggs, cheese. - Do not drink your calories - 30 grams of protein for your first meal of the day decreases your hunger during the day by up to 40 %. Options include: Premier Protein or generic 30 gm protein 1 gm sugar or 5 eggs or 2-3 eggs and some unbreaded meat and/or cheese. No fruit, vegetables, bread, grain, yogurt, Smoothies, etc. - Walk for 15 minutes immediately after meal. Meal replacements: Meal Replacements Plant-based protein bars Meal replacements. One option that works for some people is to use meal replacements, as in the DiRECT and Look AHEAD trials.The available options in Look AHEAD included shakes, bars, and meals from a variety of companies ([employer], [employer], OptiAkvolution, and SlimAkvolution). The calorie content was 150 to 220 calories, depending on the product. People who used meal replacements 12 times a week instead of preparing their own meals lost about 11% of their weight in the first year, whereas those who used just two per week lost about 6% of their weight. Keep in mind, though, that people in the trial who used meal replacements also tended to consume a healthier diet over all; they were more likely to have met their goals for dietary fat, fruits and vegetables, and dairy foods, and to have cut back on sweets, than those who didn t use meal replacements. Similarly, in the DiRECT trial, participants consumed special nutritionally complete shakes and soups (the Counterweight-Plus program) for the first 12 weeks.If you opt for meal-replacement drinks, bars, or frozen entrees, here are some criteria to look for: calories, 150 to 300 fat, 3 to 10 grams protein, > 20 grams sugar < 5 g Meal replacements are typically fortified with vitamins and minerals and contain some fiber. Because they are calorie controlled, the amount of added sugars is usually minimal. If you want to try this approach to boost weight loss, ask your dietitian or another member of your health care team how to incorporate the replacements into your meal planning and discuss whether you might need to reduce your doses of diabetes medications to prevent hypoglycemia (low blood sugar) as you cut calories and lose weight. It is important to find a meal-replacement product that suits your taste. If you prefer not to consume processed foods, you can make your own portion-controlled versions. Note that meal replacements don t work for everyone. While some people like meal-replacement shakes, bars, and soups and find them to be a convenient way to sustain a reduced calorie intake over time, others don t feel satisfied drinking them and often end up simply adding them to what they d normally eat--which could lead to weight gain. What s more, some people have a hard time readjusting to eating real food after they stop using meal replacements. Protein - no carbs Egg 1 large - 6g Egg white 1 large 3.6g 3 oz is approximately the size of a deck of cards and equals 21 g protein so 4 oz is 28 gm protein Beef, Chicken, [place], Pork, Bhatti 1 oz 7g Fish, Tuna Fish 1 oz 7g (Starkist tuna packet 2.6 oz 17 gm protein) Seafood (Crabmeat, Shrimp, Lobster) 1 oz 6g Protein shakes (read labels) Premier Protein or generic [employer] Equate, [employer] High Performance- 30g protein & 1g carb - meal replacement Premier Protein powder or generic- 30 gm protein, 1g carb Premier Protein plant protein powder - 25 gm protein, 0 suger/2 carb Vanilla and chocolate (not a meal replacement) Fairlife 30 gram protein - 30g protein & 3g carb BOOST Glucose Control Max 30g Protein Nutritional Drink - 30g protein & 1 carb - meal replacement Slimfast High Protein - 20g protein & 1g carb Ensure Max Protein Nutrition Shake 30g protein & 2 carb Protein AND carbs Beef/[place] Jerky 1 oz dried 10-15g protein - check carb count, can be high if sugar added Slim Santana - 6 gm protein and 4 net carb Great Value original turkey sausage sticks - 7 gm protein and 2 gm carb Danielle (at [employer]) Original smoked sausage sticks - 8 gm protein and 0 carb Imitation Crab Meat 1 oz - 2g protein & 4g carb Milk, skim 2% or 1% 8 oz - 8g protein & 12g carb Bruneian yogurt Full Fat Bruneian Yogurt 1 cup - 20.4g protein & 9.1g carb 2% Bruneian Yogurt 1 cup - 22.7g protein & 9.1g carb 0% (fat-free) Bruneian Yogurt - 1 cup 24g protein & 9.3g carb Aldi Protein Bruneian yogurt single svg - 15g protein & 7g carb Chobani Zero Sugar single svg: - 12g protein & 5g carb Dannon Bruneian Light + Fit 1 single svg - 12g protein & 9g carb Oikos Pro single svg - 20g protein & 8g carb Oikos Triple Zero [place]ian Nonfat Yogurt 1 single svg - 15g protein & 7g carb :ratio, KETO Friendly Dairy Snack 1 single svg - 15g protein & 2g carb :ratio Protein 1 single svg - 25g protein & 8g carb Two Good Lowfat [place] Yogurt, [place], Lower Sugar - 12g protein & 2g carb Yoplait Protein 1 single svg 15gm protein & 5gm carb Dairy Free - [place] unsweetened [place] almond/soy 15 gm protein & 3 gm carb Cheese each oz Brie 5.9g protein & 0.1g carb Cheddar 7g protein & 0.4g carb Shane 6.7g protein & 0.7g carb Cream Cheese 1.7g protein & 1.2g carb Feta 4g protein & 1.2g carb Mozzarella 6.3g protein & 0.6g carb Parmesan 10g protein & 0.9g carb Cypriot 7.6g protein & 1.5g carb Cottage Cheese 1/2 c Breakstone 2% 13g protein 7g carb Tanya 2% 13g protein 5 g carb Good Culture 2% 14g protein 3g carb Mata s Low Fat 12g protein & 4g carb Legumes Lentils cup 9g protein & 20g carb Thurman beans cup 7g protein & 20g carb Kidney, Black, Latimer, Cannellini beans cup 8g protein & 20g carb Soybeans 1/2 c 14g complete protein & 8.5g carb Weston milk, unsweetened 8 oz 1g protein & 2g carb Soy milk 8 oz 3.5g protein & 1.6g carb Tofu 1/2 cup 10g protein & 2.3g carb Peanut butter, natural 2 Tbsp 7-8g protein & 4g net carbs, 190 calories PB2 powder 2 Tbsp 6g protein & 5g carb Nuts and Seeds per oz Almonds - 5.9g protein & 6.1g carb [place]ield Nuts - 4.0g protein & 3.4g carb Cashews - 5.1g protein & 9.2g carb Hazelnuts - 4.2g protein & 4.7g carb Hemp seeds 3 T/30 gms - 9.5 gm complete protein and 2.5 gm carb Peanuts - 7g protein & 4.6g carb Pecans - 2.6g protein & 3.9g carb Pistachios - 5.8g protein & 7.8g carb Pumpkin Seeds - 6.9g protein & 5g carb [place] Seeds - 5.8g protein & 5.6g carb Walnuts - 4.3g protein & 3.8g carb <15 gram carb fruit options Berries have the lowest sugar content 1/2 medium apple - 12.5 carbs 1/2 medium avocado - 6.5 gm carbs 1/2 medium banana - 15 carbs 1/2 cup blueberries - 11 carbs - may actually help you lose weight 1/2 cup fresh cherries -11 carbs 1 medium Emilee -9 carbs 1/2 cup fresh cranberries - 6.5 carbs 1/2 c grapes - 15 carbs 1/2 medium grapefruit - 10.5 carbs 1/2 cup diced honeydew melon - 8 carbs 1 medium kiwi without skin - 11 carbs 1/2 cup sliced swapna -14 carbs 1 medium nectarine - 15 carbs 1 medium orange -15.5 carbs 1 medium peach -14.5 carbs 1/2 cup fresh pineapple -11 carbs 1 medium plum -7.5 carbs 1 prune - 6 carbs 1/4 c raisins - 31.25 carbs 1/2 cup raspberries -7.5 carbs 1/2 c strawberries - 12.7 carbs 1 medium tangerine -12 carbs 1/2 cup diced watermelon - 6 carbs 5 (FIVE) gram carb vegetable options 1 cup raw OR cup cooked: Asparagus Marte sprouts Beets Broccoli Brussel sprouts Cabbage Carrots Cauliflower Celery Buda Eggplant Green beans Lettuce Peppers Snap peas Spaghetti squash Spinach Tomato Turnips Zucchini 15 gram carb vegetable options cup cooked corn or hominy corn on the cob, large (5 oz) cup cooked green peas 4.3 gm complete protein cup cooked thurman beans 1 small potato or sweet potato cup cooked potato, plain cup cooked sweet potato, plain 1 cup winter squash (pumpkin, acorn, butternut) 1 cup marinara or pasta sauce - check label cup tomato juice cup tomato puree Beans, Seeds, Nuts cup cooked beans (kidney, figueroa, red, green, etc.) cup cooked lentils cup baked beans 4 tablespoons nut butter Grains Brown rice 1/2 c 5.5g protein 24 carb White long-grain rice 1/2 c 2g protein 22.5 carb Quinoa 1/2 c 4 gm complete protein 25 carb Oatmeal, old fashioned 1/2 c 5g protein 27g carb High Protein Snack Ideas 1. Jerky 2. [place] mix without dried fruit 3. [place] roll-ups 4. Bruneian yogurt 5. Veggies and yogurt dip 6. Tuna 7. Hard-boiled eggs 8. Peanut butter with celery 9. Cheese slices/ Cheese Stick 10. Handful of almonds, peanuts or walnuts 11. Cottage Cheese 12. Beef sticks 13. Protein bars 14. Canned [place] 15. Pumpkin seeds 16. Nut butter 17. Protein shakes 18. Avocado and chicken salad 19. Egg muffins 20. Leftover protein or lunch meat 21. 1/2 c blended cottage cheese or Bruneian yogurt with dry ranch/Mrs. Dash/herb seasoning mix to make protein dip 22. 1/2 c blended cottage cheese with 1 Tbsp sugar-free dry cheesecake pudding mix 12g protein 10 carb 23. Pudding - 1 30 gm protein shake with 1/2 pkg sugar-free pudding 4 svgs - 7.8 gm protein, 5 carb each svg 24. SF Sunkist or Root Beer with 1-2 Tablespoons heavy whipping cream 25. Mini frozen dessert bites - layer protein yogurt, skinny syrup and crushed nuts and freeze Nutrition Reminders: NO NAKED CARBS!! Protein >= Carbs for each meal (if you are going to eat 50g carbs for lunch you should eat 50g protein or more). If you do not eat your carbs for lunch you do not get to save them for dinner- you use them or lose them. Balance your Protein between meals. Unless told otherwise your Minimum protein each day is 30grams per meal but don t be afraid to eat more. Focus on WHOLE FOODS if you can as your Gut Microbiome will benefit and you will feel more satisfied - the only caviot to this is protein shakes if needed. Water intake should be a minimum of 64oz per day- but more is better (to an extent) unless you have a medical condition that requires you to keep it to a minimum. Nothing is off limits- this is not about restricting yourself- this about learning what your body can have and still respond well to and learning how to balance food and still feel good. Track your food, weigh your food, measure your portion sizes as most people underestimate their food by approximately 40%. You should be tracking your Carbohydrates and Protein daily. It s ok if you had a bad day- write it down and move on! Weigh yourself daily or at least 5 times per week, it will help to keep you accountable. If you are hungry- think about your stress level, your sleep (did you get 7.5-9hrs?) and your protein consumption- if you did not meet your goals then those could be contributing to your hunger. During weight loss phase it is ok to use two protein shakes per day and eating one meal along with it - studies have shown you will lose more weight and keep it off. Take a multivitamin daily Sit less Move more- Exercise including resistance training is very important for your health and if you are not getting routine exercise right now there will come a point when it will become an important piece of this process. documented in this encounter [facility] 03-01-2024 Note HNO ID: [id number] Author: MUNIRA RUELAS MD Service: ? Author Type: Physician Type: Progress Notes Filed: 03/01/2024 17:28 Note Text: Patient Summary: Gwen Rockwell is a 69 year old female with obesity who presents for an initial evaluation of overweight/obesity to treat and prevent co-morbidities and is interested in combination of behavioral and pharmacological. Motivation for seeking treatment for the disease of overweight/obesity : She wants to feel better and look better. Goal weight: 180 lb Lowest recall weight: 120 lb (HS) Highest non- recall weight: 259 lb Patient identified barriers to weight loss: She likes sweets and she eats when she is not hungry. When she starts to see results she seems to lose will power. She's a picky eater. Weight History: She reports a strong family history of obesity and early adulthood weight gain. 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 Difficulty losing weight? Yes she is a picky eater History of weight loss with regain? Usually she loses around 10 lbs and then she gives up Adjusted ideal body weight: 79.2 kg (174 lb 9.6 oz) - Last Wt 03/01/24 : 112.5 kg (248 lb) 5% weight loss = 236 lbs, 10% weight loss = 223 lbs WEIGHT GRAPH: Diet/Nutrition overview: Awake - 7-8am thyroid and GERD pills with water and sits for about 1hr B - coffee with milk, cereal (cheerios, charlie charms, frosted mini wheats) w/ milk, toast, sometimes eggs , Sofya Donuts caramel cream S - L - Collin fettuccini ad, Cheeseburger basket, whoppidirs jrGiovanni Dobson, Montserratian pizza (eats out a lot) S - popcorn, cookies (nutrigrain oatmeal, little debbies- oatmeal cream) D - frozen meal like above or frozen pizza or fast food like above S - popcorn, pretzels Fluids: 2% milk, 2-4 cups coffee, water-1-2 bottles 16oz bottles, soda a few times a month NOT diet, Tea- w/ sugar. Stops drinking caffeine 5-6pm Bedtime -8-10pm but watch TV until 12-1am , wakes up every 2hrs (bathroom, but able to fall back asleep) Quality of diet: 24hr recall suggests unhealthy diet. Characterization of diet:Structured, unhealthy snacking, excessive cravings, evening snacking, and increased consumption of sugar sweetened beverages. Shellfish Shucker of impaired eating habits:excessive hunger, lack of satiety, mindlessness , boredom, emotion, and stress Eating Disorder binge eating BINGE EATING ASSESSMENT: A. Recurrent episodes of binge eating. An episode is characterized by: 1. Eating a larger amount of food than normal during a short period of time (within any two hour period): yes 2. Lack of control over eating during the binge episode (i.e. the feeling that one cannot stop eating): yes B. Binge eating episodes are associated with three or more of the followin. Eating until feeling uncomfortably full: yes 2. Eating large amounts of food when not physically hungry: yes 3. Eating much more rapidly than normal: yes 4. Eating alone because you are embarrassed by how much you're eating: yes 5. Feeling disgusted, depressed, or guilty after overeating:yes THREE ASSOCIATED SYMPTOMS MET? yes C. Marked distress regarding binge eating is present: yes D. Binge eating occurs, on average, at least 1 days a week for three months: yes E. The binge eating is not associated with the regular use of inappropriate compensatory behavior (i.e. purging, excessive exercise, etc.) and does not occur exclusively during the course of bulimia nervosa or anorexia nervosa. Correct PATIENT MEETS ABOVE CRITERIA FOR BINGE EATING DISORDER: yes 4 x per week at least Severity: Mild 1-3 x per week Moderate 4-7 x per week Severe 8-13 x per week Extreme 14+ per week Cravings: sweet Sleep Duration: 6-7 hours. HECTOR YES ; CPAP YES Stress Stress:no, Cause:None Obesity Related Comorbidities: Prior Weight Loss Surgery:No PAST MEDICAL HISTORY Diagnosis Date Asthma Chronic obstructive pulmonary disease (COPD) (HCC) Diabetic borderline Environmental allergies GERD (gastroesophageal reflux disease) Hypertension Hypothyroid Menorrhagia HECTOR on CPAP Osteoarthritis Snoring PAST SURGICAL HISTORY Procedure Laterality Date ARTHRP KNE CONDYLEANDPLATU MEDIALANDLAT COMPARTMENTS Left 12/2015 BREAST BIOPSY CORE 04/02/2013 left-fibroadenoma/Dr. Garner CARPAL TUNNEL 2006 right CARPAL TUNNEL Left 04/2016 COLONOSCOPY 2008 COLONOSCOPY FLX DX W/COLLJ SPEC WHEN PFRMD 03/09/2018 Colonoscopy COLONOSCOPY SCREENING 2021 DILATION AND CURETTAGE DXAND/THER NONOBSTETRIC Dilation AND curettage ENDOMETRIAL ABLTJ THERMAL W/O HYSTEROSCOPIC GUID 06/18/2011 Novasure GALLBLADDER/EF 12/2013 PAST SURGICAL HISTORY OF Left 10/2020 left foot - ganglion cyst removal PAST SUE (more content not included)... [facility] 03-01-2024 History of Presen t illness Narrative Images from the original note were not included. Patient Summary: Gwen Rockwell is a 69 year old female with obesity who presents for an initial evaluation of overweight/obesity to treat and prevent co-morbidities and is interested in combination of behavioral and pharmacological. Motivation for seeking treatment for the disease of overweight/obesity : She wants to feel better and look better. Goal weight: 180 lb Lowest recall weight: 120 lb (HS) Highest non- recall weight: 259 lb Patient identified barriers to weight loss: She likes sweets and she eats when she is not hungry. When she starts to see results she seems to lose will power. She's a picky eater. Weight History: She reports a strong family history of obesity and early adulthood weight gain. 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 Difficulty losing weight? Yes she is a picky eater History of weight loss with regain? Usually she loses around 10 lbs and then she gives up Adjusted ideal body weight: 79.2 kg (174 lb 9.6 oz) - Last Wt 03/01/24 : 112.5 kg (248 lb) 5% weight loss = 236 lbs, 10% weight loss = 223 lbs WEIGHT GRAPH: Diet/Nutrition overview: Awake - 7-8am thyroid and GERD pills with water and sits for about 1hr B - coffee with milk, cereal (cheerios, charlie charms, frosted mini wheats) w/ milk, toast, sometimes eggs , [employer]uts caramel cream S - L - Collin fettnunui Gwendolyn duong, whogalina aggarwal Dobson, [place]atian pizza (eats out a lot) S - popcorn, cookies (nutrigrain oatmeal, little debbies- oatmeal cream) D - frozen meal like above or frozen pizza or fast food like above S - popcorn, pretzels Fluids: 2% milk, 2-4 cups coffee, water-1-2 bottles 16oz bottles, soda a few times a month NOT diet, Tea- w/ sugar. Stops drinking caffeine 5-6pm Bedtime -8-10pm but watch TV until 12-1am , wakes up every 2hrs (bathroom, but able to fall back asleep) Quality of diet: 24hr recall suggests unhealthy diet. Characterization of diet:Structured, unhealthy snacking, excessive cravings, evening snacking, and increased consumption of sugar sweetened beverages. Shellfish Shucker of impaired eating habits:excessive hunger, lack of satiety, mindlessness , boredom, emotion, and stress Eating Disorder binge eating BINGE EATING ASSESSMENT: A. Recurrent episodes of binge eating. An episode is characterized by: 1. Eating a larger amount of food than normal during a short period of time (within any two hour period): yes 2. Lack of control over eating during the binge episode (i.e. the feeling that one cannot stop eating): yes B. Binge eating episodes are associated with three or more of the followin. Eating until feeling uncomfortably full: yes 2. Eating large amounts of food when not physically hungry: yes 3. Eating much more rapidly than normal: yes 4. Eating alone because you are embarrassed by how much you're eating: yes 5. Feeling disgusted, depressed, or guilty after overeating:yes THREE ASSOCIATED SYMPTOMS MET? yes C. Marked distress regarding binge eating is present: yes D. Binge eating occurs, on average, at least 1 days a week for three months: yes E. The binge eating is not associated with the regular use of inappropriate compensatory behavior (i.e. purging, excessive exercise, etc.) and does not occur exclusively during the course of bulimia nervosa or anorexia nervosa. Correct PATIENT MEETS ABOVE CRITERIA FOR BINGE EATING DISORDER: yes 4 x per week at least Severity: Mild 1-3 x per week Moderate 4-7 x per week Severe 8-13 x per week Extreme 14+ per week Cravings: sweet Sleep Duration: 6-7 hours. HECTOR YES ; CPAP YES Stress Stress:no, Cause:None Obesity Related Comorbidities: Prior Weight Loss Surgery:No PAST MEDICAL HISTORY Diagnosis Date Asthma Chronic [...] DX W/COLLJ SPEC WHEN PFRMD 03/09/2018 Colonoscopy COLONOSCOPY SCREENING 2021 DILATION & CURETTAGE DX&/THER NONOBSTETRIC Dilation & curettage ENDOMETRIAL ABLTJ THERMAL W/O HYSTEROSCOPIC GUID 06/18/2011 Novasure GALLBLADDER/EF 12/2013 PAST SURGICAL HISTORY OF Left 10/2020 left foot - ganglion cyst removal PAST SURGICAL HISTORY OF 08/10/2019 RIGHT hip replacement TONSILLECTOMY HX FAMILY HISTORY Problem Relation Age of Onset Arthritis Mother rheumatoid Diabetes Mother Ovarian cancer Mother 78 other (lupus) Mother Heart Mother Hypertension Father Heart Father stents Heart Attack Father 85 Gout Brother Social History Tobacco Use Smoking status: Never Smokeless tobacco: Never Vaping Use Vaping status: Never Used Substance Use Topics Alcohol use: Yes Comment: socially Drug use: No AOM Medications: NONE Weight Promoting Medications: Diet/weight loss History: Past weight loss attempts? commercial diets and self-directed. Weight watchers 2 years ago lost 20 lbs and then lost will power and weight the weight back. Has tried Keto in the past. She can't remember the names of them in the past. Exercise: Regular exercise: yes 2-3 times a week treadmill 5-10 minute and stationary bike 15 mins Strength/resistance exercise:yes -leg machines and ab machine Barriers to regular exercise? no Work-related activity:None . Gym Membership: yes - [employer] Activity Tracker: no average steps per day N/A OCCUPATION retired Current Contraception: postmenopausal Obesity ROS/ FHx GEN: Fatigue:yes CV: h/o palpitations/cardiac arrhythmia, Chest pain: no HTN: yes PULM: Asthma:yes GI: GERD:yes ; Gallstones:no ; Fatty liver disease:no Pancreatitis: no MSK: Joint Pain:yes -osteoarthritis : Nephrolithiasis: no Symptoms of PCOS: no NEURO: Migraines/HILL: yes ; H/o seizures: no Glaucoma:no; Cataracts no Symptoms of or History of pseudotumor cerebri:no Family or personal History of MEN2 or Medullary thyroid cancer: no PE BP 151/77 Pulse 88 Ht 165.1 cm (5' 5) Wt 112.5 kg (248 lb) LMP 06/06/2011 SpO2 98% BMI 41.27 kg/m Waist Circumference: 51.5 Neck Circumference: 17 GENERAL: Female in NAD. Central adiposity. SKIN: acanthosis nigricans no, Skin tags: yes Hirsutism: no HEENT: PERRL, No supraclavicular adiposity. No dorsal adiposity. ABDOMEN: Large pannus; EXTREMITIES: peripheral edema: no Results: reviewed with the patient No visits with results within 3 Month(s) from this visit. Latest known visit with results is: Admission on 10/06/2022, Discharged on 10/06/2022 Component Date Value Ref Range Status BYRON High Sensitivity 10/06/2022 <6 <12 ng/L Final Ventricular Rate 10/06/2022 67 BPM Final Atrial Rate 10/06/2022 67 BPM Final P-R Interval 10/06/2022 174 ms Final QRS Duration 10/06/2022 84 ms Final QT Interval 10/06/2022 406 ms Final QTC Calculation (Bazett) 10/06/2022 429 ms Final Calculated P Paterson 10/06/2022 49 degrees Final Calculated R Paterson 10/06/2022 5 degrees Final Calculated T Paterson 10/06/2022 20 degrees Final Ventricular Rate 10/06/2022 67 BPM Preliminary Atrial Rate 10/06/2022 67 BPM Preliminary P-R Interval 10/06/2022 174 ms Preliminary QRS Duration 10/06/2022 84 ms Preliminary QT Interval 10/06/2022 406 ms Preliminary QTC Calculation (Bazett) 10/06/2022 429 ms Preliminary Calculated P Paterson 10/06/2022 49 degrees Preliminary Calculated R Paterson 10/06/2022 5 degrees Preliminary Calculated T Paterson 10/06/2022 20 degrees Preliminary Impression: Gwen Rockwell is a 69 year old Female with Class III obesity (Body mass index is 41.27 kg/m .) who has early adulthood obesity with gradual weight gain despite several weight loss attempts. The causes of her obesity are multifactorial, biological, psychological and social and environmental. Specific factors include increased consumption of high calorie/process foods, irregular eating patterns , suboptimal physical activity, onset of menopause, inadequate sleep duration, and post weight retention. She has several weight-related medical comorbidities which increase her cardiovascular mortality risk. There are additional metabolic obesity complications including pre-diabetes, dyslipidemia, hypertension, and obstructive sleep apnea. Other medical conditions as above. Regarding her lifestyle, as above, she has several behavioral contributors; her physical activity is suboptimal. Overall, it is clear that her quality of life is moderately compromised by her weight. It is likely a combination of weight loss therapies will be needed. She appears motivated today. 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 -- We discussed several strategies to track food intake and increase mindfulness around eating while will decrease calorie intake. She was counseled on the following: Eating primarily whole foods. Limit carbs, especially processed carbs. Do not drink your calories 30 grams of protein for breakfast decreases your hunger during the day by up to 40 % Premier Protein or generic 30 gm protein 1 gm sugar Walk for 15 minutes immediately a meal. -- Encouraged the patient to improve her physical activity. Although cardiovascular exercise is most beneficial for weight loss initially, we discussed healthy muscle from a combination of resistance training and cardiovascular exercise is the best halfway plan. An overall goal of 150-200 minutes per week of exercise has been effective in weight loss and maintenance. -- Reviewed that monitoring weight daily and food intake can have a positive impact on overall weight loss and maintenance of weight loss. Activity tracking can be used to stay on target for exercise however should not be used to reward oneself She understands that there can be limitations of pharmacotherapy due to contraindications, side effects and cost. Patient was told to contact her insurance company to see what AOMs and supervised behavioral medical appointments are currently covered. Patient understands she will have more success when following a healthy lifestyle. We reviewed continued use of online tracking of daily weights, food journal and if desired physical activity. We reviewed that during management she is to report any concerning side effects of any pharmacotherapy she is placed on. She understands that she will need routine follow up in the office. Prior to any virtual visits in the future she will need to check her Blood pressure, weight, and pulse. - reviewed nutrition in detail- consider Nutrition consult next visit - will get LABS today and make decision about medication based on results - continue use of CPAP- follow up with Dr. Choi - follow up with PCP for routine care (I10) Hypertension, unspecified type (primary encounter diagnosis) (M19.90) Arthritis (E03.9) Hypothyroidism, unspecified type (R73.03) Prediabetes (G47.33) HECTOR (obstructive sleep apnea) (K21.9) Gastroesophageal reflux disease without esophagitis (E78.00) Elevated cholesterol (R53.81, R53.83) Malaise and fatigue (G47.33) Obstructive sleep apnea syndrome (Z13.220) Screening cholesterol level (Z13.0) Screening for deficiency anemia (Z13.1) Screening for diabetes mellitus (Z13.228) Screening for metabolic disorder (Z13.29) Screening for thyroid disorder (Z13.21) Encounter for vitamin deficiency screening (E66.01, Z68.41) Class 3 severe obesity due to excess calories with serious comorbidity and body mass index (BMI) of 40.0 to 44.9 in adult (HCC) Prescription instructions reviewed with patient as applicable. Potential red flag symptoms discussed with the patient. Reviewed appropriate action plan to take if red flag symptoms occur. Patient agreeable to treatment plan. -- follow-up visit in 4 weeks for management of above interventions I spent a total of 70 minutes on the date of the service which included preparing to see the patient, [id number] patient care, completing clinical documentation, obtaining and/or reviewing separately obtained history, performing a medically appropriate examination, counseling and educating the patient/family/caregiver, and ordering medications, tests, or procedures. Munira Corona MD, FACOG, CHIQUI documented in this encounter [facility] 12-09-2023 Note Formatting of this n ote might be different from the original. December 09, 2023 PID: [id number] Gwen Rockwell [address] [place] [address] Dear Ms. Rockwell, We are pleased to inform you that the results of your recent breast imaging exam on 12/08/2023 are normal. Early detection of cancer is very important. We also understand recommendations regarding breast cancer screening are controversial. Please discuss with your primary care provider which strategy is best for you and whether a mammogram is right for you. Your imaging studies and report will be kept on file at [facility] as part of your permanent medical record and are available for your continuing care. Thank you for allowing us to help in meeting your health care needs. Sincerely, Dr. Shepherd Interpreting Radiologist (Normal over 40) [facility] 12-09-2023 Miscellaneous Notes December 09, 2023 PID: [id number] Gwen Rockwell [address] [place] [address] Dear Ms. Rockwell, We are pleased to inform you that the results of your recent breast imaging exam on 12/08/2023 are normal. Early detection of cancer is very important. We also understand recommendations regarding breast cancer screening are controversial. Please discuss with your primary care provider which strategy is best for you and whether a mammogram is right for you. Your imaging studies and report will be kept on file at [facility] as part of your permanent medical record and are available for your continuing care. Thank you for allowing us to help in meeting your health care needs. Sincerely, Dr. Shepherd Interpreting Radiologist (Normal over 40) documented in this encounter [facility] 12-08-2023 History of Presen t illness Narrative Radiology Service Progress Note PATIENT NAME: Gwen Rockwell DATE OF SERVICE: December 08, 2023 TIME: 11:41 AM PATIENT IDENTITY VERIFICATION COMPLETED USING TWO (2) IDENTIFIERS: Name and Date of confirmed by patient verbally. FALL SCREENING: Has the patient had 2 falls in the last year or 1 fall with injury or currently using an Ambulatory Assistive Device (Walker, Cane, Wheelchair, Crutches, etc.)? No PATIENT GENDER DATA: Female. status: : No status: NO. PATIENT RELEVANT IMPLANT DATA REVIEWED: Not Applicable PATIENT PRESENTS WITH AN IMPLANTABLE OR ATTACHED SUPERVISOR BLOOD DONOR RECRUITERS: No RADIOLOGY DEPARTMENT: Mammography PERIPHERAL IV DATA: Not applicable SIGNED BY: Viviane Potts December 08, 2023 11:41 AM documented in this encounter [facility] 12-08-2023 Note HNO ID: [id number] Author: RAMONA BECKETT Mammo Tech Service: ? Author Type: Nitroglycerin Supervisor Type: Progress Notes Filed: 12/08/2023 11:42 Note Text: Radiology Service Progress Note PATIENT NAME: Gwen Rockwell DATE OF SERVICE: December 08, 2023 TIME: 11:41 AM PATIENT IDENTITY VERIFICATION COMPLETED USING TWO (2) IDENTIFIERS: Name and Date of confirmed by patient verbally. FALL SCREENING: Has the patient had 2 falls in the last year or 1 fall with injury or currently using an Ambulatory Assistive Device (Walker, Cane, Wheelchair, Crutches, etc.)? No PATIENT GENDER DATA: Female. status: : No status: NO. PATIENT RELEVANT IMPLANT DATA REVIEWED: Not Applicable PATIENT PRESENTS WITH AN IMPLANTABLE OR ATTACHED SUPERVISOR BLOOD DONOR RECRUITERS: No RADIOLOGY DEPARTMENT: Mammography PERIPHERAL IV DATA: Not applicable SIGNED BY: Ramona Beckett [email or web address] December 08, 2023 11:41 AM [facility] 11-19-2023 Note HNO ID: [id number] Author: XIMENA CARDENAS MD Service: ? Author Type: Physician Type: Progress Notes Filed: 11/19/2023 13:52 Note Text: Gwen is a 68 year old who presents for an annual gynecologic exam without complaints. 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 Garner CARPAL TUNNEL 2006 right CARPAL TUNNEL Left 04/2016 COLONOSCOPY 2007 COLONOSCOPY FLX DX W/COLLJ SPEC WHEN PFRMD 03/09/2018 Colonoscopy COLONOSCOPY SCREENING 2021 DILATION AND CURETTAGE DXAND/THER NONOBSTETRIC Dilation AND curettage ENDOMETRIAL ABLTJ THERMAL W/O HYSTEROSCOPIC GUID 06/18/2011 Novasure GALLBLADDER/EF 12/2013 PAST SURGICAL HISTORY OF Left 10/2020 left foot - ganglion cyst removal PAST SURGICAL HISTORY OF 08/10/2019 RIGHT hip replacement TONSILLECTOMY HX FAMILY HISTORY Problem Relation Age of Onset Arthritis Mother rheumatoid Diabetes Mother Ovarian cancer Mother 78 other (lupus) Mother Heart Mother Hypertension Father Heart Father stents Heart Attack Father 85 Gout Brother SOCIAL HISTORY Social History Tobacco Use Smoking status: Never Smokeless tobacco: Never Vaping Use Vaping Use: Never used Substance [...] Allergies and current medication updated:Yes EXAM: BP 128/80 Ht 5' 5.157 (1.66m) Wt 245 lb (111.1kg) LMP 06/06/2011 BMI 40.57 kg/(m2). GENERAL: pleasant, female in no apparent distress HEENT: Normocephalic, atraumatic, mucus membranes moist, and no lesions NECK: Supple, full range of motion, no adenopathy, and thyroid normal DERMATOLOGY: Normal, without lesions, non-icteric, and non-hirsute BREAST: soft, non-tender, symmetric, no dominant mass, normal nipple-areolar complex, no lymphadenopathy, and no nipple discharge CHEST: Normal inspiratory effort ABDOMEN: soft, non-tender, and no masses PELVIC: external genitalia normal, normal Bartholin's glands, urethra, Bickleton's glands, no vulvar lesions, no cervical lesions, good vaginal support, physiologic discharge present, normal appearing perineal body and perianal region BIMANUAL: uterus normal size, shape and consistency, no adnexal masses, and non-tender RECTOVAGINAL: deferred. NEURO: alert and oriented x3,exam grossly non-focal EXTREMITIES: normal ASSESSMENT/PLAN: 1) Health maintenance: Pap/HPV screening no longer needed Mammogram ordered Colon cancer screening: up to date with screening 2) Follow up one year or sooner as needed will discuss BM w/ PCP next month requests consult for wt management Ximena Cardenas MD [facility] 11-19-2023 History of Presen t illness Narrative Gwen is a 68 year old who presents for an annual gynecologic exam without complaints. 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 Cards And Announcements History Comments: Sexual Activity: Not Currently; No [...] 2006 right CARPAL TUNNEL Left 04/2016 COLONOSCOPY 2008 COLONOSCOPY FLX DX W/COLLJ SPEC WHEN PFRMD 03/09/2018 Colonoscopy COLONOSCOPY SCREENING 2021 DILATION & CURETTAGE DX&/THER NONOBSTETRIC Dilation & curettage ENDOMETRIAL ABLTJ THERMAL W/O HYSTEROSCOPIC GUID 06/18/2011 Novasure GALLBLADDER/EF 12/2013 PAST SURGICAL HISTORY OF Left 10/2020 left foot - ganglion cyst removal PAST SURGICAL HISTORY OF 08/10/2019 RIGHT hip replacement TONSILLECTOMY HX FAMILY HISTORY Problem Relation Age of Onset Arthritis Mother rheumatoid Diabetes Mother Ovarian cancer Mother 78 other (lupus) Mother Heart Mother Hypertension Father Heart Father stents Heart Attack Father 85 Gout Brother SOCIAL HISTORY Social History Tobacco Use Smoking status: Never Smokeless tobacco: Never Vaping Use Vaping Use: Never used Substance [...] Allergies and current medication updated:Yes EXAM: BP 128/80 Ht 5' 5.157 (1.66m) Wt 245 lb (111.1kg) LMP 06/06/2011 BMI 40.57 kg/(m^2). GENERAL: pleasant, female in no apparent distress HEENT: Normocephalic, atraumatic, mucus membranes moist, and no lesions NECK: Supple, full range of motion, no adenopathy, and thyroid normal DERMATOLOGY: Normal, without lesions, non-icteric, and non-hirsute BREAST: soft, non-tender, symmetric, no dominant mass, normal nipple-areolar complex, no lymphadenopathy, and no nipple discharge CHEST: Normal inspiratory effort ABDOMEN: soft, non-tender, and no masses PELVIC: external genitalia normal, normal Bartholin's glands, urethra, Bickleton's glands, no vulvar lesions, no cervical lesions, good vaginal support, physiologic discharge present, normal appearing perineal body and perianal region BIMANUAL: uterus normal size, shape and consistency, no adnexal masses, and non-tender RECTOVAGINAL: deferred. NEURO: alert and oriented x3,exam grossly non-focal EXTREMITIES: normal ASSESSMENT/PLAN: 1) Health maintenance: Pap/HPV screening no longer needed Mammogram ordered Colon cancer screening: up to date with screening 2) Follow up one year or sooner as needed will discuss BM w/ PCP next month requests consult for wt management Ximena Cardenas MD documented in this encounter [facility] 02-21-2023 History of Presen t illness Narrative This is an Express [facility] eVisit note for Gwen Rockwell eVisit/Questionnaire reviewed The chief complaint for the [...] spend was 5 minutes. Tone Carver APRN.CNP documented in this encounter [facility] 10-05-2022 History of Presen t illness Narrative Patient presents to express care with the [...] will drive her across the street to [facility] ED for further evaluation. documented in this encounter [facility] 04-23-2022 History of Presen t illness Narrative This is an Express Care eVisit note for Gwen Rockwell eVisit/Questionnaire reviewed The chief complaint for the [...] Jamia Roche APRN.CNP documented in this encounter [facility] 01-09-2022 Miscellaneous Notes Patient notified. Yris Fitzgerald RN agree w/ UA and culture. Thank you Ximena Cardenas MD Patient calling with possible urinary tract infection. Symptoms include:low back pain and dysuria Duration: back pain 7 days, dysuria today Allergies:Bactrim [Sulfamethoxazole-Trimethoprim] and Penicillins Any treatment yet: No. Patient agreeable to leaving a urine sample at the lab. UA and culture pending if appropriate. Message forwarded to Ximena Cardenas MD for recommendations. Yris Fitzgerald RN documented in this encounter [facility] 10-20-2021 Miscellaneous Notes Done. Thank you, Connie [...] consult Harley Thacker documented in this encounter [facility] 10-01-2021 Miscellaneous Notes TC to Gwen who [...] Dionne Mustafa LPN documented in this encounter [facility] 10-01-2021 Miscellaneous Notes October 01, 2021 PID: [id number] Gwen Rockwell [address] [place] [address] Dear Augustus, We are pleased to inform you that [...] report will be kept on file at [facility] as part of your permanent medical record and are available for your continuing care. Thank you for allowing us to help in meeting your health care needs. Sincerely, Dr. Hart Interpreting Radiologist (Normal over 40) documented in this encounter [facility] 10-01-2021 History of Presen t illness Narrative Radiology Service Progress Note PATIENT NAME: Gwen Rockwell DATE OF SERVICE: October 01, 2021 TIME: [...] PERIPHERAL IV DATA: Not applicable SIGNED BY: Viviane Florentino October 01, 2021 9:37 AM documented in this encounter [facility] 10-01-2021 Instructions Ximena Cardenas MD - 10/01/2021 9:14 AM EDT Images from the original note were not included. Bowel Preparation Instructions for: Golytely, Nulytely, Trilyte or Colyte (polyethylene glycol 3350 and electrolytes) IF YOU DO NOT FOLLOW THESE DIRECTIONS, YOUR COLONOSCOPY WILL BE CANCELLED. Brooks Instructions: Your bowel must be empty so [...] If you do not have a responsible powder truck driver (family member or friend) with you to [...] preparation solution at your local pharmacy [facility] 05/2019 Bowel Preparation Instructions for: Golytely, [...] exam. 3 05/2019 documented in this encounter [facility] 10-01-2021 History of Presen t illness Narrative Gwen is a 66 year old who presents for an annual gynecologic exam without complaints. Planning half-way in the fall. Had a knee replacement in recent history and doing well w/ that. Postmenopausal: yes HRT use: No. Last Pap: 02/10/2018 normal HPV: 02/06/2018 negative History of abnormal pap: No Last mammogram: today pending History of abnormal mammogram: No Sexually active: not currently OB History T1 L1 SAB0 IAB0 Ectopic0 Multiple0 Live Births0 Assembler Cards And Announcements History LMP: 06/06/2011, Ablation Age at Menarche: Age at First : Age at Menopause: Assembler Cards And Announcements History Comments: Sexual Activity: Not Currently; No [...] 2006 right CARPAL TUNNEL Left 04/2016 COLONOSCOPY 2008 COLONOSCOPY FLX DX W/COLLJ SPEC WHEN PFRMD 03/09/2018 Colonoscopy DILATION & CURETTAGE DX&/THER NONOBSTETRIC Dilation & curettage ENDOMETRIAL ABLTJ THERMAL W/O HYSTEROSCOPIC GUID 06/18/2011 Novasure GALLBLADDER/EF 12/2013 PAST SURGICAL HISTORY OF Left [...] external genitalia normal, normal Bartholin's glands, urethra, Bickleton's glands, no vulvar lesions, no cervical lesions, [...] up one year or sooner as needed Ximena Cardenas MD documented in this encounter [facility] Evaluation note Diagnosis Encounter for gynecological examination without abnormal finding- Primary Routine gynecological examination Encounter for screening for malignant neoplasm of cervix Screening for malignant neoplasm of the cervix Special screening examination for human papillomavirus (HPV) Encounter for screening mammogram for malignant neoplasm of breast Other screening mammogram Encounter for screening for malignant neoplasm of colon Special screening for malignant neoplasms, colon Special screening for malignant neoplasms, colon [facility] Encounter for screening mammogram for malignant neoplasm of breast Other screening mammogram documented in this encounter [facility] HospitalEvalunemours foundation noteNo assessment information availableWMercy Hospital Work Phone: Evaluation note* Diagnosis Dysuria- Primary Acute low back pain, unspecified back pain laterality, unspecified whether sciatica present documented in this encounter [facility] note* Diagnosis Bacterial sinusitis- Primary Unspecified sinusitis (chronic) documented in this encounter [facility] note* Diagnosis Dizziness- Primary Dizziness and giddiness Headache, unspecified headache type documented in this encounter [facility] note* Diagnosis Acute rhinosinusitis- Primary Acute sinusitis, unspecified documented in this encounter [facility] note* Diagnosis Encounter for gynecological examination (general) (routine) without abnormal findings- Primary Encounter for screening mammogram for breast cancer Class 3 severe obesity due to excess calories with serious comorbidity and body mass index (BMI) of 40.0 to 44.9 in adult ([facility]) Obstructive sleep apnea syndrome Obstructive sleep apnea (adult) (pediatric) documented in this encounter [facility] note* Diagnosis Encounter for screening mammogram for breast cancer documented in this encounter [facility] note* Diagnosis Hypertension, unspecified type- Primary Arthritis Arthropathy, unspecified, site unspecified Hypothyroidism, unspecified type Prediabetes Other abnormal glucose HECTOR (obstructive sleep apnea) Obstructive sleep apnea (adult) (pediatric) Gastroesophageal reflux disease without esophagitis Esophageal reflux Elevated cholesterol Pure hypercholesterolemia Malaise and fatigue Other malaise and fatigue Obstructive sleep apnea syndrome Obstructive sleep apnea (adult) (pediatric) Screening cholesterol level Screening for lipoid disorders Screening for deficiency anemia Screening for other and unspecified deficiency anemia Screening for diabetes mellitus Screening for metabolic disorder Screening for thyroid disorder Encounter for vitamin deficiency screening Screening for other and unspecified endocrine, nutritional, metabolic, and immunity disorders Class 3 severe obesity due to excess calories with serious comorbidity and body mass index (BMI) of 40.0 to 44.9 in adult ([facility]) [facility]* Diagnosis Insulin resistance- Primary Dysmetabolic Syndrome X [facility]* Diagnosis Insulin resistance- Primary Dysmetabolic Syndrome X Hypertension, unspecified type Prediabetes Other abnormal glucose Hypothyroidism, unspecified type HECTOR (obstructive sleep apnea) Obstructive sleep apnea (adult) (pediatric) Elevated cholesterol Pure hypercholesterolemia Malaise and fatigue Other malaise and fatigue Obstructive sleep apnea syndrome Obstructive sleep apnea (adult) (pediatric) Gastroesophageal reflux disease without esophagitis Esophageal reflux Class 3 severe obesity due to excess calories with serious comorbidity and body mass index (BMI) of 40.0 to 44.9 in adult (HCC) [facility]* Diagnosis Insulin resistance Dysmetabolic Syndrome X documented in this encounter [facility] for referral (narrative)* Outpatient Procedure (Routine) - Pending Review Specialty Diagnoses / Procedures Referred By Bianca bal Referred To Contact [facility] Diagnoses Encounter for screening for malignant neoplasm of colon Procedures COLONOSCOPY SCREENING COLONOSCOPY FLX DX W/COLLJ SPEC WHEN PFRMD Ximena Cardenas MD [address] [place] [address] [facility] [place] [address] [place] [phone] Referral ID Status Reason Start Date Expiration Date Visits Requested Visits Authorized [id number] Pending Review Auto-Generat ed Referral 10/01/2021 10/01/2022 1 1 * Diagnostic Procedure Only (Routine) - Pending Review Specialty Diagnoses / Procedures Referred By Bianca bal Referred To Contact [facility] Diagnoses Encounter for screening mammogram for malignant neoplasm of breast Procedures WENDY SCREENING SCREENING MAMMOGRAPHY BI 2-VIEW BREAST INC Ximena Short MD [address] [place] [address] [facility] [address] [place] [phone] Referral ID Status Reason Start Date Expiration Date Visits Requested Visits Authorized [id number] Pending Review Auto-Generat ed Referral 10/01/2021 10/31/2022 1 1 [facility] for referral (narrative)* Diagnostic Procedure Only (Routine) - Closed Specialty Diagnoses / Procedures Referred By Bianca bal Referred To Contact [facility] Diagnoses Encounter for screening mammogram for malignant neoplasm of breast Procedures WENDY SCREENING SCREENING MAMMOGRAPHY BI 2-VIEW BREAST INC Ximena Short MD [address] [place] [address] [facility] [address] [place] [address] Referral ID Status Reason Start Date Expiration Date V isits Requested Visits Authorized [id number] Closed Auto-Generate d Referral 03/09/2021 04/08/2022 1 1 [facility] for referral (narrative)No reason for referral information availableWMercy Hospital Work Phone: Reason for visit Narrative* Diagnostic Procedure Only (Routine) - Closed Specialty Diagnoses / Procedures Referred By Bianca bal Referred To Contact [facility] Diagnoses Encounter for screening mammogram for malignant neoplasm of breast Procedures WENDY SCREENING SCREENING MAMMOGRAPHY BI 2-VIEW BREAST INC Ximena Short MD [address] [place] [address] [facility] [address] [place] [address] Referral ID Status Reason Start Date Expiration Date V isits Requested Visits Authorized [id number] Closed Auto-Generate d Referral 03/09/2021 04/08/2022 1 1 [facility] for visit Narrative* Diagnostic Procedure Only (Routine) - Closed Specialty Diagnoses / Procedures Referred By Bianca bal Referred To Contact [facility] Diagnoses Encounter for screening mammogram for breast cancer Procedures WENDY SCREENING W LESVIA SCREENING DIGITAL BREAST TOMOSYNTHESIS BI SCREENING MAMMOGRAPHY BI 2-VIEW BREAST INC Ximena Short MD [address] [place] [address] [facility] [address] [place] [address] Referral ID Status Reason Start Date Expiration Date V isits Requested Visits Authorized [id number] Closed Auto-Generate d Referral 11/19/2023 12/18/2024 1 1 [facility] Advance Directives No Advanced Directives Records FoundDocuments on File Type Date Recorded 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 Advance Directive(s) 03/09/2018 8:09 AM Documents on File Type Date Recorded 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 Advance Directive(s) 03/09/2018 8:09 AM Advance Directive Response Recorded Date/ Time Advance Directives Yes December 24 1:24pm Living Will Yes November 01, 2020 1 0:08am Power of Negative Restorer No November 01, 2020 10:08am Advance Directive Response Recorded Date/ Time Advance Directives Yes December 24 12:24pm Living Will Yes November 01, 2020 9 :08am Power of Negative Restorer No November 01, 2020 9:08am Advance Directive Response Recorded Date/ Time Advance Directives Yes December 24 12:24pm Living Will No October 24, 2022 1 1:31am Power of Negative Restorer No October 24, 2022 11:31am Advance Directive Response Recorded Date/ Time Advance Directives Yes December 24 1:24pm Family History No Family History Records Found Relationship Condition Age at Onset Recorded Date/T sai Not Specified Family history of skin cancer Unknown mother Rheumatoid arthritis Unknown Diabetes mellitus Unknown Hypertension Unknown Cardiac disease Unknown Malignant neoplasm of ovary Unknown Chief Complaint and Reason for Visit Chief Complaint OSTEO Chief Complaint INSULIN RESISTANCE Chief Complaint INSULIN RESISTANCE VESTIBULAR RX HERE Chief Complaint Admit Date BACK PAIN November 03, 2024 1:28p m Summary Purpose Reason for Referral Specialty Diagnoses / Procedures Referred By Bianca bal Referred To Contact Diagnoses Class 3 severe obesity due to excess calories with serious comorbidity and body mass index (BMI) of 40.0 to 44.9 in adult (HCC) Obstructive sleep apnea syndrome Procedures CONSULT TO [facility] PROGRAM OFFICE/[facility]IENT [facility] 60 MINUTES Ximena Cardenas MD [address] [place] [address] Referral ID Status Reason Start Date Expiration Date Visits Requested Visits Authorized [id number] Authorized PCP Requested Referral Auto-Generate d Referral 11/19/2023 11/18/2024 1 1 Specialty Diagnoses / Procedures Referred By Bianca bal Referred To Contact [facility] Diagnoses Encounter for screening mammogram for breast cancer Procedures WENDY SCREENING W LESVIA SCREENING DIGITAL BREAST TOMOSYNTHESIS BI SCREENING MAMMOGRAPHY BI 2-VIEW BREAST INC CAD Ximena Cardenas MD [address] [place] [address] [facility] [address] [place] [address] Referral ID Status Reason Start Date Expiration Date Visits Requested Visits Authorized [id number] Authorized Auto-Generat ed Referral 11/19/2023 12/18/2024 1 1 Additional Source Comments Source Comments (unrecognize d section and content) In the event this informatio n is protected by the Federal Confidentiality of Alcohol and Drug Abuse Patient Records regulations: The Federal rules restrict any use of the information to criminally investigate or prosecute any alcohol or drug abuse patient.[facility] HospitalIn the event this information is protected by the Federal Confidentiality of Alcohol and Drug Abuse Patient Records regulations: The Federal rules restrict any use of the information to criminally investigate or prosecute any alcohol or drug abuse patient.[facility] HospitalIn the event this information is protected by the Federal Confidentiality of Alcohol and Drug Abuse Patient Records regulations: The Federal rules restrict any use of the information to criminally investigate or prosecute any alcohol or drug abuse patient.[facility] HospitalIn the event this information is protected by the Federal Confidentiality of Alcohol and Drug Abuse Patient Records regulations: The Federal rules restrict any use of the information to criminally investigate or prosecute any alcohol or drug abuse patient.[facility] HospitalIn the event this information is protected by the Federal Confidentiality of Alcohol and Drug Abuse Patient Records regulations: The Federal rules restrict any use of the information to criminally investigate or prosecute any alcohol or drug abuse patient.[facility] HospitalIn the event this information is protected by the Federal Confidentiality of Alcohol and Drug Abuse Patient Records regulations: The Federal rules restrict any use of the information to criminally investigate or prosecute any alcohol or drug abuse patient.[facility] HospitalIn the event this information is protected by the Federal Confidentiality of Alcohol and Drug Abuse Patient Records regulations: The Federal rules restrict any use of the information to criminally investigate or prosecute any alcohol or drug abuse patient.[facility] HospitalIn the event this information is protected by the Federal Confidentiality of Alcohol and Drug Abuse Patient Records regulations: The Federal rules restrict any use of the information to criminally investigate or prosecute any alcohol or drug abuse patient.[facility] HospitalIn the event this information is protected by the Federal Confidentiality of Alcohol and Drug Abuse Patient Records regulations: The Federal rules restrict any use of the information to criminally investigate or prosecute any alcohol or drug abuse patient.[facility] HospitalIn the event this information is protected by the Federal Confidentiality of Alcohol and Drug Abuse Patient Records regulations: The Federal rules restrict any use of the information to criminally investigate or prosecute any alcohol or drug abuse patient.[facility] HospitalIn the event this information is protected by the Federal Confidentiality of Alcohol and Drug Abuse Patient Records regulations: The Federal rules restrict any use of the information to criminally investigate or prosecute any alcohol or drug abuse patient.[facility] HospitalIn the event this information is protected by the Federal Confidentiality of Alcohol and Drug Abuse Patient Records regulations: The Federal rules restrict any use of the information to criminally investigate or prosecute any alcohol or drug abuse patient.[facility] HospitalIn the event this information is protected by the Federal Confidentiality of Alcohol and Drug Abuse Patient Records regulations: The Federal rules restrict any use of the information to criminally investigate or prosecute any alcohol or drug abuse patient.[facility] HospitalIn the event this information is protected by the Federal Confidentiality of Alcohol and Drug Abuse Patient Records regulations: The Federal rules restrict any use of the information to criminally investigate or prosecute any alcohol or drug abuse patient.[facility] HospitalIn the event this information is protected by the Federal Confidentiality of Alcohol and Drug Abuse Patient Records regulations: The Federal rules restrict any use of the information to criminally investigate or prosecute any alcohol or drug abuse patient.[facility] HospitalIn the event this information is protected by the Federal Confidentiality of Alcohol and Drug Abuse Patient Records regulations: The Federal rules restrict any use of the information to criminally investigate or prosecute any alcohol or drug abuse patient.[facility] HospitalIn the event this information is protected by the Federal Confidentiality of Alcohol and Drug Abuse Patient Records regulations: The Federal rules restrict any use of the information to criminally investigate or prosecute any alcohol or drug abuse patient.[facility] Reason for Visit (unrecogniz ed section and content) Reason Onset Date Comments Yearly Exam 10/01/2021 Reason Comments Patient Question Reason Comments Outpatient Colonoscopy Reason Comments Dysuria Reason Comments Sinusitis Reason Comments Sinus Problem Reason Comments Yearly Exam Reason Onset Date Comments Weight Management 03/01/2024 Specialty Diagnoses / Procedures Referred By Bianca t Referred To Contact Diagnoses Class 3 severe obesity due to excess calories with serious comorbidity and body mass index (BMI) of 40.0 to 44.9 in adult (HCC) Obstructive sleep apnea syndrome Procedures CONSULT TO [facility] PROGRAM OFFICE/[facility] 60 MINUTES Ximena Cardenas MD [facility] [place] [address] [place] [address] Referral ID Status Reason Start Date Expiration Date V isits Requested Visits Authorized [id number] Closed PCP Requested Referral Auto-Generated Referral 11/19/2023 11/18/2024 1 1 Reason Comments Results Reason Comments Weight Management Reason Comments Refill Request Care Teams (unrecognized sec tion and content) Soft Tile Setter Relationship Specialty Start Date End Date Robert Najera MD [address] [facility] [address] [place] [address] PCP - General Family Practice 02/18/18 Soft Tile Setter Relationship Specialty Start Date End Date Robert Najera MD [address] [facility] [address] [place] [address] PCP - General Family Practice 02/18/18 Soft Tile Setter Relationship Specialty Start Date End Date Robert Najera MD [address] [facility] [address] [place] [address] PCP - General Family Practice 02/18/18 Soft Tile Setter Relationship Specialty Start Date End Date Robert Najera MD [address] [facility] [address] [place] [address] PCP - General Family Practice 02/18/18 Soft Tile Setter Relationship Specialty Start Date End Date Robert Najera MD [address] [facility] [address] [place] [address] PCP - General Family Practice 02/18/18 Soft Tile Setter Relationship Specialty Start Date End Date Robert Najera MD [address] [facility] [address] [place] [address] PCP - General Family Practice 02/18/18 Soft Tile Setter Relationship Specialty Start Date End Date Robert Najera MD [address] [facility] [address] [place] [address] PCP - General Family Medicine 02/18/18 Team Status: Active Member Role Status Dates Dr. Robert Najera MD Family Provider Active Dr. Bernice Andujar DO Primary Care Provider Active Team Status: Inactive Member Role Status Dates Dr. Bernice Andujar DO Primary Care Provider, Attending Boby romero Active Soft Tile Setter Relationship Specialty Start Date End Date Bernice Andujar DO [address] [place] [address] PCP - General Family Medicine 10/05/22 Soft Tile Setter Relationship Specialty Start Date End Date Bernice Andujar DO [address] [place] [address] PCP - General Family Medicine 10/05/22 Team Status: Inactive Member Role Status Dates Dr. Bernice Andujar DO Primary Care Provide r, Attending Provider, Referring Provider Active Soft Tile Setter Relationship Specialty Start Date End Date Bernice Andujar DO [address] [place] [address] PCP - General Family Medicine 10/05/22 Soft Tile Setter Relationship Specialty Start Date End Date Bernice Andujar DO [address] [place] [address] PCP - General Family Medicine 10/05/22 Soft Tile Setter Relationship Specialty Start Date End Date Bernice Andujar DO [address] [place] [address] PCP - General Family Medicine 10/05/22 Soft Tile Setter Relationship Specialty Start Date End Date Bernice Andujar DO [address] [place] [address] PCP - General Family Medicine 10/05/22 Soft Tile Setter Relationship Specialty Start Date End Date Bernice Andujar DO [address] [place] [address] PCP - General Family Medicine 10/05/22 Soft Tile Setter Relationship Specialty Start Date End Date Bernice Andujar DO [address] [place] [address] PCP - General Family Medicine 10/05/22 Soft Tile Setter Relationship Specialty Start Date End Date Bernice Andujar DO [address] [place], [place] [address] PCP - General Family Medicine 10/05/22 Team Status: Inactive Member Role Status Dates Dr. Bernice Andujar DO Primary Care Provider Active Start: November 03, 2024 End: November 03, 2024 Dr. Bernice Andujar DO Attending Provider Active St art: November 03, 2024 End: November 03, 2024 Dr. Bernice Andujar DO Referring Provider Active St art: November 03, 2024 End: November 03, 2024 Team Status: Active Member Role Status Dates Dr. Bernice Andujar DO Primary Care Provider Active Start: November 04, 2024 Dr. Bernice Andujar DO Attending Provider Active St art: November 04, 2024 Dr. Bernice Andujar DO Referring Provider Active St art: November 04, 2024 Team Status: Inactive Member Role Status Dates Dr. Bernice Andujar DO Primary Care Provider Active Start: November 04, 2024 End: November 04, 2024 Dr. Bernice Andujar DO Attending Provider Active St art: November 04, 2024 End: November 04, 2024 Dr. Bernice Andujar DO Referring Provider Active St art: November 04, 2024 End: November 04, 2024 Goals (unrecognized section and content) Goals may be documented in a n alternate sectionGoals may be documented in an alternate sectionGoals may be documented in an alternate sectionGoals may be documented in an alternate sectionGoals may be documented in an alternate sectionGoals may be documented in an alternate section INFORMATION SOURCE (unrecogn ized section and content) DATE CREATED AUTHOR 10/07/2022 [facility] DATE CREATED AUTHOR AUTHOR'S ORGANIZ ATION 04/02/2024 [facility] DATE CREATED AUTHOR AUTHOR'S ORGANIZ ATION 11/09/2024 [facility] FOR RECORDS PERTAINING TO PATIENTS WHO ARE [...] BE BASED ON THE PRIMARY CLINICAL RECORDS. [facility]. provides no warranty or guarantee of the accuracy or completeness of information in this document.
== END | disposition home or self-care (01) ==
LOC: LABSPEC 15:42
PROVIDERS: PCP Family Medicine; Visit Provider Family Medicine
DX: E11.9 Type 2 diabetes mellitus without complications (principal)
CPT/HCPCS: 82043; 82570

== ENCOUNTER → 2025-01-27 | Outpatient (CLI) | payer MEDICARE, SELFPAY ==
--- NOTE | 2025-01-27 10:38 | BD_ITS ---
PROCEDURE: DEXA BONE DENSITY STUDY 01/27/2025 REASON FOR EXAM: F, age 69 y/o . Postmenopausal. TECHNIQUE: DEXA BONE DENSITY STUDY COMPARISON: None FINDINGS: BMD and T-SCORES Lumbar spine: 0.921 g/cm2, T-score -1.4 Levels: L1 through L4 Left femoral neck: 0.637 g/cm2, T-score -1.9 Femoral neck comparison data not recommended for monitoring change. Left total hip: 0.930 g/cm2, T-score -0.1 Right femoral neck: 0.631 g/cm2, T-score -2.0 Femoral neck comparison data not recommended for monitoring change. Right total hip: 0.946 g/cm2, T-score 0.0 The World Health Organization has defined the following categories based on bone density: Normal bone density: T-score equal to or greater than -1.0 Osteopenia: T-score between -1.0 and -2.5 Osteoporosis: T-score equal to or less than -2.5 FRAX (or Comparable) Fracture Risk Assessment: 10 Year Probability of Fracture: Major Osteoporotic Fracture: 25% Hip Fracture: 4.3% (Note: FRAX is not to be reported in setting of normal range bone density, osteoporosis on DEXA, known history of osteoporosis, prior osteoporotic hip or vertebral fracture, or for any patient undergoing pharmacological treatment for bone loss.) The National Osteoporosis Foundation (NOF) recommends pharmacological treatment for patients with a FRAX 10-year risk of 3% or higher for a hip fracture, or 20% or higher for a major osteoporotic fracture, to prevent osteoporosis and reduce fracture risk. The patient does meet the pharmacological treatment recommendations for prevention of osteoporosis. BD/Dexa Bone Density Study IMPRESSION: OSTEOPENIA. Recommend follow-up as clinically warranted. Reading Location: [facility]
--- OUTSIDE RECORDS SUMMARY | 2025-01-27 17:03 | XMS RPT_ITS | CCD ---
Author Organization [facility] Inform ion Partnership [facility] Care Team Providers Care Assistant Director Of Public Works Name Role Phone Robert Najera MD Primary Care Provider Malys DO, Bernice Lacy Primary Care Provider ESTEFANI GREGORY, BERNICE Attending Unavailable MALYS, BERNICE A Primary Care Unavailable MALYS, BERNICE A Primary Care Unavailable MD ROSS TARAS Attending Unavailable Malys DO, Bernice Lacy Primary Care Provider XIMENA CARDENAS Attending Unavailable MALYS, BERNICE A Primary Care Unavailable NEMUNIRA HERNANDEZ Attending Unavail able MALYS, BERNICE A Primary Care Unavailable MUNIRA RUELAS Referring Unavail able MALYS, BERNICE A Primary Care Unavailable MUNIRA RUELAS Attending Unavail able XIMENA CARDENAS Referring Unavailable MALYS, BERNICE A Primary Care Unavailable XIMENA CARDENAS Referring Unavailable MALYS, BERNICE A Primary Care Unavailable Malys , Dr. Queen Primary Care Provider Dr. Bernice Andujar DO Attending Provider Jonathanys Dr. Bernice BOOTH Referring Provider Jonathanys, Bernice Referring Unavailable Malys, Bernice Attending Unavailable Malys, Bernice Primary Care Unavailable Malys, Bernice Attending Unavailable Malys, Bernice Primary Care Unavailable Malys, Bernice Referring Unavailable Malys, Bernice Attending Unavailable Malys, Bernice Primary Care Unavailable Malys, Bernice Attending Unavailable Malys, Bernice Primary Care Unavailable Malys, Bernice Referring Unavailable Allergies Allergy Classification Reported Allergen(s) Allergy Type Date of Onset Reaction(s) Facility Sulfamethoxazole / Trimethoprim (1 source) Sulfamethoxazole / Trimethoprim Drug Allergy 02-04-20 18 GI Upset [facility] (6 sources) Penicillins; Translations: [PENICILLINS] Drug Allergy 10-25-19 11 [facility] (18 sources) Sulfamethoxazole / Trimethoprim; Translations: [SULFAMETHOXAZOLE-T RIMETHOPRIM] Drug Allergy 02-04-20 18 GI Upset [facility] (8 sources) Adhesive agent; Translations: [adhesive] Propensity to adverse reactions 05-22-20 [facility] (7 sources) Sulfamethoxazole Drug Allergy 05-22-20 21 Nausea/Vom/[facility] (7 sources) Trimethoprim Drug Allergy 05-22-20 21 Nausea/Vom/[facility] (3 sources) Penicillins Drug Allergy 10-25-19 11 [facility] (1 source) Sulfamethoxazole Drug Allergy 05-22-20 21 [facility] (1 source) Trimethoprim Drug Allergy 05-22-20 [facility] Medications Current Medications Medication Drug Class(es) [...] th as directed. PRN with cold sores. [id number] 200 actuat albuterol 0.09 mg/actuat metered dose [...] PO AT BEDTIME January 24, 2014 12:00am bp Comment on above: Take 5 mg by mouth o nce daily. amoxicillin 500 mg oral tablet (7 sources) Penicillin-class Antibacterial Start: 021 take 4 tablets by mouth every hour Amoxicillin 500 mg tablet Active 500 mg PO ONCE 4 0 February 19, 2021 12:00am take 4 tabs [...] on above: Take 1 tablet by prince twice daily for 5 days. ASHWAGANDHA EXTRACT [...] mg / cholecalciferol 0.01 mg oral tablet (7 sources) Vitamin D Start: 013 Calcium Carbonate-Vitamin D3 1 TAB tablet Active 1 {tbl} PO DAILY@0800 April 15, 2013 1:00am supplement Start: 04-15-2013 take 1 tablet by prince th once daily Calcium Carbonate-Vitamin D3 Active 1 TABLET PO DAILY@799April 15, 2013 12:00am Calcium Carbonate / vitamin [...] U PO DAILY December 14, 2015 12:00am supplement take 1 capsule by mouth once isaiah [...] mouth. Active dexamethasone 6 mg oral tablet (7 sources) Corticosteroid Start: 05-15-20 21 take 1 tablet by mouth once daily Dexamethasone (Decadron) 6 mg tablet Active 6 mg PO DAILY 7 0 May 15, 2021 1:00am diclofenac sodium 75 mg delayed release oral tablet (8 sources) Nonsteroidal Anti-inflammatory Drug Start: 07-05-19 End: 10-02-19 22 take 1 tablet by mouth twice daily Diclofenac Sodium 75 mg tablet,delayed release (DR/EC) Active 75 mg PO TWICE A DAY July 05, 2019 1:00am arthritis Comment on above: Take 75 mg by mouth twice daily. doxycycline monohydrate 100 mg oral tablet (15 sources) Tetracycline-class Drug Start: 04-23-20 End: 04-28-20 22 take 1 tablet by mouth twice daily doxycycline monohydrate 100 mg tablet Indications: Bacterial sinusitis Take 1 tablet by mouth twice daily for 5 days. 10 tablet 0 04/23/2022 04/28/2022 Active Start: 12-19-2020 End: 03-01-2021 take 1 capsule by mouth twice daily Doxycycline Hyclate 100 mg capsule Discontinued 100 mg PO TWICE A DAY 30 1 December 19, 2020 12:00am March 01, 2021 2:27pm Start: 11-10-2020 End: 11-16-2020 take 1 capsule by mouth twice daily Doxycycline Monohydrate 100 mg capsule Discontinued 100 mg PO TWICE A DAY 8 0 November 10, 2020 12:00am November 16, 2020 11:00am Comment on above: [facility]. esomeprazole 20 mg delayed release oral capsule (20 sources) Proton Pump Inhibitor Start: 07-13-19 take 1 capsule by mouth once daily Esomeprazole Magnesium 20 MG capsule Active 20 mg PO DAILY July 13, 2019 1:00am gerd Comment on above: Take 1 capsule by mo [facility] once daily. fexofenadine hydrochloride 180 mg oral tablet (20 sources) Histamine-1 Receptor Antagonist Start: 07-13-19 take 1 tablet by mouth once daily Fexofenadine 180 MG tablet Active 180 mg PO DAILY July 13, 2019 1:00am allergies Comment on above: Take 180 mg by [...] mg PO DAILY April 15, 2013 1:00am bp Comment on above: Take 25 mg by mouth once daily. irbesartan 300 mg oral tablet (20 sources) Angiotensin 2 Receptor Yessica Start: 2019 take 1 tablet by mouth at bedtime Irbesartan 300 MG tablet Active 300 mg PO AT BEDTIME July 13, 2019 1:00am bp Start: 12-14-2015 End: 07-05-2019 take 1 tablet [...] ug PO DAILY April 15, 2013 1:00am thyroid Start: 04-15-2013 take 75 ug by mouth once daily Levothyroxine Active 75 MCG PO DAILY April 15, 2013 12:00am Comment on above: Take 75 mcg by mouth once daily. lysine 500 mg oral tablet (8 sources) lysine (L-LYSINE ) 500 mg tab Active Magnesium (16 sources) Start: 12-14-2015 MAGNESIUM ORAL Take 250 [...] mg PO DAILY December 14, 2015 12:00am supplement Start: 12-14-2015 take 1 tablet by prince [...] chloride 20 meq extended release oral tablet (7 sources) Start: 0 Potassium Chloride 20 MEQ tablet,ER particles/crystals Active 20 meq PO TUTH July 13, 2019 1:00am supplement started 07/10/19 for 7 days POTASSIUM-99 ORAL (8 sources) POTASSIUM-99 ORA L Active POTASSIUM-99 ORA L sertraline 50 mg oral tablet (20 sources) Serotonin Reuptake Inhibitor Start: 07-13-2019 take 1 tablet by mouth at bedtime Sertraline 50 MG tablet Active 50 mg PO AT BEDTIME July 13, 2019 1:00am depression Start: 12-14-2015 End: 07-05-2019 take 1 tablet [...] Sig (Original) acetaminophen 325 mg oral tablet (9 sources) Start: 12-14-2015 End: 07-05-2019 take 1 tablet by mouth twice daily as needed for pain Acetaminophen 325 MG tablet Discontinued 325 mg PO TWICE DAILY NEEDED as needed for Pain December 14, 2015 12:00am July 05, 2019 9:20am acetaminophen (T YLENOL 8 HOUR ORAL) Take by mouth. Active acetaminophen 325 mg / oxyCODONE hydrochloride 5 mg oral tablet (20 sources) Opioid Agonist Start: 11-10-2020 End: 12-07-2020 take 7-10 tablets by mouth every four hours as needed for pain Oxycodone-Acetaminophen (Percocet) 5-325 mg tablet Discontinued 1 {tbl} PO Q4H as needed for pain (scale score 7-10) 40 7 0 November 10, 2020 December 07, 2020 11:37am Acute postoperative pain Other acute postprocedural pain 28 tabs (twenty-eight) Start: 08-27-2019 End: 10-11-2020 take 1-2 tablets by mouth every six hours as needed for pain Oxycodone-Acetaminophen (Percocet) 5-325 mg tablet Discontinued 1 {tbl} PO EVERY 6 HOURS as needed for pain 56 0 August 27, 2019 October 11, 2020 11:13am 1-2 tabs every 6 hrs prn pain Start: 12-27-2015 End: 07-05-2019 Oxycodone-Acetaminophen 1 TA BLET tablet Discontinued 1 - 2 {tbl} PO EVERY 6 HOURS NEEDED as needed for Severe Pain (6-10/10) 90 0 December 27, 2015 12:00am July 05, 2019 9:21am Start: 12-27-2015 End: 07-05-2019 take 1 tablet by mouth every six hours as needed Oxycodone-Acetaminophen Discontinued 1 - 2 TABLET PO EVERY 6 HOURS NEEDED 90 December 26, 2015 11:00pm July 05, 2019 8:21am Albuterol Sulfate 1 PUFF inhaler (3 sources) Start: 04-15-2013 End: 07-05-2019 Albuterol Sulfate 1 PUFF inhaler Discontinued 1 - 2 NMA INHALATION EVERY 4 HOURS NEEDED as needed for Asthma April 15, 2013 1:00am July 05, 2019 9:20am apixaban 2.5 mg oral tablet (7 sources) Factor Xa Inhibitor Start: 08-11-2019 End: 10-11-2020 take 1 tablet by mouth twice daily Apixaban 2.5 MG tablet Discontinued 2.5 mg PO TWICE A DAY 28 0 August 11, 2019 12:00am October 11, 2020 11:14am aspirin 325 mg oral tablet (7 sources) Platelet Aggregation Inhibitor, Nonsteroidal Anti-inflammatory Drug Start: 12-27-2015 End: 07-05-2019 take 1 tablet by mouth twice daily at mealtime Aspirin 325 MG tablet Discontinued 325 mg PO TWICE DAILY WITH MEALS 60 0 December 27, 2015 12:00am July 05, 2019 9:20am dicyclomine hydrochloride 20 mg oral tablet (7 sources) Anticholinergic Start: 12-14-2015 End: 07-05-2019 take 1 tablet by mouth three times daily Dicyclomine 20 MG tablet Discontinued 20 mg PO THREE TIMES A DAY December 14, 2015 12:00am July 05, 2019 9:20am 12 hr fexofenadine hydrochloride 60 mg / pseudoephedrine hydrochloride 120 mg extended release oral tablet (7 sources) alpha-Adrenergic Agonist, Histamine-1 Receptor Antagonist Start: [...] 03/01/2024 Discontinued ibuprofen 600 mg oral tablet (7 sources) Nonsteroidal Anti-inflammatory Drug Start: 01-24-2014 End: 07-13-2015 take 1 tablet by mouth every eight hours as needed for pain Ibuprofen 600 MG tablet Discontinued 600 mg PO EVERY 8 HOURS NEEDED as needed for Pain January 24, 2014 12:00am July 13, 2015 9:30am lactobacillus acidophilus [id number] unt oral capsule (7 sources) Start: 12-14-2015 End: 07-05-2019 take 1 capsule by mouth once daily Lactobacillus Acidophilus 100 MG capsule Discontinued 100 mg PO DAILY December 14, 2015 12:00am July 05, 2019 9:20am linezolid 600 mg oral tablet (7 sources) Oxazolidinone Antibacterial Start: 12-25-2020 End: 01-08-2021 take 1 tablet by mouth every twelve hours Linezolid 600 mg tablet Discontinued 600 mg PO Q12H 28 14 0 December 25, 2020 12:00am January 07, 2021 12:00am January 08, 2021 12:01am loperamide hydrochloride 2 mg oral tablet (9 sources) Opioid Agonist Start: 12-14-2015 End: 07-05-2019 [...] furoate 0.05 mg/actuat metered dose nasal spray (7 sources) Corticosteroid Start: 01-24-2014 End: 07-05-2019 Mometasone 1 SPRAY spray,non-aerosol Discontinued 1 NMA NASAL DAILY NEEDED as needed for Allergies January 24, 2014 12:00am July 05, 2019 9:21am Start: 01-24-2014 End: 07-05-2019 Mometasone Discontinued 1 SP RAY NASAL DAILY NEEDED January 23, 2014 11:00pm July 05, 2019 8:21am Abghkxjl-All-Td-Lycopen-Lute in (4 sources) Start: 01-24-2014 End: 07-05-2019 Gmqokwqi-Kud-Kp-Lycopen-Lute in Discontinued 1 EACH PO DAILY January 24, 2014 4:48pm July 05, 2019 9:21am Start: 01-24-2014 End: 07-05-2019 Dmrmwuud-Jjo-Ge-Lycopen-Lute in Discontinued 1 EACH PO DAILY January 23, 2014 11:00pm July 05, 2019 8:21am Lzgnkduy-Nrj-Zr-Lycopen-Lute in 1 EACH tablet (3 sources) Start: 01-24-2014 End: 07-05-2019 Srkxkmex-Kyu-Mi-Lycopen-Lute in 1 EACH tablet Discontinued 1 NMA PO DAILY January 24, 2014 12:00am July 05, 2019 9:21am naproxen 500 mg oral tablet (7 sources) Nonste roidal Anti-i nflamm atory Drug Start: 04-15-2013 End: 04-22-2013 take 1 tablet by mouth once daily as needed for pain Naproxen 500 MG tablet Discontinued 500 mg PO DAILY NEEDED as needed for Mild Pain April 15, 2013 1:00am April 22, 2013 1:08pm oxyCODONE hydrochloride 5 mg oral tablet (7 sources) Opioid Agonis t Start: 08-11-2019 End: 10-11-2020 take 5-10 mg by mouth every four hours as needed for pain Oxycodone 5 MG tablet Discontinued 5 - 10 mg PO EVERY 4 HOURS NEEDED as needed for Pain Score 4-10/10 60 0 August 11, 2019 October 11, 2020 11:12am Other acute postprocedural pain polyethylene glycol 3350 236 000 mg / potassium chloride 2970 mg / sodium bicarbonate 6740 mg / sodium chloride 5860 mg / sodium sulfate 14164 mg powder for oral solution (10 sources) [...] Classification Problem Date Documented Date Episodic/Chronic Asthma (7 sources) Asthma; Translations: [Unspecified asthma, uncomplicated] 05-22-2021 Chronic Chronic obstructive pulmonary disease and bronchiectasis (7 sources) Chronic obstructive lung disease; Translations: [Chronic obstructive pulmonary disease, unspecified] 05-22-2021 Chronic Chronic ulcer of skin (7 sources) Chronic ulcer of foot; Translations: [Non-pressure chronic ulcer of other part of left foot with fat layer exposed] 01-20-2021 Chronic Comment on above: dorsum left foot by second toe Complications of surgical procedures or medical care (7 sources) Delayed healing of surgical wound; Translations: [Other complications of procedures, not elsewhere classified, initial encounter] 01-20-2021 Episodic Conditions associated with dizziness or vertigo (7 sources) Dizziness; Translations: [Dizziness and giddiness] Onset: 10-05-2022 Episodic Diabetes mellitus without complication (1 source) Type 2 diabetes mellitus without complications; Translations: [Type 2 diabetes mellitus without complications] Onset: 01-20-2025 Chronic Diabetes mellitus without complication (3 sources) Prediabetes; [...] osteoarthritis, unspecified site] Onset: 03-31-2024 03-01-2024 Chronic Osteoporosis (1 source) Age-related osteoporosis without current pathological fracture; Translations: [Age-related osteoporosis without current pathological fracture] Onset: 01-24-2025 Chronic Other circulatory disease (1 source) Elevated blood-pressure reading, without diagnosis of hypertension; Translations: [Elevated blood pressure reading] Onset: 10-06-2022 Episodic Other circulatory disease (1 source) Personal history of other diseases of the circulatory system; Translations: [History of hypertension] Onset: 10-06-2022 Episodic Other connective tissue disease (14 sources) History of total knee arthroplasty; Translations: [Presence of right artificial knee joint] 10-13-2020 Chronic Comment on above: Right total knee art hroplasty CT guided Robotic Assisted - 08/10/19 Left total knee repl acement arthroplasty utilizing [employer] size 5 cementedposterior stabilized femur, size 5 tibia, 9 mm polyethylene and 35 mm patella - 12/25/15 Other connective tissue disease (7 sources) Ganglion cyst of left foot; Translations: [Ganglion, left ankle and foot] 10-13-2020 Episodic Comment on above: 2 cm painful ganglio n cyst proximal dorsum left foot by second toe Other connective tissue disease (7 sources) Foot pain; Translations: [Pain in left foot] 03-31-2021 Episodic Other ear and sense organ disorders (1 source) Tinnitus, unspecified ear; Translations: [Tinnitus, unspecified laterality] Onset: 10-05-2022 Episodic Other ear and sense organ disorders (5 sources) Tinnitus; Translations: [Tinnitus, unspecified ear] 10-24-2022 Episodic Other lower respiratory disease (2 sources) Radiologic infiltrate of lung ; Translations: [Other nonspecific abnormal finding of lung field] 05-15-2021 Episodic Other lower respiratory disease (5 sources) Single lobe lung infiltrate; Translations: [Other nonspecific abnormal finding of lung field] 05-15-2021 Episodic Other nervous system disorders (3 sources) Carpal tunnel syndrome; Translations: [Carpal tunnel syndrome, left upper limb] 10-13-2020 Chronic Other nervous system disorders (4 sources) Carpal tunnel syndrome of left wrist; Translations: [Carpal tunnel syndrome, left upper limb] 10-13-2020 Chronic Other nervous system disorders (7 sources) Acute postoperative pain; Translations: [Other acute postprocedural pain] 11-10-2020 Episodic Other nervous system disorders (1 source) Anesthesia of skin; Translations: [Numbness of left hand] Onset: 10-06-2022 Episodic Other nervous system disorders (5 sources) Tingling of skin; Translations: [Paresthesia of skin] 10-24-2022 Episodic Other non-epithelial cancer of skin (7 sources) History of malignant neoplasm of skin; [...] (BMI) of 40.0 to 44.9 in adult ([facility])] Onset: 03-31-2024 Chronic Other nutritional; endocrine; and metabolic disorders (1 source) Body mass index (BMI) 40.0-44.9, adult; Translations: [Class 3 severe obesity due to excess calories with serious comorbidity and body mass index (BMI) of 40.0 to 44.9 in adult (HCC)] Onset: 03-31-2024 Chronic Other screening for suspected conditions (not mental disorders or infectious disease) (7 sources) Encounter for screening for nutritional disorder; Translations: [Encounter for screening for diabetes mellitus] Onset: 12-08-2023 Episodic Other skin disorders (7 sources) Mass of foot; Translations: [Localized swelling, [...] apnea)] Onset: 03-31-2024 Chronic Residual codes; unclassified (7 sources) Past history of procedure; Translations: [Other specified postprocedural states] 10-13-2020 Episodic Comment on above: excision left axilar y hidradenitis Residual codes; unclassified (7 sources) History of endometrial ablation; Translations: [Other specified postprocedural states] 10-13-2020 Episodic Residual codes; unclassified (7 sources) Family history of malignant neoplasm of [...] in adult (HCC)] Onset: 03-31-2024 Viral infection (7 sources) Disease caused by 2019-nCoV; Translations: [COVID-19] 05-15-2021 Episodic Past or Other Problems Problem Classification Problem Date Documented Da te Episodic/Chronic Benign neoplasm of uterus (17 sources) Uterine leiomyoma; Translations: [Leiomyoma of uterus, unspecified] Onset: 06-10-2011 06-10-2011 Episodic Results Test Name Value Interpretation Reference Range Facility Microalb:Creat Ratio,Random URon 01-13-2025 Creatinine [Mass/Vol] 44.30 mg/dL Normal 28.00-217.00 [facility] Comment on above: Performed By: #### L [id number] #### [facility] [address] [place] [address] MALB:CREAT UNABLE TO CALCULATE Normal <30 mg/g CRE [facility] Comment on above: Performed By: #### L [id number] #### [facility] [address] [place] [address] MICROALBUMIN,UR < 12.0 Normal <20 mg/L [facility] Comment on above: Performed By: #### L [id number] #### [facility] [address] [place] [id number] Microalbumin/creat ratio urO rdered By: Bernice Andujar on 01-13-2025 Urine microalbumin/creatinine ratio measurement UNABLE TO CALCULATE mg/g CRE <30 [facility] Random urine creatinine jimmie urement (mass/volume)Ordered By: Bernice Andujar on 01-13-2025 Creatinine Unsp time (U) [Mass/Vol] 44.30 mg/dL 28.00-217.00 [facility] Urine albumin measurement wi th detection limit of 20 mg/L or less (mass/volume)Ordered By: Bernice Andujar on 01-13-2025 Albumin DL <= 20 mg/L (U) [Mass/Vol] < 12.0 mg/L <20 mg/L [facility] Absolute lymphocyte countOrd ered By: Bernice Andujar on 11-04-2024 Lymphocytes Auto (Unsp spec) [#/Vol] 1.60 10*3/uL 0.83-4.51 [facility] Absolute neutrophil countOrd ered By: Bernice Andujar on 11-04-2024 Neutrophils (Bld) [#/Vol] 3.2 10*3/uL 2.0-7.7 [facility] Anion gap in Serum or Plasma Ordered By: Bernice Andujar on 11-04-2024 Anion gap [Moles/Vol] 13 mmol/L 5-15 [facility] Automated lymphocyte count a s percentage of total leukocytesOrdered By: Bernice Andujar on 11-04-2024 Lymphocytes/100 WBC Auto (Unsp spec) 29.9 % - [facility] BUN/creatinine ratioOrdered By: Bernice Andujar on 11-04-2024 Urea nitrogen/Creatinine [Mass ratio] 17.8 mg/mg 10-20 [facility] Basophil percentageOrdered B y: Bernice Andujar on 11-04-2024 Basophils/100 WBC (Bld) 0.6 % 0-1 [facility] Bilirubin, totalOrdered By: Bernice Andujar on 11-04-2024 Bilirubin [Mass/Vol] 0.46 mg/dL 0.00-1.30 [facility] CBC W/Diff, Automatedon Absolute Lymph 1.60 X10 3/uL Normal 0.83-4.51 [facility] Comment on above: Performed By: #### L [id number], [id number], L100.0100, L500.4050, [id number] #### [facility] [address] [place], [address] Absolute Neut 3.2 X10 3/uL Normal 2.0-7.7 [facility] Comment on above: Performed By: #### L [id number], [id number], L100.0100, L500.4050, [id number] #### [facility] [address] [place], [address] Basophils/100 WBC (Bld) 0.6 % Normal 0-1 [facility] Comment on above: Performed By: #### L [id number], [id number], L100.0100, L500.4050, [id number] #### [facility] [address] [place], [address] Eosinophils/100 WBC (Bld) 2.8 % Normal 0-5 [facility] Comment on above: Performed By: #### L [id number], L506.0400, L100.0100, L500.4050, [id number] #### [facility] [address] [place], [address] Erythrocyte distribution width (RBC) [Ratio] 13.1 % Normal 11.6-14.6 [facility] Comment on above: Performed By: #### L [id number], L506.0400, L100.0100, L500.4050, [id number] #### [facility] [address] [place], [address] Hematocrit (Bld) [Volume fraction] 40.6 % Normal 37-47 [facility] Comment on above: Performed By: #### L [id number], L506.0400, L100.0100, L500.4050, [id number] #### [facility] [address] [place], [address] Hemoglobin (Bld) [Mass/Vol] 13.7 g/dL Normal 12.0-15.0 [facility] Comment on above: Performed By: #### L [id number], L506.0400, L100.0100, L500.4050, [id number] #### [facility] [address] [place], [address] IG% 0.200 Normal 0.0-0.9 [facility] Comment on above: Result Comment: IG% - Immature Granulocytes (promyelocytes, myelocytes and metamyelocytes) > 1% indicates that a LEFT SHIFT is Present. Performed By: #### L [id number], L506.0400, L100.0100, L500.4050, [id number] #### [facility] [address] [place], [address] Lymphocytes/100 WBC (Bld) 29.9 % Normal 19-41 [facility] Comment on above: Performed By: #### L [id number], L506.0400, L100.0100, L500.4050, [id number] #### [facility] [address] [place], [address] MCH (RBC) [Entitic mass] 29.9 pg Normal 27.0-32.0 [facility] Comment on above: Performed By: #### L [id number], L506.0400, L100.0100, L500.4050, [id number] #### [facility] [address] [place], [address] MCHC (RBC) [Mass/Vol] 33.7 g/dL Normal 32-36 [facility] Comment on above: Performed By: #### L [id number], L506.0400, L100.0100, L500.4050, [id number] #### [facility] [address] [place], [address] MCV (RBC) [Entitic vol] 88.6 fL Normal 81-99 [facility] Comment on above: Performed By: #### L [id number], L506.0400, L100.0100, L500.4050, [id number] #### [facility] [address] [place], [address] Monocytes/100 WBC (Bld) 7.3 % Normal 0-10 [facility] Comment on above: Performed By: #### L [id number], [id number], L100.0100, L500.4050, [id number] #### [facility] [address] [place], [address] Neutrophils/100 WBC (Bld) 59.2 % Normal 47-70 [facility] Comment on above: Performed By: #### L [id number], [id number], L100.0100, L500.4050, [id number] #### [facility] [address] [place], [address] Nucleated RBC (Bld) [#/Vol] 0 10*3/uL Normal 0-5 [facility] Comment on above: Performed By: #### L [id number], [id number], L100.0100, L500.4050, [id number] #### [facility] [facility] [address] [place], [address] Platelet mean volume (Bld) [Entitic vol] 10.0 fL Normal 6.2-12.0 [facility] Comment on above: Performed By: #### L 501.9520, L506.0400, L100.0100, L500.4050, L501.62340 #### [facility] [address] [place], [address] Platelets (Bld) [#/Vol] 229 10*3/uL Normal 150-450 [facility] Comment on above: Performed By: #### L 501.9520, L506.0400, L100.0100, L500.4050, L501.29559 #### [facility] [address] [place], [address] RBC (Bld) [#/Vol] 4.58 10*6/uL Normal 4.2-5.4 [place] Comment on above: Performed By: #### L 501.9520, L506.0400, L100.0100, L500.4050, L501.67344 #### [facility] [address] [place], [address] RDW SD 42.7 fl Normal 35.1-43.9 [facility] Comment on above: Performed By: #### L 501.9520, L506.0400, L100.0100, L500.4050, L501.67815 #### [facility] [address] [place], [address] WBC (Bld) [#/Vol] 5.4 10*3/uL Normal 4.4-11.0 [facility] Comment on above: Performed By: #### L 501.9520, L506.0400, L100.0100, L500.4050, L501.56260 #### [facility] [address] [place], [address] Carbon dioxide, total [Moles /volume] in Central venous bloodOrdered By: Bernice Andujar on 11-04-2024 CO2 [Moles/Vol] 26.9 mmol/L 21.0-32.0 [facility] Chloride assayOrdered By: Cherelle Andujar on 11-04-2024 Chloride [Moles/Vol] 100 mmol/L 98-108 [facility] Comprehensive Metabolic Prof ilon 11-04-2024 Albumin [Mass/Vol] 4.7 g/dL Normal 3.4-4.8 [facility] Comment on above: Performed By: #### L 501.9520, L506.0400, L100.0100, L500.4050, L501.23076 #### [facility] [address] [place], [address] Albumin/Globulin [Mass ratio] 1.5 {ratio} Normal 0.9-2.4 [facility] Comment on above: Performed By: #### L 501.9520, L506.0400, L100.0100, L500.4050, L501.79258 #### [facility] [address] [place], [address] ALK PHOS 128 U/L High 35-104 [facility] Comment on above: Performed By: #### L 501.9520, L506.0400, L100.0100, L500.4050, L501.17111 #### [facility] [address] [place], [address] ALT [Catalytic activity/Vol] 26 U/L Normal <=34 [facility] Comment on above: Performed By: #### L 501.9520, L506.0400, L100.0100, L500.4050, L501.46471 #### [facility] [address] [place], [address] AST [Catalytic activity/Vol] 28 U/L Normal <=31 [facility] Comment on above: Performed By: #### L 501.9520, L506.0400, L100.0100, L500.4050, L501.79967 #### [facility] [address] [place], [address] Bilirubin [Mass/Vol] 0.46 mg/dL Normal 0.00-1.30 [facility] Comment on above: Performed By: #### L 501.9520, L506.0400, L100.0100, L500.4050, L501.92702 #### [facility] [address] [place], [address] BUN/CRE 17.8 RATIO Normal 10-20 [facility] Comment on above: Performed By: #### L 501.9520, L506.0400, L100.0100, L500.4050, L501.87713 #### [facility] [address] [place], [address] Calcium [Mass/Vol] 10.0 mg/dL Normal 7.6-11.0 [facility] Comment on above: Performed By: #### L 501.9520, L506.0400, L100.0100, L500.4050, L501.92380 #### [facility] [address] [place], [address] Chloride [Moles/Vol] 100 mmol/L Normal 98-108 [facility] Comment on above: Performed By: #### L 501.9520, L506.0400, L100.0100, L500.4050, L501.42507 #### [facility] [address] [place], [address] CO2 [Moles/Vol] 26.9 mmol/L Normal 21.0-32.0 [facility] Comment on above: Performed By: #### L 501.9520, L506.0400, L100.0100, L500.4050, L501.06537 #### [facility] [address] [place], [address] Creatinine [Mass/Vol] 0.72 mg/dL Normal 0.70-1.20 [facility] Comment on above: Performed By: #### L 501.9520, L506.0400, L100.0100, L500.4050, L501.86049 #### [facility] [address] [place], [address] GAP 13 Normal 5-15 [facility] Comment on above: Performed By: #### L 501.9520, L506.0400, L100.0100, L500.4050, L501.05281 #### [facility] [address] [place], [address] GFR/1.73 sq M.predicted among non-blacks MDRD (S/P/Bld) [Vol rate/Area] 91 mL/min/{1.73_m2} Normal >60 [facility] Comment on above: Result Comment: mL/m in/1.73m2 CKD-EPI Creatinine Equation (2020) Performed By: #### L 501.9520, L506.0400, L100.0100, L500.4050, L501.60891 #### [facility] [address] [place], [address] Globulin (S) [Mass/Vol] 3.1 g/dL Normal 2.2-4.2 [facility] Comment on above: Performed By: #### L 501.9520, L506.0400, L100.0100, L500.4050, L501.56350 #### [facility] [address] [place], [address] Glucose [Mass/Vol] 87 mg/dL Normal 70-99 [facility] Comment on above: Performed By: #### L 501.9520, L506.0400, L100.0100, L500.4050, L501.38232 #### [facility] [address] [place], [address] Potassium [Moles/Vol] 3.9 mmol/L Normal 3.3-5.1 [facility] Comment on above: Performed By: #### L 501.9520, L506.0400, L100.0100, L500.4050, L501.94217 #### [facility] [address] [place], [address] Sodium [Moles/Vol] 139 mmol/L Normal 133-145 [facility] Comment on above: Performed By: #### L 501.9520, L506.0400, L100.0100, L500.4050, L501.33042 #### [facility] [address] [place], [address] T PROT 7.7 g/dL Normal 5.9-8.4 [facility] Comment on above: Performed By: #### L 501.9520, L506.0400, L100.0100, L500.4050, L501.73409 #### [facility] [address] [place], [address] Urea nitrogen [Mass/Vol] 13 mg/dL Normal 4-19 [facility] Comment on above: Performed By: #### L 501.9520, L506.0400, L100.0100, L500.4050, L501.23528 #### [facility] [address] [place], [address] Eosinophil percentageOrdered By: Bernice Andujar on 11-04-2024 Eosinophils/100 WBC (Bld) 2.8 % 0-5 [facility] Erythrocyte distribution wid th ratioOrdered By: Bernice Andujar on 11-04-2024 Erythrocyte distribution width (RBC) [Ratio] 13.1 % 11.6-14.6 [facility] Erythrocyte distribution wid th standard deviationOrdered By: Bernice Andujar on 11-04-2024 Erythrocyte distribution width (RBC) [Ratio] 42.7 fl 35.1-43.9 [facility] Free T3on 11-04-2024 Free T3 [Mass/Vol] 3.0 pg/mL Normal 2.18-3.98 [facility] Comment on above: Order Comment: N Performed By: #### L 501.9520, L506.0400, L100.0100, L500.4050, L501.04623 #### [facility] [address] [place], [address] Free T4Vqqcqny By: Bernice monte on 11-04-2024 Free T3 [Mass/Vol] 3.0 pg/mL 2.18-3.98 [facility] Glomerular filtration rate ( GFR) estimation/1.73 sq m using serum, plasma, or whole bOrdered By: Bernice Andujar on 11-04-2024 GFR/1.73 sq M.predicted among non-blacks MDRD (S/P/Bld) [Vol rate/Area] 91 mL/min/{1.73_m2} >60 [facility] Comment on above: mL/min/1.73m2 CKD-EP I Creatinine Equation (2020) Hematocrit Auto (Bld) [Volum e fraction]Ordered By: Bernice Andujar on 11-04-2024 Hematocrit (Bld) [Volume fraction] 40.6 % 37-47 [facility] Hemoglobin measurementOrdere d By: Bernice Andujar on 11-04-2024 Hemoglobin (Bld) [Mass/Vol] 13.7 g/dL 12.0-15.0 [facility] Immature granulocytes/100 WB C Auto (Bld)Ordered By: Bernice Andujar on 11-04-2024 Immature granulocytes/100 WBC (Bld) 0.200 % 0.0-0.9 [facility] Comment on above: IG% - Immature Granu locytes (promyelocytes, myelocytes and metamyelocytes) > 1% indicates that a LEFT SHIFT is Present. Laboratory - Chemistry and C hemistry - challengeOrdered By: Bernice Andujar on 11-04-2024 AST [Catalytic activity/Vol] 28 U/L <32 [facility] MCV (mean corpuscular volume ) determinationOrdered By: Bernice Andujar on 11-04-2024 MCV (RBC) [Entitic vol] 88.6 fL 81-99 [facility] Mean corpuscular hemoglobin (MCH) determinationOrdered By: Bernice Andujar on 11-04-2024 MCH (RBC) [Entitic mass] 29.9 pg 27.0-32.0 [facility] Mean corpuscular hemoglobin concentration (MCHC) determinationOrdered By: Bernice Andujar on 11-04-2024 MCHC (RBC) [Mass/Vol] 33.7 g/dL 32-36 [facility] Mean platelet volume determi nationOrdered By: Bernice Andujar on 11-04-2024 Platelet mean volume (Bld) [Entitic vol] 10.0 fL 6.2-12.0 [facility] Monocyte percentageOrdered B y: Bernice Andujar on 11-04-2024 Monocytes/100 WBC (Bld) 7.3 % 0-10 [facility] Neutrophil percentageOrdered By: Bernice Andujar on 11-04-2024 Neutrophils/100 WBC (Bld) 59.2 % 47-70 [facility] Nucleated red blood cell per centageOrdered By: Bernice Andujar on 11-04-2024 Nucleated RBC/100 WBC (Bld) [Ratio] 0 % 0-5 [facility] Platelet countOrdered By: Cherelle Andujar on 11-04-2024 Platelets (Bld) [#/Vol] 229 10*3/uL 150-450 [facility] Potassium measurement (mass/ volume)Ordered By: Bernice Andujar on 11-04-2024 Potassium (Unsp spec) [Mass/Vol] 3.9 mmol/L 3.3-5.1 [facility] RBC Auto (Bld) [#/Vol]Ordere d By: Bernice Andujar on 11-04-2024 RBC (Bld) [#/Vol] 4.58 10*6/uL 4.2-5.4 [place] Serum creatinine measurement (mass/volume)Ordered By: Bernice Andujar on 11-04-2024 Creatinine [Mass/Vol] 0.72 mg/dL 0.70-1.20 [facility] Serum globulin measurementOr dered By: Bernice Andujar on 11-04-2024 Globulin (S) [Mass/Vol] 3.1 g/dL 2.2-4.2 [facility] Serum glucose measurement (m ass/volume)Ordered By: Bernice Andujar on 11-04-2024 Glucose [Mass/Vol] 87 mg/dL 70-99 [facility] Serum or plasma alanine donnelly otransferase (ALT) measurementOrdered By: Bernice Andujar on 11-04-2024 ALT [Catalytic activity/Vol] 26 U/L <35 [facility] Serum or plasma albumin jimmie urement (mass/volume)Ordered By: Bernice Andujar on 11-04-2024 Albumin [Mass/Vol] 4.7 g/dL 3.4-4.8 [facility] Serum or plasma albumin/glob ulin mass ratioOrdered By: Bernice Andujar on 11-04-2024 Albumin/Globulin [Mass ratio] 1.5 {ratio} 0.9-2.4 [facility] Serum or plasma alkaline villa sphatase measurementOrdered By: Bernice Andujar on 11-04-2024 ALP [Catalytic activity/Vol] 128 U/L High 35-104 [facility] Serum or plasma calcium jimmie urement (mass/volume)Ordered By: Bernice Andujar on 11-04-2024 Calcium [Mass/Vol] 10.0 mg/dL 7.6-11.0 [facility] Serum or plasma urea nitroge n measurement (mass/volume)Ordered By: Bernice Andujar on 11-04-2024 Urea nitrogen [Mass/Vol] 13 mg/dL 4-19 [facility] Sodium levelOrdered By: Bernice Andujar on 11-04-2024 Sodium [Moles/Vol] 139 mmol/L 133-145 [facility] T4 Free Directon 11-04-2024 T4 FREE DIRECT 1.30 ng/dL Normal 0.76-1.46 [facility] Comment on above: Order Comment: N Performed By: #### L 501.9520, L506.0400, L100.0100, L500.4050, L501.91989 #### [facility] [address] [place], [place], [address] T4 freeOrdered By: Bernice Cox s on 11-04-2024 Free T4 [Mass/Vol] 1.30 ng/dL 0.76-1.46 [facility] TSH DL <= 0.005 mIU/L QnOrde red By: Bernice Andujar on 11-04-2024 TSH Qn 1.930 uIU/mL 0.300-4.200 [facility] Thyroid Stim Hormone (TSH)on 11-04-2024 TSH 1.930 uIU/mL Normal 0.300-4.200 [facility] Comment on above: Performed By: #### L 501.9520, L506.0400, L100.0100, L500.4050, L501.77451 #### [facility] [address] [place], [place], [address] Total proteinOrdered By: Regina Andujar on 11-04-2024 Protein [Mass/Vol] 7.7 g/dL 5.9-8.4 [facility] White blood cell (WBC) count Ordered By: Bernice Andujar on 11-04-2024 WBC (Bld) [#/Vol] 5.4 10*3/uL 4.4-11.0 [facility] Thoracic Spine 3 Viewson Thoracic Spine 3 Views [facility] [address] [place] [address] Thoracic Spine 3 Views MR#: [id number] Acct: [id number] Name: GWEN ROCKWELL Rep #: [id number] : 1955 F 69 From: Fanny lainez MD PCP: Dr. Bernice Andujar DO Status: REG CLI Study: Thoracic Spine 3 Views Date of Exam: 11/03/24 Exam# [id number] Ordering Dr: Bernice Andujar DO PROCEDURE: THORACIC [...] and lower thoracic vertebral bodies. Reading Location: [place] [address] CC: Dr. Bernice Andujar DO Life Specialist: Signed Normal [facility] CNOVon 03-31-2024 CNOV Office Visit (OBGYWM ) GWEN ROCKWELL ([id number]) 1955 F Date Time Provider Department 03/31/24 11:40 AM MUNIRA RUELAS During your visit today, we [...] understood. Topiramate affects body mass index, fasting vgyixpj-wk-fvdwwlm ratio, and serum leptin and cortisol levels. [...] or d (more content not included)... Normal [facility] CNPNon 03-05-2024 CNPN Telephone (OBGYWM) GWEN ROCKWELL ([id number]) 1955 F Date Time Provider Department 03/05/24 MUNIRA RUELAS OBGYWM During your visit today, we recorded [...] pill with dinner). Please have her review [facility] medication before starting it. Neah Sheikh RN 03/05/2024 11:23 AM Signed Left [...] Status:Closed by YRIS FITZGERALD on 03/08/24 Normal [facility] 25([place])D3 [facility] 25-hydroxyvitamin D3 [Mass/Vol] 47.0 ng/mL Normal 31.0-80.0 [facility] Comment on above: Order Comment: Speci men Type: BLOOD SPECIMEN Ordering Facility: [facility] Address: [address] [place] [address] Performed By: #### 2 4323-8 #### [facility] CLIA [id number] [address] [place] [address] [place] CBC panel Auto (Bld)on 03-03 Erythrocyte distribution width (RBC) [Ratio] 14.1 % Normal 11.5-15.0 [facility] Comment on above: Order Comment: Speci men Type: BLOOD SPECIMEN Ordering Facility: [facility] Address: [address] [place] [address] Performed By: #### 5 8410-2 #### [id number] [address] [place] [address] [place] Hematocrit (Bld) [Volume fraction] 40.7 % Normal 36.0-46.0 [facility] Comment on above: Order Comment: Speci men Type: BLOOD SPECIMEN Ordering Facility: [facility] Address: [address] [place] [address] Performed By: #### 5 8410-2 #### [facility] CLIA [id number] [address] [place] [address] [place] Hemoglobin (Bld) [Mass/Vol] 13.6 g/dL Normal 11.5-15.5 [facility] Comment on above: Order Comment: Speci men Type: BLOOD SPECIMEN Ordering Facility: [facility] Address: [address] [place] [address] Performed By: #### 5 8410-2 #### [facility] CLIA [id number] [address] [place] [address] [place] MCH (RBC) [Entitic mass] 28.9 pg Normal 26.0-34.0 [facility] Comment on above: Order Comment: Speci men Type: BLOOD SPECIMEN Ordering Facility: [facility] Address: [address] [place], [place] [address] Performed By: #### 5 8410-2 #### [facility] CLIA [id number] [address] [place] [address] [place] MCHC (RBC) [Mass/Vol] 33.4 g/dL Normal 30.5-36.0 [facility] Comment on above: Order Comment: Speci men Type: BLOOD SPECIMEN Ordering Facility: [facility] Address: [address] [place], [place] [address] Performed By: #### 5 8410-2 #### [facility] CLIA [id number] [address] [place] [address] [place] MCV (RBC) [Entitic vol] 86.4 fL Normal 80.0-100.0 [facility] Comment on above: Order Comment: Speci men Type: BLOOD SPECIMEN Ordering Facility: [facility] Address: [address] [place] [address] Performed By: #### 5 8410-2 #### [facility] CLIA [id number] [address] [place] [address] [place] Nucleated RBC (Bld) [#/Vol] 10*3/uL Normal <0.01 [facility] Comment on above: Order Comment: Speci men Type: BLOOD SPECIMEN Ordering Facility: [facility] Address: [address] [place], [place] [address] Performed By: #### 5 8410-2 #### [facility] CLIA [id number] [address] [place] [address] [place] Platelet mean volume (Bld) [Entitic vol] 9.2 fL Normal 9.0-12.7 [facility] Comment on above: Order Comment: Speci men Type: BLOOD SPECIMEN Ordering Facility: [facility] Address: [address] [place], [place] [address] Performed By: #### 5 8410-2 #### [facility] CLIA [id number] [address] [place] [address] [place] Platelets (Bld) [#/Vol] 222 10*3/uL Normal 150-400 [facility] Comment on above: Order Comment: Speci men Type: BLOOD SPECIMEN Ordering Facility: [facility] Address: [address] [place], [place] [address] Performed By: #### 5 8410-2 #### [facility] CLIA [id number] [address] [place] [address] [place] RBC (Bld) [#/Vol] 4.71 10*6/uL Normal 3.90-5.20 [facility] Comment on above: Order Comment: Speci men Type: BLOOD SPECIMEN Ordering Facility: [facility] Address: [address] [place] [address] Performed By: #### 5 8410-2 #### [facility] CLIA [id number] [address] [place] [address] [place] WBC (Bld) [#/Vol] 5.55 10*3/uL Normal 3.70-11.00 [facility] Comment on above: Order Comment: Speci men Type: BLOOD SPECIMEN Ordering Facility: [facility] Address: [address] [place] [address] Performed By: #### 5 8410-2 #### [facility] CLIA [id number] [address] [place] [address] [place] Comprehensive metabolic 2000 panelon 03-03-2024 Albumin [Mass/Vol] 4.7 g/dL Normal 3.9-4.9 [facility] Comment on above: Order Comment: Speci men Type: BLOOD SPECIMEN Ordering Facility: [facility] Address: [address] [place] [address] Performed By: #### 2 4323-8 #### [facility] CLIA [id number] [address] [place] [address] [place] ALP [Catalytic activity/Vol] 132 U/L High 34-123 [facility] Comment on above: Order Comment: Speci men Type: BLOOD SPECIMEN Ordering Facility: [facility] Address: [address] [place] [address] Performed By: #### 2 4323-8 #### [facility] CLIA [id number] [address] [place] [address] [place] ALT [Catalytic activity/Vol] 28 U/L Normal 7-38 [facility] Comment on above: Order Comment: Speci men Type: BLOOD SPECIMEN Ordering Facility: [facility] Address: [address] [place] [address] Performed By: #### 2 4323-8 #### [facility] CLIA [id number] [address] [place] [address] [place] Anion gap [Moles/Vol] 12 mmol/L Normal 8-15 [facility] Comment on above: Order Comment: Speci men Type: BLOOD SPECIMEN Ordering Facility: [facility] Address: [address] [place] [address] Performed By: #### 2 4323-8 #### [facility] CLIA [id number] [address] [place] [address] [place] AST [Catalytic activity/Vol] 22 U/L Normal 13-35 [facility] Comment on above: Order Comment: Speci men Type: BLOOD SPECIMEN Ordering Facility: [facility] Address: [address] [place] [address] Performed By: #### 2 4323-8 #### [facility] CLIA [id number] [address] [place] [address] [place] Bilirubin [Mass/Vol] 0.4 mg/dL Normal 0.2-1.3 [facility] Comment on above: Order Comment: Speci men Type: BLOOD SPECIMEN Ordering Facility: [facility] Address: [address] [place] [id number] Performed By: #### 2 4323-8 #### [facility] CLIA [id number] [address] [place] [address] [place] Calcium [Mass/Vol] 9.9 mg/dL Normal 8.5-10.2 [facility] Comment on above: Order Comment: Speci men Type: BLOOD SPECIMEN Ordering Facility: [facility] Address: [address] [place] [address] Performed By: #### 2 4323-8 #### [facility] CLIA [id number] [address] [place] [address] [place] Chloride [Moles/Vol] 99 mmol/L Normal 98-107 [facility] Comment on above: Order Comment: Speci men Type: BLOOD SPECIMEN Ordering Facility: [facility] Address: [address] [place] [address] Performed By: #### 2 4323-8 #### [facility] CLIA [id number] [address] [place] [address] [place] CO2 [Moles/Vol] 24 mmol/L Normal 22-30 [facility] Comment on above: Order Comment: Speci men Type: BLOOD SPECIMEN Ordering Facility: [facility] Address: [address] [place] [address] Performed By: #### 2 4323-8 #### [facility] [id number] [address] [place] [address] [place] Creatinine [Mass/Vol] 0.67 mg/dL Normal 0.58-0.96 [facility] Comment on above: Order Comment: Ember perez Type: BLOOD SPECIMEN Ordering Facility: [facility] Address: [address] [place] [address] Performed By: #### 2 4323-8 #### [facility] [id number] [address] [place] [address] [place] Creatinine and Glomerular filtration rate.predicted panel (S/P/Bld) 96 mL/min/1.73m??? Normal >=60 [facility] Comment on above: Order Comment: Ember perez Type: BLOOD SPECIMEN Ordering Facility: [facility] Address: [address] [place] [address] Result Comment: Tiarra mated Glomerular Filtration Rate [...] GFR. Performed By: #### 2 4323-8 #### [facility] [id number] [address] [place] [address] [place] Glucose [Mass/Vol] 93 mg/dL Normal 74-99 [facility] Comment on above: Order Comment: Ember perez Type: BLOOD SPECIMEN Ordering Facility: [facility] Address: [address] [place] [address] Result Comment: The [place] [employer] (ADA) provides guidance for cutoff [...] Standards of Medical Care in Diabetes 2016, [place] [employer]. Diabetes Care. 2016.39(Suppl 1). Performed By: #### 2 4323-8 #### [facility] CLIA [id number] [address] [place] [address] [place] Potassium [Moles/Vol] 3.7 mmol/L Normal 3.7-5.1 [facility] Comment on above: Order Comment: Speci men Type: BLOOD SPECIMEN Ordering Facility: [facility] Address: [address] [place] [address] Performed By: #### 2 4323-8 #### [facility] [id number] [address] [place] [address] [place] Protein [Mass/Vol] 7.6 g/dL Normal 6.3-8.0 [facility] Comment on above: Order Comment: Speci men Type: BLOOD SPECIMEN Ordering Facility: [facility] Address: [address] [place] [address] Performed By: #### 2 4323-8 #### [facility] [id number] [address] [place] [address] [place] Sodium [Moles/Vol] 135 mmol/L Low 136-144 [facility] Comment on above: Order Comment: Speci men Type: BLOOD SPECIMEN Ordering Facility: [facility] Address: [address] [place] [address] Performed By: #### 2 4323-8 #### [facility] [id number] [address] [place] [address] [place] Urea nitrogen [Mass/Vol] 18 mg/dL Normal 7-21 [facility] Comment on above: Order Comment: Speci men Type: BLOOD SPECIMEN Ordering Facility: [facility] Address: [address] [place] [address] Performed By: #### 2 4323-8 #### [facility] [id number] [address] [place] [address] [place] HbA1c (Bld)on 03-03-2024 Average glucose Estimated from glycated hemoglobin (Bld) [Mass/Vol] 111 mg/dL Normal [facility] Comment on above: Order Comment: Ember men Type: BLOOD SPECIMEN Ordering Facility: [facility] Address: [address] [place] [address] Result Comment: eAG: (Estimated average glucose) is a calculated value from HgbA1c and is tour sales representative of the average blood glucose level in the last 2-3 month period. Performed By: #### 2 4323-8 #### [facility] [id number] [address] [place] [address] [place] HbA1c (Bld) [Mass fraction] 5.5 % Normal 4.3-5.6 [facility] Comment on above: Order Comment: Ember perez Type: BLOOD SPECIMEN Ordering Facility: [facility] Address: [address] [place] [address] Result Comment: Amer ican Diabetes Association guidelines indicate that patients with HgbA1c in the range 5.7-6.4% are at increased risk for development of diabetes, and intervention by lifestyle modification may be beneficial. HgbA1c greater or equal to 6.5% is considered diagnostic of diabetes. Performed By: #### 2 4323-8 #### [facility] [id number] [address] [place] [address] [place] Insulin SerPl-aCncon 024 Insulin Qn 26.7 u[IU]/mL High 3.0-25.0 [facility] Comment on above: Order Comment: Ember perez Type: BLOOD SPECIMEN Ordering Facility: [facility] Address: [address] [place] [address] Performed By: #### 2 0448-7 #### [facility] CLIA [id number] [address] [facility] [place] [address] [place] Lipid 1996 panelon 4 Cholesterol [Mass/Vol] 161 mg/dL Normal <200 [facility] Comment on above: Order Comment: Sarahi men Type: BLOOD SPECIMEN Ordering Facility: [facility] Address: [address] [place] [address] Result Comment: <200 mg/dL, Desirable 200-239 mg/dL, Borderline high >239 mg/dL, High Performed By: #### 2 4323-8 #### [facility] CLIA [id number] [address] [place] [address] [place] Cholesterol in HDL [Mass/Vol] 49 mg/dL Normal >39 [facility] Comment on above: Order Comment: Ember perez Type: BLOOD SPECIMEN Ordering Facility: [facility] Address: [address] [place] [address] Result Comment: 40-5 9 mg/dL, Acceptable >59 mg/dL, High: Negative risk factor for coronary heart disease <40 mg/dL, Low: Positive risk factor for coronary heart disease Performed By: #### 2 4323-8 #### [facility] [id number] [address] [place] [address] [place] Cholesterol in LDL [Mass/Vol] 80 mg/dL Normal <100 [facility] Comment on above: Order Comment: Speci men Type: BLOOD SPECIMEN Ordering Facility: [facility] Address: [address] [place] [address] Result Comment: <100 mg/dL, Optimal 100-129 mg/dL, Near optimal/above optimal 130-159 mg/dL, Borderline high 160-189 mg/dL, High >189 mg/dL, Very high Secondary prevention optimal LDL Cholesterol levels are recommended to be < 70 mg/dL Performed By: #### 2 4323-8 #### [facility] CLIA [id number] [address] [place] [address] [place] Cholesterol in LDL/Cholesterol in HDL [Mass ratio] 1.63 {ratio} Normal <2.54 [facility] Comment on above: Order Comment: Ember perez Type: BLOOD SPECIMEN Ordering Facility: [facility] Address: [address] [place] [address] Result Comment: Veronica cortes: 1. National Cholesterol Education Program ATP III Guideline At-A-Glance Quick Desk Reference: National Heart, Lung, and Blood [place]. National Institutes of Health. 2001: NIH Publication No. 01-3305. 2. An International Atherosclerosis Society position paper: global recommendations for the management of dyslipidemia: executive summary, Atherosclerosis. 2014: 232(2):410-413. Performed By: #### 2 4323-8 #### [facility] CLIA [id number] [address] [place] [address] [place] Cholesterol in VLDL [Mass/Vol] 32 mg/dL High <30 [facility] Comment on above: Order Comment: Ember perez Type: BLOOD SPECIMEN Ordering Facility: [facility] Address: [address] [place] [address] Performed By: #### 2 4323-8 #### [facility] [id number] [address] [place] [address] [place] Cholesterol non HDL [Mass/Vol] 112 mg/dL Normal <130 [facility] Comment on above: Order Comment: Ember perez Type: BLOOD SPECIMEN Ordering Facility: [facility] Address: [address] [place] [address] Result Comment: <130 mg/dL, Optimal 130-159 mg/dL, Near optimal/above optimal 160-189 mg/dL, Borderline high 190-219 mg/dL, High >219 mg/dL, Very high Secondary prevention optimal non HDL Cholesterol levels are recommended to be <100 mg/dL Performed By: #### 2 4323-8 #### [facility] CLIA [id number] [address] [place] [address] [place] Cholesterol.total/Choles terol in HDL [Mass ratio] 3.29 {ratio} Normal <5.10 [facility] Comment on above: Order Comment: Speci men Type: BLOOD SPECIMEN Ordering Facility: [facility] Address: [address] [place] [address] Performed By: #### 2 4323-8 #### [facility] CLIA [id number] [address] [place] [address] FASTING TIME 12 hrs Normal [facility] Comment on above: Order Comment: Speci men Type: BLOOD SPECIMEN Ordering Facility: [facility] Address: [address] [place] [address] Performed By: #### 2 4323-8 #### [facility] [id number] [address] [place] [address] [place] Triglyceride [Mass/Vol] 160 mg/dL High <150 [facility] Comment on above: Order Comment: Speci men Type: BLOOD SPECIMEN Ordering Facility: [facility] Address: [address] [place] [address] Result Comment: <150 mg/dL, Normal 150-199 mg/dL, Borderline high 200-499 mg/dL, High >499 mg/dL, Very high Performed By: #### 2 4323-8 #### [facility] [id number] [address] [place] [address] [place] TSH SerPl-aCncon 03-03-2024 TSH Qn 1.760 m[IU]/L Normal 0.270-4.200 [facility] Comment on above: Order Comment: Speci men Type: BLOOD SPECIMEN Ordering Facility: [facility] Address: [address] [place] [address] Performed By: #### 2 4323-8 #### [facility] [id number] [address] [place] [address] [place] CNOVon 03-01-2024 CNOV Office Visit (OBGYWM ) GWEN ROCKWELL ([id number]) 1955 F Date Time Provider Department 03/01/24 3:20 PM MUNIRA RUELAS During your visit today, we [...] of unhealthy foods, inadequate sleep duration, 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 Difficulty losing weight? Yes she [...] Donuts caramel cream S - L - Collni fettnunui ad, Cheeseburger caleb, jorden aggarwal [place], Irish pizza (eats out a lot) S - [...] and increased consumption of sugar sweetened beverages. Back Facer of impaired eating habits:excessive hunger, lack of [...] Colonoscopy COLONOSC (more content not included)... Normal [facility] CNCOon 12-09-2023 CNCO HNO ID: [id number] Author: COORDINATOR, MAMMOGRAPHY, ? Service: ? Author Type: Physician Type: Letter Filed: 12/09/2023 13:08 Note Text: December 09, 2023 PID: [id number] Gwen Rockwell [address] [place] [address] Dear Ms. Rockwell, We are pleased to [...] report will be kept on file at [facility] as part of your permanent medical record and are available for your continuing care. Thank you for allowing us to help in meeting your health care needs. Sincerely, Dr. Shepherd Interpreting Radiologist [facility] (Normal over 40) Normal [facility] WENDY SCREENING W TOMOon 12-07 WENDY SCREENING W LESVIA * * *Final Report* * * DATE OF EXAM: Dec 08 2023 11:41AM WRW 0582 - WENDY SCREENING W LESVIA / PROCEDURE REASON: Encounter for screening mammogram for breast cancer * * * * Physician Interpretation * * * * RESULT: #[id number] - WENDY SCREENING W LESVIA BILATERAL DIGITAL [...] mammogram, 04/16/2019 mammogram, and 02/09/2018 mammogram - [facility]. There are scattered areas of fibroglandular density. [...] screening mammogram is recommended. Ya jeff/ajay:12/09/2023 13:08:36 Senior Portfolio Manager(s): RT Katlyn(R)(M), [facility] letter sent: Normal over 40 Mammogram BI-RADS: [...] Health, Family Medicine, and Medical/Surgical Oncology, the [facility] has carefully reviewed the data and [...] their providers when to stop screening mammograms. Life Specialist: Ajay Transcribe Date/Time: Alfonso 8 2024 11:21A Dictated by: YA SHEPHERD MD This examination was interpreted and the report reviewed and electronically signed by: YA SHEPHERD MD on Dec 09 2023 1:08PM EST [id number] Normal [facility] CNOVon 11-19-2023 CNOV Office Visit (OBGYWM ) GWEN ROCKWELL ([id number]) 1955 F Date Time Provider Department 11/19/23 [...] Multiple0 Live Births0 Comment: 1 vaginal delivery [place] Drier History LMP: 06/06/2011, Ablation Age at Menarche: Age at First : Age at Menopause: [place] Drier History Comments: Sexual Activity: Not Currently; No [...] external genitalia normal, normal Bartholin's glands, urethra, Reddell's glands, no vulvar lesions, no cervical lesions, [...] 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 Normal [facility] Laboratory - Chemistry and C hemistry - challengeOrdered By: Bernice Andujar on 05-27-2023 Cobalamin (Vitamin B12) [Mass/Vol] 1991 pg/mL 211-911 [facility] Serum or plasma glucose jimmie urement 2 hours post dose glucose (mass/volume)Ordered By: Bernice Andujar on 05-27-2023 Glucose 2 Hr post dose glucose [Mass/Vol] See comment [facility] Comment on above: FASTING 104 Col: [id number] [...] QTC Calculation(Bazett) : 429 ms Calculated P [place] : 49 degrees Calculated [place] : 5 degrees Calculated [place] : 20 degrees NORMAL SINUS RHYTHM NORMAL ECG 936 no change Confirmed by MD ROSS TARAS ([id number]), news editor Kristine Eden ([id number]) on 10/06/2022 4:32:47 PM NAME : GWEN ROCKWELL PID : [id number] : 1955 Gender : Female Race : ORD : [id number] Procedure Date : Oct 06 2022 09:34:06 Edit Date : Oct 06 2022 16:32:49 Diagnosis: NORMAL SINUS RHYTHM NORMAL ECG 936 no change Confirmed by MD ROSS TARAS ([id number]), news editor Kristine Eden ([id number]) on 10/06/2022 4:32:47 PM Test Reason : Dizziness Location : 1 : ER ED Overread By : MD ROSS TARAS Edited By : Kristine Eden Referred By : , Acquired by : , [facility] ED NOTEon 10-06-2022 ED NOTE HNO ID: [id number] Author: Ila De La Garza RN Service: ? Author Type: Registered Nurse Type: ED Notes Filed: 10/06/2022 10:29 AM Note Text: Discharge inst reviewed with pt, discussed follow up with pcp, pt verbalized understanding via teach back method, pt stable upon departure from ED [facility] ED PROV NOTEon 10-06-2022 ED PROV NOTE HNO ID: [id number] Author: Willian Ross MD Service: ? Author [...] nursing note reviewed. Exam conducted with a protection engineer present. Constitutional: General: She is not in [...] has 2+ (more content not included)... Normal [facility] HIGH SENSITIVITY TROPONIN To n 10-06-2022 HIGH SENSITIVITY BYRON <6 Normal <12 [facility] Comment on above: Order Comment: Speci men Type: BLOOD SPECIMEN Ordering Facility: [facility] Address: [address] [place] [address] Result Comment: When assessing risk for acute [...] MACE. Performed By: #### H STNT #### [facility] CLIA [id number] [address] [place] CBC W Auto Differential pane l (Bld)on 10-05-2022 Basophils (Bld) [#/Vol] 0.04 10*3/uL Normal <0.11 [facility] Comment on above: Order Comment: Speci men Type: BLOOD SPECIMEN Ordering Facility: [facility] Address: [address] [address] Performed By: #### 5 7021-8 #### [facility] CLIA [id number] [address] Basophils/100 WBC (Bld) 0.5 % Normal [facility] Comment on above: Order Comment: Speci men Type: BLOOD SPECIMEN Ordering Facility: [facility] Address: [address] [place] [address] Performed By: #### 5 7021-8 #### [facility] CLIA [id number] [address] Differential cell count method Nom (Bld) Auto Normal [facility] Comment on above: Order Comment: Speci men Type: BLOOD SPECIMEN Ordering Facility: [facility] Address: [address] [address] Performed By: #### 5 7021-8 #### [facility] CLIA [id number] [address] STATES OF [facility] Eosinophils (Bld) [#/Vol] 0.04 10*3/uL Normal <0.46 [facility] Comment on above: Order Comment: Speci men Type: BLOOD SPECIMEN Ordering Facility: [facility] Address: [address] [address] Performed By: #### 5 7021-8 #### [facility] CLIA [id number] [address] Eosinophils/100 WBC (Bld) 0.5 % Normal [facility] Comment on above: Order Comment: Speci men Type: BLOOD SPECIMEN Ordering Facility: [facility] Address: [address] [address] Performed By: #### 5 7021-8 #### [facility] CLIA [id number] [address] Erythrocyte distribution width (RBC) [Ratio] 14.0 % Normal 11.5-15.0 [facility] Comment on above: Order Comment: Speci men Type: BLOOD SPECIMEN Ordering Facility: [facility] Address: [address] [address] Performed By: #### 5 7021-8 #### [facility] CLIA [id number] [address] Hematocrit (Bld) [Volume fraction] 39.3 % Normal 36.0-46.0 [facility] Comment on above: Order Comment: Speci men Type: BLOOD SPECIMEN Ordering Facility: [facility] Address: [address] [address] Performed By: #### 5 7021-8 #### [facility] CLIA [id number] [address] [place] Hemoglobin (Bld) [Mass/Vol] 13.4 g/dL Normal 11.5-15.5 [facility] Comment on above: Order Comment: Speci men Type: BLOOD SPECIMEN Ordering Facility: [facility] Address: [address] [place] [address] Performed By: #### 5 7021-8 #### [facility] CLIA [id number] [address] [place] Immature granulocytes (Bld) [#/Vol] 10*3/uL Normal <0.10 [facility] Comment on above: Order Comment: Speci men Type: BLOOD SPECIMEN Ordering Facility: [facility] Address: [address] [address] Performed By: #### 5 7021-8 #### [facility] CLIA [id number] [address] Immature granulocytes/100 WBC (Bld) 0.2 % Normal [facility] Comment on above: Order Comment: Speci men Type: BLOOD SPECIMEN Ordering Facility: [facility] Address: [address] [address] Performed By: #### 5 7021-8 #### [facility] CLIA [id number] [address] Lymphocytes (Bld) [#/Vol] 1.48 10*3/uL Normal 1.00-4.00 [facility] Comment on above: Order Comment: Speci men Type: BLOOD SPECIMEN Ordering Facility: [facility] Address: [address] [place] [address] Performed By: #### 5 7021-8 #### [facility] CLIA [id number] [address] Lymphocytes/100 WBC (Bld) 18.5 % Normal [facility] Comment on above: Order Comment: Speci men Type: BLOOD SPECIMEN Ordering Facility: [facility] Address: [address] [place] [address] Performed By: #### 5 7021-8 #### [facility] CLIA [id number] [address] MCH (RBC) [Entitic mass] 29.3 pg Normal 26.0-34.0 [facility] Comment on above: Order Comment: Speci men Type: BLOOD SPECIMEN Ordering Facility: [facility] Address: [address] [place] [address] Performed By: #### 5 7021-8 #### [facility] CLIA [id number] [address] MCHC (RBC) [Mass/Vol] 34.1 g/dL Normal 30.5-36.0 [facility] Comment on above: Order Comment: Speci men Type: BLOOD SPECIMEN Ordering Facility: [facility] Address: [address] [place] [address] Performed By: #### 5 7021-8 #### [facility] CLIA [id number] [address] MCV (RBC) [Entitic vol] 85.8 fL Normal 80.0-100.0 [facility] Comment on above: Order Comment: Speci men Type: BLOOD SPECIMEN Ordering Facility: [facility] Address: [address] [address] Performed By: #### 5 7021-8 #### [facility] CLIA [id number] [address] [place] [address] [place] Monocytes (Bld) [#/Vol] 0.41 10*3/uL Normal <0.87 [facility] Comment on above: Order Comment: Speci men Type: BLOOD SPECIMEN Ordering Facility: [facility] Address: [address] [address] Performed By: #### 5 7021-8 #### [facility] CLIA [id number] [address] Monocytes/100 WBC (Bld) 5.1 % Normal [facility] Comment on above: Order Comment: Speci men Type: BLOOD SPECIMEN Ordering Facility: [facility] Address: [address] [address] Performed By: #### 5 7021-8 #### [facility] CLIA [id number] [address] [place] [address] [place] Neutrophils (Bld) [#/Vol] 6.03 10*3/uL Normal 1.45-7.50 [facility] Comment on above: Order Comment: Speci men Type: BLOOD SPECIMEN Ordering Facility: [facility] Address: [address] [address] Performed By: #### 5 7021-8 #### [facility] CLIA [id number] [address] [place] Neutrophils/100 WBC (Bld) 75.2 % Normal [facility] Comment on above: Order Comment: Speci men Type: BLOOD SPECIMEN Ordering Facility: [facility] Address: [address] [place] [address] Performed By: #### 5 7021-8 #### [facility] CLIA [id number] [address] [place] [address] [place] Nucleated RBC (Bld) [#/Vol] 10*3/uL Normal <0.01 [facility] Comment on above: Order Comment: Speci men Type: BLOOD SPECIMEN Ordering Facility: [facility] Address: [address] [address] Performed By: #### 5 7021-8 #### [facility] CLIA [id number] [address] [place] Nucleated RBC/100 WBC (Bld) [Ratio] 0.0 /100 WBC Normal [facility] Comment on above: Order Comment: Speci men Type: BLOOD SPECIMEN Ordering Facility: [facility] Address: [address] [address] Performed By: #### 5 7021-8 #### [facility] CLIA [id number] [address] [place] [address] [place] Platelet mean volume (Bld) [Entitic vol] 9.7 fL Normal 9.0-12.7 [facility] Comment on above: Order Comment: Speci men Type: BLOOD SPECIMEN Ordering Facility: [facility] Address: [address] [address] Performed By: #### 5 7021-8 #### [facility] CLIA [id number] [address] [place] Platelets (Bld) [#/Vol] 245 10*3/uL Normal 150-400 [facility] Comment on above: Order Comment: Speci men Type: BLOOD SPECIMEN Ordering Facility: [facility] Address: [address] [address] Performed By: #### 5 7021-8 #### [facility] CLIA [id number] [address] [place] [address] [place] RBC (Bld) [#/Vol] 4.58 10*6/uL Normal 3.90-5.20 [facility] Comment on above: Order Comment: Speci men Type: BLOOD SPECIMEN Ordering Facility: [facility] Address: [address] [address] Performed By: #### 5 7021-8 #### [facility] CLIA [id number] [address] [place] WBC (Bld) [#/Vol] 8.02 10*3/uL Normal 3.70-11.00 [facility] Comment on above: Order Comment: Speci men Type: BLOOD SPECIMEN Ordering Facility: [facility] Address: [place] [address] Performed By: #### 5 7021-8 #### [facility] CLIA [id number] [address] [place] [address] [facility] CT BRAIN WO IVCONon 10-06-[address] BRAIN WO IVCON * * *Final Report* * * DATE OF EXAM: Oct 05 2022 3:13PM [facility] 0504 - CT BRAIN WO IVCON / [...] Intracranial vertebral arteries basilar artery and the seo intern are patent. There is venous overlap and the dural venous sinuses appear patent as well. Industrial Commercial Groundskeeper (topogram) images: No additional findings. IMPRESSION: Patent [...] between software and imaging review: Not Applicable. Life Specialist: PSCB Transcribe Date/Time: Oct 05 2022 3:17P Dictated by : HOANG JULIAN MD This examination was interpreted and the report reviewed and electronically signed by: HOANG JULIAN MD on Oct 05 2022 3:21PM EST [id number] [facility] CTA HEAD W IVCONon 3 CTA HEAD W IVCON * * *Final Report* * * DATE OF EXAM: Oct 05 2022 3:13PM [facility] 0022 - CTA HEAD W IVCON / [...] Intracranial vertebral arteries basilar artery and the seo intern are patent. There is venous overlap and the dural venous sinuses appear patent as well. Industrial Commercial Groundskeeper (topogram) images: No additional findings. IMPRESSION: Patent [...] between software and imaging review: Not Applicable. Life Specialist: ANGEL Transcribe Date/Time: Oct 05 2022 3:17P Dictated by : HOANG JULIAN MD This examination was interpreted and the report reviewed and electronically signed by: HOANG JULIAN MD on Oct 05 2022 3:21PM EST [id number] [facility] CTA NECK W IVCONon 3 CTA NECK W IVCON * * *Final Report* * * DATE OF EXAM: Oct 05 2022 3:13PM [facility] 0024 - CTA NECK W IVCON / [...] Intracranial vertebral arteries basilar artery and the seo intern are patent. There is venous overlap and the dural venous sinuses appear patent as well. Industrial Commercial Groundskeeper (topogram) images: No additional findings. IMPRESSION: Patent [...] between software and imaging review: Not Applicable. Life Specialist: ANGEL Transcribe Date/Time: Oct 05 2022 3:17P Dictated by : HOANG JULIAN MD This examination was interpreted and the report reviewed and electronically signed by: HOANG JULIAN MD on Oct 05 2022 3:21PM EST [id number] Normal [facility] Comprehensive metabolic 2000 panelon 10-05-2022 Albumin [Mass/Vol] 4.5 g/dL Normal 3.9-4.9 [facility] Comment on above: Order Comment: Speci men Type: BLOOD SPECIMENOrdering Facility: [facility] Address: [address] [address] Performed By: #### L [id number], 57646-1, 43267-5 ####[facility] [id number] [place] [address] [place] ALP [Catalytic activity/Vol] 125 U/L High 34-123 [facility] Comment on above: Order Comment: Speci men Type: BLOOD SPECIMENOrdering Facility: [facility] Address: [address] [address] Performed By: #### L [id number], , ####NICOLE LABORATORYCLIA [id number] [place] [address] [place] ALT [Catalytic activity/Vol] 25 U/L Normal 7-38 [facility] Comment on above: Order Comment: Speci men Type: BLOOD SPECIMENOrdering Facility: [facility] Address: [address] [place] [address] Performed By: #### L [id number], , ####NICOLE LABORATORYCLIA [id number] [place] [address] [place] Anion gap [Moles/Vol] 11 mmol/L Normal 9-18 [facility] Comment on above: Order Comment: Speci men Type: BLOOD SPECIMENOrdering Facility: [facility] Address: [address] [place] [address] Performed By: #### L [id number], , ####NICOLE LABORATORYCLIA [id number] [address] [place] AST [Catalytic activity/Vol] 24 U/L Normal 13-35 [facility] Comment on above: Order Comment: Speci men Type: BLOOD SPECIMENOrdering Facility: [facility] Address: [address] [place] [address] Performed By: #### L [id number], , ####NICOLE LABORATORYCLIA [id number] [place] [address] [place] Bilirubin [Mass/Vol] 0.4 mg/dL Normal 0.2-1.3 [facility] Comment on above: Order Comment: Speci men Type: BLOOD SPECIMENOrdering Facility: [facility] Address: [address] [place] [address] Performed By: #### L [id number], , ####NICOLE LABORATORYCLIA [id number] [address] [place] Calcium [Mass/Vol] 9.5 mg/dL Normal 8.5-10.2 [facility] Comment on above: Order Comment: Speci men Type: BLOOD SPECIMENOrdering Facility: [facility] Address: [address] [address] Performed By: #### L [id number], , ####NICOLE LABORATORYCLIA [id number] [place] [address] [place] Chloride [Moles/Vol] 100 mmol/L Normal 97-105 [facility] Comment on above: Order Comment: Speci men Type: BLOOD SPECIMENOrdering Facility: [facility] Address: [address] [address] Performed By: #### L [id number], , ####NICOLE LABORATORYCLIA [id number] [place] [address] [place] CO2 [Moles/Vol] 27 mmol/L Normal 22-30 [facility] Comment on above: Order Comment: Speci men Type: BLOOD SPECIMENOrdering Facility: [facility] Address: [address] [place] [address] Performed By: #### L [id number], , ####NICOLE LABORATORYCLIA [id number] [place] [address] [place] Creatinine [Mass/Vol] 0.67 mg/dL Normal 0.58-0.96 [facility] Comment on above: Order Comment: Speci men Type: BLOOD SPECIMENOrdering Facility: [facility] Address: [address] [place] [address] Performed By: #### L [id number], , ####NICOLE LABORATORYCLIA [id number] [place] [address] [place] ESTIMATED GLOMERULAR FILTRATION RATE 97 mL/min/1.73m??? Normal >=60 [facility] Comment on above: Order Comment: Speci men Type: BLOOD SPECIMENOrdering Facility: [facility] Address: [address] [place] [address] Result Comment: Tiarra mated Glomerular Filtration Rate [...] reflect actual GFR. Performed By: #### L [id number], , ####CHASE MILLS LABORATORYCLIA [id number] [place] [address] [place] Glucose [Mass/Vol] 91 mg/dL Normal 74-99 [facility] Comment on above: Order Comment: Ember perez Type: BLOOD SPECIMENOrdering Facility: [facility] Address: [address] [place], [place] [id number] Result Comment: The [place] [employer] (ADA) provides guidance for cutoff [...] Standards of Medical Care in Diabetes 2016, [place] [employer]. Diabetes Care. 2016.39(Suppl 1). Performed By: #### L [id number], , ####CHASE MILLS LABORATORYCLIA [id number] [place] [address] [place] Potassium [Moles/Vol] 3.8 mmol/L Normal 3.7-5.1 [facility] Comment on above: Order Comment: Ember perez Type: BLOOD SPECIMENOrdering Facility: [facility] Address: [address] [place] [address] Performed By: #### L [id number], , ####CHASE MILLS LABORATORYCLIA [id number] [place] [address] [place] Protein [Mass/Vol] 7.2 g/dL Normal 6.3-8.0 [facility] Comment on above: Order Comment: Speci men Type: BLOOD SPECIMENOrdering Facility: [facility] Address: [address] [address] Performed By: #### L [id number], , ####NICOLE LABORATORYCLIA [id number] [address] Sodium [Moles/Vol] 138 mmol/L Normal 136-144 [facility] Comment on above: Order Comment: Speci men Type: BLOOD SPECIMENOrdering Facility: [facility] Address: [address] [address] Performed By: #### L [id number], , ####NICOLE LABORATORYCLIA [id number] [address] Urea nitrogen [Mass/Vol] 15 mg/dL Normal 7-21 [facility] Comment on above: Order Comment: Speci men Type: BLOOD SPECIMENOrdering Facility: [facility] Address: [address] [address] Performed By: #### L [id number], , ####NICOLE LABORATORYCLIA [id number] [address] ECG COMPLETEon 10-05-2022 ECG COMPLETE Ventricular Rate : 8 0 BPM Atrial Rate : 80 BPM P-R Interval : 164 ms QRS Duration : 90 ms Q-T Interval : 404 ms QTC Calculation(Bazett) : 465 ms Calculated P [place] : 46 degrees Calculated R [place] : -6 degrees Calculated T [place] : 6 degrees NORMAL SINUS RHYTHM NONSPECIFIC T WAVE ABNORMALITY ABNORMAL ECG no stemi 1707 Confirmed by BERNICE JARA MD ([id number]), news editor Kristine Eden ([id number]) on 10/06/2022 4:22:44 PM NAME : GWEN ROCKWELL PID : [id number] : 1955 Gender : Female Race : ORD : [id number] Procedure Date : Oct 05 2022 13:57:59 Edit Date : Oct 06 2022 16:22:46 Diagnosis: NORMAL SINUS RHYTHM NONSPECIFIC T WAVE ABNORMALITY ABNORMAL ECG no stemi 1707 Confirmed by BERNICE JARA MD ([id number]), news editor Kristine Eden ([id number]) on 10/06/2022 4:22:44 PM Test Reason : Chest Pain Location : 1 : ER ED Overread By : BERNICE JARA MD Edited By : Kristine Eden Referred By : , Acquired by : SAMMY, [facility] ED NOTEon 10-05-2022 ED NOTE HNO ID: [id number] Author: [place] RN Service: ? Author Type: Registered Nurse Type: ED Notes Filed: 10/05/2022 4:49 PM Note Text: Discharge instructions and prescriptions reviewed with patient via teachback. Pt verbalizes understanding. Pt awake and alert, respirations regular and unlabored. No further questions for this RN. [facility] ED PROV NOTEon 10-05-2022 ED PROV NOTE HNO ID: [id number] Author: Bernice Jara MD Service: ? Author [...] Motor: No weakness or pronator drift. Coordination: Emybyo-Quad-Fiixzp Test and Heel to Meeks Test normal. [...] intracranial circulatio (more content not included)... Normal [facility] HIGH SENSITIVITY TROPONIN T (INITIAL)on 10-05-2022 HIGH SENSITIVITY BYRON <6 Normal <12 [facility] Comment on above: Order Comment: Ember perez Type: BLOOD SPECIMENOrdering Facility: [facility] Address: [address] [place] [address] Result Comment: When assessing risk for acute [...] 30 day MACE. Performed By: #### L [id number], 61283-1, 69726-9 ####CHASE MILLS LABORATORYCLIA [id number] [address] OF [facility] HIGH SENSITIVITY TROPONIN T (SECOND)on 10-05-2022 HIGH SENSITIVITY BYRON <6 Normal <12 [facility] Comment on above: Order Comment: Ember perez Type: BLOOD SPECIMEN [facility] Address: [address] [place], [place] [phone] Result Comment: When assessing risk for acute [...] 30 day MACE. Performed By: #### L [id number] #### [facility] CLIA [id number] [address] [place] [address] [place] Magnesium SerPl-mCncon 10-05 Magnesium [Mass/Vol] 1.9 mg/dL Normal 1.7-2.3 [facility] Comment on above: Order Comment: Ember perez Type: BLOOD SPECIMENOrdering Facility: [facility] Address: [address] [place] [address] Performed By: #### L [id number], 97500-9, 56611-7 ####CHASE MILLS LABORATORYCLIA [id number] [place] [address] [place] PT panel Coag (PPP)on 2022 INR Coag (PPP) [Relative time] 1.1 {INR} Normal 0.9-1.3 [facility] Comment on above: Order Comment: Ember perez Type: BLOOD SPECIMEN [facility] Address: [address] [place] [address] Result Comment: Ria min K Antagonist (VKA) Therapeutic Range: INR 2 to 3 (Target INR of 2.5) Note: For patients treated with VKA drugs, such as warfarin, the [place] [employer] 2012 Guideline recommends [...] GH, et al. Chest 2012, 141:7S-47S Tate RA et al. JACC 2017, 70: 252-289 Performed By: #### 3 4528-0 #### [facility] CLIA [id number] [address] [place] PT Coag (PPP) [Time] 10.9 s Normal 9.7-13.0 [facility] Comment on above: Order Comment: Speci men Type: BLOOD SPECIMEN [facility] Address: [address] [phone] Performed By: #### 3 4528-0 #### [facility] CLIA [id number] [address] [id number] [place] Absolute lymphocyte countOrd ered By: Dr. Andujar on 07-30-2022 Lymphocytes Auto (Unsp spec) [#/Vol] 1.81 10*3/uL 0.83-4.51 [facility] Basophil percentageOrdered B y: Dr. Andujar on 07-30-2022 Basophils/100 WBC (Bld) 0.7 % 0-1 [facility] Bilirubin [Mass/Vol] 0.50 mg/dL 0.20-1.00 [facility] Comment on above: For patients on eltr ombopag therapy, use of [place] TBIL is not recommended. Chloride [Moles/Vol] 101 mmol/L 98-107 [facility] Cholesterol [Mass/Vol] 150 mg/dL <200 [facility] Comment on above: <200 mg/dL Desirable 200-240 mg/dL Borderline >240 mg/dL High Risk Eosinophils/100 WBC (Bld) 3.0 % 0-5 [facility] Glucose [Mass/Vol] 97 mg/dL 74-106 [facility] Neutrophils (Bld) [#/Vol] 3.1 10*3/uL 2.0-7.7 [facility] Neutrophils/100 WBC (Bld) 54.5 % 47-70 [facility] Potassium [Moles/Vol] 4.0 mmol/L 3.5-5.1 [facility] Comment on above: Slight Hemolysis, Re sult may be falsely increased. Protein [Mass/Vol] 8.0 g/dL 6.4-8.2 [facility] Sodium [Moles/Vol] 136 mmol/L 136-145 [facility] Triglyceride [Mass/Vol] 194 mg/dL <199 [facility] Comment on above: The drugs N-Acetylcy steine and Metamizole may falsely depress this assay.Serum Triglycerides Reference Interval Normal <150 mg/dL Borderline high 150 - 199 mg/dL High 200 - 499 mg/dL Very High > or = 500 mg/dL WBC (Bld) [#/Vol] 5.7 10*3/uL 4.4-11.0 [facility] Blood erythrocytes count (nu mber/volume)Ordered By: Dr. Andujar on 07-30-2022 RBC (Bld) [#/Vol] 4.64 10*6/uL 4.2-5.4 [place] Blood hemoglobin measurement (mass/volume)Ordered By: Dr. Andujar on 07-30-2022 Hemoglobin (Bld) [Mass/Vol] 13.4 g/dL 12.0-15.0 [facility] Blood lymphocytes/100 leukoc ytesOrdered By: Dr. Andujar on 07-30-2022 Lymphocytes/100 WBC (Bld) 31.8 % 19-41 [facility] Blood monocytes/100 leukocyt esOrdered By: Dr. Andujar on 07-30-2022 Monocytes/100 WBC (Bld) 9.8 % 0-10 [facility] Blood platelet mean volumeOr dered By: Dr. Andujar on 07-30-2022 Platelet mean volume (Bld) [Entitic vol] 10.6 fL 6.2-12.0 [facility] Determination of erythrocyte mean corpuscular volume (MCV)Ordered By: Dr. Andujar on 07-30-2022 MCV (RBC) [Entitic vol] 89.4 fL 81-99 [facility] Hematocrit Auto (Bld) [Volum e fraction]Ordered By: Dr. Andujar on 07-30-2022 Hematocrit (Bld) [Volume fraction] 41.5 % 37-47 [facility] Laboratory - Chemistry and C hemistry - challengeOrdered By: Dr. Andujar on 07-30-2022 ALP [Catalytic activity/Vol] 140 U/L 45-117 [facility] ALT [Catalytic activity/Vol] 49 U/L 13-56 [facility] CO2 [Moles/Vol] 27.0 mmol/L 21.0-32.0 [facility] Free T4 [Mass/Vol] 1.12 ng/dL 0.76-1.46 [facility] Globulin (S) [Mass/Vol] 3.7 g/dL 2.2-4.2 [facility] Urea nitrogen/Creatinine [Mass ratio] 18.6 mg/mg 10-20 [facility] Laboratory - Hematology and Cell countsOrdered By: Dr. Andujar on 07-30-2022 Erythrocyte distribution width (RBC) [Entitic vol] 44.7 fL 35.1-43.9 [facility] Erythrocyte distribution width (RBC) [Ratio] 13.7 % 11.6-14.6 [facility] Immature granulocytes/100 WBC (Bld) 0.200 % 0.0-0.9 [facility] Comment on above: IG% - Immature Granu locytes (promyelocytes, myelocytes and metamyelocytes) > 1% indicates that a LEFT SHIFT is Present. MCH (RBC) [Entitic mass] 28.9 pg 27.0-32.0 [facility] Nucleated RBC/100 WBC (Bld) [Ratio] 0 % 0-5 [facility] MCHC Auto (RBC) [Mass/Vol]Or dered By: Dr. Andujar on 07-30-2022 MCHC (RBC) [Mass/Vol] 32.3 g/dL 32-36 [facility] No Panel InformationOrdered By: Dr. Andujar on 07-30-2022 Estimated GFR (MDRD) Amer 99 mL/min >60 [facility] Comment on above: GFR Calc Estimated GFR (MDRD) Non-Af Amer 82 mL/min >60 [facility] Comment on above: Non- GFR Calc Free Triiodothyronine (T3) pg/dL 2.6 pg/mL 2.18-3.98 [facility] Thyroid Stimulating Hormone (TSH) 1.23 uIU/mL 0.358-3.74 [facility] Platelets bldOrdered By: Dr. Andujar on 07-30-2022 Platelets (Bld) [#/Vol] 222 10*3/uL 150-450 [facility] Serum or plasma albumin jimmie urement (mass/volume)Ordered By: Dr. Andujar on 07-30-2022 Albumin [Mass/Vol] 4.3 g/dL 3.2-5.0 [facility] Serum or plasma albumin/glob ulin mass ratioOrdered By: Dr. Andujar on 07-30-2022 Albumin/Globulin [Mass ratio] 1.2 {ratio} 0.9-2.4 [facility] Serum or plasma calcium jimmie urement (mass/volume)Ordered By: Dr. Andujar on 07-30-2022 Calcium [Mass/Vol] 10.1 mg/dL 8.5-10.1 [facility] Serum or plasma cholesterol in HDL measurement (mass/volume)Ordered By: Dr. Andujar on 07-30-2022 Cholesterol in HDL [Mass/Vol] 46 mg/dL >40 [facility] Comment on above: The drugs N-Acetylcy steine and Metamizole may falsely depress this assay. Reference Range HDL <40 mg/dL Low HDL Cholesterol HDL >or= 60 mg/dL High HDL Cholesterol Serum or plasma cholesterol in VLDL measurement (mass/volume)Ordered By: Dr. Andujar on 07-30-2022 Cholesterol in VLDL [Mass/Vol] 39 mg/dL 5-40 [facility] Serum or plasma creatinine m easurement (mass/volume)Ordered By: Dr. Andujar on 07-30-2022 Creatinine [Mass/Vol] 0.75 mg/dL 0.55-1.02 [facility] Comment on above: The validity of the calculated GFR & GFRAA in patients over 70 years has not been determined. Clinical correlation is essential. Serum or plasma low density lipoprotein (LDL) cholesterol measurement (mass/volume)Ordered By: Dr. Andujar on 07-30-2022 Cholesterol in LDL [Mass/Vol] 65 mg/dL 0-130 [facility] Serum or plasma urea nitroge n measurement (mass/volume)Ordered By: Dr. Andujar on 07-30-2022 Urea nitrogen [Mass/Vol] 14 mg/dL 7-18 [facility] Thin prep Papanicolaou smear with manual screeningOrdered By: Dr. Andujar on 07-30-2022 Thin prep Papanicolaou smear with manual screening 30 U/L 15-37 [facility] Comment on above: Slight Hemolysis, Re sult may be falsely increased. Thin prep Papanicolaou smear with manual screening 8 5-15 [facility] Absolute lymphocyte counton 11-09-2021 Lymphocytes Auto (Unsp spec) [#/Vol] 1.69 10*3/uL 0.83-4.51 [facility] Work Phone: Basophil percentageon 2021 Basophils/100 WBC (Bld) 0.9 % 0-1 [facility] Work Phone: Bilirubin [Mass/Vol] 0.50 mg/dL 0.20-1.00 [facility] Work Phone: Comment on above: For patients on eltr ombopag therapy, use of [place] TBIL is not recommended. Chloride [Moles/Vol] 102 mmol/L 98-107 [facility] Work Phone: Cholesterol [Mass/Vol] 168 mg/dL <200 [facility] Work Phone: Comment on above: <200 mg/dL Desirable 200-240 mg/dL Borderline >240 mg/dL High Risk Eosinophils/100 WBC (Bld) 3.4 % 0-5 [facility] Work Phone: Glucose [Mass/Vol] 90 mg/dL 74-106 [facility] Work Phone: Neutrophils (Bld) [#/Vol] 3.4 10*3/uL 2.0-7.7 [facility] Work Phone: Neutrophils/100 WBC (Bld) 57.2 % 47-70 [facility] Work Phone: Potassium [Moles/Vol] 3.8 mmol/L 3.5-5.1 [facility] Work Phone: Protein [Mass/Vol] 7.6 g/dL 6.4-8.2 [facility] Work Phone: Sodium [Moles/Vol] 138 mmol/L 136-145 [facility] Work Phone: Triglyceride [Mass/Vol] 199 mg/dL [facility] Work Phone: Comment on above: The drugs N-Acetylcy steine and Metamizole may falsely depress this assay.Serum Triglycerides Reference Interval Normal <150 mg/dL Borderline high 150 - 199 mg/dL High 200 - 499 mg/dL Very High > or = 500 mg/dL WBC (Bld) [#/Vol] 5.9 10*3/uL 4.4-11.0 [facility] Work Phone: Blood erythrocytes count (nu mber/volume)on 11-09-2021 RBC (Bld) [#/Vol] 4.59 10*6/uL 4.2-5.4 [place] Work Phone: Blood hemoglobin measurement (mass/volume)on 11-09-2021 Hemoglobin (Bld) [Mass/Vol] 13.4 g/dL 12.0-15.0 [facility] Work Phone: [phone] Blood lymphocytes/100 leukoc yteson 11-09-2021 Lymphocytes/100 WBC (Bld) 28.8 % 19-41 [facility] Work Phone: [phone] Blood monocytes/100 leukocyt eson 11-09-2021 Monocytes/100 WBC (Bld) 9.5 % 0-10 [facility] Work Phone: Blood platelet mean volumeon 11-09-2021 Platelet mean volume (Bld) [Entitic vol] 9.5 fL 6.2-12.0 [facility] Work Phone: Determination of erythrocyte mean corpuscular volume (MCV)on 11-09-2021 MCV (RBC) [Entitic vol] 85.6 fL 81-99 [facility] Work Phone: Hematocrit Auto (Bld) [Volum e fraction]on 11-09-2021 Hematocrit (Bld) [Volume fraction] 39.3 % 37-47 [facility] Work Phone: Laboratory - Chemistry and C hemistry - challengeon 11-09-2021 ALP [Catalytic activity/Vol] 148 U/L 45-117 [facility] Work Phone: [phone] ALT [Catalytic activity/Vol] 32 U/L 13-56 [facility] Work Phone: [phone] CO2 [Moles/Vol] 28.0 mmol/L 21.0-32.0 [facility] Work Phone: [phone] Free T4 [Mass/Vol] 1.05 ng/dL 0.76-1.46 [facility] Work Phone: [phone] Globulin (S) [Mass/Vol] 3.5 g/dL 2.2-4.2 [facility] Work Phone: [phone] Urea nitrogen/Creatinine [Mass ratio] 19.1 mg/mg 10-20 [facility] Work Phone: [phone] Laboratory - Hematology and Cell countson 11-09-2021 Erythrocyte distribution width (RBC) [Entitic vol] 41.9 fL 35.1-43.9 [facility] Work Phone: [phone] Erythrocyte distribution width (RBC) [Ratio] 13.5 % 11.6-14.6 [facility] Work Phone: [phone] Immature granulocytes/100 WBC (Bld) 0.200 % 0.0-0.9 [facility] Work Phone: [phone] Comment on above: IG% - Immature Granu locytes (promyelocytes, myelocytes and metamyelocytes) > 1% indicates that a LEFT SHIFT is Present. MCH (RBC) [Entitic mass] 29.2 pg 27.0-32.0 [facility] Work Phone: [phone] Nucleated RBC/100 WBC (Bld) [Ratio] 0 % 0-5 [facility] Work Phone: [phone] MCHC Auto (RBC) [Mass/Vol]on 11-09-2021 MCHC (RBC) [Mass/Vol] 34.1 g/dL 32-36 [facility] Work Phone: [phone] Panel Informationon 11-09 Estimated GFR (MDRD) Amer 103 mL/min >60 [facility] Work Phone: [phone] Comment on above: GFR Calc Estimated GFR (MDRD) Non-Af Amer 85 mL/min >60 [facility] Work Phone: [phone] Comment on above: Non- GFR Calc Free Triiodothyronine (T3) pg/dL 2.9 pg/mL 2.18-3.98 [facility] Work Phone: Thyroid Stimulating Hormone (TSH) 1.77 uIU/mL 0.358-3.74 [facility] Work Phone: [phone] Vitamin D 25-Hydroxy 43.3 ng/mL [facility] Work Phone: Comment on above: Vitamin D 25(OH) Sta tus Range Deficiency <20 ng/mL (50nmol/L) Insufficiency 20 - 30 ng/mL (50 - 75 nmol/L) Sufficiency 30 - 100 ng/mL (75 - 250 nmol/L) Toxicity >100 ng/mL (>250 nmol/L) Platelets bldon 11-09-2021 Platelets (Bld) [#/Vol] 219 10*3/uL 150-450 [facility] Work Phone: Serum or plasma albumin jimmie urement (mass/volume)on 11-09-2021 Albumin [Mass/Vol] 4.1 g/dL 3.2-5.0 [facility] Work Phone: [phone] Serum or plasma albumin/glob ulin mass ratioon 11-09-2021 Albumin/Globulin [Mass ratio] 1.2 {ratio} 0.9-2.4 [facility] Work Phone: [phone] Serum or plasma calcium jimmie urement (mass/volume)on 11-09-2021 Calcium [Mass/Vol] 9.6 mg/dL 8.5-10.1 [facility] Work Phone: [phone] Serum or plasma cholesterol in HDL measurement (mass/volume)on 11-09-2021 Cholesterol in HDL [Mass/Vol] 51 mg/dL [facility] Work Phone: Comment on above: The drugs N-Acetylcy steine and Metamizole may falsely depress this assay. Reference Range HDL <40 mg/dL Low HDL Cholesterol HDL >or= 60 mg/dL High HDL Cholesterol Serum or plasma cholesterol in VLDL measurement (mass/volume)on 11-09-2021 Cholesterol in VLDL [Mass/Vol] 40 mg/dL 5-40 [facility] Work Phone: Serum or plasma creatinine m easurement (mass/volume)on 11-09-2021 Creatinine [Mass/Vol] 0.73 mg/dL 0.55-1.02 [facility] Work Phone: Comment on above: The validity of the calculated GFR & GFRAA in patients over 70 years has not been determined. Clinical correlation is essential. Serum or plasma low density lipoprotein (LDL) cholesterol measurement (mass/volume)on 11-09-2021 Cholesterol in LDL [Mass/Vol] 77 mg/dL 0-130 [facility] Work Phone: Serum or plasma urea nitroge n measurement (mass/volume)on 11-09-2021 Urea nitrogen [Mass/Vol] 14 mg/dL 7-18 [facility] Work Phone: Thin prep Papanicolaou smear with manual screeningon 11-09-2021 Thin prep Papanicolaou smear with manual screening 19 U/L 15-37 [facility] Work Phone: Thin prep Papanicolaou smear with manual screening 8 5-15 [facility] Work Phone: WENDY SCREENINGon 10-01-2021 [facility] Vital Signs Date Time Vital Sign Value Performing Clinician Faci lity 03-31-2024 11:42-0400 Body mass index (BMI) [Ratio] 40.44 kg/m2 Munira Keyes MD Work Phone: [facility] 03-31-2024 11:42-0400 Body weight 110.22 kg Munira Keyes MD Work Phone: [facility] 03-31-2024 11:42-0400 Diastolic blood pressure 78 mm[Hg] Munira Keyes MD Work Phone: [facility] 03-31-2024 11:42-0400 Heart rate 69 /min Munira Keyes MD Work Phone: [facility] 03-31-2024 11:42-0400 SaO2% (BldA) [Mass fraction] 89 % Munira Keyes MD Work Phone: [facility] 03-31-2024 11:42-0400 Systolic blood pressure 130 mm[Hg] Munira Keyes MD Work Phone: [facility] 03-01-2024 15:12-0400 Body height 165.1 cm Munira Keyes MD Work Phone: [facility] 03-01-2024 15:12-0400 Body mass index (BMI) [Ratio] 41.27 kg/m2 Munira Keyes MD Work Phone: [facility] 03-01-2024 15:12-0400 Body weight 112.49 kg Munira Keyes MD Work Phone: [facility] 03-01-2024 15:12-0400 Diastolic blood pressure 77 mm[Hg] Munira Keyes MD Work Phone: [facility] 03-01-2024 15:12-0400 Heart rate 88 /min Muniradipak Keyes MD Work Phone: [facility] 03-01-2024 15:12-0400 SaO2% (BldA) [Mass fraction] 98 % Muniradipak Keyes MD Work Phone: [facility] 03-01-2024 15:12-0400 Systolic blood pressure 151 mm[Hg] Munira Keyes MD Work Phone: [facility] 11-19-2023 13:40-0400 Body height 165.5 cm Ximena Cardenas MD Work Phone: [facility] 11-19-2023 13:40-0400 Body mass index (BMI) [Ratio] 40.57 kg/m2 Ximena Cardenas MD Work Phone: [facility] 11-19-2023 13:40-0400 Body weight 111.13 kg Ximena Cardenas MD Work Phone: [facility] 11-19-2023 13:40-0400 Diastolic blood pressure 80 mm[Hg] Ximena Cardneas MD Work Phone: [facility] 11-19-2023 13:40-0400 Systolic blood pressure 128 mm[Hg] Ximena Cardenas MD Work Phone: [facility] 10-01-2021 08:53-0400 Body height 167.6 cm Ximena Cardenas MD Work Phone: [facility] 10-01-2021 08:53-0400 Body weight 113.4 kg Ximena Cardenas MD Work Phone: [facility] 10-01-2021 08:53-0400 Diastolic blood pressure 72 mm[Hg] Ximena Cardenas MD Work Phone: [facility] 10-01-2021 08:53-0400 Systolic blood pressure 126 mm[Hg] Ximena Cardenas MD Work Phone: [facility] Encounters Encounter Date Encounter Type Care Provider Facility Start: 01-27-2025 ambulatory Bernice Andujar Facility:[facility] Start: 01-13-2025 End: 01-13-[address] Bernice Andujar DO Work Phone: -Laboratory Specimen Start: 01-13-2025 End: 01-13-[address] Bernice Andujar DO -Laboratory Specimen Work Phone: Start: 01-13-2025 End: 01-13-2025 ambulatory Bernice Andujar Facility:[facility] Start: 11-04-2024 End: 11-04-[address] Bernice Andujar DO Work Phone: [facility] Work Phone: Start: 11-04-2024 End: 11-04-[address] Bernice Andujar DO -Laboratory [place] Work Phone: Start: 11-03-2024 End: 11-04-[address] Bernice Andujar DO Work Phone: [facility] Work Phone: Start: 11-03-2024 End: 11-03-[address] Bernice Andujar DO -Radiology [place] Work Phone: Start: 11-03-2024 End: 11-03-2024 ambulatory Bernice Andujar Facility:[facility] Start: 06-03-2024 End: 06-03-2024 Refill Munira Keyes MD Work Phone: OB/Gynecology Comment on above: Refill Request Start: 03-31-2024 End: 03-31-2024 ambulatory MUNIRA KEYES Facility:[facility] Start: 03-31-2024 End: 03-31-2024 Patient encounter procedure [...] of 40.0 to 44.9 in adult (HCC) Start: 03-05-2024 End: 03-08-2024 Telephone encounter Munira Keyes MD Work Phone: OB/Gynecology Comment on above: Results Start: 03-03-2024 End: 03-03-2024 ambulatory MUNIRA KEYES Facility:[facility] Start: 03-01-2024 End: 03-01-2024 ambulatory MUNIRA KEYES Facility:[facility] Start: 03-01-2024 End: 03-01-2024 Patient encounter procedure Munria Keyes MD Work Phone: OB/Gynecology Comment on [...] (BMI) of 40.0 to 44.9 in adult ([facility]) Start: 02-26-2024 End: 02-26-2024 E-mail encounter from caregiver Munira Keyes MD Work Phone: OB/Gynecology Start: 02-26-2024 End: 02-26-2024 Patient encounter procedure Munira Keyes MD Work Phone: OB/Gynecology Comment on above: Dr. Keyes Appoint ment 03/01/2024 Start: 12-09-2023 Documentation procedure Mammog miryam Coordinator [facility] Department Start: 12-09-2023 Letter encounter Mammography Coordinator [facility] Start: 12-08-2023 End: 12-08-2023 ambulatory XIMENA CARDENAS Facility:[facility] Start: 12-08-2023 End: 12-08-2023 Subsequent hospital visit by physician Screen Mammo [facility] Mammogram Comment on above: Encounter for screen ing mammogram for breast cancer [Z12.31] Start: 11-19-2023 End: 11-19-2023 ambulatory XIMENA CARDENAS Facility:[facility] Start: 11-19-2023 End: 11-19-2023 Patient encounter procedure Ximena Cardenas MD Work Phone: OB/Gynecology Comment on above: Encounter for gyneco logical examination (general) (routine) without abnormal findings (Primary Dx); Encounter for screening mammogram for breast cancer; Class 3 severe obesity due to excess calories with serious comorbidity and body mass index (BMI) of 40.0 to 44.9 in adult ([facility]); Obstructive sleep apnea syndrome Start: 11-19-2023 End: 11-19-2023 Patient encounter status Ximena Cardenas MD Work Phone: [facility] Start: 07-21-2023 End: 07-21-2023 ambulatory [facility] Work Phone: Start: 07-21-2023 End: 07-21-2023 Discharged Recurring [facility]-Physical Therapy Work Phone: Start: 05-27-2023 End: 05-27-2023 ambulatory [facility] Work Phone: Start: 05-27-2023 End: 05-27-2023 Patient encounter procedure [facility]-Laboratory Work Phone: Start: 02-21-2023 End: 02-21-2023 ambulatory 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[employer] Work Phone: Telemedicine Comment on above: Acute rhinosinusitis (Primary Dx) Start: 10-06-2022 End: 10-06-2022 Emergency department patient visit BERNICE ANDUJAR Facility:[facility] Start: 10-05-2022 End: 10-05-2022 Emergency department patient visit BERNICE JARA MD Facility:[facility] Start: 10-05-2022 End: 10-05-2022 Patient encounter procedure Silvia Marshall PA-C Work Phone: [facility] Comment on above: Dizziness (Primary D x); Headache, unspecified headache type Start: 07-30-2022 End: 07-30-2022 ambulatory [facility] Work Phone: Start: 07-30-2022 End: 07-30-2022 Patient encounter procedure [facility]-Laboratory, Nate Salgado [facility] Start: 07-23-2022 End: 07-23-2022 Patient encounter procedure [facility]-Outpatient Bone Densitometry Start: 04-23-2022 ambulatory Jamia Roche APR N.[employer] Work Phone: Telemedicine Comment on above: Bacterial sinusitis (Primary Dx) Start: 01-09-2022 Telephone encounter Ximena Cardenas MD Work Phone: OB/Gynecology Comment on above: Dysuria Start: 11-09-2021 End: 11-09-2021 [facility] Start: 10-12-2021 Telephone encounter Harley johnson (Coord) General Surgery Comment on above: Outpatient [place] [facility] Start: 10-01-2021 Documentation procedure Mammog miryam Coordinator [facility] Start: 10-01-2021 Letter encounter Mammography Coordinator [facility] Department Start: 10-01-2021 Telephone encounter Tejas randle DO Work Phone: [facility] [place] Comment on above: Patient Question Start: 10-01-2021 End: 10-01-2021 Subsequent hospital visit by physician Screen Mammo [facility] Mammogram Comment on above: Encounter for [...] - S maritza or Plasma Tone Carver APRN.KIMBERLY Work Phone: H/O: surgery History of basal [...] Author Start: 03-03-2029 Lipid panel Lipid Screening [facility] Start: 03-03-2027 Diabetes Screening Diabetes Screenin [facility] Start: 10-01-2026 HPV TESTING HPV TESTING [facility] Start: 10-01-2026 PAP TESTING PAP TESTING [facility] Start: 10-05-2025 DIABETES SCREEN DIABETES SCREEN [facility] Start: 10-05-2025 Diabetes Screening Diabetes Screenin g [facility] Start: 12-07-2024 Screening for malign ant neoplasm of breast Mammogram Screening [facility] Start: 06-10-2024 End: 06-10-2024 Patient encounter procedure 06/10/2024 9:20 AM EST Office Visit OB/Gynecology [address] [place] [address] Munira Ruelas MD [address] [place] [address] weight management follow up OB/Gynecology Comment on above: weight management fo llow up Start: 06-02-2024 Advance Directive Discussion Advance Directive Discussion [facility] Start: 05-07-2024 End: 05-07-2024 Patient encounter procedure 05/07/2024 11:40 AM EST Office Visit OB/Gynecology [address] [place] [address] Munira Ruelas MD [address] [place] [address] weight management follow up OB/Gynecology Comment on above: weight management fo llow up Start: 03-31-2024 End: 03-31-2024 Patient encounter procedure 03/31/2024 11:40 AM EDT Office Visit OB/Gynecology [address] [place] [address] Munira Ruelas MD [address] [place] [address] weight management follow up OB/Gynecology Comment on above: weight management fo llow up Start: 03-02-2024 End: 03-02-2024 ambulatory 03/02/2024 10:00 AM EDT Results Only Curly Garcia [facility] [address] [place] [address] Curly Peterwn [facility] Start: 03-01-2024 End: 03-01-2024 Patient encounter procedure 03/01/2024 3:20 PM EDT Office Visit OB/Gynecology [address] [place] [address] Munira Rueals MD [address] [place] [address] Class 3 severe obesity due to excess calories with serious comorbidity and body mass index (BMI) of 40.0 to 44.9 in adult ([facility]) [E66.01, Z68.41] OB/Gynecology Comment on above: Class 3 severe obesi ty due to excess calories with serious comorbidity and body mass index (BMI) of 40.0 to 44.9 in adult (HCC) [E66.01, Z68.41] Start: 03-01-2024 End: 05-31-2024 25-hydroxyvitamin D3 [Mass/volume] in Serum or Plasma VITAMIN D 25 HYDROXY Lab Routine Malaise and fatigue Encounter for vitamin deficiency screening Class 3 severe obesity due to excess calories with serious comorbidity and body mass index (BMI) of 40.0 to 44.9 in adult ([facility]) Expected: 03/01/2024, Expires: 05/31/2024 [facility] Work Phone: Comment on above: Expected: 03/01/2024 , Expires: 05/31/2024 Start: 03-01-2024 End: 05-31-2024 CBC panel - Blood by Automated count COMPLETE BLOOD COUNT Lab Routine Malaise and fatigue Screening for deficiency anemia Class 3 severe obesity due to excess calories with serious comorbidity and body mass index (BMI) of 40.0 to 44.9 in adult ([facility]) Expected: 03/01/2024, Expires: 05/31/2024 [facility] Comment on above: Expected: 03/01/2024 , Expires: 05/31/2024 Start: 03-01-2024 End: 05-31-2024 Comprehensive metabolic 2000 panel - Serum or Plasma COMPREHENSIVE METABOLIC PANEL Lab Routine Hypertension, unspecified type Malaise and fatigue Screening for diabetes mellitus Screening for metabolic disorder Class 3 severe obesity due to excess calories with serious comorbidity and body mass index (BMI) of 40.0 to 44.9 in adult ([facility]) Expected: 03/01/2024, Expires: 05/31/2024 [facility] Comment on above: Expected: 03/01/2024 , Expires: 05/31/2024 Start: 03-01-2024 End: 05-31-2024 Hemoglobin A1c in Blood HEMOGLOBIN A1C Lab Routine Prediabetes Screening for diabetes mellitus Class 3 severe obesity due to excess calories with serious comorbidity and body mass index (BMI) of 40.0 to 44.9 in adult ([facility]) Expected: 03/01/2024, Expires: 05/31/2024 [facility] Comment on above: Expected: 03/01/2024 , Expires: 05/31/2024 Start: 03-01-2024 End: 05-31-2024 Insulin [Units/volume] in Serum or Plasma INSULIN ASSAY BLOOD Lab Routine Prediabetes Screening for diabetes mellitus Class 3 severe obesity due to excess calories with serious comorbidity and body mass index (BMI) of 40.0 to 44.9 in adult (HCC) Expected: 03/01/2024, Expires: 05/31/2024 [facility] Comment on above: Expected: 03/01/2024 , Expires: 05/31/2024 Start: 03-01-2024 End: 05-31-2024 Lipid 1996 panel - Serum or Plasma LIPID PANEL BASIC Lab Routine Elevated cholesterol Screening cholesterol level Class 3 severe obesity due to excess calories with serious comorbidity and body mass index (BMI) of 40.0 to 44.9 in adult ([facility]) Expected: 03/01/2024, Expires: 05/31/2024 [facility] Comment on above: Expected: 03/01/2024 , Expires: 05/31/2024 Start: 03-01-2024 End: 05-31-2024 Thyrotropin [Units/volume] in Serum or Plasma THYROID STIMULATING HORMONE Lab Routine Hypothyroidism, unspecified type Screening for thyroid disorder Class 3 severe obesity due to excess calories with serious comorbidity and body mass index (BMI) of 40.0 to 44.9 in adult ([facility]) Expected: 03/01/2024, Expires: 05/31/2024 [facility] Comment on above: Expected: 03/01/2024 , Expires: 05/31/2024 Start: 02-01-2024 Covid-19 Vaccine () Covid-19 Vaccine () [facility] Start: 02-01-2024 Influenza vaccination C [facility] Start: 12-08-2023 End: 12-08-2023 Patient encounter procedure 12/08/2023 11:30 AM EDT Appointment Mammogram [address] [place], [place] [address] Encounter for screening mammogram for breast cancer [Z12.31] Mammogram Comment on above: Encounter for screen ing mammogram for breast cancer [Z12.31] Start: 06-02-2023 Advance Directive Discussion Advance Directive Discussion [facility] Start: 06-02-2023 Behavioral Health Screening Behavioral Health Screening [facility] Start: 02-03-2023 HPV TESTING HPV TESTING [facility] Start: 02-03-2023 PAP TESTING PAP TESTING [facility] Start: 01-31-2023 Covid-19 Vaccine (1 - 2023-24 season) Covid-19 Vaccine () [facility] Start: 01-31-2023 Influenza vaccination C [facility] Start: 10-01-2022 BP CONTROLLED (<130/80) BP CONTROLLE D (<130/80) [facility] Start: 10-01-2022 Mammography [facility] Start: 10-01-2022 Screening for malign ant neoplasm of breast Mammogram Screening [facility] Start: 06-02-2022 ADVANCE DIRECTIVE DISCUSSION ADVANCE DIRECTIVE DISCUSSION [facility] Start: 06-02-2022 [facility] Start: 2022 ADVANCE DIRECTIVE DISCUSSION ADVANCE DIRECTIVE DISCUSSION [facility] Start: 2022 BONE DENSITY BONE DENSITY [facility] Start: 2022 Bone Density Screening Bone Density Screening [facility] Start: 2022 Pneumococcal Vaccine : 65+ (2 - PCV) Pneumococcal Vaccine: 65+ (2 - PCV) [facility] Start: 2022 Pneumococcal Vaccine : 65+ (2 of 2 - PCV) Pneumococcal Vaccine: 65+ (2 of 2 - PCV) [facility] Start: 2022 Screening for osteoporosis Bone Density Screening [facility] Start: 02-19-2022 Urine microalbumin profile DTaP,Tdap,Td Vaccine (2 - Td or Tdap) [facility] Start: 01-31-2022 Influenza vaccination C [facility] Start: 01-09-2022 End: 03-11-2022 Bacteria identified in Urine by Culture [facility] Work Phone: Comment on above: Expected: 01/09/2022 , Expires: 03/11/2022 Start: 01-09-2022 End: 03-11-2022 Urinalysis complete panel - Urine [facility] Work Phone: Comment on above: Expected: 01/09/2022 , Expires: 03/11/2022 Start: 06-02-2021 DEPRESSION ASSESSMENT DEPRESSION ASS ESSMENT [facility] Start: 03-09-2021 Colonoscopy COLONOSCOPY [facility] Start: 03-09-2021 COLORECTAL CANCER SCREENING COLORECTAL CANCER SCREENING [facility] Start: 03-09-2021 Screening for malign ant neoplasm of colon [facility] Start: 09-29-2017 RSV Vaccine (1 - 1-d ose 60+ series) RSV Vaccine (1 - 1-dose 60+ series) [facility] Start: 2017 RSV Vaccine (1 - Ris k 60-74 years 1-dose series) RSV Vaccine (1 - Risk 60-74 years 1-dose series) [facility] Start: 05-22-2016 Lipid 1996 panel - Serum or Plasma Lipid Screening [facility] Start: 05-22-2016 Lipid panel Lipid Screening [facility] Start: 05-22-2016 LIPID SCREEN LIPID SCREEN [facility] Start: 05-22-2014 DIABETES SCREEN DIABETES SCREEN [facility] Start: 03-02-2009 Pneumococcal Vaccine : 50+ (2 of 2 - PCV) Pneumococcal Vaccine: 50+ (2 of 2 - PCV) [facility] Start: 03-02-2009 PNEUMOCOCCAL: 65+ (2 - PCV) PNEUMOCOCCAL: 65+ (2 - PCV) [facility] Start: 2007 SHINGRIX VACCINE (1 of 2) SHINGRIX VACCINE (1 of 2) [facility] Start: 2002 COLOGUARD (FIT-DNA) COLOGUARD (FIT-D NA) [facility] Start: [address] COLONOGRAPHY [facility] Start: 2002 FECAL OCCULT BLOOD FECAL OCCULT BLOO D [facility] Start: 2002 Screening for malign ant neoplasm of colon [facility] Start: 2002 SIGMOIDOSCOPY SIGMOIDOSCOPY [facility] Start: 01-26-2002 Urine microalbumin profile [facility] Start: 1975 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 ANNUAL PCP TEAM CHRONIC DISEASE VISIT [facility] Start: 1975 Anxiety Screening Anxiety Screening [facility] Start: 1975 BP CONTROLLED (<130/80) BP CONTROLLE D (<130/80) [facility] Start: 1975 Depression Screening Depression Scre ening [facility] Start: 1975 HEPATITIS C SCREENING HEPATITIS C [facility] Start: 1975 Hepatitis C screening Hepatitis C [facility] Start: 1975 HIV SCREENING HIV SCREENING [facility] Start: 1969 Adult depression screening assessment DEPRESSION SCREENING [facility] Start: 1962 COVID-19 VACCINE (#1) COVID-19 VACCI NE (#1) [facility] Start: 1962 COVID-19 VACCINE (1) COVID-19 VACCIN E (1) [facility] Start: 1957 COVID-19 VACCINE (#1) COVID-19 VACCI NE (#1) [facility] End: 12-18-2024 DBT Breast - bilateral screening WENDY SCREENING W [facility] Radiology Routine Encounter for screening mammogram for breast cancer 1 Occurrences starting 11/19/2023 until 12/18/2024 [facility] Work Phone: Comment on above: 1 Occurrences starti ng 11/19/2023 until 12/18/2024 DBT Breast - bilater al screening WENDY SCREENING W [facility] Radiology Routine Encounter for screening mammogram for breast cancer 12/08/2023 11:41 AM EDT [facility] Work Phone: PAP FLUID CERVICAL SCREENING PAP FLUID CERVICAL SCREENING Lab Routine Encounter for screening for malignant neoplasm of cervix Special screening examination for human papillomavirus (HPV) Ordered: 10/01/2021 [facility] Work Phone: Comment on above: Ordered: 10/01/2021 End: 10-01-2022 Screening colonoscopy COLONOSCOPY SCREENING Endoscopy Routine Encounter for screening for malignant neoplasm of colon 1 Occurrences starting 10/01/2021 until 10/01/2022 [facility] Work Phone: Comment on above: 1 Occurrences starti ng 10/01/2021 until 10/01/2022 End: 10-31-2022 Screening mammography bi 2-view breast inc cad WENDY SCREENING Radiology Routine Encounter for screening mammogram for malignant neoplasm of breast 1 Occurrences starting 10/01/2021 until 10/31/2022 [facility] Work Phone: Comment on above: 1 Occurrences starti ng 10/01/2021 until 10/31/2022 Immunizations Immunization Date Immunization Notes Care Provider Courtney craft 03-09-2019 influenza virus vacc ine, unspecified formulation Tone Carver APRN.[employer] Work Phone: [facility] 03-02-2015 influenza, injectabl e, quadrivalent, preservative free [facility] 03-02-2015 influenza, seasonal, injectable [facility] 03-02-2011 influenza virus vacc ine, unspecified formulation Ximena Cardenas MD Work Phone: [facility] 03-02-2008 pneumococcal polysaccharide vaccine, 23 valent Ximena Cardenas MD Work Phone: [facility] 01-25-2002 tetanus and diphther ia toxoids, adsorbed, preservative free, for adult use (2 Lf of tetanus toxoid and 2 Lf of diphtheria toxoid) Ximena Cardenas MD Work Phone: [facility] Payers Date Payer Category Payer Self-pay [id number] 2022 Medicare AETNA MEDICARE A ETNA MEDICARE PPO [id number] 2022-Present [phone] [address] [place] [address] PPO [id number] 2022 Private Health Insurance [id number] 2021 Unknown [employer] PPO [id number] 2021-Present [phone] [address] [place] [address] PPO [id number] 2021 Unknown [employer] SS PPO [id number] 2021-Present [phone] [address] [place] [address] PPO [id number] Unknown [id number] Unknown [id number] Unknown [id number] Unknown [id number] Social History Date Type Detail Facility Start: 10-24-2010 End: 10-24-2022 Tobacco smoking status NHIS Never smoked tobacco [facility] Start: 10-24-2010 End: 11-19-2023 Tobacco use and exposure Smokeless tobacco non-user [facility] Start: 10-01-2021 End: 03-31-2024 Alcohol intake Current drinker of alcohol (finding) [facility] Start: 03-09-2018 History SDOH Alcohol Comment socially [facility] Start: 1955 Sex Assigned At Not on file C [facility] Start: 09-21-2021 End: 10-01-2021 Exposure to SARS-CoV-2 (event) Not sure [facility] Start: 05-22-2021 End: 10-24-2022 Tobacco smoking status NHIS Unknown if ever smoked [facility] Start: 07-13-2019 Non-smoker [facility] Start: 1955 Sex Assigned At Female W [facility] Start: 10-06-2022 End: 02-21-2023 History of Social function [facility] Start: 10-06-2022 End: 02-21-2023 Tobacco use panel [facility] National Score (1-100), lower number is lower risk 75 [facility] Medical Equipment Procedure Code Equipment Code [...] Note Facility 11-06-2024 Radiology Diagnostic study note [facility] Imaging Services [address] [place] [address] [id number] Thoracic Spine 3 Views MR#: [id number] Acct: [id number] Name: GWEN ROCKWELL Rep #: [id number] : 1955 F 69 From: Liyah Haas MD PCP: Dr. Bernice Andujar, DO Status: REG CLI Study:Thoracic Spine 3 Views Date of Exam: 11/03/24 Exam# [id number] Ordering Dr: Cherelle Andujar sa DO PROCEDURE: THORACIC SPINE 3 VIEWS 11/03/2024 [...] and lower thoracic vertebral bodies. [facility] CC: Dr. Bernice Andujar, DO ~ Life Specialist: Signed [facility] 03-31-2024 History of Presen t illness Narrative [...] be easier when done working tomorrow at [employer] and at home more - happy she [...] L - Collin fettuccini ad, Cheeseburger basket, whopper jrGiovanni [place], Irish pizza (eats out a lot) S - [...] and increased consumption of sugar sweetened beverages. Back Facer of impaired eating habits:excessive hunger, lack of satiety, mindlessness , boredom, emotion, and stress Dietary changes: B - 5 eggs or 2-3 eggs with burton and sausage , some days toast , yogurt dannon light and fit- with oikos drink S - pretzels and other fast food snacks from-[employer] L - kassidy thuy light and fit- grilled cheese, chicken salad sandwich, oikos smoothie (23g protein), S - occasional sofya alan coffee (2-3 x week) , D - lean cuisine - pasta - out to dinner, hamburger w/ bun, salad- icelandic dressing, chicken S - none Fluids - [...] (BMI) of 40.0 to 44.9 in adult ([facility]) - continue VIt D - continue Metformin 1000mg Daily with dinner - start topiramate 25mg at night- change to morning after 1-2 weeks, consider BID dosing - [facility] nutrition - Continue CPAP - continue synthroid [...] which included preparing to see the patient, vbtk-ky-jpap patient care, completing clinical documentation, obtaining and/or reviewing separately obtained history, performing a medically appropriate examination, counseling and educating the patient/family/caregiver, and ordering medications, tests, or procedures. Munira Corona MD, FACOG, CHIQUI documented in this encounter [facility] 03-31-2024 Note HNO ID: [id number] Author: MUNIRA RUELAS MD Service: ? Author [...] be easier when done working tomorrow at [employer] and at home more - happy she [...] cream S - L - Collin fettnunui ad, Talkableraymond ellis, Infinity Business Groupgalina aggarwal [place], Irish pizza (eats out a lot) S - [...] and increased consumption of sugar sweetened beverages. Back Facer of impaired eating habits:excessive hunger, lack of satiety, mindlessness , boredom, emotion, and stress Dietary changes: B - 5 eggs or 2-3 eggs with burton and sausage , some days toast , yogurt dannon light and fit- with oikos drink S - pretzels and other fast food snacks from-Finario L - kassidy thuy light and fit- grilled cheese, chicken salad sandwich, oikos smoothie (23g protein), S - occasional sofya alan coffee (2-3 x week) , D - lean cuisine - pasta - out to dinner, hamburger w/ bun, salad- icelandic dressing, chicken S - none Fluids - [...] directed. PRN with (more content not included)... [facility] 03-31-2024 Instructions Munira Ruelas MD - 03/31/2024 [...] understood. Topiramate affects body mass index, fasting vjyhsch-er-ydsrfgl ratio, and serum leptin and cortisol levels. [...] at or call local emergency services at 160. What other information should I know? Keep all appointments with your doctor and the laboratory. Do not let anyone else take your medication. Topiramate use needs to be monitored closely. Prescriptions may be refilled only a limited number of times. Keep a written list of all of your prescription and nonprescription (ypom-csh-khftvjl) medicines, in addition to vitamins, minerals, or [...] make up for a missed one. Sources Pubmed Health: http://www.ncbi.nlm.nih.gov/pubm edhealth/GTL3742387/ Drugs.com http://www.drugs.com/pro/topiram ate.html - Eat primarily whole [...] and meals from a variety of companies (Scratch Wireless, YelloYello, OptiFleck, and PHARMAJET). The calorie content was 150 to 220 [...] Broccoli Brussel sprouts Cabbage Carrots Cauliflower Celery [place] Eggplant Green beans Lettuce Peppers Snap peas [...] oz is 28 gm protein Beef, Chicken, Sycamore, Pork, Bhatti 1 oz 7g Fish, Tuna [...] protein & 2 carb Protein AND carbs Beef/Sycamore Jerky 1 oz dried 10-15g protein - check carb count, can be high if sugar added Slim Santana - 6 gm protein and 4 net carb Great Value original turkey sausage sticks - 7 gm protein and 2 gm carb Wandy [employer] Ubaldo (at [facility]) Original smoked sausage sticks - 8 gm protein and 0 carb Imitation Crab Meat 1 oz - 2g protein & 4g carb Milk, skim 2% or 1% 8 oz - 8g protein & 12g carb [place] yogurt Full Fat [place] Yogurt 1 cup - 20.4g protein & 9.1g carb 2% [place] Yogurt 1 cup - 22.7g protein & 9.1g carb 0% (fat-free) [place] Yogurt - 1 cup 24g protein & 9.3g carb Aldi Protein [place] yogurt single svg - 15g protein & 7g carb Chobani Zero Sugar single svg: - 12g protein & 5g carb Dannon [place] Light + Fit 1 single svg - 12g protein & 9g carb Oikos Pro single svg - 20g protein & 8g carb Oikos Triple Zero [place] Nonfat Yogurt 1 single svg - 15g protein & 7g carb :ratio, KETO Friendly Dairy Snack 1 single svg - 15g protein & 2g carb :ratio Protein 1 single svg - 25g protein & 8g carb Two Good Lowfat [place] Yogurt, [place], Lower Sugar - 12g protein & 2g carb Yoplait Protein 1 single svg 15gm protein & 5gm carb Dairy Free - [place] unsweetened [place] almond/soy 15 gm protein & 3 gm carb Cheese each oz Brie 5.9g protein & 0.1g carb Cheddar 7g protein & 0.4g carb Shane 6.7g protein & 0.7g carb Cream Cheese 1.7g protein & 1.2g carb Feta 4g protein & 1.2g carb Mozzarella 6.3g protein & 0.6g carb Parmesan 10g protein & 0.9g carb Sammarinese 7.6g protein & 1.5g carb Cottage Cheese 1/2 c Breakstone 2% 13g protein 7g carb Tanya 2% 13g protein 5 g carb Good Culture 2% 14g protein 3g carb Mata s Low Fat 12g protein & 4g carb Legumes Lentils cup 9g protein & 20g carb Thurman beans cup 7g protein & 20g carb Kidney, Black, Tiro, Cannellini beans cup 8g protein & 20g carb Soybeans 1/2 c 14g complete protein & 8.5g carb Alpha milk, unsweetened 8 oz 1g protein & 2g carb Soy milk 8 oz 3.5g protein & 1.6g carb Tofu 1/2 cup 10g protein & 2.3g carb Peanut butter, natural 2 Tbsp 7-8g protein & 4g net carbs, 190 calories PB2 powder 2 Tbsp 6g protein & 5g carb Nuts and Seeds per oz Almonds - 5.9g protein & 6.1g carb [place] Nuts - 4.0g protein & 3.4g carb [...] Seeds - 6.9g protein & 5g carb [place] Seeds - 5.8g protein & 5.6g carb [...] investigated how much self-weighing frequency predicted 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 [...] see the trend of your weight change. Happy Scale for iPhone and Sylvie for Android [...] you need to achieve your weight goals. https://www.[employer] Inc.line.com/nutri tion/daily-weighing documented in this encounter [facility] 03-08-2024 Telephone encounter Note ordered [facility] 03-08-2024 Miscellaneous Notes ordered Pt notified [...] pill with dinner). Please have her review [employer] message regarding medication before starting it. documented in this encounter [facility] 03-08-2024 Telephone encounter Note Pt notified and voiced understanding. Reviewed instructions with Pt. Denies questions/concerns. Rx order pended. Neha Sheikh RN [facility] 03-05-2024 Telephone encounter Note Left message for patient to call office. Neha Sheikh RN [facility] 03-05-2024 Telephone encounter Note ----- Message [...] pill with dinner). Please have her review [employer] message regarding medication before starting it. [facility] 03-01-2024 Instructions Munira Ruelas MD - [...] slots. This should not be done on [employer] as you will not be scheduled appropriately and will need to be rescheduled. We appreciate that you have entrusted us with your health and know that we are committed to this process with you. Sincerely, Munira Keyes MD, CHIQUI MURRAY & Nuha Kennedy CNP Advanced Education from the Obesity Medicine Association Obesity Obesity is a disease that affects nearly one-third of the adult [place] population (approximately 60 million). The number of overweight and obese Americans has continued to increase since 1959, a trend that is not slowing down. Today, 64.5 percent of adult Americans (about 127 million) are categorized as being overweight or obese. Each year, obesity causes at least 300,000 excess deaths in the [place] and healthcare costs of [place] adults with obesity amount to approximately $100 [...] the gallbladder, breast, uterus, cervix, or ovaries https://my.[facility]/ ealt/diseases/20490-hyijyr-qvgy ommdkj-joyutpu-juautoeek - Eat primarily whole foods. Limit carbs, [...] and meals from a variety of companies (Scratch Wireless, YelloYello, Fluid Stone, and PHARMAJET). The calorie content was 150 to 220 [...] oz is 28 gm protein Beef, Chicken, Sycamore, Pork, Bhatti 1 oz 7g Fish, Tuna [...] protein & 2 carb Protein AND carbs Beef/Sycamore Jerky 1 oz dried 10-15g protein - check carb count, can be high if sugar added Slim Santana - 6 gm protein and 4 net carb Great Value original turkey sausage sticks - 7 gm protein and 2 gm carb [employer]bal[employer] (at [facility]) Original smoked sausage sticks - 8 gm protein and 0 carb Imitation Crab Meat 1 oz - 2g protein & 4g carb Milk, skim 2% or 1% 8 oz - 8g protein & 12g carb [place] yogurt Full Fat [place] Yogurt 1 cup - 20.4g protein & 9.1g carb 2% [place] Yogurt 1 cup - 22.7g protein & 9.1g carb 0% (fat-free) [place] Yogurt - 1 cup 24g protein & 9.3g carb Aldi Protein [place] yogurt single svg - 15g protein & 7g carb Chobani Zero Sugar single svg: - 12g protein & 5g carb Dannon [place] Light + Fit 1 single svg - 12g protein & 9g carb Oikos Pro single svg - 20g protein & 8g carb Oikos Triple Zero [place] Nonfat Yogurt 1 single svg - 15g protein & 7g carb :ratio, KETO Friendly Dairy Snack 1 single svg - 15g protein & 2g carb :ratio Protein 1 single svg - 25g protein & 8g carb Two Good Lowfat [place] Yogurt, [place], Lower Sugar - 12g protein & 2g carb Yoplait Protein 1 single svg 15gm protein & 5gm carb Dairy Free - [place] unsweetened [place] almond/soy 15 gm protein & 3 gm carb Cheese each oz Brie 5.9g protein & 0.1g carb Cheddar 7g protein & 0.4g carb Shane 6.7g protein & 0.7g carb Cream Cheese 1.7g protein & 1.2g carb Feta 4g protein & 1.2g carb Mozzarella 6.3g protein & 0.6g carb Parmesan 10g protein & 0.9g carb Sammarinese 7.6g protein & 1.5g carb Cottage Cheese 1/2 c Breakstone 2% 13g protein 7g carb Tanya 2% 13g protein 5 g carb Good Culture 2% 14g protein 3g carb Mata s Low Fat 12g protein & 4g carb Legumes Lentils cup 9g protein & 20g carb Thurman beans cup 7g protein & 20g carb Kidney, Black, Tiro, Cannellini beans cup 8g protein & 20g carb Soybeans 1/2 c 14g complete protein & 8.5g carb Alpha milk, unsweetened 8 oz 1g protein & 2g carb Soy milk 8 oz 3.5g protein & 1.6g carb Tofu 1/2 cup 10g protein & 2.3g carb Peanut butter, natural 2 Tbsp 7-8g protein & 4g net carbs, 190 calories PB2 powder 2 Tbsp 6g protein & 5g carb Nuts and Seeds per oz Almonds - 5.9g protein & 6.1g carb [place] Nuts - 4.0g protein & 3.4g carb [...] Seeds - 6.9g protein & 5g carb [place]ibola Seeds - 5.8g protein & 5.6g carb [...] Broccoli Brussel sprouts Cabbage Carrots Cauliflower Celery [place] Eggplant Green beans Lettuce Peppers Snap peas [...] High Protein Snack Ideas 1. Jerky 2. [place] mix without dried fruit 3. Sycamore roll-ups 4. [place] yogurt 5. Veggies and yogurt dip 6. Tuna 7. Hard-boiled eggs 8. Peanut butter with celery 9. Cheese slices/ Cheese Stick 10. Handful of almonds, peanuts or walnuts 11. Cottage Cheese 12. Beef sticks 13. Protein bars 14. Canned [place] 15. Pumpkin seeds 16. Nut butter 17. Protein shakes 18. Avocado and chicken salad 19. Egg muffins 20. Leftover protein or lunch meat 21. 1/2 c blended cottage cheese or [place] yogurt with dry ranch/Mrs. Dash/herb seasoning mix [...] of this process. documented in this encounter [facility] 03-01-2024 Note HNO ID: [id number] Author: MUNIRA RUELAS MD Service: ? 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 Difficulty losing weight? Yes she [...] - L - Collin fettuccini ad, Cheeseburger caleb, whoppidris aggarwal [place], Irish pizza (eats out a lot) S - [...] and increased consumption of sugar sweetened beverages. Back Facer of impaired eating habits:excessive hunger, lack of [...] removal PAST SUE (more content not included)... 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 Difficulty losing weight? Yes she [...] L - Collin fettuccini ad, Cheeseburger basket, whopper jr. [place], Irish pizza (eats out a lot) S - [...] and increased consumption of sugar sweetened beverages. Back Facer of impaired eating habits:excessive hunger, lack of [...] Work-related activity:None . Gym Membership: yes - [employer] Activity Tracker: no average steps per [...] (Bazett) 10/06/2022 429 ms Final Calculated P [place] 10/06/2022 49 degrees Final Calculated R [place] 10/06/2022 5 degrees Final Calculated T [place] 10/06/2022 20 degrees Final Ventricular Rate 10/06/2022 67 BPM Preliminary Atrial Rate 10/06/2022 67 BPM Preliminary P-R Interval 10/06/2022 174 ms Preliminary QRS Duration 10/06/2022 84 ms Preliminary QT Interval 10/06/2022 406 ms Preliminary QTC Calculation (Bazett) 10/06/2022 429 ms Preliminary Calculated P [place] 10/06/2022 49 degrees Preliminary Calculated R [place] 10/06/2022 5 degrees Preliminary Calculated T [place] 10/06/2022 20 degrees Preliminary Impression: Gwen Rockwell [...] intervention is the best and most appropriate correction therapeutic option. -- We discussed several strategies [...] training and cardiovascular exercise is the best correction plan. An overall goal of 150-200 minutes [...] which included preparing to see the patient, puio-pa-skvy patient care, completing clinical documentation, obtaining and/or reviewing separately obtained history, performing a medically appropriate examination, counseling and educating the patient/family/caregiver, and ordering medications, tests, or procedures. Munira Corona MD, FACOG, DABOM documented in this encounter [facility] 12-09-2023 Note Formatting of this n ote might be different from the original. December 09, 2023 PID: [id number] Gwen Rockwell [address] [place] [address] Dear Ms. Rockwell, We are pleased to [...] report will be kept on file at [facility] as part of your permanent medical record and are available for your continuing care. Thank you for allowing us to help in meeting your health care needs. Sincerely, Dr. Shepherd Interpreting Radiologist [facility] (Normal over 40) [facility] 12-09-2023 Miscellaneous Notes December 09, 2023 PID: [id number] Gwen Rockwell [address] [place] [address] Dear Ms. Rockwell, We are pleased to [...] report will be kept on file at [facility] as part of your permanent medical record and are available for your continuing care. Thank you for allowing us to help in meeting your health care needs. Sincerely, Dr. Shepherd Interpreting Radiologist [facility] (Normal over 40) documented in this encounter [facility] 12-08-2023 History of Presen t illness [...] PATIENT PRESENTS WITH AN IMPLANTABLE OR ATTACHED FORESTRY PATROLMAN: No RADIOLOGY DEPARTMENT: Mammography PERIPHERAL IV DATA: Not applicable SIGNED BY: Viviane Potts December 08, 2023 11:41 AM documented in this encounter [facility] 12-08-2023 Note HNO ID: [id number] Author: RAMONA BECKETT Mammo Tech Service: ? Author Type: Director Of Technology Type: Progress Notes Filed: 12/08/2023 11:42 Note [...] PATIENT PRESENTS WITH AN IMPLANTABLE OR ATTACHED FORESTRY PATROLMAN: No RADIOLOGY DEPARTMENT: Mammography PERIPHERAL IV DATA: Not applicable SIGNED BY: Viviane Potts December 08, 2023 11:41 AM [facility] 11-19-2023 Note HNO ID: [id number] Author: XIMENA CARDENAS MD Service: ? Author [...] Multiple0 Live Births0 Comment: 1 vaginal delivery Core Drier History LMP: 06/06/2011, Ablation Age at Menarche: Age at First : Age at Menopause: Core Drier History Comments: Sexual Activity: Not Currently; No [...] external genitalia normal, normal Bartholin's glands, urethra, Reddell's glands, no vulvar lesions, no cervical lesions, [...] consult for wt management Ximena Cardenas MD [facility] 11-19-2023 History of Presen t illness Narrative Gwen is a 68 year old who presents for an annual gynecologic exam without complaints. Postmenopausal: yes Last Pap: 10/09/2021 normal HPV: 10/04/2021 negative History of abnormal pap: No Last mammogram: 2021 normal History of abnormal mammogram: yes, has had a biopsy OB History T1 L1 SAB0 IAB0 Ectopic0 Multiple0 Live Births0 Comment: 1 vaginal delivery Core Drier History LMP: 06/06/2011, Ablation Age at Menarche: Age at First : Age at Menopause: Core Drier History Comments: Sexual Activity: Not Currently; No [...] external genitalia normal, normal Bartholin's glands, urethra, Reddell's glands, no vulvar lesions, no cervical lesions, [...] month requests consult for wt management Ximena Cradenas MD documented in this encounter [facility] 02-21-2023 History of Presen t illness [...] Tone Carver APRN.KIMBERLY documented in this encounter [facility] 10-05-2022 History of Presen t illness [...] will drive her across the street to [facility] ED for further evaluation. documented in this encounter [facility] 04-23-2022 History of Presen t illness Narrative This is an Express Care eVisit note for Gwen Dexter Moiz eVisit/Questionnaire reviewed The chief complaint for [...] twice daily for 5 days. Jamia Roche APRN.GAS TORCH SOLDERER documented in this encounter [facility] 01-09-2022 Miscellaneous Notes Patient notified. Yris [...] Yris Fitzgerald RN documented in this encounter [facility] 10-20-2021 Miscellaneous Notes Done. Thank you, [...] consult Harley Thacker documented in this encounter [facility] 10-01-2021 Miscellaneous Notes TC juan Chaudhary who verbalizes understanding of the message below. GILDARDO Pérez Unfortunately, Dr. Cleveland is not accepting any new patients at this time. I am sorry. Felisa Rodriguez APRN.GAS TORCH SOLDERER Pt calls to ask if Dr. Cleveland [...] Dionne Mustafa LPN documented in this encounter [facility] 10-01-2021 Miscellaneous Notes October 01, 2021 PID: [id number] Gwen Rockwell [address] [place] [address] Dear Ms. Rockwell, We are pleased to [...] report will be kept on file at [facility] as part of your permanent medical record and are available for your continuing care. Thank you for allowing us to help in meeting your health care needs. Sincerely, Dr. Hart Interpreting Radiologist [facility] (Normal over 40) documented in this encounter [facility] 10-01-2021 History of Presen t illness [...] DATA: Not applicable SIGNED BY: Nayeli Champion [employer] October 01, 2021 9:37 AM documented in this encounter [facility] 10-01-2021 Instructions Ximena Cardenas MD - [...] If you do not have a responsible production truck driver (family member or friend) with [...] exam. 3 05/2019 documented in this encounter [facility] 10-01-2021 History of Presen t illness Narrative Gwen is a 66 year old who presents for an annual gynecologic exam without complaints. Planning fdc in the fall. Had a knee replacement in recent history and doing well w/ that. Postmenopausal: yes HRT use: No. Last Pap: 02/10/2018 normal HPV: 02/06/2018 negative History of abnormal pap: No Last mammogram: today pending History of abnormal mammogram: No Sexually active: not currently OB History T1 L1 SAB0 IAB0 Ectopic0 Multiple0 Live Births0 Core Drier History LMP: 06/06/2011, Ablation Age at Menarche: Age at First : Age at Menopause: Core Drier History Comments: Sexual Activity: Not Currently; No [...] external genitalia normal, normal Bartholin's glands, urethra, Reddell's glands, no vulvar lesions, no cervical lesions, [...] Ximena Cardenas MD documented in this encounter [facility] Evaluation note Diagnosis Encounter for gynecological [...] malignant neoplasms, colon [facility] Diagnosis Encounter for screening mammogram for malignant neoplasm of breast Other screening mammogram [facility] noteNo assessment information availableWRegency Hospital Company Work Phone: Evaluation note* Diagnosis Dysuria- Primary Acute low back pain, unspecified back pain laterality, unspecified whether sciatica present [facility] Diagnosis Bacterial sinusitis- Primary Unspecified sinusitis (chronic) [facility] Diagnosis Dizziness- Primary Dizziness and giddiness Headache, unspecified headache type [facility] Diagnosis Acute rhinosinusitis- Primary Acute sinusitis, unspecified [facility]* Diagnosis Encounter for gynecological examination (general) (routine) without abnormal findings- Primary Encounter for screening mammogram for breast cancer Class 3 severe obesity due to excess calories with serious comorbidity and body mass index (BMI) of 40.0 to 44.9 in adult ([facility]) Obstructive sleep apnea syndrome Obstructive sleep apnea (adult) (pediatric) [facility] Diagnosis Encounter for screening mammogram for breast cancer documented in this encounter [facility] note* Diagnosis Hypertension, unspecified type- Primary [...] (BMI) of 40.0 to 44.9 in adult ([facility]) documented in this encounter [facility] note* Diagnosis Insulin resistance- Primary Dysmetabolic Syndrome X documented in this encounter [facility] note* Diagnosis Insulin resistance- Primary Dysmetabolic Syndrome [...] (BMI) of 40.0 to 44.9 in adult ([facility]) documented in this encounter [facility] note* Diagnosis Insulin resistance Dysmetabolic Syndrome X documented in this encounter [facility] for referral (narrative)* Outpatient Procedure (Routine) - Pending Review Specialty Diagnoses / Procedures Referred By Bianca t Referred To Contact [facility] Diagnoses Encounter for screening for malignant neoplasm of colon Procedures COLONOSCOPY SCREENING COLONOSCOPY FLX DX W/COLLJ SPEC WHEN PFRMD Ximena Cardenas MD [address] [place] [address] [facility] [address] [place] [address] Referral ID Status Reason Start Date Expiration Date Visits Requested Visits Authorized [id number] Pending Review Auto-Generat ed Referral 10/01/2021 10/01/2022 1 1 * Diagnostic Procedure Only (Routine) - Pending Review Specialty Diagnoses / Procedures Referred By Aliyahac t Referred To Contact [facility] Diagnoses Encounter for screening mammogram for malignant neoplasm of breast Procedures WENDY SCREENING SCREENING MAMMOGRAPHY BI 2-VIEW BREAST INC Ximena Short MD [address] [place] [address] [facility] [address] [place] [address] Referral ID Status Reason Start Date Expiration Date Visits Requested Visits Authorized [id number] Pending Review Auto-Generat ed Referral 10/01/2021 10/31/2022 1 1 [facility] for referral (narrative)* Diagnostic Procedure Only (Routine) - Closed Specialty Diagnoses / Procedures Referred By Bianca bal Referred To Contact [facility] Diagnoses Encounter for screening mammogram for malignant neoplasm of breast Procedures WENDY SCREENING SCREENING MAMMOGRAPHY BI 2-VIEW BREAST INC Ximena Short MD [address] [place] [address] [facility] [address] [place] [address] Referral ID Status Reason Start Date Expiration Date V isits Requested Visits Authorized [id number] Closed Auto-Generate d Referral 03/09/2021 04/08/2022 1 1 T [facility] for referral (narrative)No reason for referral information availableWRegency Hospital Company Work Phone: Reason for visit Narrative* Diagnostic Procedure Only (Routine) - Closed Specialty Diagnoses / Procedures Referred By Bianca bal Referred To Contact [facility] Diagnoses Encounter for screening mammogram for malignant neoplasm of breast Procedures WENDY SCREENING SCREENING MAMMOGRAPHY BI 2-VIEW BREAST INC Ximena Short MD [address] [place] [address] [facility] [address] [place] [address] Referral ID Status Reason Start Date Expiration Date V isits Requested Visits Authorized [id number] Closed Auto-Generate d Referral 03/09/2021 04/08/2022 1 1 [facility] Diagnostic Procedure Only (Routine) - Closed Specialty Diagnoses / Procedures Referred By Bianca t Referred To Contact [facility] Diagnoses Encounter for screening mammogram for breast cancer Procedures WENDY SCREENING W LESVIA SCREENING DIGITAL BREAST TOMOSYNTHESIS BI SCREENING MAMMOGRAPHY BI 2-VIEW BREAST INC Ximena Short MD [address] [place] [address] [facility] [address] [place] [address] Referral ID Status Reason Start Date Expiration Date V isits Requested Visits Authorized [id number] Closed Auto-Generate d Referral 11/19/2023 12/18/2024 1 1 [facility] Advance Directives No Advanced Directives Records FoundDocuments on File Type Date Recorded Patient Congressional Assistant Expl anation Advance Directive(s) 03/09/2018 8:09 AM Documents on File Type Date Recorded Patient Congressional Assistant Expl anation Advance Directive(s) 03/09/2018 8:09 AM Advance Directive Response Recorded Date/ Time Advance Directives Yes December 24 1:24pm Living Will Yes November 01, 2020 1 0:08am Power of Registered Diet Technician No November 01, 2020 10:08am Advance Directive Response Recorded Date/ Time Advance Directives Yes December 24 12:24pm Living Will Yes November 01, 2020 9 :08am Power of Registered Diet Technician No November 01, 2020 9:08am Advance Directive Response Recorded Date/ Time Advance Directives Yes December 24 12:24pm Living Will No October 24, 2022 1 1:31am Power of Registered Diet Technician No October 24, 2022 11:31am Advance Directive [...] Obstructive sleep apnea syndrome Procedures CONSULT TO [facility] WEIGHT MANAGEMENT PROGRAM OFFICE/[facility]IENT [facility] 60 MINUTES Ximena Cardenas MD [address] [place] [address] Referral ID Status Reason Start Date Expiration Date Visits Requested Visits Authorized [id number] Authorized PCP Requested Referral Auto-Generate d Referral 11/19/2023 11/18/2024 1 1 Specialty Diagnoses / Procedures Referred By Bianca bal Referred To Contact [facility] Diagnoses Encounter for screening mammogram for breast cancer Procedures WENDY SCREENING W LESVIA SCREENING DIGITAL BREAST TOMOSYNTHESIS BI SCREENING MAMMOGRAPHY BI 2-VIEW BREAST INC CAD Ximena Cardenas MD [address] [place] [address] [facility] [address] [place] [address] Referral ID Status Reason Start Date Expiration Date Visits Requested Visits Authorized [id number] Authorized Auto-Generat ed Referral 11/19/2023 12/18/2024 1 1 Additional Source Comments Source Comments (unrecognize d section and content) In the event this informatio n is protected by the Federal Confidentiality of Alcohol and Drug Abuse Patient Records regulations: The Federal rules restrict any use of the information to criminally investigate or prosecute any alcohol or drug abuse patient.[facility] the event this information is protected by the Federal Confidentiality of Alcohol and Drug Abuse Patient Records regulations: The Federal rules restrict any use of the information to criminally investigate or prosecute any alcohol or drug abuse patient.[facility] the event this information is protected by the Federal Confidentiality of Alcohol and Drug Abuse Patient Records regulations: The Federal rules restrict any use of the information to criminally investigate or prosecute any alcohol or drug abuse patient.[facility] Hospital[facility] the event this information is protected by the Federal Confidentiality of Alcohol and Drug Abuse Patient Records regulations: The Federal rules restrict any use of the information to criminally investigate or prosecute any alcohol or drug abuse patient.[facility] HospitalIn the event this information is protected by the Federal Confidentiality of Alcohol and Drug Abuse Patient Records regulations: The Federal rules restrict any use of the information to criminally investigate or prosecute any alcohol or drug abuse patient.[facility] HospitalIn the event this information is protected by the Federal Confidentiality of Alcohol and Drug Abuse Patient Records regulations: The Federal rules restrict any use of the information to criminally investigate or prosecute any alcohol or drug abuse patient.[facility] the event this information is protected by the Federal Confidentiality of Alcohol and Drug Abuse Patient Records regulations: The Federal rules restrict any use of the information to criminally investigate or prosecute any alcohol or drug abuse patient.[facility] Hospital[facility] the event this information is protected by the Federal Confidentiality of Alcohol and Drug Abuse Patient Records regulations: The Federal rules restrict any use of the information to criminally investigate or prosecute any alcohol or drug abuse patient.[facility] HospitalIn the event this information is protected by the Federal Confidentiality of Alcohol and Drug Abuse Patient Records regulations: The Federal rules restrict any use of the information to criminally investigate or prosecute any alcohol or drug abuse patient.[facility] HospitalIn the event this information is protected by the Federal Confidentiality of Alcohol and Drug Abuse Patient Records regulations: The Federal rules restrict any use of the information to criminally investigate or prosecute any alcohol or drug abuse patient.[facility] Hospital[facility] the event this information is protected by the Federal Confidentiality of Alcohol and Drug Abuse Patient Records regulations: The Federal rules restrict any use of the information to criminally investigate or prosecute any alcohol or drug abuse patient.[facility] HospitalIn the event this information is protected by the Federal Confidentiality of Alcohol and Drug Abuse Patient Records regulations: The Federal rules restrict any use of the information to criminally investigate or prosecute any alcohol or drug abuse patient.[facility] HospitalIn the event this information is protected by the Federal Confidentiality of Alcohol and Drug Abuse Patient Records regulations: The Federal rules restrict any use of the information to criminally investigate or prosecute any alcohol or drug abuse patient.[facility] HospitalIn the event this information is protected by the Federal Confidentiality of Alcohol and Drug Abuse Patient Records regulations: The Federal rules restrict any use of the information to criminally investigate or prosecute any alcohol or drug abuse patient.[facility] HospitalIn the event this information is protected by the Federal Confidentiality of Alcohol and Drug Abuse Patient Records regulations: The Federal rules restrict any use of the information to criminally investigate or prosecute any alcohol or drug abuse patient.[facility] HospitalIn the event this information is protected by the Federal Confidentiality of Alcohol and Drug Abuse Patient Records regulations: The Federal rules restrict any use of the information to criminally investigate or prosecute any alcohol or drug abuse patient.[facility] HospitalIn the event this information is protected by the Federal Confidentiality of Alcohol and Drug Abuse Patient Records regulations: The Federal rules restrict any use of the information to criminally investigate or prosecute any alcohol or drug abuse patient.[facility] Reason for Visit (unrecogniz ed section and content) Reason Onset Date Comments Yearly Exam 10/01/2021 Reason Comments Patient Question Reason Comments Outpatient Colonoscopy Reason Comments Dysuria Reason Comments Sinusitis Reason Comments Sinus Problem Reason Comments Yearly Exam Reason Onset Date Comments Weight Management 03/01/2024 Specialty Diagnoses / Procedures Referred By Contjacob t Referred To Contact Diagnoses Class 3 severe obesity due to excess calories with serious comorbidity and body mass index (BMI) of 40.0 to 44.9 in adult (HCC) Obstructive sleep apnea syndrome Procedures CONSULT TO [facility] WEIGHT MANAGEMENT PROGRAM OFFICE/[facility]IENT [facility] 60 MINUTES Ximena Cardenas MD [address] [place] [address] Referral ID Status Reason Start Date Expiration Date V isits Requested Visits Authorized [id number] Closed PCP Requested Referral Auto-Generated Referral 11/19/2023 11/18/2024 1 1 Reason Comments Results Reason Comments Weight Management Reason Comments Refill Request Care Teams (unrecognized sec tion and content) Assistant Director Of Public Works Relationship Specialty Start Date End Date Robert Najera MD [address] [facility] [address] [place], [place] [id number] PCP - General Family Practice 02/18/18 Assistant Director Of Public Works Relationship Specialty Start Date End Date Robert Najera MD [address] [facility] [address] [place], [place] [address] PCP - General Family Practice 02/18/18 Assistant Director Of Public Works Relationship Specialty Start Date End Date Robert Najera MD [address] [facility] [address] [place], [place] [address] PCP - General Family Practice 02/18/18 Assistant Director Of Public Works Relationship Specialty Start Date End Date Robert Najera MD [address] [facility] [address] [place] [address] PCP - General Family Practice 02/18/18 Assistant Director Of Public Works Relationship Specialty Start Date End Date Robert Najera MD [address] [place] [address] [address] [place] [address] PCP - General Family Practice 02/18/18 Assistant Director Of Public Works Relationship Specialty Start Date End Date Robert Najera MD [address] [place] [address] [address] [place] [address] PCP - General Family Practice 02/18/18 Assistant Director Of Public Works Relationship Specialty Start Date End Date Robert Najera MD [address] [place] [address] [address] [place] [address] PCP - General Family Medicine 02/18/18 Team Status: Active Member Role Status Dates Dr. Robert Najera MD Family Provider Active Dr. Bernice Andujar DO Primary Care Provider Active Team Status: Inactive Member Role Status Dates Dr. Bernice Andujar DO Primary Care Provider, Attending Boby romero Active Assistant Director Of Public Works Relationship Specialty Start Date End Date Bernice Andujar DO [address] [place] [address] PCP - General Family Medicine 10/05/22 Assistant Director Of Public Works Relationship Specialty Start Date End Date Bernice Andujar DO [address] [place] [address] PCP - General Family Medicine 10/05/22 Team Status: Inactive Member Role Status Dates Dr. Bernice Andujar DO Primary Care Provide r, Attending Provider, Referring Provider Active Assistant Director Of Public Works Relationship Specialty Start Date End Date Bernice Andujar DO [address] [place] [address] PCP - General Family Medicine 10/05/22 Assistant Director Of Public Works Relationship Specialty Start Date End Date Regina Andujara DO Regino [address] [place] [address] PCP - General Family Medicine 10/05/22 Assistant Director Of Public Works Relationship Specialty Start Date End Date Con Bernice Lacy DO [address] [place] [address] PCP - General Family Medicine 10/05/22 Assistant Director Of Public Works Relationship Specialty Start Date End Date Bernice Andujar Regino [address] [place] [address] PCP - General Family Medicine 10/05/22 Assistant Director Of Public Works Relationship Specialty Start Date End Date Con Bernice Lacy DO [address] [place] [address] PCP - General Family Medicine 10/05/22 Assistant Director Of Public Works Relationship Specialty Start Date End Date Con Bernice Lacy [address] [place] [address] PCP - General Family Medicine 10/05/22 Assistant Director Of Public Works Relationship Specialty Start Date End Date Con Bernice Lacy DO [address] [place] [address] PCP - General Family Medicine 10/05/22 Team [...] November 04, 2024 End: November 04, 2024 Team Status: Active Member Role/Relationship Status Dates Dr. Robert Najera MD Family Provider Active Dr. Bernice Andujar DO Primary Care Provider Active Team Status: Inactive Member Role/Relationship Status Dates Dr. Bernice Andujar DO Primary Care Provider Active Start: November 03, 2024 End: November 03, 2024 Dr. Bernice Andujar DO Attending Provider Active St art: November 03, 2024 End: November 03, 2024 Dr. Bernice Andujar DO Referring Provider Active St art: November 03, 2024 End: November 03, 2024 Team Status: Inactive Member Role/Relationship Status Dates Dr. Bernice Andujar DO Primary Care Provider Active Start: November 04, 2024 End: November 04, 2024 Dr. Bernice Andujar DO Attending Provider Active St art: November 04, 2024 End: November 04, 2024 Dr. Bernice Andujar DO Referring Provider Active St art: November 04, 2024 End: November 04, 2024 Team Status: Inactive Member Role/Relationship Status Dates Dr. Bernice Andujar DO Primary Care Provider Active Start: January 13, 2025 End: January 13, 2025 Dr. Bernice Andujar DO Attending Provider Active St art: January 13, 2025 End: January 13, 2025 Goals (unrecognized section and content) Goals may [...] section and content) DATE CREATED AUTHOR 10/07/2022 [facility] DATE CREATED AUTHOR AUTHOR'S ORGANDAFNE ATION 04/02/2024 [facility] DATE CREATED AUTHOR AUTHOR'S ORGANIZ ATION 01/25/2025 [facility] FOR RECORDS PERTAINING TO PATIENTS [...] BE BASED ON THE PRIMARY CLINICAL RECORDS. [employer] provides no warranty or guarantee of the accuracy or completeness of information in this document.
== END | disposition home or self-care (01) ==
LOC: OPBD 10:37
PROVIDERS: PCP Family Medicine; Referring Provider Family Medicine; Visit Provider Family Medicine
DX: M81.0 Age-related osteoporosis without current pathological fracture (principal)
CPT/HCPCS: 77080